=== PATIENT | male | born 1950 | race Hispanic/Latino ===

== ENCOUNTER 2017-02-02 22:59 | Inpatient (IN) | payer MEDICARE, MEDICAID ==
[2017-02-02] MEDS ORDERED: Sodium Chloride 0.9% 1,000 ML IV STA (23:54)
--- NOTE | 2017-02-02 23:54 | ED PDOC ---
Arrival/HPI - General Chief Complaint: Lower Extremity Problem/Injury Time Seen by Provider: 02/02/17 23:51 Historian: Caregiver, EMS - History of Present Illness Narrative History of Present Illness (Text): 02/02/17 23:55 Romulo Delaney is a 66 year old male, with a history of Parkinson's Disease and seizure, presents to the emergency department complaining via ambulance for evaluation following a mechanical fall prior to arrival. According to patient's caregiver, patient experienced a fall after his right knee "gave out." There is swelling and ecchymosis to the nasal bridge and approximately 1 cm wound with surrounding erythema to right knee. Patient is drowsy and is unable to answer questions. ROS limited due to patient's condition. Time/Duration: Prior to Arrival Symptom Onset: Sudden Severity Level: Mild Activities at Onset: Light Past Medical History - Provider Review Nursing Documentation Reviewed: Yes - Neurological Hx Parkinson's Disease: Yes Hx Seizures: Yes - Psychiatric Hx Substance Use: No Family/Social History - Physician Review Nursing Documentation Reviewed: Yes Family/Social History: No Known Family HX Smoking Status: n Hx Alcohol Use: No Hx Substance Use: No Allergies/Home Meds Allergies/Adverse Reactions: Allergies No Known Allergies Allergy (Verified 02/02/17 23:13) Home Medications: Home Meds Medication Instructions Recorded Confirmed Clonazepam [Klonopin] 1 mg PO BID 02/02/17 02/03/17 Mirtazapine [Remeron] 30 mg PO HS 02/02/17 02/02/17 Phenobarbital [PHENobarbital Tab] 32.4 mg PO TID 02/02/17 02/02/17 Thioridazine HCl 100 mg PO BID 02/02/17 02/03/17 amLODIPine [Norvasc] 10 mg PO DAILY 02/02/17 02/02/17 risperiDONE [RisperDAL] 0.25 mg PO BID 02/02/17 02/02/17 risperiDONE [RisperDAL] 0.5 mg PO DAILY 02/02/17 02/02/17 Carbamazepine [Carbamazepine] 100 mg PO BID 02/03/17 02/03/17 clonazePAM [clonAZEPAM] 1 mg PO HS 02/03/17 02/03/17 Review of Systems - Review of Systems Systems not reviewed;Unavailable: Other (incoherent and drowsy) ENT: Other (mild swelling to nasal bridge ) Genitourinary Male: Other (1 cm wound to right knee with surrounding erythema ) Physical Exam Vital Signs Reviewed: Yes Vital Signs Temp Pulse Resp BP Pulse Ox 02/03/17 03:47 98.2 F 86 18 126/74 99 02/03/17 02:12 96 H 18 136/78 100 02/03/17 00:35 101.2 F H 115 H 19 132/76 95 02/02/17 22:59 98.4 F 114 H 18 128/72 98 Temperature: Afebrile Blood Pressure: Normal Pulse: Tachycardic Respiratory Rate: Normal Appearance: Positive for: Well-Appearing, Non-Toxic, Comfortable Pain Distress: None Mental Status: Positive for: other (drowsy) - Systems Exam Head: Present: Normocephalic Pupils: Present: PERRL Conjunctiva: Present: Normal Mouth: Present: Moist Mucous Membranes. No: Dry Nose (External): Present: Other (mild swelling to nasal bridge ) Nose (Internal): No: No Active Bleeding, Septal Deviation, Septal Hematoma, Epistaxis Neck: Present: Normal Range of Motion. No: MIDLINE TENDERNESS, Paraspinal Tenderness Respiratory/Chest: Present: Clear to Auscultation, Good Air Exchange. No: Respiratory Distress, Accessory Muscle Use Cardiovascular: Present: Regular Rate and Rhythm, Normal S1, S2. No: Murmurs Abdomen: Present: Normal Bowel Sounds. No: Tenderness, Distention, Peritoneal Signs Upper Extremity: Present: Normal Inspection, Normal ROM, NORMAL PULSES, Neurovascularly Intact, Capillary Refill < 2s. No: Cyanosis, Edema Lower Extremity: Present: Normal Inspection, NORMAL PULSES, Normal ROM, Erythema , Neurovascularly Intact, Capillary Refill < 2 s, Other (10 cm area of erythema and warmth to Right proximal tibia with 1 cm wound ). No: Edema, CALF TENDERNESS, Swelling, Temperature Abnormalties Neurological: Present: Other (drowsy, will not comply w full neuro exam. no focal deficits) Skin: Present: Warm, Dry, Normal Color. No: Rashes Medical Decision Making ED Course and Treatment: 02/03/17 00:30 EKG interpreted by me: Sinus Tachycardia @ 122 bpm. Short KS. No STEMI. 02/03/17 01:[address] Zaidi who agrees with the plan to admit patient for cellulitis to right leg. Accepts patient under hospitalist service. 02/03/17 03:01 CT Head results reviewed: FINDINGS: Limitations: Motion artifact - mild to moderate. Brain: Mild atrophy. No definite intracranial hemorrhage. No mass. Few scattered foci of decreased attenuation within periventricular/subcortical white matter. No definite edema. Ventricles: No hydrocephalus. Bones/joints: No acute fracture. Soft tissues: Probable sebaceous cyst within LEFT temporal region. Sinuses: Complete opacification of frontal, LEFT maxillary sinus. Extensive mucosal thickening of RIGHT maxillary sinus. Partial opacification of ethmoid sinuses. Mild-to- moderate thickening of sphenoid sinuses. Mastoid air cells: No mastoid effusion. IMPRESSION: 1. Limited examination. Consider repeat when clinically able. 2. No definite intracranial hemorrhage. 3. Nonspecific white matter changes. 4. Sinus disease. 5. Incidental/non-acute findings are described above. CT Cervical Spine results reviewed: FINDINGS: Vertebrae: No acute fracture. Prominent anterior and posterior osteophytes. Mild facet osteoarthrosis within cervical spine. Discs/spinal canal/neural foramina: [id number] degenerative disc disease within mid and lower cervical spine. Disc herniations/posterior osteophytes within mid to lower cervical spine, suboptimally evaluated. Mild indentation thecal sac/cord mid cervical spine. Mild indentation thecal sac lower cervical spine. Neuroforaminal narrowing within mid and lower cervical spine. Soft tissues: Unremarkable. Sinuses: Scattered mucosal thickening of visualized sinuses. Lung apices: Unremarkable as visualized. IMPRESSION: 1. No fracture. 2. Incidental/non-acute findings are described above. - Lab Interpretations Microbiology Results: Microbiology Results 02/03/17 00:31 Blood-Venous Blood Culture - Preliminary NO GROWTH AFTER 3 DAYS 02/03/17 00:48 Blood-Venous Blood Culture - Preliminary NO GROWTH AFTER 3 DAYS Lab Results: 02/03/17 00:33 02/03/17 00:33 Lab Results 02/03/17 00:33: C-React Prot High Sens > 15.00 H 02/03/17 00:33: Procalcitonin 0.22 02/03/17 00:33: ESR 68 H 02/03/17 00:33: Alcohol, Quantitative < 10 02/03/17 00:33: Sodium 139, Chloride 102, Potassium 3.1 L, Carbon Dioxide 25, Anion Gap 15, BUN 22 H, Creatinine 0.8, Est GFR ( Amer) > 60, Est GFR ( Non-Af Amer) > 60, Random Glucose 143 H, Calcium 9.2, Total Bilirubin 0.7, AST 58, ALT 42, Alkaline Phosphatase 102, Troponin I 0.01, Total Protein 7.6, Albumin 3.8, Globulin 3.8, Albumin/Globulin Ratio 1.0 L 02/03/17 00:33: WBC 14.6 H, RBC 3.78, Hgb 11.8 L, Hct 32.9 L, MCV 87.0, MCH 31.2 , MCHC 35.9, RDW 13.1, Plt Count 210, MPV 10.5, Gran % 83.3 H, Lymph % (Auto) 6.1 L, [place] % (Auto) 10.5 H, Eos % (Auto) 0.0 L, Baso % (Auto) 0.1, Gran # 12.18 H, Lymph # 0.9 L, [place] # 1.5 H, Eos # 0.0, Baso # 0.01 02/03/17 00:31: pO2 37, VBG pH 7.43, VBG pCO2 39.0 L, VBG HCO3 25.9, VBG Total CO2 27.1, VBG O2 Sat (Calc) 75.1 H, VBG Base Excess 1.5, VBG Potassium 3.2 L, Sodium 138.0, Chloride 109.0 H, Glucose 145 H, Lactate 1.4, FiO2 21.0, Venous Blood Potassium 3.2 L - RAD Interpretation Radiology Orders: 02/02/17 23:52 CERVICAL SPINE W/O CONTRAST [CT] Stat HEAD W/O CONTRAST [CT] Stat 02/02/17 23:53 CHEST ONE VIEW [RAD] Stat KNEE RIGHT 2 VIEWS (AP & LAT) [RAD] Stat - Medication Orders Current Medication Orders: Amoxicillin/Clavulanate Potassium (Augmentin 875 Mg-125 Mg Tab) 1 tab PO Q12 UMBERTO PRN Reason: Protocol Stop: 02/13/17 22:01 Discontinued Medications Acetaminophen (Tylenol 325mg Tab) 650 mg PO STAT STA Stop: 02/03/17 01:13 Last Admin: 02/03/17 02:07 Dose: 650 mg Re-Assess: SELENA Pain/Vitals Document 02/03/17 03:07 KGD (Rec: 02/03/17 06:49 KGD [id number]) Pain Reassessment Is This A Pain ReAssessment? Yes Presence of Pain Presence of Pain Yes Acetaminophen (Tylenol 325mg Tab) 650 mg PO Q6 PRN PRN Reason: Fever >100.4 F Amlodipine Besylate (Norvasc) 10 mg PO DAILY [facility] Last Admin: 02/05/17 09:19 Dose: 10 mg Carbamazepine (Tegretol) 100 mg PO BID UMBERTO PRN Reason: Protocol Last Admin: 02/05/17 09:18 Dose: 100 mg Re-Assess: Reassess Psych Meds Document 02/05/17 10:18 MJO (Rec: 02/05/17 11:[address]) Reassess Psych Med Effective Clonazepam (Klonopin) 1 mg PO BID UMBERTO PRN Reason: Protocol Last Admin: 02/05/17 11:07 Dose: Clonazepam (Klonopin) 1 mg PO ONCE ONE Stop: 02/05/17 09:31 Last Admin: 02/05/17 09:48 Dose: 1 mg Re-Assess: Reassess Psych Meds Document 02/05/17 10:48 MJO (Rec: 02/05/17 11:[address]) Reassess Psych Med Ineffective-LIP notifed Enoxaparin Sodium (Lovenox) 40 mg SC DAILY UMBERTO PRN Reason: Protocol Last Admin: 02/05/17 13:42 Dose: Not Given Non-Admin Reason: Patient Refused Sodium Chloride (Sodium Chloride 0.9%) 1,000 mls @ 999 mls/hr IV .Q1H1M STA Stop: 02/03/17 00:54 Last Admin: 02/03/17 00:58 Dose: 999 mls/hr Cefazolin Sodium (Ancef 1gm In Ns) 1 gm in 100 mls @ 100 mls/hr IVPB STAT STA Stop: 02/03/17 00:56 Last Admin: 02/03/17 00:59 Dose: 100 mls/hr Vancomycin HCl (Vancomycin 1gm) 1 gm in 250 mls @ 167 mls/hr IVPB STAT STA Stop: 02/03/17 01:27 Last Admin: 02/03/17 00:59 Dose: 167 mls/hr Sodium Chloride (Sodium Chloride 0.9%) 1,000 mls @ 999 mls/hr IV .Q1H1M STA Stop: 02/03/17 02:19 Last Admin: 02/03/17 02:07 Dose: 999 mls/hr Vancomycin HCl (Vancomycin 1gm) 1 gm in 250 mls @ 167 mls/hr IVPB Q12 UMBERTO PRN Reason: Protocol Last Admin: 02/04/17 21:13 Dose: 167 mls/hr Piperacillin Sod/Tazobactam Sod (Zosyn 3.375 In Ns 100ml) 100 mls @ 200 mls/hr IVPB Q6 UMBERTO PRN Reason: Protocol Stop: 02/03/17 12:29 Last Admin: 02/03/17 12:20 Dose: 200 mls/hr Sodium Chloride (Sodium Chloride 0.9%) 1,000 mls @ 125 mls/hr IV .Q8H [facility] Last Admin: 02/03/17 17:32 Dose: 125 mls/hr Ceftriaxone Sodium (Rocephin 1 Gram Ivpb) 1 gm in 100 mls @ 100 mls/hr IVPB DAILY [facility] PRN Reason: Protocol Stop: 02/13/17 10:01 Last Admin: 02/04/17 09:36 Dose: 100 mls/hr Sodium Chloride (Sodium Chloride 0.9%) 1,000 mls @ 75 mls/hr IV .[id number] [facility] Last Admin: 02/05/17 06:16 Dose: 75 mls/hr Potassium Chloride (Potassium Chloride 10 Meq/100 Ml) 10 meq in 100 mls @ 100 mls/hr IVPB Q2H [facility] Stop: 02/04/17 13:29 Last Admin: 02/04/17 17:41 Dose: 100 mls/hr Mirtazapine (Remeron) 30 mg PO HS [facility] Last Admin: 02/04/17 21:16 Dose: 30 mg Non-Formulary Medication (Thioridazine Hcl [Thioridazine Hcl]) 100 mg PO DAILY [facility] Last Admin: 02/04/17 11:42 Dose: Not Given Non-Admin Reason: Patient Lethargic Pantoprazole Sodium (Protonix Ec Tab) 40 mg PO 0630 [facility] Last Admin: 02/05/17 06:01 Dose: 40 mg Phenobarbital (Phenobarbital Tab) 32.4 mg PO TID [facility] Last Admin: 02/05/17 14:39 Dose: 32.4 mg Potassium Chloride (Potassium Chloride Oral Soln) 40 meq PO STAT STA Stop: 02/03/17 02:18 Last Admin: 02/03/17 02:49 Dose: 40 meq Potassium Chloride (Potassium Chloride Oral Soln) 40 meq PO ONCE ONE Stop: 02/03/17 07:55 Last Admin: 02/03/17 08:43 Dose: 40 meq Potassium Chloride (Potassium Chloride Oral Soln) 40 meq PO ONCE ONE Stop: 02/04/17 10:27 Last Admin: 02/04/17 11:41 Dose: Not Given Non-Admin Reason: Patient Lethargic Risperidone (Risperdal Tab) 0.25 mg PO BID UMBERTO PRN Reason: Protocol Last Admin: 02/03/17 10:44 Dose: Comments: Risperidone (Risperdal Tab) 0.5 mg PO DAILY UMBERTO PRN Reason: Protocol Last Admin: 02/05/17 09:19 Dose: 0.5 mg Re-Assess: Reassess Psych Meds Document 02/05/17 10:19 MJO (Rec: 02/05/17 13:[address]) Reassess Psych Med Ineffective-LIP notifed Risperidone (Risperdal Tab) 0.25 mg PO 1200,2200 UMBERTO PRN Reason: Protocol Last Admin: 02/05/17 13:43 Dose: 0.25 mg - Scribe Statement The provider has reviewed the documentation as recorded by the Lamont Negro Provider Attestation: All medical record entries made by the Lamont were at my direction and personally dictated by me. I have reviewed the chart and agree that the record accurately reflects my personal performance of the history, physical exam, medical decision making, and the department course for this patient. I have also personally directed, reviewed, and agree with the discharge instructions and disposition. Disposition/Present on Arrival - Present on Arrival Any Indicators Present on Arrival: No History of DVT/PE: No History of Uncontrolled Diabetes: No Urinary Catheter: No History of Decub. Ulcer: No History Surgical Site Infection Following: None - Disposition Have Diagnosis and Disposition been Completed?: Yes Diagnosis: Cellulitis of lower extremity Disposition: HOSPITALIZED Disposition Time: :17 Condition: STABLE
[2017-02-02] MEDS ORDERED: Vancomycin 500 mg Inj IVPB STA (23:55)
[2017-02-02] MEDS ORDERED: ceFAZolin 1 gm in NS 1 GM/100 ML BAG IVPB STA (23:57)
[2017-02-02] MEDS ORDERED: Vancomycin 1gm in NS 250ml 1 GM/250 ML BAG IVPB STA (23:58)
[2017-02-03 01:04] LABS: ADD MANUAL DIFF? NO
[2017-02-03 01:06] LABS: VENOUS BLOOD GAS BASE EXCESS 1.5 mmol/L (0.0-2.0); VENOUS BLOOD PH 7.43 (7.32-7.43)
[2017-02-03 01:06] LABS: BASO # 0.01 K/mm3 (0.0-2.0); BASO % 0.1 % (0.0-3.0); GRAN # 12.18 (1.4-6.5); GRAN % 83.3 % (50.0-68.0); HEMATOCRIT 32.9 % (42.0-52.0); LYMPH # 0.9 (1.2-3.4); LYMPH % 6.1 % (22.0-35.0); MEAN CORPUSCULAR HEMOGLOBIN 31.2 pg (25.0-35.0); MEAN CORPUSCULAR HGB CONC 35.9 g/dl (31.0-37.0); MEAN PLATELET VOLUME 10.5 fl (7.0-11.0); MONO # 1.5 (0.1-0.6); MONO % 10.5 % (1.0-6.0); PLATELET COUNT 210 10^3/uL (120.0-450.0); RED CELL DISTRIBUTION WIDTH 13.1 % (11.5-14.5); WHITE BLOOD COUNT 14.6 10^3/ul (4.5-11.0)
[2017-02-03 01:12] LABS: ALKALINE PHOSPHATASE 102 U/L (38-133); ALT/SGPT 42 U/L (7-56); AST/SGOT 58 U/L (15-59); BILIRUBIN,TOTAL 0.7 mg/dL (0.2-1.3); BLOOD UREA NITROGEN 22 mg/dL (7-21); CALCIUM 9.2 mg/dL (8.4-10.5); CARBON DIOXIDE 25 mmol/L (21-33); CHLORIDE 102 mmol/L (98-107); GFR AFRICAN-AMERICAN > 60; GLUCOSE,RANDOM 143 mg/dL (70-110); POTASSIUM 3.1 mmol/L (3.6-5.0); SODIUM 139 mmol/L (132-148); TOTAL PROTEIN 7.6 g/dL (5.8-8.3)
[2017-02-03] MEDS ORDERED: Sodium Chloride 0.9% 1,000 ML IV STA (01:19)
--- NOTE | 2017-02-03 02:12 | CP.PCM.HP ---
Addendum entered and electronically signed by Alice Best DO 02/03/17 11: 51: I spoke with patient's pharmacy ([facility]) and confirmed the meds and updated the home medications. The patient's PMD is Dr. Benjamin Mantilla in [place] and Neurologist is Dr. Canales. As per the electrician outside (Benjamin Velasquez [phone]) , the patient has not slept in a few days. He is usually up all night sleeps in the morning. I spoke with Dr. Canales, he suggested checking a phenobarbitol and carbamazipine level for patient's increased sedation upon examination this AM. Original Note: <Iva Bhat - Last Filed: 02/03/17 02:29> History of Present Illness - History of Present Illness History of Present Illness: Internal medicine H & P for Hospitalist service- Iva Bhat, PGY-1 Pt S & E at bedside. History per EMR - pt with developmental delay- only answering simple questions. Per ED attending- electrician outside unavailable - left pt in ED. 66M w/PMH sig for developmental delay admitted for Right knee cellulitis/ abscess of unknown duration. No other history obtainable from patient due to developmental delay. Admits to pain of Right knee cellulitis upon palpation. Denies chest pain, abdominal pain, nausea, vomiting, fevers, chills, SOB. ROS limited due to developmental delay. PMH: Developmental delay, Parkinson's disease, Seizure d/o PSH: Unknown All: NKA SH: Has electrician outside- not currently at bedside. PMD: Unknown Pharmacy: Unknown Present on Admission - Present on Admission Any Indicators Present on Admission: No History of DVT/PE: No History of Uncontrolled Diabetes: No Urinary Catheter: No Decubitus Ulcer Present: No Review of Systems - Review of Systems Systems not reviewed;Unavailable: Other (developmentally delayed, only answering some simple questions- lethargic) All systems: reviewed and no additional remarkable complaints except - Constitutional Constitutional: absent: Chills, Fever - Cardiovascular Cardiovascular: absent: Chest Pain - Gastrointestinal Gastrointestinal: absent: Abdominal Pain Past Patient History - Past Social History Smoking Status: n - NEUROLOGICAL Hx Parkinson's Disease: Yes Hx Seizures: Yes - PSYCHIATRIC Hx Substance Use: No Meds Allergies/Adverse Reactions: Allergies Allergy/AdvReac Type Severity Reaction Status Date / Time No Known Allergies Allergy Verified 02/02/17 23:13 Physical Exam - Constitutional Appears: No Acute Distress - Head Exam Head Exam: NORMAL INSPECTION, NORMOCEPHALIC. absent: ATRAUMATIC (bridge of nose with superficial abrasion-no bleeding) - Eye Exam Eye Exam: EOMI, Normal appearance, PERRL Pupil Exam: NORMAL ACCOMODATION, PERRL - ENT Exam ENT Exam: Mucous Membranes Moist, Normal Exam - Neck Exam Neck exam: Positive for: Full Rom, Normal Inspection - Respiratory Exam Respiratory Exam: Clear to Auscultation Bilateral, NORMAL BREATHING PATTERN - Cardiovascular Exam Cardiovascular Exam: Tachycardia, +S1, +S2 - GI/Abdominal Exam GI & Abdominal Exam: Normal Bowel Sounds, Soft. absent: Distended, Firm, Guarding, Hernia, Tenderness - Extremities Exam Extremities exam: Positive for: tenderness (Right lateral proximal leg with cellulitic area, small scab over lateral aspect of cellulitis, approximately 4 x 3 cm, fluctuant, indurated at margins, tender). Negative for: normal inspection, pedal edema - Neurological Exam Additional comments: lethargic, only answering some simple questions - Skin Skin Exam: Abrasion (over nasal bridge), Erythema (Right proximal lateral leg- see extremity for details), Warm Results - Vital Signs Recent Vital Signs: Last Vital Signs Temp 101.2 F H 02/03/17 00:35 Pulse 115 H 02/03/17 00:35 Resp 19 02/03/17 00:35 BP 132/76 02/03/17 00:35 Pulse Ox 95 02/03/17 00:35 - Labs Result Diagrams: 02/03/17 00:33 02/03/17 00:33 Labs: Laboratory Results - last 24 hr 02/03/17 02/03/17 02/03/17 00:31 00:33 00:33 WBC 14.6 H RBC 3.78 Hgb 11.8 L Hct 32.9 L MCV 87.0 MCH 31.2 MCHC 35.9 RDW 13.1 Plt Count 210 MPV 10.5 Gran % 83.3 H Lymph % (Auto) 6.1 L [place] % (Auto) 10.5 H Eos % (Auto) 0.0 L Baso % (Auto) 0.1 Gran # 12.18 H Lymph # 0.9 L [place] # 1.5 H Eos # 0.0 Baso # 0.01 pO2 37 VBG pH 7.43 VBG pCO2 39.0 L VBG HCO3 25.9 VBG Total CO2 27.1 VBG O2 Sat (Calc) 75.1 H VBG Base Excess 1.5 VBG Potassium 3.2 L Sodium 138.0 139 Chloride 109.0 H 102 Glucose 145 H Lactate 1.4 FiO2 21.0 Potassium 3.1 L Carbon Dioxide 25 Anion Gap 15 BUN 22 H Creatinine 0.8 Est GFR ( Amer) > 60 Est GFR (Non-Af Amer) > 60 Random Glucose 143 H Calcium 9.2 Total Bilirubin 0.7 AST 58 ALT 42 Alkaline Phosphatase 102 Total Protein 7.6 Albumin 3.8 Globulin 3.8 Albumin/Globulin Ratio 1.0 L Venous Blood Potassium 3.2 L Alcohol, Quantitative 02/03/17 00:33 WBC RBC Hgb Hct MCV MCH MCHC RDW Plt Count MPV Gran % Lymph % (Auto) [place] % (Auto) Eos % (Auto) Baso % (Auto) Gran # Lymph # [place] # Eos # Baso # pO2 VBG pH VBG pCO2 VBG HCO3 VBG Total CO2 VBG O2 Sat (Calc) VBG Base Excess VBG Potassium Sodium Chloride Glucose Lactate FiO2 Potassium Carbon Dioxide Anion Gap BUN Creatinine Est GFR ( Amer) Est GFR (Non-Af Amer) Random Glucose Calcium Total Bilirubin AST ALT Alkaline Phosphatase Total Protein Albumin Globulin Albumin/Globulin Ratio Venous Blood Potassium Alcohol, Quantitative < 10 Assessment & Plan - Assessment and Plan (Free Text) Assessment: 66M w/PMH sig for Parkinson's dementia/developmental delay, HTN and possible psych history admitted for sepsis due to Right knee/leg cellulitis/abscess. Plan: Sepsis 2/2 Right knee cellulitis/abscess Febrile 101.2 Tachycardia of 115 Leukocytosis of 14.6 O2 via NC PRN NS@125 Given Cefazolin 1gm in ED Given 1 gm Vancomycin in ED Given 2 bolus's of NS in ED Started Vancomycin 1gm Q12H Started Zosyn 3.375 gm Q6H Tylenol PRN Fever Fu procalcitonin FU ESR FU CRP FU UDS FU blood cx FU urine cx FU U/A FU 2 View knee x-ray Surgery consult- [place] Fall FU CT brain FU Cervical spine CT Neuro checks Q12H Hx Parkinsons Fall precautions Hx Seizure d/o Re-started home meds: Phenobarbital, Risperidone Holding Klonopin due to lethargy and AMS May consider re-starting benzos if pt more awake and alert Hypokalemia K 3.1 Replaced 40 mEq KCl Monitor HTN BP 136/78 Holding Norvasc due to infection at this time Monitor GI/DVT ppx Protonix SCDs contraindicated due to celluitis Lovenox Dispo Admit to Med-surg Fall precautions Regular diet Aspiration precautions VS Q8H Psych consulted for psych drug mgmt- David REYES attending - Date & Time Date: 02/03/17 Time: 02:00 Decision To Admit - Pt Status Changed To: Hospital Disposition Of: Observation - . Bed Request Type: Med/Surg Admitting Physician: Maxi Zaidi <Maxi Zaidi - Last Filed: 02/10/17 19:17> Results - Vital Signs Recent Vital Signs: Last Vital Signs Temp 97.6 F 02/05/17 07:30 Pulse 99 H 02/05/17 07:30 Resp 18 02/05/17 07:30 BP 154/86 H 02/05/17 09:19 Pulse Ox 96 02/05/17 07:30 - Labs Result Diagrams: 02/05/17 07:30 02/05/17 07:30 Attending/Attestation - Attestation I have personally seen and examined this patient.: Yes I have fully participated in the care of the patient.: Yes I have reviewed all pertinent clinical information: Yes
[2017-02-03 02:13] LABS: TROPONIN I 0.01 ng/mL
[2017-02-03] MEDS ORDERED: Potassium Chloride 40 mEq/30 ml LIQ UD PO STA (02:17)
--- NOTE | 2017-02-03 02:44 | CT ---
EXAM: CT Head Without Intravenous Contrast CLINICAL HISTORY: 66 years old, male; Injury or trauma; Fall; Initial encounter; Concussion / head injury TECHNIQUE: Axial computed tomography images of the head/brain without intravenous contrast. This CT exam was performed using one or more of the following dose reduction techniques: automated exposure control, adjustment of the mA and/or kV according to patient size, and/or use of iterative reconstruction technique. COMPARISON: No relevant prior studies available. FINDINGS: Limitations: Motion artifact - mild to moderate. Brain: Mild atrophy. No definite intracranial hemorrhage. No mass. Few scattered foci of decreased attenuation within periventricular/subcortical white matter. No definite edema. Ventricles: No hydrocephalus. Bones/joints: No acute fracture. Soft tissues: Probable sebaceous cyst within LEFT temporal region. Sinuses: Complete opacification of frontal, LEFT maxillary sinus. Extensive mucosal thickening of RIGHT maxillary sinus. Partial opacification of ethmoid sinuses. [id number] thickening of sphenoid sinuses. Mastoid air cells: No mastoid effusion. IMPRESSION: 1. Limited examination. Consider repeat when clinically able. 2. No definite intracranial hemorrhage. 3. Nonspecific white matter changes. 4. Sinus disease. 5. Incidental/non-acute findings are described above.
[2017-02-03] MEDS: Sodium Chloride 0.9% 1,000 ML IV SCH ×3 (02:49→17:32)
--- NOTE | 2017-02-03 03:00 | CT ---
EXAM: CT Cervical Spine Without Intravenous Contrast CLINICAL HISTORY: 66 years old, male; Injury or trauma; Fall; Initial encounter; Concussion /head injury TECHNIQUE: Axial computed tomography images of the cervical spine without intravenous contrast. This CT exam was performed using one or more of the following dose reduction techniques: automated exposure control, adjustment of the mA and/or kV according to patient size, and/or use of iterative reconstruction technique. Coronal and sagittal reformatted images were created and reviewed. COMPARISON: No relevant prior studies available. FINDINGS: Vertebrae: No acute fracture. Prominent anterior and posterior osteophytes. Mild facet osteoarthrosis within cervical spine. Discs/spinal canal/neural foramina: [id number] degenerative disc disease within mid and lower cervical spine. Disc herniations/posterior osteophytes within mid to lower cervical spine, suboptimally evaluated. Mild indentation thecal sac/cord mid cervical spine. Mild indentation thecal sac lower cervical spine. Neuroforaminal narrowing within mid and lower cervical spine. Soft tissues: Unremarkable. Sinuses: Scattered mucosal thickening of visualized sinuses. Lung apices: Unremarkable as visualized. IMPRESSION: 1. No fracture. 2. Incidental/non-acute findings are described above.
--- NOTE | 2017-02-03 05:34 | CP.PCM.CON ---
History of Present Illness - History of Present Illness History of Present Illness: General Surgery Consult Note for Dr. Gorman HPI: This is a developementally disabled 66M with PMH of parkinsons and seizure disorder. Patient was brought into the ED by EMS due to a mechanical fall. She reports that his right knee gave out. Patient is unable to answer questions, per staff it is my understanding that the hiv/aids care nurse left without providing any more information on the patient and without leaving contact information. He presents with a, approximately 5cm erythematous fluctuate area below his right patella. PMH: Developmental delay, Parkinson's disease, Seizure d/o PSH: Unknown All: NKA Review of Systems - Review of Systems Systems not reviewed;Unavailable: Altered Mental Status Past Patient History - Past Social History Smoking Status: n - NEUROLOGICAL Hx Parkinson's Disease: Yes Hx Seizures: Yes - PSYCHIATRIC Hx Substance Use: No Meds Allergies/Adverse Reactions: Allergies Allergy/AdvReac Type Severity Reaction Status Date / Time No Known Allergies Allergy Verified 02/02/17 23:13 - Medications Medications: Current Medications Acetaminophen (Tylenol 325mg Tab) 650 mg PO Q6 PRN PRN Reason: Fever >100.4 F Enoxaparin Sodium (Lovenox) 40 mg SC DAILY [facility] PRN Reason: Protocol Vancomycin HCl (Vancomycin 1gm) 1 gm in 250 mls @ 167 mls/hr IVPB Q12 [facility] PRN Reason: Protocol Piperacillin Sod/Tazobactam Sod (Zosyn 3.375 In Ns 100ml) 100 mls @ 200 mls/hr IVPB Q6 [facility] PRN Reason: Protocol Stop: 02/03/17 12:29 Sodium Chloride (Sodium Chloride 0.9%) 1,000 mls @ 125 mls/hr IV .Q8H [facility] Last Admin: 02/03/17 02:49 Dose: 125 mls/hr Non-Formulary Medication (Thioridazine Hcl [Thioridazine Hcl]) 100 mg PO DAILY [facility]ERTO Pantoprazole Sodium (Protonix Ec Tab) 40 mg PO 0630 [facility] Phenobarbital (Phenobarbital Tab) 32.4 mg PO TID U[facility]ERTO Risperidone (Risperdal Tab) 0.25 mg PO BID [facility]O PRN Reason: Protocol Physical Exam - Constitutional Additional comments: Drowsy, barely arousable - Head Exam Head Exam: ATRAUMATIC, NORMOCEPHALIC - Eye Exam Eye Exam: Normal appearance - ENT Exam ENT Exam: Mucous Membranes Moist - Respiratory Exam Respiratory Exam: NORMAL BREATHING PATTERN - Cardiovascular Exam Cardiovascular Exam: +S1, +S2 - GI/Abdominal Exam GI & Abdominal Exam: Soft. absent: Distended, Firm, Guarding, Hernia - Extremities Exam Additional comments: Non tender 5cm indurated erythemaous fluctant lesion - Neurological Exam Neurological exam: Altered - Skin Skin Exam: Erythema Results - Vital Signs Recent Vital Signs: Last Vital Signs Temp 98.2 F 02/03/17 03:47 Pulse 86 02/03/17 03:47 Resp 18 02/03/17 03:47 BP 126/74 02/03/17 03:47 Pulse Ox 99 02/03/17 03:47 - Labs Result Diagrams: 02/03/17 00:33 02/03/17 00:33 Assessment & Plan - Assessment and Plan (Free Text) Assessment: This is a 66M w/PMH sig for Parkinson's dementia/developmental delay, HTN and possible psych history admitted for sepsis and right knee lesion likely an abscess vs hematoma. VS currently stable however Tmax 101.2 WBC 14.6 Bedside I&D at bedside today Continue abx and medical managmenet per primary team D/W Dr. Sherif Yang PGY-1
[2017-02-03] MEDS: Pantoprazole 40 mg EC Tab PO SCH (06:52)
[2017-02-03] MEDS: Piperacillin/Tazobact 3.375 gm 100 ML IVPB SCH ×2 (06:52→12:20)
[2017-02-03 07:26] LABS: ADD MANUAL DIFF? NO
[2017-02-03 07:37] LABS: BASO # 0.01 K/mm3 (0.0-2.0); BASO % 0.1 % (0.0-3.0); GRAN % 78.8 % (50.0-68.0); HEMATOCRIT 29.6 % (42.0-52.0); LYMPH # 1.3 (1.2-3.4); LYMPH % 9.2 % (22.0-35.0); MEAN CELL VOLUME 87.3 fL (80.0-105.0); MEAN CORPUSCULAR HEMOGLOBIN 29.8 pg (25.0-35.0); MEAN CORPUSCULAR HGB CONC 34.1 g/dl (31.0-37.0); MEAN PLATELET VOLUME 10.2 fl (7.0-11.0); MONO # 1.7 (0.1-0.6); MONO % 11.9 % (1.0-6.0); PLATELET COUNT 186 10^3/uL (120.0-450.0); RED CELL DISTRIBUTION WIDTH 13.2 % (11.5-14.5); WHITE BLOOD COUNT 14.6 10^3/ul (4.5-11.0)
[2017-02-03 07:47] LABS: ALKALINE PHOSPHATASE 83 U/L (38-133); ALT/SGPT 44 U/L (7-56); AST/SGOT 42 U/L (15-59); BILIRUBIN,TOTAL 0.5 mg/dL (0.2-1.3); BLOOD UREA NITROGEN 18 mg/dL (7-21); CALCIUM 8.4 mg/dL (8.4-10.5); CARBON DIOXIDE 23 mmol/L (21-33); CHLORIDE 109 mmol/L (95-110); GFR AFRICAN-AMERICAN > 60; GLUCOSE,RANDOM 125 mg/dL (70-110); POTASSIUM 3.2 mmol/L (3.6-5.0); SODIUM 140 mmol/L (132-148); TOTAL PROTEIN 6.3 g/dL (5.8-8.3)
[2017-02-03] MEDS ORDERED: Potassium Chloride 40 mEq/30 ml LIQ UD PO ONE (07:54)
--- NOTE | 2017-02-03 09:09 | CARD ---
APPROVED REPORT EKG Measurement Heart [id number] <Conclusion> Sinus tachycardia with short OR Possible Left atrial enlargement Borderline ECG
--- NOTE | 2017-02-03 09:11 | RAD ---
PROCEDURE: CHEST RADIOGRAPH, 1 VIEW HISTORY: fall COMPARISON: None available. FINDINGS: LUNGS: Clear. PLEURA: No pneumothorax or pleural fluid seen. CARDIOVASCULAR: Normal. OSSEOUS STRUCTURES: No significant abnormalities. VISUALIZED UPPER ABDOMEN: Normal. OTHER FINDINGS: None. IMPRESSION: No active disease.
--- NOTE | 2017-02-03 10:10 | RAD ---
PROCEDURE: Right Knee Radiographs. HISTORY: fall COMPARISON: None. FINDINGS: BONES: Normal. No fracture. JOINTS: Normal. No osteoarthritis. JOINT EFFUSION: None. OTHER FINDINGS: None. IMPRESSION: Normal radiographs of the right knee.
[2017-02-03] MEDS: Enoxaparin 40 mg Syringe SC SCH (10:42)
[2017-02-03] MEDS: Vancomycin 1gm in NS 250ml 1 GM/250 ML BAG IVPB SCH ×2 (10:43→21:48)
[2017-02-03] MEDS: THIORIDAZINE HCL 100 MG PO SCH (10:47)
--- NOTE | 2017-02-03 11:08 | PCM.PSYCH ---
Initial Psychiatric Evaluation - Initial Psychiatric Evaluation Legal Status: Other Chief Complaint (in patient's own words): Patient is a poor historian and lethargic. I have interviewed him in the presence of Dr. Vela and associated. The patient himself cannot give a history and is lethargic He reportedly was brought into the emergency room by his home A because of what appears to be right leg cellulitis The patient is known to have a developmental delay of the extent of which is unknown he also has a seizure disorder. The patient has been maintained on Mellaril, phenobarbital, respiratory, and mirtazapine. He also apparently had been maintained on Klonopin but that this was stopped because of his lethargy. My assumption, without yet having gone to the facts are that the patient can be agitated because he is on such a multi-complex mixture of tranquilizing medication. Patient's Reaction to Hospitalization: Patient is presently sedate. History of Present Illness and Precipitating Events: The patient was brought to the hospital by his home coordinator. Responsible parties to his welfare are uncertain at this time although there is a relative listed on the face sheet. What is known is that he is on multiple psychotropic medications and an anti- seizure medication and is developmentally delayed. His baseline mental state is unknown at this time. Current Medications: Active Medications Generic Name Dose Route Start Last Admin Trade Name Freq PRN Reason Stop Dose Admin Acetaminophen 650 mg 02/03/17 02:26 Tylenol 325mg Tab PO Q6 PRN Fever >100.4 F Enoxaparin Sodium 40 mg 02/03/17 10:00 02/03/17 10:42 Lovenox SC 40 mg DAILY UMBERTO Administration Protocol Vancomycin HCl 1 gm in 250 mls @ 167 mls/hr 02/03/17 10:00 02/03/17 10:43 Vancomycin 1gm IVPB 167 mls/hr Q12 UMBERTO Administration Protocol Piperacillin Sod/Tazobactam Sod 100 mls @ 200 mls/hr 02/03/17 06:00 02/03/17 06:52 Zosyn 3.375 In Ns 100ml IVPB 02/03/17 12:29 200 mls/hr Q6 [facility]MBERTO Administration Protocol Sodium Chloride 1,000 mls @ 125 mls/hr 02/03/17 02:15 02/03/17 10:45 Sodium Chloride 0.9% IV 125 mls/hr .Q8H [facility]O Administration Non-Formulary Medication 100 mg 02/03/17 10:00 02/03/17 10:47 Thioridazine Hcl [Thioridazine Hcl] PO Not Given DAILY UMBERTO Pantoprazole Sodium 40 mg 02/03/17 06:30 02/03/17 06:52 Protonix Ec Tab PO 40 mg 0630 UMBERTO Administration Phenobarbital 32.4 mg 02/03/17 10:00 02/03/17 10:43 Phenobarbital Tab PO Not Given TID UMBERTO Risperidone 0.25 mg 02/03/17 10:00 02/03/17 10:44 Risperdal Tab PO Not Given BID UMBERTO Protocol Past Psychiatric History - Past Psychiatric History Prior Professional Help: Uncertain Prior Psychiatric Treatment: Uncertain History of Abuse: Uncertain History of ETOH/Drug Use: Uncertain History of Family Illness: Unknown Pertinent Medical Hx (Current Medical&Sleep Prob, Allergies): Allergies Allergy/AdvReac Type Severity Reaction Status Date / Time No Known Allergies Allergy Verified 02/02/17 23:13 Clonazepam [Klonopin] 1 mg PO TID 02/02/17 Mirtazapine [Remeron] 30 mg PO HS 02/02/17 Phenobarbital [PHENobarbital Tab] 32.4 mg PO TID 02/02/17 Thioridazine HCl 100 mg PO DAILY 02/02/17 amLODIPine [Norvasc] 10 mg PO DAILY 02/02/17 risperiDONE [RisperDAL] 0.25 mg PO BID 02/02/17 risperiDONE [RisperDAL] 0.5 mg PO DAILY 02/02/17 Review of Systems - Review of Systems Systems not reviewed;Unavailable: Acuity of Condition (Patient unable to engage in a review of systems at this time) Mental Status Examination - Personal Presentation Personal Presentation: Looks older than stated age ( ) - Affect Affect: Flat ( ) - Motor Activity Motor Activity: Psychomotor Retardation ( ) - Reliability in Providing Information Reliability in Providing Information: Poor, due to cognitve impairment ( ) - Speech Speech: Other ( ) - Cognitive Functions Sensorium: Lethargic ( ) - Risk Risk: Seizure ( ) - Strength & Assets Inventory Strength & Assets Inventory: Other ( ) Additional comments: Has homeaide - Limitations Limitations: Other DSM 5 DX - DSM 5 DSM 5 Diagnosis: Delirium at this time superimposed on an individual with intellectual impairment and possible behavioral disturbance - Recommended/Plan of Treatment Treatment Recommendations and Plan of Treatment: We'll presently hold phenobarbital, thioridazine, respiratory until patient becomes more alert and responsive Prognosis: Good for worship to baseline state - Smoking Cessation Smoking Cessation Initiated: No Reason for not providing: Patient not able to assimilate information at this juncture
--- NOTE | 2017-02-03 13:48 | CON ---
DATE: 02/03/2017 The patient is in room 572, bed 1. CHIEF COMPLAINT: Fever x 1 day duration. HISTORY OF PRESENT ILLNESS: This is a 66-year-old male who was seen earlier in 572, bed 1, who is de velopmentally delayed, Parkinson's disease, bedridden, seizures who is admitted now, found to have a fever. Infectious disease consultation requested. The patient is a poor historian and information i s gathered from the chart that available. Dr. David Quinones had seen the patient in the Emergency Room yesterday and states that the patient has Parkinson's disease and seizures and presented to the Emergency Department after a mechanical fall and had a fever in the Emergency Room. REVIEW OF SYSTEMS: Reveals no abdominal pain, diarrhea or constipation. No bright red blood per rec kp, no melena. Review of systems reveals there have been fevers. No chest pain, shortness of breat h, cough, no hemoptysis, no abdominal pain, diarrhea or constipation. The patient did have a fall an d injury to the right leg. PAST MEDICAL HISTORY: Significant for developmentally delayed, Parkinson's and seizures. PAST SURGICAL HISTORY: Noncontributory. ALLERGIES: The patient has no known allergies. MEDICATIONS: At home include the patient to be on carbamazepine and ____, clonidine and Risperdal. PHYSICAL EXAMINATION: VITAL SIGNS: The patient is in bed with a temperature of 101.2, blood pressure is 130/70, respirator y rate of 19 and patient's heart rate was up to 115. Temperature was 101.2, blood pressure 126/74. HEENT: Unremarkable. NECK: Supple. LUNGS: Have decreased breath sounds. HEART: Normal S1, S2. ABDOMEN: Soft, nontender. No rebound or guarding. EXTREMITIES: Examination of right leg is erythema. There is an open ulcer. It does not involve the knee. It is below the knee and the knee has full range of motion. LABORATORY EXAMINATION: Reveals the white count is 14,600, hemoglobin of 11 and platelets of 210. C hemistries reveal the BUN of 22, creatinine of 0.8. Microbiology is pending. Blood culture, wound c ulture is pending. ASSESSMENT AND PLAN: A 66-year-old male with sepsis secondary to right lower extremity cellulitis, n ot involving the knee joint, with an open ulcer. We will treat the patient with vancomycin as ordere d and ceftriaxone pending pollock culture results. Should consider underlying osteomyelitis imaging and the patient does have an elevated sed rate and C-reactive protein. HV has been tested. We will chec k on all the results and make further recommendations. Roshan Preston MD cc: [phone] TT: 02/03/2017 13:47:14 Confirmation # [id number] Dictation # [id number] tn
--- NOTE | 2017-02-03 15:25 | PCM.PROC ---
- Incision & Drainage Of Abscess Anesthesia: Lidocaine 1%, With Epi Prep Used: Betadine Procedure: Incised W/Scalpel Blade#: (11), Drained Pus (15cc), Irrigated Cavity W/Saline, Probed To Break Up Loculations, Packed W/Gauze (iodoform), Cultures Obtained And Sent To Lab
[2017-02-03] MEDS: carBAMazepine Chew Tab 100 MG Chew Tab PO SCH (17:31)
--- NOTE | 2017-02-04 00:33 | CP.PCM.PN ---
Subjective - Date & Time of Evaluation Date of Evaluation: 02/04/17 Time of Evaluation: 06:30 - Subjective Subjective: General Surgery progress note for Dr. Gorman Pt s/e at bedside this AM. NAEO. Interview is limited by patient's chronic altered mental status, but patient was sleeping comfortably when I entered and denies any pain at this time. Objective - Vital Signs/Intake and Output Vital Signs (last 24 hours): Temp Pulse Resp BP Pulse Ox 98.2 F 110 H 20 129/78 97 02/03/17 15:35 02/03/17 15:35 02/03/17 15:35 02/03/17 15:35 02/03/17 15:35 Intake and Output: 02/03/17 02/04/17 18:59 06:59 Intake Total 1000 710 Balance 1000 710 - Medications Medications: Current Medications Acetaminophen (Tylenol 325mg Tab) 650 mg PO Q6 PRN PRN Reason: Fever >100.4 F Amlodipine Besylate (Norvasc) 10 mg PO DAILY U[facility]ERTO Carbamazepine (Tegretol) 100 mg PO BID [facility]ERTO PRN Reason: Protocol Last Admin: 02/03/17 17:31 Dose: 100 mg Clonazepam (Klonopin) 1 mg PO BID U[facility]ERTO PRN Reason: Protocol Last Admin: 02/03/17 17:31 Dose: 1 mg Enoxaparin Sodium (Lovenox) 40 mg SC DAILY UMBERTO PRN Reason: Protocol Last Admin: 02/03/17 10:42 Dose: 40 mg Vancomycin HCl (Vancomycin 1gm) 1 gm in 250 mls @ 167 mls/hr IVPB Q12 [facility]ERTO PRN Reason: Protocol Last Admin: 02/03/17 21:48 Dose: 167 mls/hr Sodium Chloride (Sodium Chloride 0.9%) 1,000 mls @ 125 mls/hr IV .Q8H [facility] Last Admin: 02/03/17 17:32 Dose: 125 mls/hr Ceftriaxone Sodium (Rocephin 1 Gram Ivpb) 1 gm in 100 mls @ 100 mls/hr IVPB DAILY [facility]ERTO PRN Reason: Protocol Stop: 02/13/17 10:01 Mirtazapine (Remeron) 30 mg PO HS [facility]ERTO Last Admin: 02/03/17 21:48 Dose: 30 mg Non-Formulary Medication (Thioridazine Hcl [Thioridazine Hcl]) 100 mg PO DAILY UMBERTO Last Admin: 02/03/17 10:47 Dose: Not Given Pantoprazole Sodium (Protonix Ec Tab) 40 mg PO 0630 [facility] Last Admin: 02/03/17 06:52 Dose: 40 mg Phenobarbital (Phenobarbital Tab) 32.4 mg PO TID [facility] Last Admin: 02/03/17 17:30 Dose: 32.4 mg Risperidone (Risperdal Tab) 0.5 mg PO DAILY [facility] PRN Reason: Protocol Risperidone (Risperdal Tab) 0.25 mg PO 1200,2200 [facility] PRN Reason: Protocol Last Admin: 02/03/17 21:48 Dose: 0.25 mg - Labs Labs: 02/03/17 07:00 02/03/17 07:00 - Constitutional Appears: Well, Non-toxic, No Acute Distress - Head Exam Head Exam: ATRAUMATIC, NORMOCEPHALIC - Eye Exam Eye Exam: Normal appearance. absent: Conjunctival injection, Scleral icterus - ENT Exam ENT Exam: Mucous Membranes Moist, Normal Oropharynx - Respiratory Exam Respiratory Exam: NORMAL BREATHING PATTERN. absent: Accessory Muscle Use, Respiratory Distress - GI/Abdominal Exam GI & Abdominal Exam: Soft. absent: Distended, Tenderness - Extremities Exam Extremities Exam: Tenderness (tenderness in the area surrounding the surgical incision site). absent: Calf Tenderness, Pedal Edema Additional comments: R Lower leg warm to the touch, mild diffuse erythema of lower extremity. Surgical dressing intact with moderat sero-sanguinous saturation. - Neurological Exam Neurological Exam: Altered, Awake - Psychiatric Exam Psychiatric exam: Flat Affect, Normal Mood - Skin Skin Exam: Dry. absent: Rash Additional comments: see extremity exam Assessment and Plan - Assessment and Plan (Free Text) Assessment: This is a 66M w/PMH sig for Parkinson's dementia/developmental delay admitted for sepsis and right knee abscess POD #1 s/p I&D WBC: 11.4 down from 14.6 yesterday Persistent mild tachycardia Plan: Daily dressing changes IV antibiotics per ID F/u wound cultures Analgesia as needed Medical management per primary team D/W Dr. Sherif Mims, PGY1
[2017-02-04] MEDS: Pantoprazole 40 mg EC Tab PO SCH (06:32)
[2017-02-04 08:02] LABS: ADD MANUAL DIFF? NO
[2017-02-04 08:11] LABS: BASO # 0.02 K/mm3 (0.0-2.0); BASO % 0.2 % (0.0-3.0); GRAN # 8.86 (1.4-6.5); HEMATOCRIT 27.7 % (42.0-52.0); LYMPH # 1.4 (1.2-3.4); LYMPH % 12.5 % (22.0-35.0); MEAN CELL VOLUME 89.1 fL (80.0-105.0); MEAN CORPUSCULAR HEMOGLOBIN 29.9 pg (25.0-35.0); MEAN CORPUSCULAR HGB CONC 33.6 g/dl (31.0-37.0); MEAN PLATELET VOLUME 10.4 fl (7.0-11.0); MONO # 1.1 (0.1-0.6); MONO % 9.3 % (1.0-6.0); PLATELET COUNT 201 10^3/uL (120.0-450.0); RED CELL DISTRIBUTION WIDTH 13.5 % (11.5-14.5); WHITE BLOOD COUNT 11.4 10^3/ul (4.5-11.0)
[2017-02-04 08:23] LABS: ALB/GLOB RATIO 0.8 (1.1-1.8); ALKALINE PHOSPHATASE 86 U/L (38-133); ALT/SGPT 52 U/L (7-56); AST/SGOT 44 U/L (15-59); BILIRUBIN,TOTAL 0.5 mg/dL (0.2-1.3); BLOOD UREA NITROGEN 9 mg/dL (7-21); CALCIUM 7.9 mg/dL (8.4-10.5); CARBON DIOXIDE 24 mmol/L (21-33); CHLORIDE 109 mmol/L (98-107); GFR AFRICAN-AMERICAN > 60; GLUCOSE,RANDOM 101 mg/dL (70-110); POTASSIUM 3.1 mmol/L (3.6-5.0); SODIUM 141 mmol/L (132-148); TOTAL PROTEIN 6.1 g/dL (5.8-8.3)
[2017-02-04] MEDS: Vancomycin 1gm in NS 250ml 1 GM/250 ML BAG IVPB SCH ×2 (09:36→21:13)
[2017-02-04] MEDS: Sodium Chloride 0.9% 1,000 ML IV SCH (09:40)
[2017-02-04] MEDS ORDERED: cefTRIAXone 1 gm 1 GM/100 ML BAG IVPB SCH (10:00)
[2017-02-04] MEDS ORDERED: Potassium Chloride 40 mEq/30 ml LIQ UD PO ONE (10:26)
[2017-02-04 10:59] LABS: IRON 19 ug/dL (45-180)
[2017-02-04] MEDS: Enoxaparin 40 mg Syringe SC SCH (11:39)
[2017-02-04] MEDS: THIORIDAZINE HCL 100 MG PO SCH (11:42)
[2017-02-04] MEDS: carBAMazepine Chew Tab 100 MG Chew Tab PO SCH ×2 (11:42→17:40)
--- NOTE | 2017-02-04 13:19 | CP.PCM.PN ---
<Graham Corbett - Last Filed: 02/04/17 13:16> Subjective - Date & Time of Evaluation Date of Evaluation: 02/04/17 Time of Evaluation: 08:20 - Subjective Subjective: Hospitalist Progress Note: Pt seen and examined at bedside. No acute events over night. Pt is awake but does not respond to questions. Seems comfortable. ROS unobtainable. Objective - Vital Signs/Intake and Output Vital Signs (last 24 hours): Temp Pulse Resp BP Pulse Ox 99.6 F 105 H 20 133/80 98 02/04/17 08:00 02/04/17 08:00 02/04/17 08:00 02/04/17 08:00 02/04/17 08:00 Intake and Output: 02/04/17 02/04/17 06:59 18:59 Intake Total 710 Balance 710 - Medications Medications: Current Medications Acetaminophen (Tylenol 325mg Tab) 650 mg PO Q6 PRN PRN Reason: Fever >100.4 F Amlodipine Besylate (Norvasc) 10 mg PO DAILY COUNTS [facility]CLUDE 234 BEDS AT [facility] Last Admin: 02/04/17 11:39 Dose: Not Given Carbamazepine (Tegretol) 100 mg PO BID [facility] PRN Reason: Protocol Last Admin: 02/04/17 11:42 Dose: Not Given Clonazepam (Klonopin) 1 mg PO BID [facility] PRN Reason: Protocol Last Admin: 02/04/17 11:38 Dose: Not Given Enoxaparin Sodium (Lovenox) 40 mg SC DAILY [facility] PRN Reason: Protocol Last Admin: 02/04/17 11:39 Dose: Not Given Vancomycin HCl (Vancomycin 1gm) 1 gm in 250 mls @ 167 mls/hr IVPB Q12 [facility] PRN Reason: Protocol Last Admin: 02/04/17 09:36 Dose: 167 mls/hr Ceftriaxone Sodium (Rocephin 1 Gram Ivpb) 1 gm in 100 mls @ 100 mls/hr IVPB DAILY [facility] PRN Reason: Protocol Stop: 02/13/17 10:01 Last Admin: 02/04/17 09:36 Dose: 100 mls/hr Sodium Chloride (Sodium Chloride 0.9%) 1,000 mls @ 75 mls/hr IV .[id number] COUNTS INCLUDE 234 BEDS AT [facility] Last Admin: 02/04/17 09:40 Dose: 75 mls/hr Potassium Chloride (Potassium Chloride 10 Meq/100 Ml) 10 meq in 100 mls @ 100 mls/hr IVPB Q2H COUNTS INCLUDE 234 BEDS AT [facility] Stop: 02/04/17 13:29 Mirtazapine (Remeron) 30 mg PO HS COUNTS INCLUDE 234 BEDS AT [facility] Last Admin: 02/03/17 21:48 Dose: 30 mg Non-Formulary Medication (Thioridazine Hcl [Thioridazine Hcl]) 100 mg PO DAILY [facility]S INCLUDE 234 BEDS AT [facility] Last Admin: 02/04/17 11:42 Dose: Not Given Pantoprazole Sodium (Protonix Ec Tab) 40 mg PO 0630 [facility]S [facility]CLUDE 234 BEDS AT [facility] Last Admin: 02/04/17 06:32 Dose: Not Given Phenobarbital (Phenobarbital Tab) 32.4 mg PO TID COUNTS INCLUDE 234 BEDS AT [facility] Last Admin: 02/04/17 11:39 Dose: Not Given Risperidone (Risperdal Tab) 0.5 mg PO DAILY [facility]S [facility]CLUDE 234 BEDS AT [facility] PRN Reason: Protocol Last Admin: 02/04/17 11:41 Dose: Not Given Risperidone (Risperdal Tab) 0.25 mg PO 1200,2200 COUNTS INCLUDE 234 BEDS AT [facility] PRN Reason: Protocol Last Admin: 02/03/17 21:48 Dose: 0.25 mg - Labs Labs: 02/04/17 08:00 02/04/17 08:00 - Constitutional Appears: No Acute Distress - Head Exam Head Exam: ATRAUMATIC, NORMAL INSPECTION, NORMOCEPHALIC - Eye Exam Eye Exam: EOMI, Normal appearance, PERRL Pupil Exam: NORMAL ACCOMODATION, PERRL - ENT Exam ENT Exam: Mucous Membranes Moist, Normal Exam - Neck Exam Neck Exam: Full ROM, Normal Inspection. absent: Lymphadenopathy - Respiratory Exam Respiratory Exam: Clear to Ausculation Bilateral, NORMAL BREATHING PATTERN. absent: Wheezes - Cardiovascular Exam Cardiovascular Exam: REGULAR RHYTHM, RRR, +S1, +S2. absent: Murmur - GI/Abdominal Exam GI & Abdominal Exam: Soft. absent: Distended, Tenderness - Extremities Exam Extremities Exam: Full ROM, Normal Capillary Refill, Normal Inspection. absent : Joint Swelling, Pedal Edema Additional comments: R knee wound bandage in place - Back Exam Back Exam: NORMAL INSPECTION - Neurological Exam Neurological Exam: Alert, Awake - Psychiatric Exam Psychiatric exam: Normal Affect, Normal Mood - Skin Skin Exam: Dry, Intact, Normal Color, Warm Assessment and Plan - Assessment and Plan (Free Text) Assessment: 66M w/PMH sig for Parkinson's dementia/developmental delay, HTN and possible psych history admitted for sepsis due to Right knee/leg cellulitis/abscess. 1. Sepsis 2/2 Right knee cellulitis/abscess CT of R Knee ordered to r/o Osteo Febrile 99.6 Tachycardia of 105 Leukocytosis of 14.6--> 11.4 NS@75 Cont Vanc and Rocephin Tylenol PRN Fever Procalcitonin .22 FU ESR CRP elevated >15 FU septic workup FU 2 View knee x-ray - unremarkable Surgery consult- Sherif 2. Fall CT head - sinus disease Cervical spine CT - no fracture Neuro checks Q12H 3. Hx Parkinsons Fall precautions 4. Hx Seizure d/o Psych consulted for psych drug mgmt- David Home meds: Phenobarbital, Risperidone, klonopin aspiration precautions 5. Hypokalemia K is 3.1 replete as needed 6. HTN BP 133/80 Cont to monitor 7. Anemia Hb decreased 10.1 --> 9.3 f/u Anemia work up 7. GI/DVT ppx Protonix and Lovenox Case and plan was seen, reviewed and discussed in detail with Dr Vela. <Krupa Vela - Last Filed: 02/04/17 15:41> Objective - Vital Signs/Intake and Output Vital Signs (last 24 hours): Temp Pulse Resp BP Pulse Ox 99.6 F 105 H 20 133/80 98 02/04/17 08:00 02/04/17 08:00 02/04/17 08:00 02/04/17 08:00 02/04/17 08:00 Intake and Output: 02/04/17 02/04/17 06:59 18:59 Intake Total 710 Balance 710 - Medications Medications: Current Medications Acetaminophen (Tylenol 325mg Tab) 650 mg PO Q6 PRN PRN Reason: Fever >100.4 F Amlodipine Besylate (Norvasc) 10 mg PO DAILY COUNTS INCLUDE 234 BEDS AT [facility] Last Admin: 02/04/17 11:39 Dose: Not Given Carbamazepine (Tegretol) 100 mg PO BID [facility] PRN Reason: Protocol Last Admin: 02/04/17 11:42 Dose: Not Given Clonazepam (Klonopin) 1 mg PO BID [facility] PRN Reason: Protocol Last Admin: 02/04/17 11:38 Dose: Not Given Enoxaparin Sodium (Lovenox) 40 mg SC DAILY [facility] PRN Reason: Protocol Last Admin: 02/04/17 11:39 Dose: Not Given Vancomycin HCl (Vancomycin 1gm) 1 gm in 250 mls @ 167 mls/hr IVPB Q12 [facility] PRN Reason: Protocol Last Admin: 02/04/17 09:36 Dose: 167 mls/hr Ceftriaxone Sodium (Rocephin 1 Gram Ivpb) 1 gm in 100 mls @ 100 mls/hr IVPB DAILY [facility] PRN Reason: Protocol Stop: 02/13/17 10:01 Last Admin: 02/04/17 09:36 Dose: 100 mls/hr Sodium Chloride (Sodium Chloride 0.9%) 1,000 mls @ 75 mls/hr IV .[id number] COUNTS INCLUDE 234 BEDS AT [facility] Last Admin: 02/04/17 09:40 Dose: 75 mls/hr Mirtazapine (Remeron) 30 mg PO HS COUNTS INCLUDE 234 BEDS AT [facility] Last Admin: 02/03/17 21:48 Dose: 30 mg Non-Formulary Medication (Thioridazine Hcl [Thioridazine Hcl]) 100 mg PO DAILY COUNTS INCLUDE 234 BEDS AT [facility] Last Admin: 02/04/17 11:42 Dose: Not Given Pantoprazole Sodium (Protonix Ec Tab) 40 mg PO 0630 [facility]S INCLUDE 234 BEDS AT [facility] Last Admin: 02/04/17 06:32 Dose: Not Given Phenobarbital (Phenobarbital Tab) 32.4 mg PO TID COUNTS INCLUDE 234 BEDS AT [facility] Last Admin: 02/04/17 13:19 Dose: 32.4 mg Risperidone (Risperdal Tab) 0.5 mg PO DAILY COUNTS INCLUDE 234 BEDS AT [facility] PRN Reason: Protocol Last Admin: 02/04/17 11:41 Dose: Not Given Risperidone (Risperdal Tab) 0.25 mg PO 1200,2200 COUNTS INCLUDE 234 BEDS AT [facility] PRN Reason: Protocol Last Admin: 02/04/17 13:19 Dose: 0.25 mg - Labs Labs: 02/04/17 08:00 02/04/17 08:00 Attending/Attestation - Attestation I have personally seen and examined this patient.: Yes I have fully participated in the care of the patient.: Yes I have reviewed all pertinent clinical information, including history, physical exam and plan: Yes Notes (Text): I have seen and examined the patient at bedside. This is 66 year old male with history of parkinson's dementia, developmental delay, HTN, possible psych history who got admitted for evaluation of right leg abscess s/p I&D. Wound culture pending. CT ordered to r/o osteomyelitis. Elevated esr, crp and procal. ID on board. Continue vanco and rocephin. Patient appears very somnolent and is on restraints. Will discontinue restraints. Discussed in detail with mill control operator Benjamin ([phone]). He informed us that IGLESIA is his brother in law. He informed us that Patient can walk only with the walker and he requires 24 hours care.Patient has sleep disturbance and sometimes for days he cannot sleep. His medications were adjusted recently by Dr Canales. Normally he doesn't sleep at night and then sleeps thru out the day. No recent falls. Wear diapers at home. He can talk normally but sometimes yell. Usually he is not violent. Upon discharge patient will follow up with Dr Canales. Dr Krupa Vela
--- NOTE | 2017-02-04 15:04 | CT ---
CT scan right knee dated 02/04/2017. History: Cellulitis. Rule out osteomyelitis. Contiguous helical/transaxial sections of the right knee performed without contrast. No prior study available for comparison. Radiation dose. Total DLP = 180.44 mGy-cm. The findings: The current study reveals a disruption of the skin surface and subcutaneous tissues along the medial aspect right lower extremity at the level of the tibial metaphysis consistent with ulceration and/or wound. There is significant surrounding diffuse infiltration -edematous changes/thickening of the subcutaneous tissues along anteromedial and anterolateral borders of the adjacent subcutaneous tissues that extend inferiorly to the level of the proximal diaphysis of the taper to some degree severity. There is also proximal extension of these infiltration changes 2 distal thigh of which also taper as they extend proximally. Findings are consistent with cellulitis. The osseous structures appear intact with no definitive destructive changes the however the possibility of a mild early osteomyelitis cannot be excluded and therefore MRI could be performed which is much more sensitive for detecting bone edema/ early osteomyelitis. Note made of vascular calcifications. Minor medial joint space narrowing with minimal subchondral sclerosis along the medial tibial plateau. Localized disruption of small area of the skin surface on which could represent of traumatic wound and or ulceration with on moderate to significant surrounding cellulitis as described. Although bony cortex appears grossly intact on the possibility of very small early acute osteomyelitis cannot be excluded therefore followup MRI could be performed. See above discussion for additional findings and details.
[2017-02-04 17:16] VITALS: RESP 18; O2SAT 96
[2017-02-04 17:18] LABS: FOLATE 11.9 ng/mL
--- NOTE | 2017-02-04 20:53 | PN ---
DATE: 02/04/2017 The patient is in bed in no acute distress, nontoxic. PHYSICAL EXAMINATION: VITAL SIGNS: Temperature is 99, blood pressure is 150/80, respiratory rate 18, heart rate of 115. HEENT: Unremarkable. NECK: Supple. LUNGS: Have decreased breath sounds. HEART: Normal S1, S2. ABDOMEN: Soft, nontender. LABORATORY DATA: Reveals the white count is down to 11,400. SED rate is 68 and a BUN of 9, creatini ne of 0.6. C-reactive protein is greater than 15. The patient's procalcitonin is 0.2. The toxicolo gy is noted and serology is noted. Microbiology reveals the blood cultures are no growth. Wound cul ture is no growth. The patient had a CAT scan of the leg, which showed a small area of skin surface, a traumatic area, and cellulitis. Bony cortex appears normal. This was read by Dr. Jamie To, who states that a very small area of acute cannot be excluded on a CAT scan. ASSESSMENT AND PLAN: This is a 66-year-old male with sepsis secondary to right lower extremity cellu litis with an open ulcer and most likely will switch to p.o. antibiotics in next 24-48 hours, current ly on vancomycin and ceftriaxone. Will follow closely with you. Roshan Preston MD cc: 350 TT: 02/04/2017 20:53:17 Confirmation # [id number] Dictation # [id number] dn
[2017-02-05] MEDS: Pantoprazole 40 mg EC Tab PO SCH (06:01)
[2017-02-05] MEDS: Sodium Chloride 0.9% 1,000 ML IV SCH (06:16)
[2017-02-05 07:59] VITALS: PULSE 99; TEMP 97.6
--- NOTE | 2017-02-05 08:00 | CP.PCM.PN ---
Subjective - Date & Time of Evaluation Date of Evaluation: 02/05/17 Time of Evaluation: 07:56 - Subjective Subjective: Surgery: Dr. Gorman Pt seen and examined. No acute events overnight. Pt is developmentally delayed. Does not answer questions appropriately Objective - Vital Signs/Intake and Output Vital Signs (last 24 hours): Temp Pulse Resp BP Pulse Ox 98.9 F 115 H 18 157/89 H 96 02/04/17 16:00 02/04/17 16:00 02/04/17 16:00 02/04/17 16:00 02/04/17 16:00 Intake and Output: 02/05/17 02/05/17 06:59 18:59 Intake Total 480 Balance 480 - Medications Medications: Current Medications Acetaminophen (Tylenol 325mg Tab) 650 mg PO Q6 PRN PRN Reason: Fever >100.4 F Amlodipine Besylate (Norvasc) 10 mg PO DAILY [facility] Last Admin: 02/04/17 11:39 Dose: Not Given Carbamazepine (Tegretol) 100 mg PO BID [facility] PRN Reason: Protocol Last Admin: 02/04/17 17:40 Dose: 100 mg Clonazepam (Klonopin) 1 mg PO BID [facility] PRN Reason: Protocol Last Admin: 02/04/17 17:39 Dose: 1 mg Enoxaparin Sodium (Lovenox) 40 mg SC DAILY [facility] PRN Reason: Protocol Last Admin: 02/04/17 11:39 Dose: Not Given Vancomycin HCl (Vancomycin 1gm) 1 gm in 250 mls @ 167 mls/hr IVPB Q12 [facility] PRN Reason: Protocol Last Admin: 02/04/17 21:13 Dose: 167 mls/hr Ceftriaxone Sodium (Rocephin 1 Gram Ivpb) 1 gm in 100 mls @ 100 mls/hr IVPB DAILY [facility] PRN Reason: Protocol Stop: 02/13/17 10:01 Last Admin: 02/04/17 09:36 Dose: 100 mls/hr Sodium Chloride (Sodium Chloride 0.9%) 1,000 mls @ 75 mls/hr IV .[id number] [facility] Last Admin: 02/05/17 06:16 Dose: 75 mls/hr Mirtazapine (Remeron) 30 mg PO HS [facility] Last Admin: 02/04/17 21:16 Dose: 30 mg Non-Formulary Medication (Thioridazine Hcl [Thioridazine Hcl]) 100 mg PO DAILY [facility] Last Admin: 02/04/17 11:42 Dose: Not Given Pantoprazole Sodium (Protonix Ec Tab) 40 mg PO 0630 [facility] Last Admin: 02/05/17 06:01 Dose: 40 mg Phenobarbital (Phenobarbital Tab) 32.4 mg PO TID [facility] Last Admin: 02/04/17 17:38 Dose: 32.4 mg Risperidone (Risperdal Tab) 0.5 mg PO DAILY [facility] PRN Reason: Protocol Last Admin: 02/04/17 11:41 Dose: Not Given Risperidone (Risperdal Tab) 0.25 mg PO 1200,2200 [facility] PRN Reason: Protocol Last Admin: 02/04/17 21:14 Dose: 0.25 mg - Labs Labs: 02/04/17 08:00 02/04/17 08:00 - Constitutional Appears: Non-toxic, No Acute Distress - Head Exam Head Exam: ATRAUMATIC, NORMOCEPHALIC - Eye Exam Eye Exam: EOMI - ENT Exam ENT Exam: Mucous Membranes Moist - Neck Exam Neck Exam: Full ROM - Respiratory Exam Respiratory Exam: NORMAL BREATHING PATTERN. absent: Accessory Muscle Use, Respiratory Distress - GI/Abdominal Exam GI & Abdominal Exam: Soft. absent: Tenderness - Extremities Exam Additional comments: R LE s/p ID of abscess just distal to knee, no pus expressed, erythema persists , pt has FROM - Neurological Exam Neurological Exam: Alert, Awake. absent: Oriented x3 Assessment and Plan - Assessment and Plan (Free Text) Assessment: 66M w. RLE abscess s/p I&D, POD#2 -Prelim wound Cx, no growth -c/w abx -daily dressing changes -warm compress 20 min TID -d/w attending Zemaitis PGY2
[2017-02-05 08:27] LABS: ADD MANUAL DIFF? NO
[2017-02-05 08:37] LABS: BASO # 0.01 K/mm3 (0.0-2.0); BASO % 0.1 % (0.0-3.0); GRAN # 7.49 (1.4-6.5); GRAN % 81.4 % (50.0-68.0); HEMATOCRIT 31.5 % (42.0-52.0); LYMPH # 0.9 (1.2-3.4); LYMPH % 10.1 % (22.0-35.0); MEAN CELL VOLUME 87.5 fL (80.0-105.0); MEAN CORPUSCULAR HEMOGLOBIN 29.7 pg (25.0-35.0); MEAN PLATELET VOLUME 10.3 fl (7.0-11.0); MONO # 0.8 (0.1-0.6); MONO % 8.4 % (1.0-6.0); PLATELET COUNT 239 10^3/uL (120.0-450.0); RED CELL DISTRIBUTION WIDTH 13.1 % (11.5-14.5); WHITE BLOOD COUNT 9.2 10^3/ul (4.5-11.0)
[2017-02-05 08:40] LABS: ALB/GLOB RATIO 0.9 (1.1-1.8); ALKALINE PHOSPHATASE 96 U/L (38-133); ALT/SGPT 69 U/L (7-56); AST/SGOT 57 U/L (15-59); BILIRUBIN,TOTAL 0.7 mg/dL (0.2-1.3); BLOOD UREA NITROGEN 6 mg/dL (7-21); CALCIUM 8.5 mg/dL (8.4-10.5); CARBON DIOXIDE 25 mmol/L (21-33); CHLORIDE 107 mmol/L (98-107); GFR AFRICAN-AMERICAN > 60; GLUCOSE,RANDOM 130 mg/dL (70-110); POTASSIUM 3.1 mmol/L (3.6-5.0); SODIUM 141 mmol/L (132-148)
[2017-02-05] MEDS: carBAMazepine Chew Tab 100 MG Chew Tab PO SCH (09:18)
[2017-02-05] MEDS: Enoxaparin 40 mg Syringe SC SCH ×2 (09:19→13:42)
[2017-02-05 09:20] VITALS: BP 154/86
--- NOTE | 2017-02-05 14:06 | CP.PCM.DIS ---
<Graham Corbett - Last Filed: 02/05/17 13:57> Provider - Provider Date of Admission: 02/03/17 02:17 Attending physician: Nayeli Lopez MD Consults: Surgery, ID, Psych Time Spent in preparation of Discharge (in minutes): 45 Hospital Course - Lab Results Lab Results: Micro Results 02/03/17 16:05 Knee - Right Gram Stain - Final 02/03/17 16:05 Knee - Right Wound Culture - Preliminary NO GROWTH AFTER 24 HOURS Most Recent Lab Values WBC 9.2 10^3/ul (4.5-11.0) 02/05/17 07:30 RBC 3.60 10^6/uL (3.5-6.1) 02/05/17 07:30 Hgb 10.7 gm/dL (14.0-18.0) L 02/05/17 07:30 Hct 31.5 % (42.0-52.0) L 02/05/17 07:30 MCV 87.5 fL (80.0-105.0) 02/05/17 07:30 MCH 29.7 pg (25.0-35.0) 02/05/17 07:30 MCHC 34.0 g/dl (31.0-37.0) 02/05/17 07:30 RDW 13.1 % (11.5-14.5) 02/05/17 07:30 Plt Count 239 10^3/uL (120.0-450.0) 02/05/17 07:30 MPV 10.3 fl (7.0-11.0) 02/05/17 07:30 Gran % 81.4 % (50.0-68.0) H 02/05/17 07:30 Lymph % (Auto) 10.1 % (22.0-35.0) L 02/05/17 07:30 [place] % (Auto) 8.4 % (1.0-6.0) H 02/05/17 07:30 Eos % (Auto) 0.0 % (1.5-5.0) L 02/05/17 07:30 Baso % (Auto) 0.1 % (0.0-3.0) 02/05/17 07:30 Gran # 7.49 (1.4-6.5) H 02/05/17 07:30 Lymph # 0.9 (1.2-3.4) L 02/05/17 07:30 [place] # 0.8 (0.1-0.6) H 02/05/17 07:30 Eos # 0.0 (0.0-0.7) 02/05/17 07:30 Baso # 0.01 K/mm3 (0.0-2.0) 02/05/17 07:30 ESR 68 mm/hr (0.00-15.0) H 02/03/17 00:33 pO2 37 mm/Hg (30-55) 02/03/17 00:31 VBG pH 7.43 (7.32-7.43) 02/03/17 00:31 VBG pCO2 39.0 (40-60) L 02/03/17 00:31 VBG HCO3 25.9 mmol/l (21-28) 02/03/17 00:31 VBG Total CO2 27.1 mmol.L (22-28) 02/03/17 00:31 VBG O2 Sat (Calc) 75.1 % (40-65) H 02/03/17 00:31 VBG Base Excess 1.5 mmol/L (0.0-2.0) 02/03/17 00:31 VBG Potassium 3.2 mmol/L (3.6-5.2) L 02/03/17 00:31 Sodium 138.0 mmol/L (132-148) 02/03/17 00:31 Chloride 109.0 mmol/L (98-107) H 02/03/17 00:31 Glucose 145 mg/dl (75-110) H 02/03/17 00:31 Lactate 1.4 mmol/L (0.7-2.1) 02/03/17 00:31 FiO2 21.0 % 02/03/17 00:31 Sodium 141 mmol/L (132-148) 02/05/17 07:30 Potassium 3.1 mmol/L (3.6-5.0) L 02/05/17 07:30 Chloride 107 mmol/L (98-107) 02/05/17 07:30 Carbon Dioxide 25 mmol/L (21-33) 02/05/17 07:30 Anion Gap 12 (10-20) 02/05/17 07:30 BUN 6 mg/dL (7-21) L 02/05/17 07:30 Creatinine 0.5 mg/dL (0.5-1.4) 02/05/17 07:30 Est GFR ( Amer) > 60 02/05/17 07:30 Est GFR (Non-Af Amer) > 60 02/05/17 07:30 Random Glucose 130 mg/dL (70-110) H 02/05/17 07:30 Hemoglobin A1c 5.5 % (4.2-6.5) 02/03/17 07:00 Calcium 8.5 mg/dL (8.4-10.5) 02/05/17 07:30 Iron 19 ug/dL (45-180) L 02/04/17 08:30 TIBC 151 ug/dL (261-462) L 02/04/17 08:30 % Saturation 13 % (20-55) L 02/04/17 08:30 Ferritin 563.0 ng/mL 02/04/17 08:30 Total Bilirubin 0.7 mg/dL (0.2-1.3) 02/05/17 07:30 AST 57 U/L (15-59) 02/05/17 07:30 ALT 69 U/L (7-56) H 02/05/17 07:30 Alkaline Phosphatase 96 U/L (38-133) 02/05/17 07:30 Troponin I 0.01 ng/mL 02/03/17 00:33 C-React Prot High Sens > 15.00 mg/L (1.00-3.00) H 02/03/17 00:33 Total Protein 7.0 g/dL (5.8-8.3) 02/05/17 07:30 Albumin 3.3 g/dL (3.0-4.8) 02/05/17 07:30 Globulin 3.7 gm/dL 02/05/17 07:30 Albumin/Globulin Ratio 0.9 (1.1-1.8) L 02/05/17 07:30 Vitamin B12 696 pg/mL (239-931) 02/04/17 08:30 Folate 11.9 ng/mL 02/04/17 08:30 Procalcitonin 0.22 NG/ML (0.19-0.49) 02/03/17 00:33 Venous Blood Potassium 3.2 mmol/L (3.6-5.2) L 02/03/17 00:31 Carbamazepine < 3 ug/mL (4.0-10.0) L 02/04/17 08:00 Alcohol, Quantitative < 10 mg/dL (0-10) 02/03/17 00:33 HIV 1&2 Ag/Ab, 4th Gen Nonreactive (Nonreactive) 02/03/17 07:00 - Hospital Course Hospital Course: 66M w/PMH sig for developmental delay and seizure dx presents with Right knee pain and cellulitis/abscess and fall. In the ED the basic lab work was done. Patient was septic HR 115 febrile to 101.[address] of the head showed no acute findings with some sinus dx. CT of cervical spine showed no fractures. Knee xray showed normal radiograph. Pat was admitted for cellulites and abscess. Surgery was consulted and drained the knee abscess. ID placed him on Vanco and Rocephin. Psych was consulted for recs. R knee CT was done and was consistent with cellulites and an early edema cannot be excluded. Pt sepsis resolved and wbc trended down. non febrile. ID recommended outpatient ABX with Doxycycline PO. Today patient is doing much better. No complaints. states that his knee is much batter. Full ROS limited due to Developmental delay. Dx: Cellulites and abscess Discharge Exam - Head Exam Head Exam: ATRAUMATIC, NORMOCEPHALIC - Eye Exam Eye Exam: EOMI, Normal appearance, PERRL - ENT Exam ENT Exam: Mucous Membranes Moist - Respiratory Exam Respiratory Exam: Clear to PA & Lateral. absent: Rales, Rhonchi, Wheezes - Cardiovascular Exam Cardiovascular Exam: REGULAR RHYTHM, RRR, +S1, +S2 - GI/Abdominal Exam GI & Abdominal Exam: absent: Soft, Tenderness - Neurological Exam Neurological exam: Alert Additional comments: developmental delay - Psychiatric Exam Psychiatric exam: Agitated, Anxious, Normal Affect, Normal Mood - Skin Skin Exam: Dry, Intact, Normal Color, Warm Additional comments: R Knee: area of cellulites dec, no drainage noted Discharge Plan - Discharge Medications Prescriptions: Doxycycline Hyclate 100 mg PO BID #12 capsule - Follow Up Plan Condition: GOOD Disposition: HOME/ ROUTINE Instructions: Cellulitis (GEN), Abscess (GEN), Fall Prevention (GEN) Additional Instructions: 1. Follow up with DR. Roshan martell in 3 days. 2. Follow up with Dr. Jarrell neurologist to adjust medication. 3. Fall precautions. 4. Hold thioridazine and revaluate with Dr. jarrell. May cause drowsiness. 5. Follow up with DR. Gorman as needed. Referrals: Roshan Preston MD [Staff Provider] - August Hernandez MD [Staff Provider] - Mitchell Gorman MD [Staff Provider] - <Nayeli Lopez - Last Filed: 02/06/17 17:16> Provider - Provider Date of Admission: 02/03/17 02:17 Attending physician: Nayeli Lopez MD Hospital Course - Lab Results Lab Results: Micro Results 02/03/17 16:05 Knee - Right Gram Stain - Final 02/03/17 16:05 Knee - Right Wound Culture - Final Streptococcus Pyogenes Grp A Most Recent Lab Values WBC 9.2 10^3/ul (4.5-11.0) 02/05/17 07:30 RBC 3.60 10^6/uL (3.5-6.1) 02/05/17 07:30 Hgb 10.7 gm/dL (14.0-18.0) L 02/05/17 07:30 Hct 31.5 % (42.0-52.0) L 02/05/17 07:30 MCV 87.5 fL (80.0-105.0) 02/05/17 07:30 MCH 29.7 pg (25.0-35.0) 02/05/17 07:30 MCHC 34.0 g/dl (31.0-37.0) 02/05/17 07:30 RDW 13.1 % (11.5-14.5) 02/05/17 07:30 Plt Count 239 10^3/uL (120.0-450.0) 02/05/17 07:30 MPV 10.3 fl (7.0-11.0) 02/05/17 07:30 Gran % 81.4 % (50.0-68.0) H 02/05/17 07:30 Lymph % (Auto) 10.1 % (22.0-35.0) L 02/05/17 07:30 [place] % (Auto) 8.4 % (1.0-6.0) H 02/05/17 07:30 Eos % (Auto) 0.0 % (1.5-5.0) L 02/05/17 07:30 Baso % (Auto) 0.1 % (0.0-3.0) 02/05/17 07:30 Gran # 7.49 (1.4-6.5) H 02/05/17 07:30 Lymph # 0.9 (1.2-3.4) L 02/05/17 07:30 [place] # 0.8 (0.1-0.6) H 02/05/17 07:30 Eos # 0.0 (0.0-0.7) 02/05/17 07:30 Baso # 0.01 K/mm3 (0.0-2.0) 02/05/17 07:30 ESR 68 mm/hr (0.00-15.0) H 02/03/17 00:33 pO2 37 mm/Hg (30-55) 02/03/17 00:31 VBG pH 7.43 (7.32-7.43) 02/03/17 00:31 VBG pCO2 39.0 (40-60) L 02/03/17 00:31 VBG HCO3 25.9 mmol/l (21-28) 02/03/17 00:31 VBG Total CO2 27.1 mmol.L (22-28) 02/03/17 00:31 VBG O2 Sat (Calc) 75.1 % (40-65) H 02/03/17 00:31 VBG Base Excess 1.5 mmol/L (0.0-2.0) 02/03/17 00:31 VBG Potassium 3.2 mmol/L (3.6-5.2) L 02/03/17 00:31 Sodium 138.0 mmol/L (132-148) 02/03/17 00:31 Chloride 109.0 mmol/L (98-107) H 02/03/17 00:31 Glucose 145 mg/dl (75-110) H 02/03/17 00:31 Lactate 1.4 mmol/L (0.7-2.1) 02/03/17 00:31 FiO2 21.0 % 02/03/17 00:31 Sodium 141 mmol/L (132-148) 02/05/17 07:30 Potassium 3.1 mmol/L (3.6-5.0) L 02/05/17 07:30 Chloride 107 mmol/L (98-107) 02/05/17 07:30 Carbon Dioxide 25 mmol/L (21-33) 02/05/17 07:30 Anion Gap 12 (10-20) 02/05/17 07:30 BUN 6 mg/dL (7-21) L 02/05/17 07:30 Creatinine 0.5 mg/dL (0.5-1.4) 02/05/17 07:30 Est GFR ( Amer) > 60 02/05/17 07:30 Est GFR (Non-Af Amer) > 60 02/05/17 07:30 Random Glucose 130 mg/dL (70-110) H 02/05/17 07:30 Hemoglobin A1c 5.5 % (4.2-6.5) 02/03/17 07:00 Calcium 8.5 mg/dL (8.4-10.5) 02/05/17 07:30 Iron 19 ug/dL (45-180) L 02/04/17 08:30 TIBC 151 ug/dL (261-462) L 02/04/17 08:30 % Saturation 13 % (20-55) L 02/04/17 08:30 Ferritin 563.0 ng/mL 02/04/17 08:30 Total Bilirubin 0.7 mg/dL (0.2-1.3) 02/05/17 07:30 AST 57 U/L (15-59) 02/05/17 07:30 ALT 69 U/L (7-56) H 02/05/17 07:30 Alkaline Phosphatase 96 U/L (38-133) 02/05/17 07:30 Troponin I 0.01 ng/mL 02/03/17 00:33 C-React Prot High Sens > 15.00 mg/L (1.00-3.00) H 02/03/17 00:33 Total Protein 7.0 g/dL (5.8-8.3) 02/05/17 07:30 Albumin 3.3 g/dL (3.0-4.8) 02/05/17 07:30 Globulin 3.7 gm/dL 02/05/17 07:30 Albumin/Globulin Ratio 0.9 (1.1-1.8) L 02/05/17 07:30 Vitamin B12 696 pg/mL (239-931) 02/04/17 08:30 Folate 11.9 ng/mL 02/04/17 08:30 Procalcitonin 0.22 NG/ML (0.19-0.49) 02/03/17 00:33 Venous Blood Potassium 3.2 mmol/L (3.6-5.2) L 02/03/17 00:31 Carbamazepine < 3 ug/mL (4.0-10.0) L 02/04/17 08:00 Alcohol, Quantitative < 10 mg/dL (0-10) 02/03/17 00:33 HIV 1&2 Ag/Ab, 4th Gen Nonreactive (Nonreactive) 02/03/17 07:00 Attending/Attestation - Attestation I have personally seen and examined this patient.: Yes I have fully participated in the care of the patient.: Yes I have reviewed all pertinent clinical information, including history, physical exam and plan: Yes Notes (Text): 02/06/17 17:12 Attending note; I have seen and examined the patient at bedside with resident. Patient is alert and awake. This is a 66 year old male with history of parkinson's dementia, developmental delay, HTN, possible psych history who got admitted for evaluation of right leg abscess s/p I&D. Wound culture grew Streptococcus. CT ordered is negative for significant osteomyelitis. Treated with IV vanco and rocephin. Patient will be discharged home with by mouth doxycycline. Status post I and D. cellulitis is improving. Local wound care. Discussed in detail with forest worker Benjamin ([phone]). Case discussed with POA. His medications were adjusted recently by Dr Jarrell. Patient was evaluated by psychiatrist . Thioridazine on hold .reevaluate medications with Dr. Jarrell within few days . Patient will follow-up with PMD Dr. Roshan Martell. Case discussed with Dr. Howard covering Dr. Roshan Martell in detail. Upon discharge patient will follow up with . Diagnosis; R leg cellulitis Status post incision and drainage Parkinson's dementia Developmental delay Insomnia 02/06/17 17:15
--- NOTE | 2017-02-05 17:53 | PN ---
DATE: 02/05/2017 The patient is in bed, was seen earlier this morning in room 572, bed 1. The patient's general assignment reporter is there, states the patient is back to his baseline. PHYSICAL EXAMINATION: VITAL SIGNS: Temperature is 97, blood pressure is 150/60, respiratory rate of 16. HEENT: Unremarkable. NECK: Supple. LUNGS: Have decreased breath sounds. HEART: Normal S1, S2. ABDOMEN: Soft. LABORATORY EXAMINATION: Reveals a white count is 9.2, hemoglobin of 10, platelets of 239. BUN of 6, creatinine of 0.5. C-reactive protein is greater than 15. The patient had a CAT scan of the leg wi th no evidence of osteomyelitis. HIV is negative. Microbiology reveals group A Strep from the wound culture and the blood cultures are no growth. Review of systems is noted. ASSESSMENT AND PLAN: A 66-year-old male with sepsis, secondary to group A Strep, soft tissue celluli tis, which greatly is improved today, has an open ulcer and patient is much improved, white count is improved. We can switch to p.o. Augmentin. Case discussed with PMD. Case discussed with . Roshan Preston MD cc: 350 TT: 02/05/2017 17:53:02 Confirmation # [id number] Dictation # [id number]
[2017-02-05] MEDS ORDERED: Amoxicillin-Clav 875-125 mg Tab PO SCH (22:00)
== END 2017-02-05 15:29 | disposition home or self-care (01) | DRG 872 ==
LOC: ED 22:59 → ERH 02-03 02:17 → 5RSO 02-03 04:22
PROVIDERS: ADMIT Internal Medicine; ATTEND Internal Medicine
PROC: 0H9KXZX Drainage of Right Lower Leg Skin, External Approach, Diagnostic (ICD-10-PCS; principal; 2017-02-03)
DX: A41.9 Sepsis, unspecified organism (principal); L02.415 Cutaneous abscess of right lower limb; L03.115 Cellulitis of right lower limb; F05 Delirium due to known physiological condition; B95.0 Streptococcus, group A, as the cause of diseases classified elsewhere; G20 Parkinson's disease; F02.80 Dementia in other diseases classified elsewhere, unspecified severity, without behavioral disturbance, psychotic disturbance, mood disturbance, and anxiety; I10 Essential (primary) hypertension; G40.909 Epilepsy, unspecified, not intractable, without status epilepticus; E87.6 Hypokalemia; R00.0 Tachycardia, unspecified; D64.9 Anemia, unspecified; Z78.1 Physical restraint status; Z74.01 Bed confinement status

== ENCOUNTER 2017-05-12 19:10 | Emergency (ER) | payer MEDICARE, MEDICAID ==
[2017-05-12 19:17] VITALS: BP 149/77; PULSE 89; RESP 16; TEMP 99; O2SAT 97
[2017-05-12] MEDS ORDERED: TDAP Vaccine 0.5 mL Syr IM ONE (19:31)
--- NOTE | 2017-05-12 19:31 | ED PDOC ---
Arrival/HPI - General Chief Complaint: Upper Extremity Problem/Injury Time Seen by Provider: 05/12/17 19:21 Historian: Patient - History of Present Illness Narrative History of Present Illness (Text): 05/12/17 19:26 66 y/o male, pmh including htn, nkda, c/o abrasion dressing change x 1 day. Pt. scratched himself yesterday due to the mentally challange, last tetanus doesn't remember, EMT was call and bandage was applied, here with the caregiver stated that they don't know how to change it. Pt. has been eating and drinking well, moving all extremities, no other medical or psychological complaints. Past Medical History - Provider Review Nursing Documentation Reviewed: Yes - Neurological Hx Parkinson's Disease: Yes Hx Seizures: Yes - Musculoskeletal/Rheumatological Hx Falls: Yes - Psychiatric Hx Schizophrenia: Yes Hx Substance Use: No Family/Social History - Physician Review Nursing Documentation Reviewed: Yes Family/Social History: Unknown Family HX Smoking Status: Never Smoked Hx Alcohol Use: No Hx Substance Use: No Allergies/Home Meds Allergies/Adverse Reactions: Allergies No Known Allergies Allergy (Verified 02/02/17 23:13) Home Medications: Home Meds Medication Instructions Recorded Confirmed Clonazepam [Klonopin] 1 mg PO TID 02/02/17 05/12/17 Mirtazapine [Remeron] 30 mg PO HS 02/02/17 05/12/17 Phenobarbital [PHENobarbital Tab] 32.4 mg PO TID 02/02/17 05/12/17 amLODIPine [Norvasc] 10 mg PO DAILY 02/02/17 05/12/17 risperiDONE [RisperDAL] 0.25 mg PO BID 02/02/17 05/12/17 Carbamazepine [Carbamazepine] 100 mg PO BID 02/03/17 05/12/17 Docusate Sodium [Stool Softener] 100 mg PO DAILY 05/12/17 05/12/17 Multivitamin [Multivitamins] 1 each PO DAILY 05/12/17 05/12/17 Review of Systems - Review of Systems Constitutional: absent: Fatigue, Fevers Eyes: absent: Vision Changes ENT: absent: Hearing Changes Respiratory: absent: SOB, Cough Cardiovascular: absent: Chest Pain Gastrointestinal: absent: Abdominal Pain, Nausea, Vomiting Skin: Other (+abrasion). absent: Rash, Pruritis, Skin Lesions, Laceration, Abscess, Ulcer, Cellulitis Neurological: absent: Headache, Dizziness Physical Exam Vital Signs Reviewed: Yes Vital Signs Temp Pulse Resp BP Pulse Ox 05/12/17 19:17 99 F 89 16 149/77 97 Temperature: Afebrile Blood Pressure: Normal Pulse: Regular Respiratory Rate: Normal Appearance: Positive for: Well-Appearing, Non-Toxic, Comfortable Pain Distress: None - Systems Exam Head: Present: Atraumatic, Normocephalic Pupils: Present: PERRL Extroacular Muscles: Present: EOMI Conjunctiva: Present: Normal Mouth: Present: Moist Mucous Membranes Neck: Present: Normal Range of Motion Respiratory/Chest: Present: Clear to Auscultation, Good Air Exchange. No: Respiratory Distress, Accessory Muscle Use Cardiovascular: Present: Regular Rate and Rhythm, Normal S1, S2. No: Murmurs Abdomen: Present: Normal Bowel Sounds. No: Tenderness, Distention, Peritoneal Signs Upper Extremity: Present: Normal Inspection, Other (Rt. upper extremity visible approx. couple scattered 1cm diameter superficial abrasion noted on the proximal forearm and distal humeral region with no laceration or cellulitis, no streaking or ulcers, FROM without limitation, sensation intact, motor 5/5, + Radial pulse, capillary refill< 2 seconds, neurovascular intact. ). No: Cyanosis, Edema Lower Extremity: Present: Normal Inspection. No: Edema Neurological: Present: GCS=15, Motor Func Grossly Intact Skin: Present: Warm, Dry, Normal Color. No: Rashes Psychiatric: Present: Alert, Normal Insight, Normal Concentration Medical Decision Making ED Course and Treatment: 05/12/17 19:33 -wound healing well and dry, irrigated with saline, clean with betadine, bacitracin and gauze dressing. -Last tetanus doesn't remember, will give tetanus in the ER. -Discharge home with bacitracin oinment, clean with soap and water twice daily, follow up with your own pmd within 2 days, return to the ER for any new or worsening signs or symptoms. - PA / HOT ROLL LAMINATOR / Resident Statement / has reviewed & agrees with the documentation as recorded. Disposition/Present on Arrival - Present on Arrival Any Indicators Present on Arrival: No History of DVT/PE: No History of Uncontrolled Diabetes: No Urinary Catheter: No History of Decub. Ulcer: No History Surgical Site Infection Following: None - Disposition Have Diagnosis and Disposition been Completed?: Yes Diagnosis: Arm abrasion, Encounter for wound re-check, Dressing change Disposition: HOME/ ROUTINE Disposition Time: 19:34 Patient Plan: Discharge Condition: GOOD Additional Instructions: -Discharge home with bacitracin oinment, clean with soap and water twice daily, follow up with your own pmd within 2 days, return to the ER for any new or worsening signs or symptoms. Prescriptions: Bacitracin Ointment [Bacitracin] 1 appful TOP BID #15 g Referrals: [facility] [Outside] - Follow up with primary Forms: [employer] ([place]wegian)
== END 2017-05-12 19:49 | disposition home or self-care (01) ==
LOC: ED 19:10
DX: S40.811A Abrasion of right upper arm, initial encounter (principal); W50.4XXA Accidental scratch by another person, initial encounter; Z51.89 Encounter for other specified aftercare; Z48.00 Encounter for change or removal of nonsurgical wound dressing; Z23 Encounter for immunization

== ENCOUNTER 2017-07-24 11:42 | Emergency (ER) | payer MEDICARE, MEDICAID ==
--- NOTE | 2017-07-24 11:45 | ED PDOC ---
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 As per care analyst, pt. accidentally hit the nasal bridge on the corner of the furniture, no oozing or discharge, no fever or chills, no headache or night seat, no dizziness, no head or neck injury , no LOC, no bleeding noted or epitaxis, no other medical or psychological complaints. Past Medical History - Provider Review Nursing Documentation Reviewed: Yes - Neurological Hx Parkinson's Disease: Yes Hx Seizures: Yes - Musculoskeletal/Rheumatological Hx Falls: Yes - Psychiatric Hx Schizophrenia: Yes Hx Substance Use: No Family/Social History - Physician Review Nursing Documentation Reviewed: Yes Family/Social History: Unknown Family HX Smoking Status: Never Smoked Hx Alcohol Use: No Hx Substance Use: No Allergies/Home Meds Allergies/Adverse Reactions: Allergies No Known Allergies Allergy (Verified 02/02/17 23:13) Home Medications: Home Meds Medication Instructions Recorded Confirmed Clonazepam [Klonopin] 1 mg PO TID 02/02/17 07/24/17 Mirtazapine [Remeron] 15 mg PO HS 02/02/17 07/24/17 Phenobarbital [PHENobarbital Tab] 32.4 mg PO TID 02/02/17 07/24/17 amLODIPine [Norvasc] 10 mg PO DAILY 02/02/17 07/24/17 Carbamazepine [Carbamazepine] 100 mg PO BID 02/03/17 07/24/17 Docusate Sodium [Stool Softener] 100 mg PO DAILY 05/12/17 07/24/17 Multivitamin [Multivitamins] 1 each PO DAILY 05/12/17 07/24/17 QUEtiapine [Seroquel] 100 mg PO TID 07/24/17 07/24/17 Review of Systems - Review of Systems Systems not reviewed;Unavailable: Uncooperative Constitutional: absent: Fatigue, Fevers Eyes: absent: Vision Changes ENT: absent: Hearing Changes Respiratory: absent: SOB, Cough Cardiovascular: absent: Chest Pain Gastrointestinal: absent: Abdominal Pain, Nausea, Vomiting Musculoskeletal: absent: Arthralgias, Back Pain Skin: Other (+abrasion. ). absent: Rash, Pruritis, Abscess, Ulcer, Cellulitis Physical Exam - Physical Exam Physical Exam Limitations: Uncooperative Vital Signs Reviewed: Yes Vital Signs Temp Pulse Resp BP Pulse Ox 07/24/17 12:04 98.1 F 77 18 115/74 98 Temperature: Afebrile Blood Pressure: Normal Pulse: Regular Respiratory Rate: Normal Appearance: Positive for: Well-Appearing, Non-Toxic, Comfortable - Systems Exam Head: Present: Atraumatic, Normocephalic, Other (no facial bony tenderness or swelling. ). No: Tenderness, Contusion, Swelling, Ecchymosis, Abrasion, Laceration Pupils: Present: PERRL Extroacular Muscles: Present: EOMI Conjunctiva: Present: Normal Ears: Present: NORMAL TM, Normal Canal. No: Erythema Mouth: Present: Moist Mucous Membranes, Normal Lips, Normal Tounge Pharnyx: No: ERYTHEMA, EXUDATE, TONSILS ENLARGED Nose (External): Present: Abrasion (visible approx. irregular shaped abrasion noted with no visible laceration gaps. ), Other (no tenderness or swelling. ). No: Contusion, Laceration, Lesions Nose (Internal): Present: Normal Inspection, No Active Bleeding. No: Rhinorrhea , Purulent Mucous, Septal Deviation, Septal Hematoma, Epistaxis Neck: Present: Normal Range of Motion, Trachea Midline. No: MIDLINE TENDERNESS , Paraspinal Tenderness, Lymphadenopathy Respiratory/Chest: Present: Clear to Auscultation, Good Air Exchange. No: Respiratory Distress, Accessory Muscle Use, Wheezes, Decreased Breath Sounds, Rales, Retracting, Rhonchi, Tachypneic, Tender to Palpation, Other Cardiovascular: Present: Regular Rate and Rhythm, Normal S1, S2. No: Murmurs Abdomen: Present: Normal Bowel Sounds. No: Tenderness, Distention, Peritoneal Signs Back: Present: Normal Inspection Upper Extremity: Present: Normal Inspection. No: Cyanosis, Edema Lower Extremity: Present: Normal Inspection. No: Edema Neurological: Present: GCS=15, Motor Func Grossly Intact, Memory Normal Skin: Present: Warm, Dry, Normal Color. No: Rashes Psychiatric: Present: Alert, Oriented x 3, Normal Insight Medical Decision Making ED Course and Treatment: 07/24/17 12:13 -xray. -No indication of the laceration repair needed. 07/24/17 13:19 -xray show nasal fracture. -As per the care analyst, pt. has chronic history of the nasal fracture. Based on the physical examination, this nasal fracture can be chronic. -Discharge home with augmentin, bacitracin oinment, take tylenol for pain as needed, ice compression, avoid rubbing or blowing the nose, follow up with your own pmd and ENT within 2 days, return to the Emergency room for any new or worsening signs or symptoms. - RAD Interpretation Radiology Orders: 07/24/17 12:08 NASAL BONES [RAD] Stat PROCEDURE: Radiographs of Nasal Bones HISTORY: nasal injury COMPARISON: None available. TECHNIQUE: Frontal and lateral radiographs of the nasal bones. The study is limited by motion artifact FINDINGS: There is a displaced fracture of the tip of the nasal bones. IMPRESSION: Displaced nasal bone fracture Usability Strategist: Radiologist - PA / GEOLOGICAL SAMPLE TESTER / Resident Statement / has reviewed & agrees with the documentation as recorded. Disposition/Present on Arrival - Present on Arrival Any Indicators Present on Arrival: No History of DVT/PE: No History of Uncontrolled Diabetes: No Urinary Catheter: No History of Decub. Ulcer: No History Surgical Site Infection Following: None - Disposition Have Diagnosis and Disposition been Completed?: Yes Diagnosis: Nasal injury, Nasal abrasion, Nasal fracture Disposition: HOME/ ROUTINE Disposition Time: 13:23 Patient Plan: Discharge Patient Problems: Current Active Problems Problem Status Onset Nasal abrasion Acute Nasal injury Acute Condition: GOOD Additional Instructions: -Discharge home with augmentin, bacitracin oinment, take tylenol for pain as needed, ice compression, avoid rubbing or blowing the nose, follow up with your own pmd and ENT within 2 days, return to the Emergency room for any new or worsening signs or symptoms. Prescriptions: Amoxicillin/Clavulanate [Augmentin 875 MG-125 MG] 1 tab PO BID #20 tab Bacitracin Ointment [Bacitracin] 1 appful TOP BID #15 g Referrals: PCP,NO [Primary Care Provider] - Follow up with primary Solomon Chavez DO [Doctor Osteopathy] - Follow up with primary Forms: WORK NOTE
[2017-07-24 12:08] VITALS: RESP 18; TEMP 98.1; O2SAT 98
--- NOTE | 2017-07-24 13:06 | RAD ---
PROCEDURE: Radiographs of Nasal Bones HISTORY: nasal injury COMPARISON: None available. TECHNIQUE: Frontal and lateral radiographs of the nasal bones. The study is limited by motion artifact FINDINGS: There is a displaced fracture of the tip of the nasal bones. IMPRESSION: Displaced nasal bone fracture
[2017-07-24 14:00] VITALS: BP 117/80; PULSE 78
== END 2017-07-24 13:30 | disposition home or self-care (01) ==
LOC: ED 11:42
DX: S02.2XXA Fracture of nasal bones, initial encounter for closed fracture (principal); W22.03XA Walked into furniture, initial encounter; I10 Essential (primary) hypertension; G20 Parkinson's disease

== ENCOUNTER 2017-08-05 20:51 | Emergency (ER) | payer MEDICARE, MEDICAID ==
[2017-08-05] MEDS ORDERED: Midazolam 5 MG/5 ML VIAL IM STA (21:16)
[2017-08-05] MEDS ORDERED: Midazolam 2 MG/2 ML VIAL ONE (21:25)
[2017-08-05] MEDS ORDERED: Midazolam 2 MG/2 ML VIAL IM STA (21:26)
--- NOTE | 2017-08-05 21:30 | ED PDOC ---
Arrival/HPI - General Chief Complaint: Psychiatric Evaluation Time Seen by Provider: 08/05/17 20:58 Historian: Patient, Caregiver, EMS - History of Present Illness Narrative History of Present Illness (Text): 67 y/o male developmental delay, schizophrenia and seizure dx presents for evaluation of alteration of mental status characterized by increased combativeness, and lack of ability to redirect patient, apparently regular MEDICAL EXAMINER called in sick and a new MEDICAL EXAMINER inexperienced with the patient was unable to calm the patient called ems to bring patient to ED for evaluation , he apparently threw wheelchair at ems. no further hpi on symptoms of recent infective foci is possible as patient is thoroughly uncooperative, threateniing staff, and is violent , unamenable to verbal redirection , necessitating checmical sedation for his own and staff safety . Pt. does however deny any corporeal pain screamig " let me outta here." 08/05/17 21:25 Past Medical History - Provider Review Nursing Documentation Reviewed: Yes - Infectious Disease Hx of Infectious Diseases: None - Cardiac Hx Hypertension: Yes - Neurological Hx Parkinson's Disease: Yes Hx Seizures: Yes - Musculoskeletal/Rheumatological Hx Falls: Yes - Psychiatric Hx Schizophrenia: Yes Hx Substance Use: No - Anesthesia Hx Anesthesia Reactions: No Family/Social History - Physician Review Nursing Documentation Reviewed: Yes Smoking Status: Never Smoked Hx Alcohol Use: No Hx Substance Use: No Allergies/Home Meds Allergies/Adverse Reactions: Allergies No Known Allergies Allergy (Verified 02/02/17 23:13) Home Medications: Home Meds Medication Instructions Recorded Confirmed Clonazepam [Klonopin] 1 mg PO TID 02/02/17 08/05/17 Mirtazapine [Remeron] 15 mg PO HS 02/02/17 08/05/17 Phenobarbital [PHENobarbital Tab] 32.4 mg PO TID 02/02/17 08/05/17 amLODIPine [Norvasc] 10 mg PO DAILY 02/02/17 08/05/17 Carbamazepine [Carbamazepine] 100 mg PO BID 02/03/17 08/05/17 Docusate Sodium [Stool Softener] 100 mg PO DAILY 05/12/17 08/05/17 Multivitamin [Multivitamins] 1 each PO DAILY 05/12/17 08/05/17 QUEtiapine [Seroquel] 100 mg PO TID 07/24/17 08/05/17 Review of Systems - Physician Review All systems were reviewed & negative as marked: Yes - Review of Systems Systems not reviewed;Unavailable: Other (possibly psychotic) Constitutional: Normal Eyes: Normal ENT: Normal Respiratory: Normal Cardiovascular: Normal Gastrointestinal: Normal Genitourinary Male: Normal Musculoskeletal: Normal Skin: Normal Neurological: Normal Endocrine: Normal Hemo/Lymphatic: Normal Psychiatric: Normal Physical Exam - Physical Exam Physical Exam Limitations: Altered Mental Status, Clinical Condition, Intoxication, Psychotic, Uncooperative, Other Vital Signs Reviewed: Yes Vital Signs Temp Pulse Resp BP Pulse Ox 08/05/17 20:58 98.4 F 144 H 18 132/78 97 Temperature: Afebrile Blood Pressure: Normal Pulse: Regular Respiratory Rate: Normal Appearance: Positive for: Well-Appearing, Non-Toxic, Comfortable Pain Distress: None Mental Status: Positive for: Alert and Oriented X 3 - Systems Exam Head: Present: Atraumatic, Normocephalic Pupils: Present: PERRL Extroacular Muscles: Present: EOMI Conjunctiva: Present: Normal Mouth: Present: Moist Mucous Membranes Neck: Present: Normal Range of Motion Respiratory/Chest: Present: Clear to Auscultation, Good Air Exchange. No: Respiratory Distress, Accessory Muscle Use Cardiovascular: Present: Regular Rate and Rhythm, Normal S1, S2. No: Murmurs Abdomen: Present: Normal Bowel Sounds. No: Tenderness, Distention, Peritoneal Signs Back: Present: Normal Inspection Upper Extremity: Present: Normal Inspection. No: Cyanosis, Edema Lower Extremity: Present: Normal Inspection. No: Edema Neurological: Present: GCS=15, CN II-XII Intact, Speech Normal, Motor Func Grossly Intact, Normal Sensory Function, Gait Normal Skin: Present: Warm, Dry, Normal Color. No: Rashes Psychiatric: Present: Alert, Anxious, Agitated Medical Decision Making - RAD Interpretation Radiology Orders: 08/05/17 21:15 CHEST PORTABLE [RAD] Stat - Medication Orders Current Medication Orders: Discontinued Medications Lorazepam (Ativan) 2 mg IM ONCE ONE PRN Reason: Protocol Stop: 08/05/17 21:16 Midazolam HCl (Versed Inj) 1 mg IM STAT STA Stop: 08/05/17 21:17 Disposition/Present on Arrival - Present on Arrival History of DVT/PE: No History of Uncontrolled Diabetes: No Urinary Catheter: No History of Decub. Ulcer: No History Surgical Site Infection Following: None - Disposition
[2017-08-05 22:55] LABS: ALB/GLOB RATIO 1.4 (1.1-1.8); ALKALINE PHOSPHATASE 149 U/L (38-126); ALT/SGPT 33 U/L (7-56); AST/SGOT 30 U/L (17-59); BASO # 0.01 K/mm3 (0.0-2.0); BASO % 0.1 % (0.0-3.0); BILIRUBIN,TOTAL 0.5 mg/dL (0.2-1.3); BLOOD UREA NITROGEN 16 mg/dL (7-21); CALCIUM 9.9 mg/dL (8.4-10.5); CARBON DIOXIDE 24 mmol/L (21-33); CHLORIDE 99 mmol/L (98-107); GFR AFRICAN-AMERICAN > 60; GLUCOSE,RANDOM 109 mg/dL (70-110); GRAN # 10.78 (1.4-6.5); GRAN % 83.3 % (50.0-68.0); HEMATOCRIT 40.2 % (42.0-52.0); LYMPH # 1.4 (1.2-3.4); LYMPH % 10.4 % (22.0-35.0); MEAN CELL VOLUME 89.1 fl (80.0-105.0); MEAN CORPUSCULAR HEMOGLOBIN 31.3 pg (25.0-35.0); MEAN CORPUSCULAR HGB CONC 35.1 g/dl (31.0-37.0); MEAN PLATELET VOLUME 10.7 fl (7.0-11.0); MONO # 0.8 (0.1-0.6); MONO % 6.2 % (1.0-6.0); POTASSIUM 3.9 mmol/L (3.6-5.0); RED CELL DISTRIBUTION WIDTH 12.8 % (11.5-14.5); SODIUM 140 mmol/L (132-148); TOTAL PROTEIN 7.9 g/dL (5.8-8.3); WHITE BLOOD COUNT 12.9 10^3/ul (4.5-11.0)
[2017-08-05 23:04] LABS: INR 1.12 (0.93-1.08); PARTIAL THROMBOPLASTIN TIME 30.8 Seconds (25.1-36.5)
[2017-08-05 23:19] LABS: TROPONIN I < 0.01 ng/mL
--- NOTE | 2017-08-05 23:55 | ED PDOC ---
Physical Exam Vital Signs Reviewed: Yes Vital Signs Temp Pulse Resp BP Pulse Ox 08/05/17 20:58 98.4 F 144 H 18 132/78 97 Temperature: Afebrile Blood Pressure: Normal Pulse: Regular Respiratory Rate: Normal Appearance: Positive for: Well-Appearing, Non-Toxic, Comfortable Pain Distress: None Mental Status: Positive for: Alert and Oriented X 3 Medical Decision Making ED Course and Treatment: 08/05/17 23:54 Case endorsed to me by nakia Gavin PES evaluation, and disposition. - Lab Interpretations Lab Results: 08/05/17 22:10 08/05/17 22:10 Lab Results 08/05/17 22:10: Sodium 140, Potassium 3.9, Chloride 99, Carbon Dioxide 24, Anion Gap 21 H, BUN 16, Creatinine 0.9, Est GFR ( Amer) > 60, Est GFR ( Non-Af Amer) > 60, Random Glucose 109, Calcium 9.9, Total Bilirubin 0.5, AST 30 , ALT 33, Alkaline Phosphatase 149 H, Troponin I < 0.01, Total Protein 7.9, Albumin 4.6, Globulin 3.3, Albumin/Globulin Ratio 1.4 08/05/17 22:10: PT 12.2, INR 1.12 H, APTT 30.8 08/05/17 22:10: WBC 12.9 H D, RBC 4.51, Hgb 14.1, Hct 40.2 L, MCV 89.1, MCH 31.3 , MCHC 35.1, RDW 12.8, Plt Count 291, MPV 10.7, Gran % 83.3 H, Lymph % (Auto) 10.4 L, Pitt % (Auto) 6.2 H, Eos % (Auto) 0.0 L, Baso % (Auto) 0.1, Gran # 10.78 H, Lymph # 1.4, Pitt # 0.8 H, Eos # 0.0, Baso # 0.01 - RAD Interpretation Radiology Orders: 08/05/17 21:15 CHEST PORTABLE [RAD] Stat - Medication Orders Current Medication Orders: Discontinued Medications Haloperidol Lactate (Haldol) 2 mg IM STAT STA PRN Reason: Protocol Stop: 08/05/17 23:46 Lorazepam (Ativan) 2 mg IM ONCE ONE PRN Reason: Protocol Stop: 08/05/17 21:16 Last Admin: 08/05/17 21:28 Dose: 2 mg IM Administration Charges Document 08/05/17 21:28 WILL (Rec: 08/05/17 21:28 WILL [id number]) Injection Site MAR Injection Site Left Vastus Lateralis Charges for Administration # of IM Administrations 1 Midazolam HCl (Versed Inj) 1 mg IM STAT STA Stop: 08/05/17 21:27 Last Admin: 08/05/17 21:28 Dose: 1 mg IM Administration Charges Document 08/05/17 21:28 TA (Rec: 08/05/17 22:06 [email or web address] Injection Site MAR Injection Site Right Deltoid Charges for Administration # of IM Administrations 1 - Transfer of Care Patient signed out to Dr:: guilherme valdez Disposition/Present on Arrival - Present on Arrival Any Indicators Present on Arrival: No History of DVT/PE: No History of Uncontrolled Diabetes: No Urinary Catheter: No History of Decub. Ulcer: No History Surgical Site Infection Following: None - Disposition Have Diagnosis and Disposition been Completed?: Yes Diagnosis: Schizophrenia Disposition: HOME/ ROUTINE Disposition Time: 07:00 Condition: STABLE Discharge Instructions (ExitCare): Schizophrenia (ED), Leukocytosis (ED) Additional Instructions: please return to er with worsening symptoms or concerns. Referrals: [facility] [Outside] - Follow up with primary [facility] at [facility] [Outside] - Follow up with primary Forms: [facility] (Marshallese)
[2017-08-06 01:09] LABS: PH,URINE 6.5 (4.7-8.0); URINE BILIRUBIN NEGATIVE (NEGATIVE); URINE BLOOD TRACE-INTACT (NEGATIVE); URINE GLUCOSE (UA) NEGATIVE (NEGATIVE); URINE KETONE NEGATIVE (NEGATIVE); URINE LEUKOCYTE ESTERASE NEGATIVE Leu/uL (NEGATIVE); URINE PROTEIN NEGATIVE mg/dL (<30 mg/dL); URINE UROBILINOGEN 0.2 E.U./dL (<1 E.U./dL)
[2017-08-06 01:24] LABS: URINE APPEARANCE CLEAR (CLEAR); URINE COLOR YELLOW (YELLOW)
[2017-08-06 01:25] LABS: URINE EPITHELIAL CELLS 0 - 2 /hpf (0-5); URINE RBC 0 - 2 /hpf (0-2); URINE WBC 0 - 2 /hpf (0-6)
--- NOTE | 2017-08-06 07:06 | ED PDOC ---
Physical Exam Vital Signs Temp Pulse Resp BP Pulse Ox 08/06/17 01:00 98.0 F 76 16 138/81 99 08/05/17 20:58 98.4 F 144 H 18 132/78 97 Medical Decision Making ED Course and Treatment: 08/06/17 07:05 The patient is signed over to me by Dr. Ayers. pt has been medically cleared prior to my assessment. pending pes dispo 08/06/17 08:33 The patient has been evaluated by Psych and he states the patient is at his baseline and is able to be cleared and discharged at this time. 08/06/17 08:42 The patient is now with his primary child care worker/ home health aid and she states that his current behavior is the patient's baseline. RN discusses with POA and states they will take the patient home. - Lab Interpretations Lab Results: 08/05/17 22:10 08/05/17 22:10 Lab Results 08/06/17 00:50: Urine Color Yellow, Urine Appearance Clear, Urine pH 6.5, Ur Specific [place] 1.010, Urine Protein Negative, Urine Glucose (UA) Negative, Urine Ketones Negative, Urine Blood Trace-intact H, Urine Nitrate Negative, Urine Bilirubin Negative, Urine Urobilinogen 0.2, Ur Leukocyte Esterase Negative , Urine RBC 0 - 2, Urine WBC 0 - 2, Ur Epithelial Cells 0 - 2 08/06/17 00:40: Urine Opiates Screen Negative, Urine Methadone Screen Negative, Ur Barbiturates Screen Positive H, Ur Phencyclidine Scrn Negative, Ur Amphetamines Screen Negative, U Benzodiazepines Scrn Positive H, U Oth Cocaine Metabols Negative, U Cannabinoids Screen Negative 08/05/17 22:10: Sodium 140, Potassium 3.9, Chloride 99, Carbon Dioxide 24, Anion Gap 21 H, BUN 16, Creatinine 0.9, Est GFR ( Amer) > 60, Est GFR ( Non-Af Amer) > 60, Random Glucose 109, Calcium 9.9, Total Bilirubin 0.5, AST 30 , ALT 33, Alkaline Phosphatase 149 H, Troponin I < 0.01, Total Protein 7.9, Albumin 4.6, Globulin 3.3, Albumin/Globulin Ratio 1.4 08/05/17 22:10: PT 12.2, INR 1.12 H, APTT 30.8 08/05/17 22:10: WBC 12.9 H D, RBC 4.51, Hgb 14.1, Hct 40.2 L, MCV 89.1, MCH 31.3 , MCHC 35.1, RDW 12.8, Plt Count 291, MPV 10.7, Gran % 83.3 H, Lymph % (Auto) 10.4 L, Keith % (Auto) 6.2 H, Eos % (Auto) 0.0 L, Baso % (Auto) 0.1, Gran # 10.78 H, Lymph # 1.4, Keith # 0.8 H, Eos # 0.0, Baso # 0.01 - RAD Interpretation Radiology Orders: 08/05/17 21:15 CHEST PORTABLE [RAD] Stat - Medication Orders Current Medication Orders: Discontinued Medications Haloperidol Lactate (Haldol) 2 mg IM STAT STA PRN Reason: Protocol Stop: 08/05/17 23:46 Last Admin: 08/06/17 00:22 Dose: 2 mg IM Administration Charges Document 08/06/17 00:22 WILL (Rec: 08/06/17 00:23 WILL [id number]) Injection Site MAR Injection Site Left Arm Charges for Administration # of IM Administrations 1 Lorazepam (Ativan) 2 mg IM ONCE ONE PRN Reason: Protocol Stop: 08/05/17 21:16 Last Admin: 08/05/17 21:28 Dose: 2 mg IM Administration Charges Document 08/05/17 21:28 WILL (Rec: 08/05/17 21:28 WILL [id number]) Injection Site MAR Injection Site Left Vastus Lateralis Charges for Administration # of IM Administrations 1 Midazolam HCl (Versed Inj) 1 mg IM STAT STA Stop: 08/05/17 21:27 Last Admin: 08/05/17 21:28 Dose: 1 mg IM Administration Charges Document 08/05/17 21:28 TA (Rec: 08/05/17 22:06 [email or web address]) Injection Site MAR Injection Site Right Deltoid Charges for Administration # of IM Administrations 1 Ziprasidone (Geodon Inj) 10 mg IM STAT STA PRN Reason: Protocol Stop: 08/06/17 00:41 Last Admin: 08/06/17 00:57 Dose: 10 mg IM Administration Charges Document 08/06/17 00:57 SC (Rec: 08/06/17 00:57 SC [id number]) Injection Site MAR Injection Site Right Deltoid Charges for Administration # of IM Administrations 1 - Scribe Statement The provider has reviewed the documentation as recorded by the Marisolibtisha Ling Provider Scribe Attestation: All medical record entries made by the Scribe were at my direction and personally dictated by me. I have reviewed the chart and agree that the record accurately reflects my personal performance of the history, physical exam, medical decision making, and the department course for this patient. I have also personally directed, reviewed, and agree with the discharge instructions and disposition. Disposition/Present on Arrival - Present on Arrival History of DVT/PE: No History of Uncontrolled Diabetes: No Urinary Catheter: No History of Decub. Ulcer: No History Surgical Site Infection Following: None - Disposition Diagnosis: Schizophrenia Disposition: HOME/ ROUTINE Disposition Time: 08:33 Patient Problems: Current Active Problems Problem Status Onset Schizophrenia Acute Condition: STABLE Discharge Instructions (ExitCare): Schizophrenia (ED), Leukocytosis (ED) Additional Instructions: please return to er with worsening symptoms or concerns. Referrals: [facility] [place] [Outside] - Follow up with primary [facility] at [facility] [Outside] - Follow up with primary Forms: [facility] (Nepali)
[2017-08-06 08:53] VITALS: BP 130/79; PULSE 82; RESP 18; TEMP 98.2; O2SAT 98
--- NOTE | 2017-08-06 10:12 | CARD ---
APPROVED REPORT EKG Measurement Heart [id number] <Conclusion> Sinus tachycardia with short NC Improved repolarization.
--- NOTE | 2017-08-06 10:17 | RAD ---
HISTORY: rout med exam COMPARISON: Frontal chest radiograph 02/03/2017. FINDINGS: LUNGS: No acute cardiopulmonary is appreciated trace pulmonary fibrotic changes are again appreciated. PLEURA: No significant pleural effusion identified, no pneumothorax apparent. CARDIOVASCULAR: Normal. OSSEOUS STRUCTURES: No significant abnormalities. VISUALIZED UPPER ABDOMEN: Normal. OTHER FINDINGS: None. IMPRESSION: Tracer changes again seen in the periphery. No acute infiltrate pleural effusion pneumothorax or pulmonary vascular derangement. Cardiac silhouette appears stable.
== END 2017-08-06 08:53 | disposition home or self-care (01) ==
LOC: ED 20:51
DX: F20.9 Schizophrenia, unspecified (principal)
CPT/HCPCS: 71010; 80053; 81001; 84484; 85025; 85610; 85730; 90791; 93005; 96372; 99285; G0480; J1630; J2060; J2250; J3486

== ENCOUNTER 2017-08-23 18:59 | Inpatient (IN) | payer MEDICARE, MEDICAID ==
[2017-08-23 19:06] VITALS: BMI 20.8
[2017-08-23] MEDS ORDERED: Sodium Chloride 0.9% 1,000 ML IV STA (19:12)
[2017-08-23] MEDS ORDERED: DOPamine 400mg/250ml D5W 400 MG/250 ML BAG IV ONE (19:20)
[2017-08-23 19:33] LABS: BASO # 0.01 K/mm3 (0.0-2.0); BASO % 0.1 % (0.0-3.0); EOS % 0.1 % (1.5-5.0); GRAN # 2.5 (1.4-6.5); GRAN % 31.8 % (50.0-68.0); LYMPH # 4.9 (1.2-3.4); LYMPH % 61.5 % (22.0-35.0); MEAN CELL VOLUME 96.2 fl (80.0-105.0); MEAN CORPUSCULAR HEMOGLOBIN 30.1 pg (25.0-35.0); MEAN CORPUSCULAR HGB CONC 31.3 g/dl (31.0-37.0); MONO # 0.5 (0.1-0.6); MONO % 6.5 % (1.0-6.0); RED CELL DISTRIBUTION WIDTH 12.7 % (11.5-14.5); WHITE BLOOD COUNT 7.9 10^3/ul (4.5-11.0)
[2017-08-23 19:40] LABS: ALB/GLOB RATIO 1.4 (1.1-1.8); ALKALINE PHOSPHATASE 138 U/L (38-126); ALT/SGPT 199 U/L (7-56); AST/SGOT 209 U/L (17-59); BILIRUBIN,TOTAL 0.4 mg/dL (0.2-1.3); BLOOD UREA NITROGEN 14 mg/dL (7-21); CALCIUM 8.9 mg/dL (8.4-10.5); CARBON DIOXIDE 20 mmol/L (21-33); CHLORIDE 98 mmol/L (98-107); GFR AFRICAN-AMERICAN > 60; GLUCOSE,RANDOM 265 mg/dL (70-110); POTASSIUM 3.2 mmol/L (3.6-5.0); SODIUM 135 mmol/L (132-148); TOTAL PROTEIN 6.1 g/dL (5.8-8.3)
[2017-08-23 19:51] LABS: TROPONIN I < 0.01 ng/mL
[2017-08-23 19:54] LABS: ARTERIAL BLOOD GAS HCO3 14.6 mmol/L (21-28); ARTERIAL BLOOD GAS O2 CONTENT 13.9 ML/dl (15-23); ARTERIAL BLOOD HGB O2 SAT 97.6 % (95.0-98.0); HHB 0.8 % (0-5); METHEMOGLOBIN 0.6 % (0.0-3.0)
[2017-08-23 19:56] LABS: ARTERIAL BLOOD GAS PH 7.12 (7.35-7.45)
[2017-08-23] MEDS ORDERED: Piperacillin/Tazobact 3.375 gm 100 ML IVPB STA (20:09)
[2017-08-23] MEDS ORDERED: Sodium Chloride 0.9% 2,000 ML IV STA (20:10)
[2017-08-23 20:33] LABS: VENOUS BLOOD GAS BASE EXCESS -13.3 mmol/L (0.0-2.0)
[2017-08-23] MEDS ORDERED: Sodium Bicarbonate (8.4%) 50 Meq Syringe IVP ONE (20:38)
[2017-08-23 20:46] LABS: VENOUS BLOOD PH 7.11 (7.32-7.43)
[2017-08-23 20:53] LABS: URINE BILIRUBIN NEGATIVE (NEGATIVE); URINE BLOOD MODERATE (NEGATIVE); URINE GLUCOSE (UA) NEGATIVE (NEGATIVE); URINE KETONE NEGATIVE (NEGATIVE); URINE LEUKOCYTE ESTERASE NEGATIVE Leu/uL (NEGATIVE); URINE PROTEIN 30 mg/dL (<30 mg/dL); URINE UROBILINOGEN 0.2 E.U./dL (<1 E.U./dL)
[2017-08-23] MEDS ORDERED: NOREPINEPHRINE BIT/0.9 % NACL 4 MG/250 ML BAG IV PRN (20:54)
[2017-08-23] MEDS ORDERED: Vancomycin 1gm in NS 250ml 1 GM/250 ML BAG IVPB STA (21:00)
--- NOTE | 2017-08-23 21:07 | CP.PCM.HP ---
History of Present Illness - History of Present Illness History of Present Illness: 67 year old male with past medical history of Developmental delay, Parkinson's disease, Seizure disorder presents to the ED status post cardiac arrest on the field. PMD: Dr. Benjamin Mantilla Neurologist: Dr. Canales PMH: Developmental delay, Parkinson's disease, Seizure disorder PSH: Unknown Allergies: NKDA Surgical History:unable to obtain Social: unable to obtain Family Hx: unable to obtain Medications: Reviewed Review of Systems - Review of Systems Systems not reviewed;Unavailable: Other Review of Systems: Patient unresponsive- unable to obtain ROS Past Patient History - Infectious Disease Hx of Infectious Diseases: None - Past Social History Smoking Status: Never Smoked - CARDIAC Hx Cardiac Disorders: No Hx Hypertension: Yes - NEUROLOGICAL HX Cerebrovascular Accident: No Hx Seizures: Yes - HEMATOLOGICAL/ONCOLOGICAL Hx Cancer: No Hx Human Immunodeficiency Virus (HIV): No - MUSCULOSKELETAL/RHEUMATOLOGICAL Hx Falls: Yes - GENITOURINARY/GYNECOLOGICAL Hx Sexually Transmitted Disorders: No - PSYCHIATRIC Hx Schizophrenia: Yes Hx Substance Use: No - ANESTHESIA Hx Anesthesia Reactions: No Meds Allergies/Adverse Reactions: Allergies Allergy/AdvReac Type Severity Reaction Status Date / Time No Known Allergies Allergy Verified 02/02/17 23:13 Physical Exam - Constitutional Additional comments: unresponsive - Head Exam Head Exam: ATRAUMATIC, NORMAL INSPECTION, NORMOCEPHALIC - Eye Exam Eye Exam: absent: PERRL - ENT Exam ENT Exam: Mucous Membranes Moist - Neck Exam Neck exam: Positive for: Normal Inspection - Respiratory Exam Respiratory Exam: Clear to Auscultation Bilateral Additional comments: Intubated, on ventilator - GI/Abdominal Exam GI & Abdominal Exam: Distended - Extremities Exam Extremities exam: Positive for: pedal pulses present Additional comments: Femoral line right Right I/O line - Neurological Exam Additional comments: unresponsive - Skin Skin Exam: Pallor Results - Labs Result Diagrams: 08/23/17 19:00 08/23/17 19:00 Labs: Laboratory Results - last 24 hr 08/23/17 08/23/17 08/23/17 19:00 19:00 19:43 WBC 7.9 D RBC 3.95 Hgb 11.9 L D Hct 38.0 L MCV 96.2 D MCH 30.1 MCHC 31.3 RDW 12.7 Plt Count 235 MPV 11.0 Gran % 31.8 L Lymph % (Auto) 61.5 H [place] % (Auto) 6.5 H Eos % (Auto) 0.1 L Baso % (Auto) 0.1 Gran # 2.50 Lymph # 4.9 H [place] # 0.5 Eos # 0.0 Baso # 0.01 pCO2 45 pO2 281.0 H HCO3 14.6 L ABG pH 7.12 L* ABG Total CO2 16.0 L ABG O2 Saturation 99.2 H ABG O2 Content 13.9 L ABG Base Excess -14.0 L ABG Hemoglobin 9.6 L ABG Carboxyhemoglobin 1.0 POC ABG HHb (Measured) 0.8 ABG Methemoglobin 0.6 ABG O2 Capacity 14.0 L VBG pH VBG pCO2 VBG HCO3 VBG Total CO2 VBG O2 Sat (Calc) VBG Base Excess VBG Potassium Hgb O2 Saturation 97.6 Glucose Lactate FiO2 21.0 Sodium 135 Potassium 3.2 L Chloride 98 Carbon Dioxide 20 L Anion Gap 21 H BUN 14 Creatinine 1.0 Est GFR ( Amer) > 60 Est GFR (Non-Af Amer) > 60 Random Glucose 265 H Calcium 8.9 Total Bilirubin 0.4 AST 209 H D ALT 199 H Alkaline Phosphatase 138 H Troponin I < 0.01 Total Protein 6.1 Albumin 3.6 Globulin 2.6 Albumin/Globulin Ratio 1.4 Venous Blood Potassium 08/23/17 20:26 WBC RBC Hgb Hct MCV MCH MCHC RDW Plt Count MPV Gran % Lymph % (Auto) [place] % (Auto) Eos % (Auto) Baso % (Auto) Gran # Lymph # [place] # Eos # Baso # pCO2 pO2 245 H HCO3 ABG pH ABG Total CO2 ABG O2 Saturation ABG O2 Content ABG Base Excess ABG Hemoglobin ABG Carboxyhemoglobin POC ABG HHb (Measured) ABG Methemoglobin ABG O2 Capacity VBG pH 7.11 L* VBG pCO2 51.0 VBG HCO3 16.2 L VBG Total CO2 17.8 L VBG O2 Sat (Calc) 99.3 H VBG Base Excess -13.3 L VBG Potassium 3.7 Hgb O2 Saturation Glucose 181 H Lactate 6.7 H* FiO2 21.0 Sodium 136.0 Potassium Chloride 107.0 Carbon Dioxide Anion Gap BUN Creatinine Est GFR ( Amer) Est GFR (Non-Af Amer) Random Glucose Calcium Total Bilirubin AST ALT Alkaline Phosphatase Troponin I Total Protein Albumin Globulin Albumin/Globulin Ratio Venous Blood Potassium 3.7 Assessment & Plan - Assessment and Plan (Free Text) Assessment: 67 year old male with past medical history of Developmental delay, Parkinson's disease, Seizure disorder presents to the ED status post cardiac arrest on the field. Patient is intubated, on the ventilator and will be monitored in the ICU. Plan: Neurological -patient currently unresponsive, likely secondary to anoxic brain injury due to cardiac arrest -no pupillary response -GCS scale: 3 -Head CT pending -history of Parkinsons, developmental delay, seizure disorders -Neurology Consulted, Jocelyn, will follow recs -UDS pending Cardiovascular -status post cardiac arrest in the field -EKG ordered and obtained, pending official read -Initial troponin negativex1, will follow serially x2 -Will repeat EKG in AM -levophed 4mg/kg -Maintain MAP>65 -Lipid panel pending -Hypothermia/Freeze Protocol -cardiology consulted, [facility] Respiratory -intubated, on ventilator : -Chest xray ordered, official read pending -ABG ordered, pH: 7.12 -repeat ABG -Lactate pending GI -protonix for GI prophylaxis -AST: 209 ALT: 199 -NPO Endocrine -TSH penidng -Free T4 pending -A1C pending -Accuchecks -Maintain euglycemia Nephrology -monitor BUN/Cr -Strict Ins and Outs -Bicarb given -Magnesium and Phosphate pending -UA pending Heme -Hgb: 11.9 Hct: 38 -continue to monitor ID -no leukocytosis -Vancomycin and Meropenem -Follow up blood and urine cultures -procalcitonin stat -ID consulted, Go, follow recs Prophylaxis -Protonix Diet -NPO Palliative Care consult
[2017-08-23 21:08] LABS: URINE APPEARANCE SL CLOUDY (CLEAR); URINE COLOR YELLOW (YELLOW)
[2017-08-23 21:14] LABS: URINE RBC 15 - 20 /hpf (0-2)
[2017-08-23 21:15] LABS: URINE BACTERIA MANY (NEG)
[2017-08-23 21:21] LABS: CHOLESTEROL 127 mg/dL (130-200)
[2017-08-23 21:36] LABS: FREE T4 0.65 ng/dL (0.78-2.19)
--- NOTE | 2017-08-23 21:46 | CT ---
EXAM: CT Head Without Intravenous Contrast CLINICAL HISTORY: 67 years old, male; Signs and symptoms; Other: Pt found unresponsive; Patient HX: HX parkinson's disease, HX seizures. ; Additional info: S/P cardiac arrest TECHNIQUE: Axial computed tomography images of the head/brain without intravenous contrast. All CT scans at this facility use one or more dose reduction techniques, viz.: automated exposure control; ma/kV adjustment per patient size (including targeted exams where dose is matched to indication; i.e. head); or iterative reconstruction technique. COMPARISON: CT - HEAD W/O CONTRAST 2017-02-03 02:08 FINDINGS: Brain: No acute intracranial hemorrhage. Age-appropriate periventricular white matter disease. No edema. Ventricles: Age-appropriate ventriculomegaly. Bones: No acute displaced fracture. Sinuses: Dense opacification of the entirety of the paranasal and frontal sinuses. Mastoid air cells: Unremarkable as visualized. No mastoid effusion. Supportive tubes in place. IMPRESSION: No acute intracranial hemorrhage, or suspicious mass effect. Inflammatory sinus disease.
[2017-08-23 21:50] LABS: THYROID STIMULATING HORMONE 3.25 mIU/mL (0.46-4.68)
--- NOTE | 2017-08-23 22:36 | ED PDOC ---
Arrival/HPI - General Chief Complaint: Cardiac Arrest Time Seen by Provider: 08/23/17 19:04 Historian: EMS - History of Present Illness Narrative History of Present Illness (Text): 08/23/17 19:00 67 year old male, whose past medical history includes developmental delay, schizophrenia, and seizure, who presents to the ED brought in by EMS for cardiac arrest tonight. CPR was started and patient was intubated in the field. Patient received 3 Epis via IO with ROSC in the field. On arrival to ED, patient had a pulse and blood pressure, but not neurological signs or activity. Patient believe to be PEA arrest and no shocks were give. Limited HPI and ROS due to unresponsiveness/post-cardiac arrest. Symptom Onset: Sudden Symptom Course: Unchanged Severity Level: Severe Activities at Onset: Light Context: Home Past Medical History - Provider Review Nursing Documentation Reviewed: Yes - Infectious Disease Hx of Infectious Diseases: None - Cardiac Hx Cardiac Disorders: No Hx Hypertension: Yes - Neurological HX Cerebrovascular Accident: No Hx Seizures: Yes - Hematological/Oncological Hx Cancer: No - Musculoskeletal/Rheumatological Hx Falls: Yes - Genitourinary/Gynecological Hx Sexually Transmitted Diseases: No - Psychiatric Hx Schizophrenia: Yes Hx Substance Use: No - Anesthesia Hx Anesthesia Reactions: No Family/Social History - Physician Review Nursing Documentation Reviewed: Yes Family/Social History: Unknown Family HX Smoking Status: Never Smoked Hx Alcohol Use: No Hx Substance Use: No Allergies/Home Meds Allergies/Adverse Reactions: Allergies No Known Allergies Allergy (Verified 02/02/17 23:13) Home Medications: Home Meds Medication Instructions Recorded Confirmed Unobtainable 08/24/17 08/24/17 Review of Systems - Review of Systems Systems not reviewed;Unavailable: Intubated Physical Exam - Physical Exam Narrative Physical Exam (Text): Good central pulses Vital Signs Reviewed: Yes Vital Signs Temp Pulse Resp BP Pulse Ox 08/23/17 23:49 89.5 F L 08/23/17 23:26 60 16 103/67 98 08/23/17 23:05 63 16 97/60 L 99 08/23/17 22:52 70 16 96/52 L 92 L 08/23/17 22:45 75 96/52 L 08/23/17 22:30 80 16 91/59 L 92 L 08/23/17 22:13 85 16 80/58 L 96 08/23/17 22:03 86 16 88/53 L 89 L 08/23/17 21:58 91 H 16 94/57 L 90 L 08/23/17 21:43 93 H 16 101/58 L 92 L 08/23/17 21:30 16 100 08/23/17 21:22 101 H 16 86/51 L 90 L 08/23/17 21:18 102 H 16 77/50 L 08/23/17 21:00 105 H 84/53 L 100 08/23/17 20:36 105 H 93/58 L 100 08/23/17 20:15 107 H 104/59 L 100 08/23/17 20:01 92 H 82/52 L 08/23/17 19:44 74 75/54 L 08/23/17 19:30 16 08/23/17 19:29 68 74/49 L 08/23/17 19:17 78 69/44 L 08/23/17 19:06 129 H 100 08/23/17 19:05 124 H 100 08/23/17 19:03 133 H 87/48 L 100 Temperature: Afebrile Blood Pressure: Hypotensive Respiratory Rate: Mechanically Ventilated Appearance: Positive for: Ill-Appearing Pain Distress: None Mental Status: Positive for: other (Unresponsive, GCS:3) Finger Stick Blood Glucose: 280 - Systems Exam Head: Present: Atraumatic, Normocephalic Pupils: Present: Other (Pupils 3mm and minimally reactive bilaterally) Conjunctiva: Present: Normal Mouth: Present: Moist Mucous Membranes Neck: Present: Normal Range of Motion Respiratory/Chest: Present: Clear to Auscultation, Other (Clear Breath Sounds bilaterally with ventilation, no signs of trauma) Abdomen: Present: Distention (Protuberant), Normal Bowel Sounds. No: Tenderness , Peritoneal Signs Upper Extremity: No: Edema Lower Extremity: Present: Other (Poor perfusion, cool to touch bilaterally) Neurological: Present: Other (No spontaneous neurological activity). No: GCS= 15 (GCS=3) Skin: Present: Dry. No: Rashes Psychiatric: Present: Other (Unresponsive) Medical Decision Making ED Course and Treatment: 08/23/17 19:00 Impression: 67 year old male brought s/p cardiac arrest, intubated, with no neuro activity. Differential Diagnosis included but are not limited to: ICH vs. HI vs. PE vs. intra-abdominal infection vs. AAA Plan: -- ABG -- EKG -- Labs -- CXR -- Reassess and disposition Progress Notes: Pt brought for cardiac arrest. CPR initiated and pt intubated in field. Received 3 epi via IO placed by EMS with ROSC. Pt seen on arrival to ED, with pulse and blood pressure noted, no signs of neurological signs/activity. Believed to be PEA arrest, no shocks five. ET tube placement verified. Pt however hypotensive, Dopamine was started. Central Line placed in right femoral, may be arterial. Pt started on empiric antibiotics for possible UTI vs. pneumonia. CXR confirms tube placement, pulled ET tube back 2 cm due to righ main stem. Lungs clear, aspiration content present in mouth, empiric antibiotics given for this, no free fluid in abdomen per bedside US. PROCEDURE: CENTRAL LINE PLACEMENT Performed by the emergency provider, Consent: Discussion of the risks, benefits, and alternatives to the procedure, along with informed consent was precluded by the urgency of the procedure and the patient condition Timeout: A timeout to verify the correct patient, procedure, and site was performed.~ Indication: Poor IV access, cardiac arrest Skin Preparation: Hand hygiene performed prior to central venous catheter insertion. Sterile field, sterile drape, sterile technique, and cap and gown were used. The area was cleansed with 2% Chlorhexidine. Patient position: supine Location: Right femoral Ultrasound guidance: YES Technique: The landmarks for the line placement were identified. The vessel was cannulated and a non-tunneled 7.0 Fr triple lumen was placed using the Seldinger technique. Assessment: Bright red blood. Good patency and blood return through all three lumens. The ports were appropriately flushed. See post procedure X-Ray interpretation. ABG verified may be arterial. ICU team notified, pt not placed on pressors. ICU team will insert different line. Oral gastric tube placed. - Critical Care Critical Care Minutes: Other (35 minutes) - Lab Interpretations Microbiology Results: Microbiology Results 08/23/17 19:30 Blood Blood Culture - Preliminary NO GROWTH AFTER 24 HOURS 08/23/17 19:00 Blood Blood Culture - Preliminary NO GROWTH AFTER 24 HOURS Lab Results: 08/23/17 19:00 08/23/17 19:00 Lab Results 08/23/17 21:10: Triglycerides 114, Cholesterol 127 L, LDL Cholesterol Direct 72 , HDL Cholesterol 38 08/23/17 21:10: Hemoglobin A1c 5.5 08/23/17 21:10: Free T4 0.65 L, TSH 3rd Generation 3.25 08/23/17 21:10: Procalcitonin < 0.05 L 08/23/17 20:45: Urine Opiates Screen Negative, Urine Methadone Screen Negative, Ur Barbiturates Screen Positive H, Ur Phencyclidine Scrn Negative, Ur Amphetamines Screen Negative, U Benzodiazepines Scrn Negative, U Oth Cocaine Metabols Negative, U Cannabinoids Screen Negative 08/23/17 20:39: Urine Color Yellow, Urine Appearance Sl cloudy, Urine pH 7.0, Ur Specific [place] 1.015, Urine Protein 30 H, Urine Glucose (UA) Negative, Urine Ketones Negative, Urine Blood Moderate H, Urine Nitrate Negative, Urine Bilirubin Negative, Urine Urobilinogen 0.2, Ur Leukocyte Esterase Negative, Urine RBC 15 - 20, Urine WBC 5 - 10, Ur Epithelial Cells 3 - 4, Urine Bacteria Many 08/23/17 20:26: pO2 245 H, VBG pH 7.11 L*, VBG pCO2 51.0, VBG HCO3 16.2 L, VBG Total CO2 17.8 L, VBG O2 Sat (Calc) 99.3 H, VBG Base Excess -13.3 L, VBG Potassium 3.7, Glucose 181 H, Lactate 6.7 H*, FiO2 21.0, Sodium 136.0, Chloride 107.0, Venous Blood Potassium 3.7 08/23/17 19:43: pCO2 45, pO2 281.0 H, HCO3 14.6 L, ABG pH 7.12 L*, ABG Total CO2 16.0 L, ABG O2 Saturation 99.2 H, ABG O2 Content 13.9 L, ABG Base Excess - 14.0 L, ABG Hemoglobin 9.6 L, ABG Carboxyhemoglobin 1.0, POC ABG HHb (Measured) 0.8, ABG Methemoglobin 0.6, ABG O2 Capacity 14.0 L, Hgb O2 Saturation 97.6, FiO2 21.0 08/23/17 19:00: Sodium 135, Potassium 3.2 L, Chloride 98, Carbon Dioxide 20 L, Anion Gap 21 H, BUN 14, Creatinine 1.0, Est GFR ( Amer) > 60, Est GFR ( Non-Af Amer) > 60, Random Glucose 265 H, Calcium 8.9, Total Bilirubin 0.4, AST 209 H D, ALT 199 H, Alkaline Phosphatase 138 H, Troponin I < 0.01, Total Protein 6.1, Albumin 3.6, Globulin 2.6, Albumin/Globulin Ratio 1.4 08/23/17 19:00: WBC 7.9 D, RBC 3.95, Hgb 11.9 L D, Hct 38.0 L, MCV 96.2 D, MCH 30.1, MCHC 31.3, RDW 12.7, Plt Count 235, MPV 11.0, Gran % 31.8 L, Lymph % ( Auto) 61.5 H, [place] % (Auto) 6.5 H, Eos % (Auto) 0.1 L, Baso % (Auto) 0.1, Gran # 2.50, Lymph # 4.9 H, [place] # 0.5, Eos # 0.0, Baso # 0.01 I have reviewed the lab results: Yes - RAD Interpretation Radiology Orders: 08/23/17 19:11 X-RAY [CHEST PORTABLE] [RAD] Stat 08/23/17 20:43 HEAD W/O CONTRAST [CT] 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 Physician - EKG Interpretation Interpreted by ED Physician: Yes Type: 12 lead EKG - Medication Orders Current Medication Orders: Acetaminophen (Tylenol 650mg/20.3ml Solution Ud) 975 mg NG Q6 PRN PRN Reason: Rigors Aspirin (Aspirin Chewable) 81 mg PO DAILY [facility] Last Admin: 08/24/17 18:04 Dose: 81 mg Atorvastatin Calcium (Lipitor) 10 mg PO DIN [facility] Last Admin: 08/24/17 18:04 Dose: 10 mg Chlorhexidine Gluconate (Peridex) 15 ml PO Q4H PRN PRN Reason: oral care Last Admin: 08/24/17 06:32 Dose: 2 ml Heparin Sodium (Porcine) (Heparin) 5,000 units SC Q12 UMBERTO PRN Reason: Protocol Last Admin: 08/24/17 22:00 Dose: 5,000 units Subcutaneous Administrations Document 08/24/17 22:00 COLIN (Rec: 08/24/17 23:09 COLIN TRAINPC-FIX) Injection Site MAR Injection Site Right Abdomen Charges for Administration # of Subcutaneous Administrations 1 NOREPINEPHRINE BIT/0.9 % NACL (Levophed 4 Mg/ 250 Ml Ns Premixed) 4 mg in 250 mls @ 15 mls/hr IV .[id number] PRN; Protocol; 4 MCG/MIN PRN Reason: TITRATE PER MD ORDER Sodium Chloride (Sodium Chloride 0.9%) 1,000 mls @ 75 mls/hr IV .[id number] UMBERTO Last Admin: 08/24/17 17:33 Dose: 75 mls/hr eMAR Start Stop Document 08/24/17 17:33 PIA (Rec: 08/24/17 17:33 [id number] Intravenous Solution Start Date 08/24/17 Start Time 17:33 End Date 08/24/17 Propofol (Diprivan) 1,000 mg in 100 mls @ 1.755 mls/hr IV .Q24H PRN; Protocol; 5 MCG/KG/MIN PRN Reason: TITRATE PER MD ORDER Last Titration: 08/25/17 00:47 Dose: 25 mcg/kg/min, 8.777 mls/hr Titration Intervention Document 08/25/17 00:47 TELLEZ (Rec: 08/25/17 00:47 TELLEZ TRAINPC-FIX) Titration Intake Titration Intake 0 Cumulative Intake 0 Cumulative Intake (Rx) 0 Waste Amount 0 Container Volume 100 Titration Dosing Titration Dose 25 IV Rate 8.777 Intake/Decrease Increased Cumulative Dose 0 Vancomycin HCl (Vancomycin 1gm) 1 gm in 250 mls @ 167 mls/hr IVPB DAILY UMBERTO PRN Reason: Protocol Last Admin: 08/24/17 11:44 Dose: 167 mls/hr eMAR Start Stop Document 08/24/17 11:44 PIA (Rec: 08/24/17 11:44 [id number] Intravenous Solution Start Date 08/24/17 Start Time 11:44 End Date 08/24/17 End time 13:14 Total Infusion Time 90 Azithromycin (Zithromax 500mg In Ns) 500 mg in 250 mls @ 167 mls/hr IVPB DAILY UMBERTO PRN Reason: Protocol Last Admin: 08/24/17 13:04 Dose: 167 mls/hr eMAR Start Stop Document 08/24/17 13:04 PIA (Rec: 08/24/17 13:05 [id number] Intravenous Solution Start Date 08/24/17 Start Time 13:04 End Date 08/24/17 End time 14:34 Total Infusion Time 90 Midazolam 100 mg/100ml in NS (Midazolam 100 Mg/100ml In Ns) 100 mg in 100 mls @ 2 mls/hr IV .Q24H PRN; Protocol; 2 MG/HR PRN Reason: Agitation Last Admin: 08/24/17 15:42 Dose: 2 mg/hr, 2 mls/hr eMAR Start Stop Document 08/24/17 15:42 PIA (Rec: 08/24/17 15:42 [facility]) Intravenous Solution Start Date 08/24/17 Start Time 15:42 End Date 08/24/17 Titration Intervention Document 08/24/17 15:42 PIA (Rec: 08/24/17 15:42 [facility]) Titration Intake Waste Amount 0 Container Volume 100 Titration Dosing Titration Dose 2 IV Rate 2 Intake/Decrease Started Levetiracetam 750 mg/ Sodium (Chloride) 107.5 mls @ 460 mls/hr IV Q12 UMBERTO Last Admin: 08/24/17 22:00 Dose: 460 mls/hr eMAR Start Stop Document 08/24/17 22:00 COLIN (Rec: 08/24/17 23:08 COLIN [facility]-FIX) Intravenous Solution Start Date 08/24/17 Start Time 22:00 End Date 08/24/17 End time 23:00 Total Infusion Time 60 Pantoprazole Sodium (Protonix Inj) 40 mg IVP 0600 [facility] Last Admin: 08/24/17 06:08 Dose: 40 mg IVP Administration Document 08/24/17 06:08 TELLEZ (Rec: 08/24/17 06:08 TELLEZ [facility] [place]-[id number]) Charges for Administration # of IVP Administrations 1 Discontinued Medications Buspirone HCl (Buspar) 30 mg GT Q8 UMBERTO Stop: 08/24/17 14:01 Last Admin: 08/24/17 06:09 Dose: Sodium Chloride (Sodium Chloride 0.9%) 1,000 mls @ 999 mls/hr IV .Q1H1M STA Stop: 08/23/17 20:12 Last Admin: 08/23/17 19:15 Dose: 999 mls/hr eMAR Start Stop Document 08/23/17 19:15 SS (Rec: 08/23/17 21:27 SS [id number]) Intravenous Solution Start Date 08/23/17 Start Time 19:15 End Date 08/23/17 End time 20:15 Total Infusion Time 60 Piperacillin Sod/Tazobactam Sod (Zosyn 3.375 In Ns 100ml) 100 mls @ 200 mls/hr IVPB STAT STA PRN Reason: Protocol Stop: 08/23/17 20:38 Last Admin: 08/23/17 21:13 Dose: 200 mls/hr eMAR Start Stop Document 08/23/17 21:13 SS (Rec: 08/23/17 21:28 SS [id number]) Intravenous Solution Start Date 08/23/17 Start Time 20:15 End Date 08/23/17 End time 20:45 Total Infusion Time 30 Sodium Chloride (Sodium Chloride 0.9%) 2,000 mls @ 999 mls/hr IV .Q2H1M STA Stop: 08/23/17 22:10 Last Admin: 08/23/17 21:28 Dose: 999 mls/hr eMAR Start Stop Document 08/23/17 21:28 SS (Rec: 08/23/17 21:29 SS [id number]) Intravenous Solution Start Date 08/23/17 Start Time 20:10 End Date 08/23/17 Meropenem 1 gm/ Dextrose 100 mls @ 100 mls/hr IVPB Q8 UMBERTO PRN Reason: Protocol Stop: 08/24/17 06:59 Last Admin: 08/24/17 06:32 Dose: 100 mls/hr eMAR Start Stop Document 08/24/17 06:32 TELLEZ (Rec: 08/24/17 06:32 TELLEZ [facility] [place]-[id number]) Intravenous Solution Start Date 08/24/17 Start Time 06:32 Vancomycin HCl (Vancomycin 1gm) 1 gm in 250 mls @ 167 mls/hr IVPB STAT STA PRN Reason: Protocol Stop: 08/23/17 22:29 Last Admin: 08/23/17 21:30 Dose: 167 mls/hr eMAR Start Stop Document 08/23/17 21:30 SS (Rec: 08/23/17 21:30 SS [id number]) Intravenous Solution Start Date 08/23/17 Start Time 21:30 End Date 08/23/17 Dopamine HCl 800 mg/ Dextrose 270 mls @ 2.36 mls/hr IV .Q24H PRN; Protocol; 2 MCG/KG/MIN PRN Reason: TITRATE PER MD ORDER Last Admin: 08/23/17 22:45 Dose: 2.36 mls/hr eMAR Start Stop Document 08/23/17 22:45 SS (Rec: 08/23/17 22:45 SS [facility] [place]-[id number]) Intravenous Solution Start Date 08/23/17 Start Time 22:45 MAR Pulse and Blood Pressure Document 08/23/17 22:45 SS (Rec: 08/23/17 22:45 SS [facility] [place]-[id number]) Pulse Pulse Rate (60-90) 75 Blood Pressure Blood Pressure (100/60-150/90) 96/52 Sodium Chloride (Sodium Chloride 0.9%) 1,000 mls @ 125 mls/hr IV .Q8H UMBERTO Last Admin: 08/23/17 23:47 Dose: 125 mls/hr eMAR Start Stop Document 08/23/17 23:47 SS (Rec: 08/23/17 23:48 SS [facility] [place]-[id number]) Intravenous Solution Start Date 08/23/17 Start Time 23:48 Potassium Chloride (Potassium Chloride 10 Meq/100 Ml) 10 meq in 100 mls @ 100 mls/hr IVPB Q2H UMBERTO Stop: 08/24/17 01:59 Last Admin: 08/24/17 02:00 Dose: 100 mls/hr eMAR Start Stop Document 08/24/17 02:00 TELLEZ (Rec: 08/24/17 02:08 TELLEZ [facility] [place]-[id number]) Intravenous Solution Start Date 08/24/17 Start Time 02:00 Meropenem 1 gm/ Dextrose 100 mls @ 100 mls/hr IVPB Q12 UMBERTO PRN Reason: Protocol Stop: 08/24/17 10:59 Last Admin: 08/24/17 09:51 Dose: 100 mls/hr eMAR Start Stop Document 08/24/17 09:51 PIA (Rec: 08/24/17 09:51 PIA [id number]) Intravenous Solution Start Date 08/24/17 Start Time 09:51 End Date 08/24/17 End time 10:51 Total Infusion Time 60 Magnesium Sulfate 2 gm/ Sodium (Chloride) 104 mls @ 102 mls/hr IVPB ONCE ONE Stop: 08/24/17 11:19 Last Admin: 08/24/17 10:28 Dose: 102 mls/hr eMAR Start Stop Document 08/24/17 10:28 PIA (Rec: 08/24/17 10:28 PIA [id number]) Intravenous Solution Start Date 08/24/17 Start Time 10:28 End Date 08/24/17 End time 11:28 Total Infusion Time 60 Calcium Gluconate 1,000 mg/ (Sodium Chloride) 110 mls @ 110 mls/hr IVPB ONCE ONE Stop: 08/24/17 12:27 Last Admin: 08/24/17 12:33 Dose: 110 mls/hr eMAR Start Stop Document 08/24/17 12:33 PIA (Rec: 08/24/17 12:38 PIA [id number]) Intravenous Solution Start Date 08/24/17 Start Time 12:33 End Date 08/24/17 End time 13:33 Total Infusion Time 60 Potassium Phosphate 15 mmole/ (Sodium Chloride) 255 mls @ 42.5 mls/hr IVPB ONCE ONE Stop: 08/24/17 17:59 Last Admin: 08/24/17 13:38 Dose: 42.5 mls/hr eMAR Start Stop Document 08/24/17 13:38 PIA (Rec: 08/24/17 13:38 PIA [id number]) Intravenous Solution Start Date 08/24/17 Start Time 13:38 End Date 08/24/17 End time 19:38 Total Infusion Time 360 Levetiracetam 1,000 mg/ Sodium (Chloride) 110 mls @ 440 mls/hr IV ONCE ONE Stop: 08/24/17 13:20 Last Admin: 08/24/17 15:05 Dose: 440 mls/hr eMAR Start Stop Document 08/24/17 15:05 PIA (Rec: 08/24/17 15:05 [id number] Intravenous Solution Start Date 08/24/17 Start Time 15:05 End Date 08/24/17 End time 15:20 Total Infusion Time 15 Potassium Chloride (Potassium Chloride 20 Meq/100 Ml) 20 meq in 100 mls @ 50 mls/hr IVPB Q2H UMBERTO Stop: 08/24/17 23:59 Last Admin: 08/24/17 22:10 Dose: 50 mls/hr eMAR Start Stop Document 08/24/17 22:10 COLIN (Rec: 08/24/17 23:10 COLIN TRAINPC-FIX) Intravenous Solution Start Date 08/24/17 Start Time 22:00 End Date 08/24/17 End time 23:55 Total Infusion Time 115 Potassium Phosphate (Potassium Phosphate) 15 mmole IV ONCE ONE Stop: 08/24/17 11:49 Last Admin: 08/24/17 18:45 Dose: Sodium Bicarbonate (Sodium Bicarbonate 8.4% (50 Meq) Syringe) 50 meq IVP ONCE ONE Stop: 08/23/17 20:39 Last Admin: 08/23/17 22:10 Dose: 50 meq IVP Administration Document 08/23/17 22:10 SS (Rec: 08/23/17 22:10 [id number]) Charges for Administration # of IVP Administrations 1 - Scribe Statement The provider has reviewed the documentation as recorded by the Scribe My Cardenas Provider Scribe Attestation: All medical record entries made by the Scribe were at my direction and personally dictated by me. I have reviewed the chart and agree that the record accurately reflects my personal performance of the history, physical exam, medical decision making, and the department course for this patient. I have also personally directed, reviewed, and agree with the discharge instructions and disposition. Disposition/Present on Arrival - Present on Arrival Any Indicators Present on Arrival: No History of DVT/PE: No History of Uncontrolled Diabetes: No Urinary Catheter: No History of Decub. Ulcer: No History Surgical Site Infection Following: None - Disposition Have Diagnosis and Disposition been Completed?: Yes Diagnosis: Cardiac arrest due to other underlying condition Disposition: HOSPITALIZED Disposition Time: 10:00 Patient Plan: ICU Condition: CRITICAL
[2017-08-23] MEDS ORDERED: Sodium Chloride 0.9% 1,000 ML IV SCH (23:00)
[2017-08-23] MEDS ORDERED: Acetaminophen 650mg/20.3ml solution UD NG PRN (23:42)
[2017-08-23] MEDS: Meropenem 1 GM in Dextrose 5% In Water 100 ML IVPB SCH (23:47)
--- NOTE | 2017-08-24 00:19 | CP.PCM.CON ---
<Howard Coats - Last Filed: 08/24/17 04:12> History of Present Illness - History of Present Illness History of Present Illness: ICU Consult Note 67 year old male with past medical history of Developmental delay, Parkinson's disease, Seizure disorder presents to the ED status post cardiac arrest on the field. Patient was brought into the ED by EMS for cardiac arrest. CPR was started and patient was intubated in the field. Patient received 3 Epis via IO with ROSC in the field. On arrival to ED, patient had a pulse and blood pressure , but no neurological signs or activity. Limited HPI and ROS due to unresponsiveness/post-cardiac arrest. PMD: Dr. Benjamin Mantilla Neurologist: Dr. Canales PMH: Developmental delay, Parkinson's disease, Seizure disorder PSH: Unknown Allergies: NKDA Surgical History:unable to obtain Social: unable to obtain Family Hx: unable to obtain Medications: Reviewed Review of Systems - Review of Systems Systems not reviewed;Unavailable: Intubated, Other Review of Systems: patient unresponsiveness, unable to obtain ROS Past Patient History - Infectious Disease Hx of Infectious Diseases: None - Past Social History Smoking Status: Never Smoked - CARDIAC Hx Cardiac Disorders: No Hx Hypertension: Yes - NEUROLOGICAL HX Cerebrovascular Accident: No Hx Seizures: Yes - HEMATOLOGICAL/ONCOLOGICAL Hx Cancer: No - MUSCULOSKELETAL/RHEUMATOLOGICAL Hx Falls: Yes - GENITOURINARY/GYNECOLOGICAL Hx Sexually Transmitted Disorders: No - PSYCHIATRIC Hx Schizophrenia: Yes Hx Substance Use: No - ANESTHESIA Hx Anesthesia Reactions: No Meds Allergies/Adverse Reactions: Allergies Allergy/AdvReac Type Severity Reaction Status Date / Time No Known Allergies Allergy Verified 02/02/17 23:13 - Medications Medications: Current Medications Acetaminophen (Tylenol 650mg/20.3ml Solution Ud) 975 mg NG Q6 PRN PRN Reason: Rigors Buspirone HCl (Buspar) 30 mg GT Q8 [facility] Stop: 08/24/17 14:01 NOREPINEPHRINE BIT/0.9 % NACL (Levophed 4 Mg/ 250 Ml Ns Premixed) 4 mg in 250 mls @ 15 mls/hr IV .[id number] PRN; Protocol; 4 MCG/MIN PRN Reason: TITRATE PER MD ORDER Meropenem 1 gm/ Dextrose 100 mls @ 100 mls/hr IVPB Q8 [facility] PRN Reason: Protocol Stop: 08/24/17 06:59 Last Admin: 08/23/17 23:47 Dose: 100 mls/hr Dopamine HCl 800 mg/ Dextrose 270 mls @ 2.36 mls/hr IV .Q24H PRN; Protocol; 2 MCG/KG/MIN PRN Reason: TITRATE PER MD ORDER Last Admin: 08/23/17 22:45 Dose: 2.36 mls/hr Sodium Chloride (Sodium Chloride 0.9%) 1,000 mls @ 125 mls/hr IV .Q8H [facility] Last Admin: 08/23/17 23:47 Dose: 125 mls/hr Potassium Chloride (Potassium Chloride 10 Meq/100 Ml) 10 meq in 100 mls @ 100 mls/hr IVPB Q2H [facility] Stop: 08/24/17 01:59 Pantoprazole Sodium (Protonix Inj) 40 mg IVP 0600 [facility] Physical Exam - Constitutional Additional comments: unresponsive, intubated on ventilator - Head Exam Head Exam: ATRAUMATIC, NORMAL INSPECTION, NORMOCEPHALIC - Eye Exam Additional comments: pupils non reactive - ENT Exam ENT Exam: Mucous Membranes Moist - Neck Exam Neck exam: Positive for: Normal Inspection - Respiratory Exam Respiratory Exam: Clear to Auscultation Bilateral Additional comments: intubated, on ventilator - Cardiovascular Exam Cardiovascular Exam: REGULAR RHYTHM - GI/Abdominal Exam GI & Abdominal Exam: Distended - Extremities Exam Extremities exam: Positive for: pedal pulses present. Negative for: pedal edema Additional comments: right I/O line, right arterial line leg - Neurological Exam Additional comments: unresponsive Results - Vital Signs Recent Vital Signs: Last Vital Signs Temp 89.5 F L 08/23/17 23:49 Pulse 60 08/23/17 23:26 Resp 16 08/23/17 23:26 BP 103/67 08/23/17 23:26 Pulse Ox 98 08/23/17 23:26 - Labs Result Diagrams: 08/24/17 00:28 08/23/17 19:00 Assessment & Plan - Assessment and Plan (Free Text) Assessment: 67 year old male with past medical history of Developmental delay, Parkinson's disease, Seizure disorder presents to the ED status post cardiac arrest on the field. Patient is intubated, on the ventilator and will be monitored in the ICU. Plan: Neurological -patient currently unresponsive, likely secondary to anoxic brain injury due to cardiac arrest -no pupillary response -GCS scale: 3 -Head CT pending -history of Parkinsons, developmental delay, seizure disorders -Neurology Consulted, Jocelyn, will follow recs -UDS pending Cardiovascular -status post cardiac arrest in the field -EKG ordered and obtained, pending official read -Initial troponin negativex1, will follow serially x2 -Will repeat EKG in AM -levophed 4mg/kg -Maintain MAP>65 -Lipid panel pending -Hypothermia/Freeze Protocol -cardiology consulted, Mayelin Respiratory -intubated, on ventilator -Chest xray ordered, official read pending -ABG ordered, pH: 7.12 -repeat ABG -Lactate pending GI -protonix for GI prophylaxis -AST: 209 ALT: 199 -NPO Endocrine -TSH pending -Free T4 pending -A1C pending -Accuchecks -Maintain euglycemia Nephrology -monitor BUN/Cr -Strict Ins and Outs -Bicarb given -Magnesium and Phosphate pending -UA pending Heme -Hgb: 11.9 Hct: 38 -continue to monitor ID -no leukocytosis -Vancomycin and Meropenem -Follow up blood and urine cultures -procalcitonin stat -ID consulted, Go, follow recs Prophylaxis -Protonix Diet -NPO Palliative Care consult <Rowena MULLEN,Sandip - Last Filed: 08/24/17 08:15> Meds - Medications Medications: Current Medications Acetaminophen (Tylenol 650mg/20.3ml Solution Ud) 975 mg NG Q6 PRN PRN Reason: Rigors Buspirone HCl (Buspar) 30 mg GT Q8 [facility] Stop: 08/24/17 14:01 Last Admin: 08/24/17 06:09 Dose: Not Given Chlorhexidine Gluconate (Peridex) 15 ml PO Q4H PRN PRN Reason: oral care Last Admin: 08/24/17 06:32 Dose: 2 ml Heparin Sodium (Porcine) (Heparin) 5,000 units SC Q12 [facility] PRN Reason: Protocol NOREPINEPHRINE BIT/0.9 % NACL (Levophed 4 Mg/ 250 Ml Ns Premixed) 4 mg in 250 mls @ 15 mls/hr IV .[id number] PRN; Protocol; 4 MCG/MIN PRN Reason: TITRATE PER MD ORDER Sodium Chloride (Sodium Chloride 0.9%) 1,000 mls @ 75 mls/hr IV .[id number] [facility] Pantoprazole Sodium (Protonix Inj) 40 mg IVP 0600 [facility] Last Admin: 08/24/17 06:08 Dose: 40 mg Results - Vital Signs Recent Vital Signs: Last Vital Signs Temp 31.0 F L 08/24/17 05:14 Pulse 58 L 08/24/17 05:14 Resp 27 H 08/24/17 07:21 BP 95/62 L 08/24/17 05:15 Pulse Ox 100 08/24/17 07:21 - Labs Result Diagrams: 08/24/17 06:46 08/24/17 06:46 Labs: Laboratory Results - last 24 hr 08/24/17 08/24/17 08/24/17 00:28 00:28 00:28 WBC 4.1 L D RBC 4.52 Hgb 13.9 L D Hct 41.8 L MCV 92.5 D MCH 30.8 MCHC 33.3 RDW 12.8 Plt Count 196 MPV 10.4 Gran % 82.6 H Lymph % (Auto) 13.7 L [place] % (Auto) 3.7 Eos % (Auto) 0.0 L Baso % (Auto) 0.0 Gran # 3.39 Lymph # 0.6 L [place] # 0.2 Eos # 0.0 Baso # 0.00 PT 12.0 INR 1.10 H APTT 28.3 pCO2 pO2 46 HCO3 ABG pH ABG Total CO2 ABG O2 Saturation ABG Base Excess ABG Potassium VBG pH 7.15 L* VBG pCO2 55.0 VBG HCO3 19.2 L VBG Total CO2 20.9 L VBG O2 Sat (Calc) 82.9 H VBG Base Excess -10.0 L VBG Potassium 3.8 Sodium 135.0 Chloride 109.0 H Glucose 234 H Lactate 1.4 FiO2 21.0 Potassium Carbon Dioxide Anion Gap BUN Creatinine Est GFR ( Amer) Est GFR (Non-Af Amer) POC Glucose (mg/dL) Random Glucose Calcium Phosphorus Magnesium Total Bilirubin AST ALT Alkaline Phosphatase Troponin I Total Protein Albumin Globulin Albumin/Globulin Ratio Amylase Lipase Arterial Blood Potassium Venous Blood Potassium 3.8 08/24/17 08/24/17 08/24/17 00:29 05:13 05:18 WBC RBC Hgb Hct MCV MCH MCHC RDW Plt Count MPV Gran % Lymph % (Auto) [place] % (Auto) Eos % (Auto) Baso % (Auto) Gran # Lymph # [place] # Eos # Baso # PT INR APTT pCO2 34 L pO2 124.0 H HCO3 15.3 L ABG pH 7.26 L ABG Total CO2 16.3 L ABG O2 Saturation 98.7 H ABG Base Excess -10.8 L ABG Potassium 2.9 L VBG pH VBG pCO2 VBG HCO3 VBG Total CO2 VBG O2 Sat (Calc) VBG Base Excess VBG Potassium Sodium 136.0 Chloride 113.0 H Glucose 231 H Lactate 1.8 FiO2 100.0 Potassium Carbon Dioxide Anion Gap BUN Creatinine Est GFR ( Amer) Est GFR (Non-Af Amer) POC Glucose (mg/dL) 210 H Random Glucose Calcium Phosphorus Magnesium Total Bilirubin AST ALT Alkaline Phosphatase Troponin I 0.14 H* D Total Protein Albumin Globulin Albumin/Globulin Ratio Amylase 421 H Lipase 72 Arterial Blood Potassium 2.9 L Venous Blood Potassium 08/24/17 08/24/17 06:46 06:46 WBC 5.1 D RBC 5.09 Hgb 15.6 Hct 45.7 MCV 89.8 MCH 30.6 MCHC 34.1 RDW 12.8 Plt Count 241 MPV 10.4 Gran % 84.1 H Lymph % (Auto) 10.4 L [place] % (Auto) 5.3 Eos % (Auto) 0.0 L Baso % (Auto) 0.2 Gran # 4.29 Lymph # 0.5 L [place] # 0.3 Eos # 0.0 Baso # 0.01 PT INR APTT pCO2 pO2 HCO3 ABG pH ABG Total CO2 ABG O2 Saturation ABG Base Excess ABG Potassium VBG pH VBG pCO2 VBG HCO3 VBG Total CO2 VBG O2 Sat (Calc) VBG Base Excess VBG Potassium Sodium 137 Chloride 109 H Glucose Lactate FiO2 Potassium 3.9 Carbon Dioxide 20 L Anion Gap 12 BUN 16 Creatinine 0.9 Est GFR ( Amer) > 60 Est GFR (Non-Af Amer) > 60 POC Glucose (mg/dL) Random Glucose 212 H Calcium 7.2 L Phosphorus 1.6 L Magnesium 1.4 L Total Bilirubin 0.4 AST 232 H ALT 269 H Alkaline Phosphatase 159 H Troponin I Total Protein 6.2 Albumin 3.2 Globulin 3.0 Albumin/Globulin Ratio 1.1 Amylase Lipase Arterial Blood Potassium Venous Blood Potassium Attending/Attestation - Attestation I have personally seen and examined this patient.: Yes I have fully participated in the care of the patient.: Yes I have reviewed all pertinent clinical information: Yes Notes (Text): The patient is a 67 year old man with a history of developmental delay, seizure disorder and Parkinson's disease who was found unconscious and in PEA arrest in the field by EMS earlier in the evening. As a result, the an IO line was placed and the patient was quickly intubated in the felid. Also, ACLS protocol was initiated with the patient receiving a total of 3 doses of epinephrine before ROSC. Of note, details of history are unfortunately very limited and based on ED /EMS notes. Since ROSC, the patient has remained unconscious and was initially also hypothermic in the ED (T=89.3). His chest X-ray shows possible RML infiltrate. A CT-head was negative for acute findings. He was started in pressors in the ED due to hyotension (SBP initially in the 80's). Overnight, in the ICU, a formal hypothermia protocol was initiated. Also, the patient was given an AMP of biacarb. He was also started on empiric IV Meropenem and Vanco. Procalcitonin, repeat ABG's, serial trop's and EKG's, urine drug screen and blood and urine cultures were also ordered. In addition, ID, neurology and cardiology consults have been ordered. Of note, a radial arterial line was also unsuccessfully attempted overnight.
[2017-08-24 00:46] LABS: GRAN # 3.39 (1.4-6.5); GRAN % 82.6 % (50.0-68.0); HEMATOCRIT 41.8 % (42.0-52.0); LYMPH # 0.6 (1.2-3.4); LYMPH % 13.7 % (22.0-35.0); MEAN CORPUSCULAR HEMOGLOBIN 30.8 pg (25.0-35.0); MEAN CORPUSCULAR HGB CONC 33.3 g/dl (31.0-37.0); MEAN PLATELET VOLUME 10.4 fl (7.0-11.0); MONO # 0.2 (0.1-0.6); MONO % 3.7 % (1.0-6.0); RED CELL DISTRIBUTION WIDTH 12.8 % (11.5-14.5); VENOUS BLOOD PH 7.15 (7.32-7.43); WHITE BLOOD COUNT 4.1 10^3/ul (4.5-11.0)
[2017-08-24 00:54] LABS: INR 1.1 (0.93-1.08); PARTIAL THROMBOPLASTIN TIME 28.3 Seconds (25.1-36.5)
[2017-08-24 00:57] LABS: MEAN CELL VOLUME 92.5 fl (80.0-105.0)
[2017-08-24 01:09] LABS: TROPONIN I 0.14 ng/mL
[2017-08-24 05:16] LABS: ARTERIAL BLOOD GAS HCO3 15.3 mmol/L (21-28); ARTERIAL BLOOD GAS PH 7.26 (7.35-7.45)
[2017-08-24] MEDS: Chlorhexidine 0.12% Oral Sol 480 ml Bot PO PRN (06:32)
[2017-08-24] MEDS: Meropenem 1 GM in Dextrose 5% In Water 100 ML IVPB SCH (06:32)
[2017-08-24 06:55] LABS: BASO # 0.01 K/mm3 (0.0-2.0); BASO % 0.2 % (0.0-3.0); GRAN # 4.29 (1.4-6.5); GRAN % 84.1 % (50.0-68.0); HEMATOCRIT 45.7 % (42.0-52.0); LYMPH # 0.5 (1.2-3.4); LYMPH % 10.4 % (22.0-35.0); MEAN CELL VOLUME 89.8 fl (80.0-105.0); MEAN CORPUSCULAR HEMOGLOBIN 30.6 pg (25.0-35.0); MEAN CORPUSCULAR HGB CONC 34.1 g/dl (31.0-37.0); MEAN PLATELET VOLUME 10.4 fl (7.0-11.0); MONO # 0.3 (0.1-0.6); MONO % 5.3 % (1.0-6.0); RED CELL DISTRIBUTION WIDTH 12.8 % (11.5-14.5); WHITE BLOOD COUNT 5.1 10^3/ul (4.5-11.0)
[2017-08-24 08:00] LABS: ALB/GLOB RATIO 1.1 (1.1-1.8); ALKALINE PHOSPHATASE 159 U/L (38-126); ALT/SGPT 269 U/L (7-56); AST/SGOT 232 U/L (17-59); BILIRUBIN,TOTAL 0.4 mg/dL (0.2-1.3); BLOOD UREA NITROGEN 16 mg/dL (7-21); CALCIUM 7.2 mg/dL (8.4-10.5); CARBON DIOXIDE 20 mmol/L (21-33); CHLORIDE 109 mmol/L (98-107); GFR AFRICAN-AMERICAN > 60; GLUCOSE,RANDOM 212 mg/dL (70-110); MAGNESIUM 1.4 mg/dL (1.7-2.2); PHOSPHOROUS 1.6 mg/dL (2.5-4.5); POTASSIUM 3.9 mmol/L (3.6-5.0); SODIUM 137 mmol/L (132-148); TOTAL PROTEIN 6.2 g/dL (5.8-8.3)
--- NOTE | 2017-08-24 08:33 | RAD ---
HISTORY: code COMPARISON: 08/06/2017 FINDINGS: LUNGS: The endotracheal tube is in a suboptimal position with the tip in the right mainstem bronchus. The tube should be withdrawn approximately 1.5 cm. PLEURA: No significant pleural effusion identified, no pneumothorax apparent. CARDIOVASCULAR: Normal. OSSEOUS STRUCTURES: No significant abnormalities. VISUALIZED UPPER ABDOMEN: Normal. OTHER FINDINGS: None. IMPRESSION: The endotracheal tube is in a suboptimal position with the tip in the right mainstem bronchus. The tube should be withdrawn approximately 1.5 cm.
[2017-08-24] MEDS: Propofol 10 mg/ml 1,000 MG/100 ML VIAL IV PRN (09:00)
[2017-08-24 09:05] LABS: VENOUS BLOOD GAS BASE EXCESS -14.2 mmol/L (0.0-2.0); VENOUS BLOOD PH 7.17 (7.32-7.43)
[2017-08-24] MEDS ORDERED: Meropenem 1 GM in Dextrose 5% In Water 100 ML IVPB SCH ×2 (10:00)
--- NOTE | 2017-08-24 10:08 | RAD ---
HISTORY: intubated COMPARISON: 08/23/2017. FINDINGS: The endotracheal tube terminates 1.7 cm proximal to the corazon. The nasogastric tube terminates in the stomach. LUNGS: There is persistent airspace disease in the right perihilar region and patchy airspace disease in the left mid lung and lower lobe. PLEURA: No significant pleural effusion identified, no pneumothorax apparent. CARDIOVASCULAR: Normal. OSSEOUS STRUCTURES: No significant abnormalities. VISUALIZED UPPER ABDOMEN: Normal. OTHER FINDINGS: None. IMPRESSION: Suspect multifocal pneumonia, worse in the right perihilar region. Follow-up after medical management is recommended to ensure complete resolution.
[2017-08-24] MEDS ORDERED: Magnesium Sulfate 2 GM in Sodium Chloride 0.9% 100 ML IVPB ONE (10:18)
[2017-08-24] MEDS: Vancomycin 1gm in NS 250ml 1 GM/250 ML BAG IVPB SCH (11:44)
[2017-08-24] MEDS ORDERED: Potassium Phosphate 3 mmol/ml Inj IV ONE (11:48)
[2017-08-24] MEDS ORDERED: Potassium Phosphate 15 MMOLE in Sodium Chloride 0.9% 250 ML IVPB ONE (12:00)
--- NOTE | 2017-08-24 12:28 | CP.PCM.CON ---
History of Present Illness - History of Present Illness History of Present Illness: Infectious Disease Consultation: August 24, 2017 67 yo male with multiple medical issues. Patient was bought in by EMS after suffering cardiac arrest and PEA. Unknown how long the patient was down. The patient required 3 rounds of epinephrine and requiring intubation and ventilation. The patient is poorly responsive and the patient has been placed on hypothermia protocol. EEG being performed. No signs of brainstem reflexes. The patient does breath over the vent. PMHx: Parkinson's disease, seizure disorder, and developmental delay PSHx: Unable to Obtain Allergies: NKDA Social Hx: Unable to Obtain Active Medications Acetaminophen (Tylenol 650mg/20.3ml Solution Ud) 975 mg NG Q6 PRN PRN Reason: Rigors Aspirin (Aspirin Chewable) 81 mg PO DAILY [facility] Atorvastatin Calcium (Lipitor) 10 mg PO DIN [facility] Chlorhexidine Gluconate (Peridex) 15 ml PO Q4H PRN PRN Reason: oral care Last Admin: 08/24/17 06:32 Dose: 2 ml Heparin Sodium (Porcine) (Heparin) 5,000 units SC Q12 [facility] PRN Reason: Protocol Last Admin: 08/24/17 09:12 Dose: 5,000 units NOREPINEPHRINE BIT/0.9 % NACL (Levophed 4 Mg/ 250 Ml Ns Premixed) 4 mg in 250 mls @ 15 mls/hr IV .[id number] PRN; Protocol; 4 MCG/MIN PRN Reason: TITRATE PER MD ORDER Sodium Chloride (Sodium Chloride 0.9%) 1,000 mls @ 75 mls/hr IV .[id number] [facility] Propofol (Diprivan) 1,000 mg in 100 mls @ 1.755 mls/hr IV .Q24H PRN; Protocol; 5 MCG/KG/MIN PRN Reason: TITRATE PER MD ORDER Last Admin: 08/24/17 09:00 Dose: 10 mcg/kg/min, 3.511 mls/hr Vancomycin HCl (Vancomycin 1gm) 1 gm in 250 mls @ 167 mls/hr IVPB DAILY [facility] PRN Reason: Protocol Last Admin: 08/24/17 11:44 Dose: 167 mls/hr Azithromycin (Zithromax 500mg In Ns) 500 mg in 250 mls @ 167 mls/hr IVPB DAILY [facility] PRN Reason: Protocol Last Admin: 08/24/17 13:04 Dose: 167 mls/hr Potassium Phosphate 15 mmole/ (Sodium Chloride) 255 mls @ 42.5 mls/hr IVPB ONCE ONE Stop: 08/24/17 17:59 Last Admin: 08/24/17 13:38 Dose: 42.5 mls/hr Midazolam 100 mg/100ml in NS (Midazolam 100 Mg/100ml In Ns) 100 mg in 100 mls @ 2 mls/hr IV .Q24H PRN; Protocol; 2 MG/HR PRN Reason: Agitation Last Admin: 08/24/17 15:42 Dose: 2 mg/hr, 2 mls/hr Levetiracetam 750 mg/ Sodium (Chloride) 107.5 mls @ 460 mls/hr IV Q12 [facility] Potassium Chloride (Potassium Chloride 20 Meq/100 Ml) 20 meq in 100 mls @ 50 mls/hr IVPB Q1H [facility] Stop: 08/24/17 19:59 Pantoprazole Sodium (Protonix Inj) 40 mg IVP 0600 [facility] Last Admin: 08/24/17 06:08 Dose: 40 mg Family Hx: none given ROS: Unable to Obtain. Past Patient History - Infectious Disease Hx of Infectious Diseases: None - Past Social History Smoking Status: Never Smoked - CARDIAC Hx Cardiac Disorders: No Hx Hypertension: Yes - NEUROLOGICAL HX Cerebrovascular Accident: No Hx Seizures: Yes - HEMATOLOGICAL/ONCOLOGICAL Hx Cancer: No - MUSCULOSKELETAL/RHEUMATOLOGICAL Hx Falls: Yes - GENITOURINARY/GYNECOLOGICAL Hx Sexually Transmitted Disorders: No - PSYCHIATRIC Hx Schizophrenia: Yes Hx Substance Use: No - ANESTHESIA Hx Anesthesia Reactions: No Meds Allergies/Adverse Reactions: Allergies Allergy/AdvReac Type Severity Reaction Status Date / Time No Known Allergies Allergy Verified 02/02/17 23:13 - Medications Medications: Current Medications Acetaminophen (Tylenol 650mg/20.3ml Solution Ud) 975 mg NG Q6 PRN PRN Reason: Rigors Aspirin (Aspirin Chewable) 81 mg PO DAILY [facility] Atorvastatin Calcium (Lipitor) 10 mg PO DIN [facility] Chlorhexidine Gluconate (Peridex) 15 ml PO Q4H PRN PRN Reason: oral care Last Admin: 08/24/17 06:32 Dose: 2 ml Heparin Sodium (Porcine) (Heparin) 5,000 units SC Q12 [facility] PRN Reason: Protocol Last Admin: 08/24/17 09:12 Dose: 5,000 units NOREPINEPHRINE BIT/0.9 % NACL (Levophed 4 Mg/ 250 Ml Ns Premixed) 4 mg in 250 mls @ 15 mls/hr IV .[id number] PRN; Protocol; 4 MCG/MIN PRN Reason: TITRATE PER MD ORDER Sodium Chloride (Sodium Chloride 0.9%) 1,000 mls @ 75 mls/hr IV .[id number] [facility] Propofol (Diprivan) 1,000 mg in 100 mls @ 1.755 mls/hr IV .Q24H PRN; Protocol; 5 MCG/KG/MIN PRN Reason: TITRATE PER MD ORDER Last Admin: 08/24/17 09:00 Dose: 10 mcg/kg/min, 3.511 mls/hr Vancomycin HCl (Vancomycin 1gm) 1 gm in 250 mls @ 167 mls/hr IVPB DAILY [facility] PRN Reason: Protocol Last Admin: 08/24/17 11:44 Dose: 167 mls/hr Azithromycin (Zithromax 500mg In Ns) 500 mg in 250 mls @ 167 mls/hr IVPB DAILY [facility] PRN Reason: Protocol Calcium Gluconate 1,000 mg/ (Sodium Chloride) 110 mls @ 110 mls/hr IVPB ONCE ONE Stop: 08/24/17 12:27 Potassium Phosphate 15 mmole/ (Sodium Chloride) 255 mls @ 42.5 mls/hr IVPB ONCE ONE Stop: 08/24/17 17:59 Pantoprazole Sodium (Protonix Inj) 40 mg IVP 0600 [facility] Last Admin: 08/24/17 06:08 Dose: 40 mg Physical Exam - Constitutional Appears: Chronically Ill Additional comments: Obtunded, Intubated, and Ventilated. - Head Exam Additional comments: Intubated and Ventilated. - Eye Exam Pupil Exam: Fixed Additional comments: pupils dilated. - ENT Exam ENT Exam: Mucous Membranes Moist, Normal External Ear Exam, TM's Normal Bilaterally - Respiratory Exam Respiratory Exam: absent: Rales, Rhonchi, Wheezes Additional comments: Intubated and Ventilated. - Cardiovascular Exam Cardiovascular Exam: REGULAR RHYTHM, RRR, +S1, +S2 - GI/Abdominal Exam GI & Abdominal Exam: Distended, Normal Bowel Sounds, Soft. absent: Tenderness - Extremities Exam Extremities exam: Negative for: joint swelling, pedal edema - Neurological Exam Neurological exam: Alert, CN II-XII Intact, Oriented x3 - Psychiatric Exam Additional comments: Obtunded. Intubated and Ventilated. - Skin Skin Exam: Intact, Normal Color Results - Vital Signs Recent Vital Signs: Last Vital Signs Temp 32.5 F L 08/24/17 09:44 Pulse 74 08/24/17 10:00 Resp 27 H 08/24/17 07:21 BP 107/69 08/24/17 09:45 Pulse Ox 100 08/24/17 09:44 - Labs Result Diagrams: 08/24/17 14:50 08/24/17 14:50 Labs: Laboratory Results - last 24 hr 08/24/17 08/24/17 08/24/17 00:28 00:28 00:28 WBC 4.1 L D RBC 4.52 Hgb 13.9 L D Hct 41.8 L MCV 92.5 D MCH 30.8 MCHC 33.3 RDW 12.8 Plt Count 196 MPV 10.4 Gran % 82.6 H Lymph % (Auto) 13.7 L [place] % (Auto) 3.7 Eos % (Auto) 0.0 L Baso % (Auto) 0.0 Gran # 3.39 Lymph # 0.6 L [place] # 0.2 Eos # 0.0 Baso # 0.00 PT 12.0 INR 1.10 H APTT 28.3 pCO2 pO2 46 HCO3 ABG pH ABG Total CO2 ABG O2 Saturation ABG Base Excess ABG Potassium VBG pH 7.15 L* VBG pCO2 55.0 VBG HCO3 19.2 L VBG Total CO2 20.9 L VBG O2 Sat (Calc) 82.9 H VBG Base Excess -10.0 L VBG Potassium 3.8 Sodium 135.0 Chloride 109.0 H Glucose 234 H Lactate 1.4 FiO2 21.0 Potassium Carbon Dioxide Anion Gap BUN Creatinine Est GFR ( Amer) Est GFR (Non-Af Amer) POC Glucose (mg/dL) Random Glucose Calcium Phosphorus Magnesium Total Bilirubin AST ALT Alkaline Phosphatase Troponin I Total Protein Albumin Globulin Albumin/Globulin Ratio Amylase Lipase Arterial Blood Potassium Venous Blood Potassium 3.8 08/24/17 08/24/17 08/24/17 00:29 05:13 05:18 WBC RBC Hgb Hct MCV MCH MCHC RDW Plt Count MPV Gran % Lymph % (Auto) [place] % (Auto) Eos % (Auto) Baso % (Auto) Gran # Lymph # [place] # Eos # Baso # PT INR APTT pCO2 34 L pO2 124.0 H HCO3 15.3 L ABG pH 7.26 L ABG Total CO2 16.3 L ABG O2 Saturation 98.7 H ABG Base Excess -10.8 L ABG Potassium 2.9 L VBG pH VBG pCO2 VBG HCO3 VBG Total CO2 VBG O2 Sat (Calc) VBG Base Excess VBG Potassium Sodium 136.0 Chloride 113.0 H Glucose 231 H Lactate 1.8 FiO2 100.0 Potassium Carbon Dioxide Anion Gap BUN Creatinine Est GFR ( Amer) Est GFR (Non-Af Amer) POC Glucose (mg/dL) 210 H Random Glucose Calcium Phosphorus Magnesium Total Bilirubin AST ALT Alkaline Phosphatase Troponin I 0.14 H* D Total Protein Albumin Globulin Albumin/Globulin Ratio Amylase 421 H Lipase 72 Arterial Blood Potassium 2.9 L Venous Blood Potassium 08/24/17 08/24/17 08/24/17 06:46 06:46 08:58 WBC 5.1 D RBC 5.09 Hgb 15.6 Hct 45.7 MCV 89.8 MCH 30.6 MCHC 34.1 RDW 12.8 Plt Count 241 MPV 10.4 Gran % 84.1 H Lymph % (Auto) 10.4 L [place] % (Auto) 5.3 Eos % (Auto) 0.0 L Baso % (Auto) 0.2 Gran # 4.29 Lymph # 0.5 L [place] # 0.3 Eos # 0.0 Baso # 0.01 PT INR APTT pCO2 pO2 33 HCO3 ABG pH ABG Total CO2 ABG O2 Saturation ABG Base Excess ABG Potassium VBG pH 7.17 L* VBG pCO2 37.0 L VBG HCO3 13.5 L VBG Total CO2 14.6 L VBG O2 Sat (Calc) 65.3 H VBG Base Excess -14.2 L VBG Potassium 1.5 L* Sodium 137 145.0 Chloride 109 H 120.0 H Glucose 125 H Lactate 2.6 H FiO2 21.0 Potassium 3.9 Carbon Dioxide 20 L Anion Gap 12 BUN 16 Creatinine 0.9 Est GFR ( Amer) > 60 Est GFR (Non-Af Amer) > 60 POC Glucose (mg/dL) Random Glucose 212 H Calcium 7.2 L Phosphorus 1.6 L Magnesium 1.4 L Total Bilirubin 0.4 AST 232 H ALT 269 H Alkaline Phosphatase 159 H Troponin I Total Protein 6.2 Albumin 3.2 Globulin 3.0 Albumin/Globulin Ratio 1.1 Amylase Lipase Arterial Blood Potassium Venous Blood Potassium 1.5 L* Assessment & Plan - Assessment and Plan (Free Text) Assessment: 67 yo male with cardiac arrest and down for unknown period of time requiring 3 epinephrine courses with intubation and ventilation. The patient was NOT awake or alert at this time. No fevers of leukocytosis. ID called to rule out sepsis. Most of the patient's symptoms appear to be secondary to severe anoxia leading to significant anoxic brain injury. The patient has dilated pupils and fixed gaze. He is poorly responsive at this time. Currently, I do not see infection as having a role on this patient. There is no need for antibiotics at this point. Supportive care. The patient has a dismal prognosis at this point. Thank you for allowing me to participate in the care of the patient, we will follow with you if needed.
[2017-08-24] MEDS: Azithromycin 500MG/NS 250ml 500 MG/250 ML BAG IVPB SCH (13:04)
[2017-08-24] MEDS ORDERED: levETIRAcetam 1,000 MG in Sodium Chloride 0.9% 100 ML IV ONE (13:06)
--- NOTE | 2017-08-24 13:44 | PCM.EEG ---
Electroencephalogram Report - Electroencephalogram Report Procedure Date: 08/24/17 Interpretation: Indication: Cardiac arrest and anoxic injury. Medications were reviewed. Technical: This is a digitally recorded electroencephalogram. The international 10-20 electrode placement system is used for scalp electrode placement. Eighteen channels of scalp EEG are recorded One channel was used for EOG. Another channel was used for for ECG. Diffuse Abnormality: No well formed alpha activity was seen. Markedly suppressed EEG activity was observed. MInimal EEG activity was observed throughtout the recording. Focal abnormality: Intermittent focal slowing was seen. Periodic lateralized discharge was seen. This activity is seen over bilateral hemisphere. Impression: This EEG is abnormal. Diffuse slowing is seen, suggestive of a diffuse abnormality of the brain. PLED's is seen, this is suggestive of a subacute structural abnormality of the brain, and patient may be prone to haveing a clinical seizure. Epileptiform discharge was seen. This can represent a potential seizure focus. Clinical correlation is needed.
--- NOTE | 2017-08-24 13:52 | CP.CCUPN ---
<Juan J Mendieta - Last Filed: 08/24/17 13:49> CCU Subjective - Physician Review Subjective (Free Text): 08/24/17 13:49 Juan J Mendieta D.O. PGY-3, Critical Care Progress Note 67 year old male with a PMH of Parkinson's disease, seizure disorder, and developmental delay who was found down for an uncertain amount of time, found to be in cardiopulmonary arrest, CPR initiated by paramedics with ROSC after 3 rounds of epinephrine and intubated on the field, currently undergoing post cardiac arrest cooling protocol in the ICU. Patient was seen and examined at bedside. Patient is intubated at this time undergoing cooling so no information could be obtained. No overnight events except the aforementioned. CCU Objective - Vital Signs / Intake & Output Vital Signs (Last 4 hours): Vital Signs Pulse 08/24/17 10:00 74 Intake and Output (Last 8hrs): Intake & Output 08/23/17 08/24/17 08/24/17 22:59 06:59 14:59 Intake Total 220 Output Total 1450 Balance -1230 Intake: IV 220 Right Femoral 220 Oral 0 Output: Gastric Amount 350 Stomach 350 Urine 1100 Urethral (Renee) 1100 Stool 0 Emesis 0 Other: Voiding Method Indwelling Catheter - Physical Exam Head: Positive for: Atraumatic, Normocephalic Pupils: Positive for: Other (Pupils 3mm and minimally reactive bilaterally) Conjunctiva: Positive for: Normal Ears: Positive for: Normal Mouth: Positive for: Moist Mucous Membranes Nose (External): Positive for: Atraumatic Neck: Positive for: Normal Range of Motion Respiratory/Chest: Positive for: Clear to Auscultation, Other (Clear Breath Sounds bilaterally with ventilation, no signs of trauma) Cardiovascular: Positive for: Regular Rate and Rhythm, Normal S1, S2, Gallop. Negative for: Murmurs, Rub Abdomen: Positive for: Normal Bowel Sounds. Negative for: Tenderness, Peritoneal Signs Upper Extremity: Negative for: Edema Lower Extremity: Positive for: Other (Poor perfusion, cool to touch bilaterally) . Negative for: Edema Neurological: Positive for: Other (no corneal, no cough, slow pupils, does overbreathe ventilator). Negative for: GCS=15 (GCS=3T) Skin: Positive for: Dry. Negative for: Rashes - Medications Active Medications: Active Medications Generic Name Dose Route Start Last Admin Trade Name Freq PRN Reason Stop Dose Admin Acetaminophen 975 mg 08/23/17 23:42 Tylenol 650mg/20.3ml Solution Ud NG Q6 PRN Rigors Aspirin 81 mg 08/24/17 12:15 Aspirin Chewable PO DAILY [facility] Atorvastatin Calcium 10 mg 08/24/17 17:00 Lipitor PO DIN [facility] Chlorhexidine Gluconate 15 ml 08/24/17 02:14 08/24/17 06:32 Peridex PO 2 ml Q4H PRN Administration oral care Heparin Sodium (Porcine) 5,000 units 08/24/17 10:00 08/24/17 09:12 Heparin SC 5,000 units Q12 [facility] Administration Protocol NOREPINEPHRINE BIT/0.9 % NACL 4 mg in 250 mls @ 15 mls/hr 08/23/17 20:54 Levophed 4 Mg/ 250 Ml Ns Premixed IV .[id number] PRN TITRATE PER MD ORDER Protocol 4 MCG/MIN Sodium Chloride 1,000 mls @ 75 mls/hr 08/24/17 07:29 Sodium Chloride 0.9% IV .[id number] [facility] Propofol 1,000 mg in 100 mls @ 1.755 mls/hr 08/24/17 08:32 08/24/17 09:00 Diprivan IV 10 mcg/kg/min .Q24H PRN 3.511 mls/hr TITRATE PER MD ORDER Administration Protocol 5 MCG/KG/MIN Vancomycin HCl 1 gm in 250 mls @ 167 mls/hr 08/24/17 10:00 08/24/17 11:44 Vancomycin 1gm IVPB 167 mls/hr DAILY [facility] Administration Protocol Azithromycin 500 mg in 250 mls @ 167 mls/hr 08/24/17 10:00 08/24/17 13:04 Zithromax 500mg In Ns IVPB 167 mls/hr DAILY [facility] Administration Protocol Potassium Phosphate 15 mmole/ 255 mls @ 42.5 mls/hr 08/24/17 12:00 08/24/17 13:38 Sodium Chloride IVPB 08/24/17 17:59 42.5 mls/hr ONCE ONE Administration Midazolam 100 mg/100ml in NS 100 mg in 100 mls @ 2 mls/hr 08/24/17 13:18 Midazolam 100 Mg/100ml In Ns IV .Q24H PRN Agitation Protocol 2 MG/HR Levetiracetam 750 mg/ Sodium 107.5 mls @ 460 mls/hr 08/24/17 22:00 Chloride IV Q12 [facility] Pantoprazole Sodium 40 mg 08/24/17 06:00 08/24/17 06:08 Protonix Inj IVP 40 mg 0600 [facility] Administration - Patient Studies Lab Studies: Lab Studies 08/24/17 08/24/17 08/24/17 Range/Units 08:58 06:46 06:46 WBC 5.1 D (4.5-11.0) 10^3/ul RBC 5.09 (3.5-6.1) 10^6/uL Hgb 15.6 (14.0-18.0) g/dL Hct 45.7 (42.0-52.0) % MCV 89.8 (80.0-105.0) fl MCH 30.6 (25.0-35.0) pg MCHC 34.1 (31.0-37.0) g/dl RDW 12.8 (11.5-14.5) % Plt Count 241 (120.0-450.0) 10^3/uL MPV 10.4 (7.0-11.0) fl Gran % 84.1 H (50.0-68.0) % Lymph % (Auto) 10.4 L (22.0-35.0) % [place] % (Auto) 5.3 (1.0-6.0) % Eos % (Auto) 0.0 L (1.5-5.0) % Baso % (Auto) 0.2 (0.0-3.0) % Gran # 4.29 (1.4-6.5) Lymph # 0.5 L (1.2-3.4) [place] # 0.3 (0.1-0.6) Eos # 0.0 (0.0-0.7) Baso # 0.01 (0.0-2.0) K/mm3 PT (9.4-12.5) SECONDS INR (0.93-1.08) APTT (25.1-36.5) Seconds pCO2 (35-45) mm/Hg pO2 33 (30-55) mm/Hg HCO3 (21-28) mmol/L ABG pH (7.35-7.45) ABG Total CO2 (22-28) mmol.L ABG O2 Saturation (95-98) % ABG Base Excess (-2.0-3.0) mmol/L ABG Potassium (3.6-5.2) mmol/L VBG pH 7.17 L* (7.32-7.43) VBG pCO2 37.0 L (40-60) VBG HCO3 13.5 L (21-28) mmol/l VBG Total CO2 14.6 L (22-28) mmol.L VBG O2 Sat (Calc) 65.3 H (40-65) % VBG Base Excess -14.2 L (0.0-2.0) mmol/L VBG Potassium 1.5 L* (3.6-5.2) mmol/L Sodium 145.0 137 (132-148) mmol/L Chloride 120.0 H 109 H (98-107) mmol/L Glucose 125 H (75-110) mg/dl Lactate 2.6 H (0.7-2.1) mmol/L FiO2 21.0 % Potassium 3.9 (3.6-5.0) mmol/L Carbon Dioxide 20 L (21-33) mmol/L Anion Gap 12 (10-20) BUN 16 (7-21) mg/dL Creatinine 0.9 (0.8-1.5) mg/dl Est GFR ( Amer) > 60 Est GFR (Non-Af Amer) > 60 POC Glucose (mg/dL) (65-110) mg/dL Random Glucose 212 H (70-110) mg/dL Calcium 7.2 L (8.4-10.5) mg/dL Phosphorus 1.6 L (2.5-4.5) mg/dL Magnesium 1.4 L (1.7-2.2) mg/dL Total Bilirubin 0.4 (0.2-1.3) mg/dL AST 232 H (17-59) U/L ALT 269 H (7-56) U/L Alkaline Phosphatase 159 H (38-126) U/L Troponin I ng/mL Total Protein 6.2 (5.8-8.3) g/dL Albumin 3.2 (3.0-4.8) g/dL Globulin 3.0 gm/dL Albumin/Globulin Ratio 1.1 (1.1-1.8) Amylase (35-125) U/L Lipase (23-300) U/L Arterial Blood Potassium (3.6-5.2) mmol/L Venous Blood Potassium 1.5 L* (3.6-5.2) mmol/L 08/24/17 08/24/17 08/24/17 Range/Units 05:18 05:13 00:29 WBC (4.5-11.0) 10^3/ul RBC (3.5-6.1) 10^6/uL Hgb (14.0-18.0) g/dL Hct (42.0-52.0) % MCV (80.0-105.0) fl MCH (25.0-35.0) pg MCHC (31.0-37.0) g/dl RDW (11.5-14.5) % Plt Count (120.0-450.0) 10^3/uL MPV (7.0-11.0) fl Gran % (50.0-68.0) % Lymph % (Auto) (22.0-35.0) % [place] % (Auto) (1.0-6.0) % Eos % (Auto) (1.5-5.0) % Baso % (Auto) (0.0-3.0) % Gran # (1.4-6.5) Lymph # (1.2-3.4) [place] # (0.1-0.6) Eos # (0.0-0.7) Baso # (0.0-2.0) K/mm3 PT (9.4-12.5) SECONDS INR (0.93-1.08) APTT (25.1-36.5) Seconds pCO2 34 L (35-45) mm/Hg pO2 124.0 H (30-55) mm/Hg HCO3 15.3 L (21-28) mmol/L ABG pH 7.26 L (7.35-7.45) ABG Total CO2 16.3 L (22-28) mmol.L ABG O2 Saturation 98.7 H (95-98) % ABG Base Excess -10.8 L (-2.0-3.0) mmol/L ABG Potassium 2.9 L (3.6-5.2) mmol/L VBG pH (7.32-7.43) VBG pCO2 (40-60) VBG HCO3 (21-28) mmol/l VBG Total CO2 (22-28) mmol.L VBG O2 Sat (Calc) (40-65) % VBG Base Excess (0.0-2.0) mmol/L VBG Potassium (3.6-5.2) mmol/L Sodium 136.0 (132-148) mmol/L Chloride 113.0 H (98-107) mmol/L Glucose 231 H (75-110) mg/dl Lactate 1.8 (0.7-2.1) mmol/L FiO2 100.0 % Potassium (3.6-5.0) mmol/L Carbon Dioxide (21-33) mmol/L Anion Gap (10-20) BUN (7-21) mg/dL Creatinine (0.8-1.5) mg/dl Est GFR ( Amer) Est GFR (Non-Af Amer) POC Glucose (mg/dL) 210 H (65-110) mg/dL Random Glucose (70-110) mg/dL Calcium (8.4-10.5) mg/dL Phosphorus (2.5-4.5) mg/dL Magnesium (1.7-2.2) mg/dL Total Bilirubin (0.2-1.3) mg/dL AST (17-59) U/L ALT (7-56) U/L Alkaline Phosphatase (38-126) U/L Troponin I 0.14 H* D ng/mL Total Protein (5.8-8.3) g/dL Albumin (3.0-4.8) g/dL Globulin gm/dL Albumin/Globulin Ratio (1.1-1.8) Amylase 421 H (35-125) U/L Lipase 72 (23-300) U/L Arterial Blood Potassium 2.9 L (3.6-5.2) mmol/L Venous Blood Potassium (3.6-5.2) mmol/L 08/24/17 08/24/17 08/24/17 Range/Units 00:28 00:28 00:28 WBC 4.1 L D (4.5-11.0) 10^3/ul RBC 4.52 (3.5-6.1) 10^6/uL Hgb 13.9 L D (14.0-18.0) g/dL Hct 41.8 L (42.0-52.0) % MCV 92.5 D (80.0-105.0) fl MCH 30.8 (25.0-35.0) pg MCHC 33.3 (31.0-37.0) g/dl RDW 12.8 (11.5-14.5) % Plt Count 196 (120.0-450.0) 10^3/uL MPV 10.4 (7.0-11.0) fl Gran % 82.6 H (50.0-68.0) % Lymph % (Auto) 13.7 L (22.0-35.0) % [place] % (Auto) 3.7 (1.0-6.0) % Eos % (Auto) 0.0 L (1.5-5.0) % Baso % (Auto) 0.0 (0.0-3.0) % Gran # 3.39 (1.4-6.5) Lymph # 0.6 L (1.2-3.4) [place] # 0.2 (0.1-0.6) Eos # 0.0 (0.0-0.7) Baso # 0.00 (0.0-2.0) K/mm3 PT 12.0 (9.4-12.5) SECONDS INR 1.10 H (0.93-1.08) APTT 28.3 (25.1-36.5) Seconds pCO2 (35-45) mm/Hg pO2 46 (30-55) mm/Hg HCO3 (21-28) mmol/L ABG pH (7.35-7.45) ABG Total CO2 (22-28) mmol.L ABG O2 Saturation (95-98) % ABG Base Excess (-2.0-3.0) mmol/L ABG Potassium (3.6-5.2) mmol/L VBG pH 7.15 L* (7.32-7.43) VBG pCO2 55.0 (40-60) VBG HCO3 19.2 L (21-28) mmol/l VBG Total CO2 20.9 L (22-28) mmol.L VBG O2 Sat (Calc) 82.9 H (40-65) % VBG Base Excess -10.0 L (0.0-2.0) mmol/L VBG Potassium 3.8 (3.6-5.2) mmol/L Sodium 135.0 (132-148) mmol/L Chloride 109.0 H (98-107) mmol/L Glucose 234 H (75-110) mg/dl Lactate 1.4 (0.7-2.1) mmol/L FiO2 21.0 % Potassium (3.6-5.0) mmol/L Carbon Dioxide (21-33) mmol/L Anion Gap (10-20) BUN (7-21) mg/dL Creatinine (0.8-1.5) mg/dl Est GFR ( Amer) Est GFR (Non-Af Amer) POC Glucose (mg/dL) (65-110) mg/dL Random Glucose (70-110) mg/dL Calcium (8.4-10.5) mg/dL Phosphorus (2.5-4.5) mg/dL Magnesium (1.7-2.2) mg/dL Total Bilirubin (0.2-1.3) mg/dL AST (17-59) U/L ALT (7-56) U/L Alkaline Phosphatase (38-126) U/L Troponin I ng/mL Total Protein (5.8-8.3) g/dL Albumin (3.0-4.8) g/dL Globulin gm/dL Albumin/Globulin Ratio (1.1-1.8) Amylase (35-125) U/L Lipase (23-300) U/L Arterial Blood Potassium (3.6-5.2) mmol/L Venous Blood Potassium 3.8 (3.6-5.2) mmol/L Laboratory Results - last 24 hr 08/24/17 08/24/17 08/24/17 00:28 00:28 00:28 WBC 4.1 L D RBC 4.52 Hgb 13.9 L D Hct 41.8 L MCV 92.5 D MCH 30.8 MCHC 33.3 RDW 12.8 Plt Count 196 MPV 10.4 Gran % 82.6 H Lymph % (Auto) 13.7 L [place] % (Auto) 3.7 Eos % (Auto) 0.0 L Baso % (Auto) 0.0 Gran # 3.39 Lymph # 0.6 L [place] # 0.2 Eos # 0.0 Baso # 0.00 PT 12.0 INR 1.10 H APTT 28.3 pCO2 pO2 46 HCO3 ABG pH ABG Total CO2 ABG O2 Saturation ABG Base Excess ABG Potassium VBG pH 7.15 L* VBG pCO2 55.0 VBG HCO3 19.2 L VBG Total CO2 20.9 L VBG O2 Sat (Calc) 82.9 H VBG Base Excess -10.0 L VBG Potassium 3.8 Sodium 135.0 Chloride 109.0 H Glucose 234 H Lactate 1.4 FiO2 21.0 Potassium Carbon Dioxide Anion Gap BUN Creatinine Est GFR ( Amer) Est GFR (Non-Af Amer) POC Glucose (mg/dL) Random Glucose Calcium Phosphorus Magnesium Total Bilirubin AST ALT Alkaline Phosphatase Troponin I Total Protein Albumin Globulin Albumin/Globulin Ratio Amylase Lipase Arterial Blood Potassium Venous Blood Potassium 3.8 08/24/17 08/24/17 08/24/17 00:29 05:13 05:18 WBC RBC Hgb Hct MCV MCH MCHC RDW Plt Count MPV Gran % Lymph % (Auto) [place] % (Auto) Eos % (Auto) Baso % (Auto) Gran # Lymph # [place] # Eos # Baso # PT INR APTT pCO2 34 L pO2 124.0 H HCO3 15.3 L ABG pH 7.26 L ABG Total CO2 16.3 L ABG O2 Saturation 98.7 H ABG Base Excess -10.8 L ABG Potassium 2.9 L VBG pH VBG pCO2 VBG HCO3 VBG Total CO2 VBG O2 Sat (Calc) VBG Base Excess VBG Potassium Sodium 136.0 Chloride 113.0 H Glucose 231 H Lactate 1.8 FiO2 100.0 Potassium Carbon Dioxide Anion Gap BUN Creatinine Est GFR ( Amer) Est GFR (Non-Af Amer) POC Glucose (mg/dL) 210 H Random Glucose Calcium Phosphorus Magnesium Total Bilirubin AST ALT Alkaline Phosphatase Troponin I 0.14 H* D Total Protein Albumin Globulin Albumin/Globulin Ratio Amylase 421 H Lipase 72 Arterial Blood Potassium 2.9 L Venous Blood Potassium 08/24/17 08/24/17 08/24/17 06:46 06:46 08:58 WBC 5.1 D RBC 5.09 Hgb 15.6 Hct 45.7 MCV 89.8 MCH 30.6 MCHC 34.1 RDW 12.8 Plt Count 241 MPV 10.4 Gran % 84.1 H Lymph % (Auto) 10.4 L [place] % (Auto) 5.3 Eos % (Auto) 0.0 L Baso % (Auto) 0.2 Gran # 4.29 Lymph # 0.5 L [place] # 0.3 Eos # 0.0 Baso # 0.01 PT INR APTT pCO2 pO2 33 HCO3 ABG pH ABG Total CO2 ABG O2 Saturation ABG Base Excess ABG Potassium VBG pH 7.17 L* VBG pCO2 37.0 L VBG HCO3 13.5 L VBG Total CO2 14.6 L VBG O2 Sat (Calc) 65.3 H VBG Base Excess -14.2 L VBG Potassium 1.5 L* Sodium 137 145.0 Chloride 109 H 120.0 H Glucose 125 H Lactate 2.6 H FiO2 21.0 Potassium 3.9 Carbon Dioxide 20 L Anion Gap 12 BUN 16 Creatinine 0.9 Est GFR ( Amer) > 60 Est GFR (Non-Af Amer) > 60 POC Glucose (mg/dL) Random Glucose 212 H Calcium 7.2 L Phosphorus 1.6 L Magnesium 1.4 L Total Bilirubin 0.4 AST 232 H ALT 269 H Alkaline Phosphatase 159 H Troponin I Total Protein 6.2 Albumin 3.2 Globulin 3.0 Albumin/Globulin Ratio 1.1 Amylase Lipase Arterial Blood Potassium Venous Blood Potassium 1.5 L* EKG/Cardiology Studies: Cardiology / EKG Studies 08/23/17 19:07 EKG [ELECTROCARDIOGRAM] Stat Comment: Reason For Exam: CARDIAC ARREST Fingerstick Blood Sugar Results: 280 Assessment/Plan - Assessment and Plan (Free Text) Assessment: 67 year old male with a PMH of Parkinson's disease, seizure disorder, and developmental delay who was found down for an uncertain amount of time, found to be in cardiopulmonary arrest, CPR initiated by paramedics with ROSC after 3 rounds of epinephrine and intubated on the field, currently undergoing post cardiac arrest cooling protocol in the ICU. Plan: Neurological GCS 3T, however undergoing post cardiac arrest cooling and so neurological status will have to be evaluated after re-warming Head CT - no acute findings Does have history of Parkinsons, developmental delay, seizure disorders Neurology following, EEG pending, recs appreciated UDS only showed barbituates, likely for part of seizure medications Continue to follow Cardiovascular S/p cardiac arrest in the field, currently under cooling protocol, maintain 32- 34 degrees celcius Cont pressure support with levophed, maintain MAP>65 Lipid panel wnl Cardiology consulted Pulmnologic Intubated on PRVC and on sedation with propofol and versed Repeat CXR reviewed, RML infiltrate appreciated, ET placement good Continue azithromycin/vanco D1 Repeat ABG pending GI Cont protonix for GI prophylaxis Mild transaminitis likely from ischemia during cardiac arrest Endocrine A1c wnl, TSH wnl, slightly low T4 Will continue to target euglycemia Nephrology/Electrolytes Monitor BUN/Cr Strict Ins and Outs Bicarb was given, will f/u ABG Repleting Mg and Phos Heme Hgb stable No signs of active bleeding HD stable with pressor support Continue to monitor ID No leukocytosis and on cooling protocol Blood and urine cultures pending ID consulted, Go, follow recs Procalcitonin low but did show RML infiltrate on CXR this AM Continue azithro/vanco D1 Dispo: Palliative Care consulted, will re-evaluate mental status once off cooling protocol, continue to target euvolemia, euglycemia, maintain O2 Sat>92% Patient was seen and examined at bedside and case was discussed at length with attending physician. - Date & Time Date: 08/24/17 Time: 07:20 <Jose A Andre - Last Filed: 08/24/17 14:47> CCU Objective - Vital Signs / Intake & Output Intake and Output (Last 8hrs): Intake & Output 08/23/17 08/24/17 08/24/17 22:59 06:59 14:59 Intake Total 220 Output Total 1450 Balance -1230 Intake: IV 220 Right Femoral 220 Oral 0 Output: Gastric Amount 350 Stomach 350 Urine 1100 Urethral (Renee) 1100 Stool 0 Emesis 0 Other: Voiding Method Indwelling Catheter - Medications Active Medications: Active Medications Generic Name Dose Route Start Last Admin Trade Name Freq PRN Reason Stop Dose Admin Acetaminophen 975 mg 08/23/17 23:42 Tylenol 650mg/20.3ml Solution Ud NG Q6 PRN Rigors Aspirin 81 mg 08/24/17 12:15 Aspirin Chewable PO DAILY [facility] Atorvastatin Calcium 10 mg 08/24/17 17:00 Lipitor PO DIN [facility] Chlorhexidine Gluconate 15 ml 08/24/17 02:14 08/24/17 06:32 Peridex PO 2 ml Q4H PRN Administration oral care Heparin Sodium (Porcine) 5,000 units 08/24/17 10:00 08/24/17 09:12 Heparin SC 5,000 units Q12 [facility] Administration Protocol NOREPINEPHRINE BIT/0.9 % NACL 4 mg in 250 mls @ 15 mls/hr 08/23/17 20:54 Levophed 4 Mg/ 250 Ml Ns Premixed IV .[id number] PRN TITRATE PER MD ORDER Protocol 4 MCG/MIN Sodium Chloride 1,000 mls @ 75 mls/hr 08/24/17 07:29 Sodium Chloride 0.9% IV .[id number] [facility] Propofol 1,000 mg in 100 mls @ 1.755 mls/hr 08/24/17 08:32 08/24/17 09:00 Diprivan IV 10 mcg/kg/min .Q24H PRN 3.511 mls/hr TITRATE PER MD ORDER Administration Protocol 5 MCG/KG/MIN Vancomycin HCl 1 gm in 250 mls @ 167 mls/hr 08/24/17 10:00 08/24/17 11:44 Vancomycin 1gm IVPB 167 mls/hr DAILY [facility] Administration Protocol Azithromycin 500 mg in 250 mls @ 167 mls/hr 08/24/17 10:00 08/24/17 13:04 Zithromax 500mg In Ns IVPB 167 mls/hr DAILY [facility] Administration Protocol Potassium Phosphate 15 mmole/ 255 mls @ 42.5 mls/hr 08/24/17 12:00 08/24/17 13:38 Sodium Chloride IVPB 08/24/17 17:59 42.5 mls/hr ONCE ONE Administration Midazolam 100 mg/100ml in NS 100 mg in 100 mls @ 2 mls/hr 08/24/17 13:18 Midazolam 100 Mg/100ml In Ns IV .Q24H PRN Agitation Protocol 2 MG/HR Levetiracetam 750 mg/ Sodium 107.5 mls @ 460 mls/hr 08/24/17 22:00 Chloride IV Q12 [facility] Pantoprazole Sodium 40 mg 08/24/17 06:00 08/24/17 06:08 Protonix Inj IVP 40 mg 0600 [facility] Administration - Patient Studies Lab Studies: Lab Studies 08/24/17 08/24/17 08/24/17 Range/Units 08:58 06:46 06:46 WBC 5.1 D (4.5-11.0) 10^3/ul RBC 5.09 (3.5-6.1) 10^6/uL Hgb 15.6 (14.0-18.0) g/dL Hct 45.7 (42.0-52.0) % MCV 89.8 (80.0-105.0) fl MCH 30.6 (25.0-35.0) pg MCHC 34.1 (31.0-37.0) g/dl RDW 12.8 (11.5-14.5) % Plt Count 241 (120.0-450.0) 10^3/uL MPV 10.4 (7.0-11.0) fl Gran % 84.1 H (50.0-68.0) % Lymph % (Auto) 10.4 L (22.0-35.0) % [place] % (Auto) 5.3 (1.0-6.0) % Eos % (Auto) 0.0 L (1.5-5.0) % Baso % (Auto) 0.2 (0.0-3.0) % Gran # 4.29 (1.4-6.5) Lymph # 0.5 L (1.2-3.4) [place] # 0.3 (0.1-0.6) Eos # 0.0 (0.0-0.7) Baso # 0.01 (0.0-2.0) K/mm3 PT (9.4-12.5) SECONDS INR (0.93-1.08) APTT (25.1-36.5) Seconds pCO2 (35-45) mm/Hg pO2 33 (30-55) mm/Hg HCO3 (21-28) mmol/L ABG pH (7.35-7.45) ABG Total CO2 (22-28) mmol.L ABG O2 Saturation (95-98) % ABG Base Excess (-2.0-3.0) mmol/L ABG Potassium (3.6-5.2) mmol/L VBG pH 7.17 L* (7.32-7.43) VBG pCO2 37.0 L (40-60) VBG HCO3 13.5 L (21-28) mmol/l VBG Total CO2 14.6 L (22-28) mmol.L VBG O2 Sat (Calc) 65.3 H (40-65) % VBG Base Excess -14.2 L (0.0-2.0) mmol/L VBG Potassium 1.5 L* (3.6-5.2) mmol/L Sodium 145.0 137 (132-148) mmol/L Chloride 120.0 H 109 H (98-107) mmol/L Glucose 125 H (75-110) mg/dl Lactate 2.6 H (0.7-2.1) mmol/L FiO2 21.0 % Potassium 3.9 (3.6-5.0) mmol/L Carbon Dioxide 20 L (21-33) mmol/L Anion Gap 12 (10-20) BUN 16 (7-21) mg/dL Creatinine 0.9 (0.8-1.5) mg/dl Est GFR ( Amer) > 60 Est GFR (Non-Af Amer) > 60 POC Glucose (mg/dL) (65-110) mg/dL Random Glucose 212 H (70-110) mg/dL Calcium 7.2 L (8.4-10.5) mg/dL Phosphorus 1.6 L (2.5-4.5) mg/dL Magnesium 1.4 L (1.7-2.2) mg/dL Total Bilirubin 0.4 (0.2-1.3) mg/dL AST 232 H (17-59) U/L ALT 269 H (7-56) U/L Alkaline Phosphatase 159 H (38-126) U/L Troponin I ng/mL Total Protein 6.2 (5.8-8.3) g/dL Albumin 3.2 (3.0-4.8) g/dL Globulin 3.0 gm/dL Albumin/Globulin Ratio 1.1 (1.1-1.8) Amylase (35-125) U/L Lipase (23-300) U/L Arterial Blood Potassium (3.6-5.2) mmol/L Venous Blood Potassium 1.5 L* (3.6-5.2) mmol/L 08/24/17 08/24/17 08/24/17 Range/Units 05:18 05:13 00:29 WBC (4.5-11.0) 10^3/ul RBC (3.5-6.1) 10^6/uL Hgb (14.0-18.0) g/dL Hct (42.0-52.0) % MCV (80.0-105.0) fl MCH (25.0-35.0) pg MCHC (31.0-37.0) g/dl RDW (11.5-14.5) % Plt Count (120.0-450.0) 10^3/uL MPV (7.0-11.0) fl Gran % (50.0-68.0) % Lymph % (Auto) (22.0-35.0) % [place] % (Auto) (1.0-6.0) % Eos % (Auto) (1.5-5.0) % Baso % (Auto) (0.0-3.0) % Gran # (1.4-6.5) Lymph # (1.2-3.4) [place] # (0.1-0.6) Eos # (0.0-0.7) Baso # (0.0-2.0) K/mm3 PT (9.4-12.5) SECONDS INR (0.93-1.08) APTT (25.1-36.5) Seconds pCO2 34 L (35-45) mm/Hg pO2 124.0 H (30-55) mm/Hg HCO3 15.3 L (21-28) mmol/L ABG pH 7.26 L (7.35-7.45) ABG Total CO2 16.3 L (22-28) mmol.L ABG O2 Saturation 98.7 H (95-98) % ABG Base Excess -10.8 L (-2.0-3.0) mmol/L ABG Potassium 2.9 L (3.6-5.2) mmol/L VBG pH (7.32-7.43) VBG pCO2 (40-60) VBG HCO3 (21-28) mmol/l VBG Total CO2 (22-28) mmol.L VBG O2 Sat (Calc) (40-65) % VBG Base Excess (0.0-2.0) mmol/L VBG Potassium (3.6-5.2) mmol/L Sodium 136.0 (132-148) mmol/L Chloride 113.0 H (98-107) mmol/L Glucose 231 H (75-110) mg/dl Lactate 1.8 (0.7-2.1) mmol/L FiO2 100.0 % Potassium (3.6-5.0) mmol/L Carbon Dioxide (21-33) mmol/L Anion Gap (10-20) BUN (7-21) mg/dL Creatinine (0.8-1.5) mg/dl Est GFR ( Amer) Est GFR (Non-Af Amer) POC Glucose (mg/dL) 210 H (65-110) mg/dL Random Glucose (70-110) mg/dL Calcium (8.4-10.5) mg/dL Phosphorus (2.5-4.5) mg/dL Magnesium (1.7-2.2) mg/dL Total Bilirubin (0.2-1.3) mg/dL AST (17-59) U/L ALT (7-56) U/L Alkaline Phosphatase (38-126) U/L Troponin I 0.14 H* D ng/mL Total Protein (5.8-8.3) g/dL Albumin (3.0-4.8) g/dL Globulin gm/dL Albumin/Globulin Ratio (1.1-1.8) Amylase 421 H (35-125) U/L Lipase 72 (23-300) U/L Arterial Blood Potassium 2.9 L (3.6-5.2) mmol/L Venous Blood Potassium (3.6-5.2) mmol/L 08/24/17 08/24/17 08/24/17 Range/Units 00:28 00:28 00:28 WBC 4.1 L D (4.5-11.0) 10^3/ul RBC 4.52 (3.5-6.1) 10^6/uL Hgb 13.9 L D (14.0-18.0) g/dL Hct 41.8 L (42.0-52.0) % MCV 92.5 D (80.0-105.0) fl MCH 30.8 (25.0-35.0) pg MCHC 33.3 (31.0-37.0) g/dl RDW 12.8 (11.5-14.5) % Plt Count 196 (120.0-450.0) 10^3/uL MPV 10.4 (7.0-11.0) fl Gran % 82.6 H (50.0-68.0) % Lymph % (Auto) 13.7 L (22.0-35.0) % [place] % (Auto) 3.7 (1.0-6.0) % Eos % (Auto) 0.0 L (1.5-5.0) % Baso % (Auto) 0.0 (0.0-3.0) % Gran # 3.39 (1.4-6.5) Lymph # 0.6 L (1.2-3.4) [place] # 0.2 (0.1-0.6) Eos # 0.0 (0.0-0.7) Baso # 0.00 (0.0-2.0) K/mm3 PT 12.0 (9.4-12.5) SECONDS INR 1.10 H (0.93-1.08) APTT 28.3 (25.1-36.5) Seconds pCO2 (35-45) mm/Hg pO2 46 (30-55) mm/Hg HCO3 (21-28) mmol/L ABG pH (7.35-7.45) ABG Total CO2 (22-28) mmol.L ABG O2 Saturation (95-98) % ABG Base Excess (-2.0-3.0) mmol/L ABG Potassium (3.6-5.2) mmol/L VBG pH 7.15 L* (7.32-7.43) VBG pCO2 55.0 (40-60) VBG HCO3 19.2 L (21-28) mmol/l VBG Total CO2 20.9 L (22-28) mmol.L VBG O2 Sat (Calc) 82.9 H (40-65) % VBG Base Excess -10.0 L (0.0-2.0) mmol/L VBG Potassium 3.8 (3.6-5.2) mmol/L Sodium 135.0 (132-148) mmol/L Chloride 109.0 H (98-107) mmol/L Glucose 234 H (75-110) mg/dl Lactate 1.4 (0.7-2.1) mmol/L FiO2 21.0 % Potassium (3.6-5.0) mmol/L Carbon Dioxide (21-33) mmol/L Anion Gap (10-20) BUN (7-21) mg/dL Creatinine (0.8-1.5) mg/dl Est GFR ( Amer) Est GFR (Non-Af Amer) POC Glucose (mg/dL) (65-110) mg/dL Random Glucose (70-110) mg/dL Calcium (8.4-10.5) mg/dL Phosphorus (2.5-4.5) mg/dL Magnesium (1.7-2.2) mg/dL Total Bilirubin (0.2-1.3) mg/dL AST (17-59) U/L ALT (7-56) U/L Alkaline Phosphatase (38-126) U/L Troponin I ng/mL Total Protein (5.8-8.3) g/dL Albumin (3.0-4.8) g/dL Globulin gm/dL Albumin/Globulin Ratio (1.1-1.8) Amylase (35-125) U/L Lipase (23-300) U/L Arterial Blood Potassium (3.6-5.2) mmol/L Venous Blood Potassium 3.8 (3.6-5.2) mmol/L Laboratory Results - last 24 hr 08/24/17 08/24/17 08/24/17 00:28 00:28 00:28 WBC 4.1 L D RBC 4.52 Hgb 13.9 L D Hct 41.8 L MCV 92.5 D MCH 30.8 MCHC 33.3 RDW 12.8 Plt Count 196 MPV 10.4 Gran % 82.6 H Lymph % (Auto) 13.7 L [place] % (Auto) 3.7 Eos % (Auto) 0.0 L Baso % (Auto) 0.0 Gran # 3.39 Lymph # 0.6 L [place] # 0.2 Eos # 0.0 Baso # 0.00 PT 12.0 INR 1.10 H APTT 28.3 pCO2 pO2 46 HCO3 ABG pH ABG Total CO2 ABG O2 Saturation ABG Base Excess ABG Potassium VBG pH 7.15 L* VBG pCO2 55.0 VBG HCO3 19.2 L VBG Total CO2 20.9 L VBG O2 Sat (Calc) 82.9 H VBG Base Excess -10.0 L VBG Potassium 3.8 Sodium 135.0 Chloride 109.0 H Glucose 234 H Lactate 1.4 FiO2 21.0 Potassium Carbon Dioxide Anion Gap BUN Creatinine Est GFR ( Amer) Est GFR (Non-Af Amer) POC Glucose (mg/dL) Random Glucose Calcium Phosphorus Magnesium Total Bilirubin AST ALT Alkaline Phosphatase Troponin I Total Protein Albumin Globulin Albumin/Globulin Ratio Amylase Lipase Arterial Blood Potassium Venous Blood Potassium 3.8 08/24/17 08/24/17 08/24/17 00:29 05:13 05:18 WBC RBC Hgb Hct MCV MCH MCHC RDW Plt Count MPV Gran % Lymph % (Auto) [place] % (Auto) Eos % (Auto) Baso % (Auto) Gran # Lymph # [place] # Eos # Baso # PT INR APTT pCO2 34 L pO2 124.0 H HCO3 15.3 L ABG pH 7.26 L ABG Total CO2 16.3 L ABG O2 Saturation 98.7 H ABG Base Excess -10.8 L ABG Potassium 2.9 L VBG pH VBG pCO2 VBG HCO3 VBG Total CO2 VBG O2 Sat (Calc) VBG Base Excess VBG Potassium Sodium 136.0 Chloride 113.0 H Glucose 231 H Lactate 1.8 FiO2 100.0 Potassium Carbon Dioxide Anion Gap BUN Creatinine Est GFR ( Amer) Est GFR (Non-Af Amer) POC Glucose (mg/dL) 210 H Random Glucose Calcium Phosphorus Magnesium Total Bilirubin AST ALT Alkaline Phosphatase Troponin I 0.14 H* D Total Protein Albumin Globulin Albumin/Globulin Ratio Amylase 421 H Lipase 72 Arterial Blood Potassium 2.9 L Venous Blood Potassium 08/24/17 08/24/17 08/24/17 06:46 06:46 08:58 WBC 5.1 D RBC 5.09 Hgb 15.6 Hct 45.7 MCV 89.8 MCH 30.6 MCHC 34.1 RDW 12.8 Plt Count 241 MPV 10.4 Gran % 84.1 H Lymph % (Auto) 10.4 L [place] % (Auto) 5.3 Eos % (Auto) 0.0 L Baso % (Auto) 0.2 Gran # 4.29 Lymph # 0.5 L [place] # 0.3 Eos # 0.0 Baso # 0.01 PT INR APTT pCO2 pO2 33 HCO3 ABG pH ABG Total CO2 ABG O2 Saturation ABG Base Excess ABG Potassium VBG pH 7.17 L* VBG pCO2 37.0 L VBG HCO3 13.5 L VBG Total CO2 14.6 L VBG O2 Sat (Calc) 65.3 H VBG Base Excess -14.2 L VBG Potassium 1.5 L* Sodium 137 145.0 Chloride 109 H 120.0 H Glucose 125 H Lactate 2.6 H FiO2 21.0 Potassium 3.9 Carbon Dioxide 20 L Anion Gap 12 BUN 16 Creatinine 0.9 Est GFR ( Amer) > 60 Est GFR (Non-Af Amer) > 60 POC Glucose (mg/dL) Random Glucose 212 H Calcium 7.2 L Phosphorus 1.6 L Magnesium 1.4 L Total Bilirubin 0.4 AST 232 H ALT 269 H Alkaline Phosphatase 159 H Troponin I Total Protein 6.2 Albumin 3.2 Globulin 3.0 Albumin/Globulin Ratio 1.1 Amylase Lipase Arterial Blood Potassium Venous Blood Potassium 1.5 L* EKG/Cardiology Studies: Cardiology / EKG Studies 08/23/17 19:07 EKG [ELECTROCARDIOGRAM] Stat Comment: Reason For Exam: CARDIAC ARREST Assessment/Plan - Assessment and Plan (Free Text) Plan: Patient seen and examined, on rounds with resident, agree with note, with following additions/exceptions: Pt is 67 year old male with a PMH of Parkinson's disease, seizure disorder, a/w PEA cardiac arrest. Unknown down time in the field, ROSC achieved after 3 epinephrine. Pt currently intubated sedated. Patient examined off sedation, no pupils, no gag reflex, no corneal reflex, does over breath the ventilator. Seen by neurology, noted to have burst suppression. Will bolus with Keppra, and start versed drip. Intrinsic core temp 32C, will discontinue hypothermic protocol, goal core temp for 24 hours 34-36C. Attempting to locate family/NOK, palliative care involved. Cont with ventilatory support, low tidal vol ventilation, Abx for PNA, check procalcitonin, follow up ID. Full code. Prognosis remains poor. s/p Cardiac Arrest Seizure Disorder PNA
[2017-08-24 15:00] LABS: VENOUS BLOOD GAS BASE EXCESS -9.5 mmol/L (0.0-2.0); VENOUS BLOOD PH 7.22 (7.32-7.43)
--- NOTE | 2017-08-24 15:00 | CP.PCM.CON ---
History of Present Illness - History of Present Illness History of Present Illness: Palliative consult requested by Keon Rubin Reason: Goals of care 67 year old male with history of development delay, Alzheimer's disease who printed to ED s/p cardiac arrest.He was intubated in the field.Upon arrival to ED he had pusle/BP but no evidence of neurological activity.EEG showed abnormal rhythmic bursts interspersed with a flat suppression bilaterally. He PMHX: Alzheimer's dementia with behavioral disturbance, seizure disorder, developmental delay. Family History: Sister - breast cancer, Mother- coronary artery disease. Social History:Non smoker, no alcohol or drug use.Lives with caregivers Advance Care Plan: There is no Advance Directive on record> Gerard PAREKH , Review of Systems: Unable to obtain, intubated, altered Past Patient History - Infectious Disease Hx of Infectious Diseases: None - Past Social History Smoking Status: Never Smoked - CARDIAC Hx Cardiac Disorders: No Hx Hypertension: Yes - NEUROLOGICAL HX Cerebrovascular Accident: No Hx Seizures: Yes - HEMATOLOGICAL/ONCOLOGICAL Hx Cancer: No - MUSCULOSKELETAL/RHEUMATOLOGICAL Hx Falls: Yes - GENITOURINARY/GYNECOLOGICAL Hx Sexually Transmitted Disorders: No - PSYCHIATRIC Hx Schizophrenia: Yes Hx Substance Use: No - ANESTHESIA Hx Anesthesia Reactions: No Meds Allergies/Adverse Reactions: Allergies Allergy/AdvReac Type Severity Reaction Status Date / Time No Known Allergies Allergy Verified 02/02/17 23:13 - Medications Medications: Current Medications Acetaminophen (Tylenol 650mg/20.3ml Solution Ud) 975 mg NG Q6 PRN PRN Reason: Rigors Aspirin (Aspirin Chewable) 81 mg PO DAILY [facility] Atorvastatin Calcium (Lipitor) 10 mg PO DIN [facility] Chlorhexidine Gluconate (Peridex) 15 ml PO Q4H PRN PRN Reason: oral care Last Admin: 08/24/17 06:32 Dose: 2 ml Heparin Sodium (Porcine) (Heparin) 5,000 units SC Q12 UMBERTO PRN Reason: Protocol Last Admin: 08/24/17 09:12 Dose: 5,000 units NOREPINEPHRINE BIT/0.9 % NACL (Levophed 4 Mg/ 250 Ml Ns Premixed) 4 mg in 250 mls @ 15 mls/hr IV .[id number] PRN; Protocol; 4 MCG/MIN PRN Reason: TITRATE PER MD ORDER Sodium Chloride (Sodium Chloride 0.9%) 1,000 mls @ 75 mls/hr IV .[id number] UMBERTO Propofol (Diprivan) 1,000 mg in 100 mls @ 1.755 mls/hr IV .Q24H PRN; Protocol; 5 MCG/KG/MIN PRN Reason: TITRATE PER MD ORDER Last Admin: 08/24/17 09:00 Dose: 10 mcg/kg/min, 3.511 mls/hr Vancomycin HCl (Vancomycin 1gm) 1 gm in 250 mls @ 167 mls/hr IVPB DAILY UMBERTO PRN Reason: Protocol Last Admin: 08/24/17 11:44 Dose: 167 mls/hr Azithromycin (Zithromax 500mg In Ns) 500 mg in 250 mls @ 167 mls/hr IVPB DAILY UMBERTO PRN Reason: Protocol Last Admin: 08/24/17 13:04 Dose: 167 mls/hr Potassium Phosphate 15 mmole/ (Sodium Chloride) 255 mls @ 42.5 mls/hr IVPB ONCE ONE Stop: 08/24/17 17:59 Last Admin: 08/24/17 13:38 Dose: 42.5 mls/hr Midazolam 100 mg/100ml in NS (Midazolam 100 Mg/100ml In Ns) 100 mg in 100 mls @ 2 mls/hr IV .Q24H PRN; Protocol; 2 MG/HR PRN Reason: Agitation Levetiracetam 750 mg/ Sodium (Chloride) 107.5 mls @ 460 mls/hr IV Q12 UMBERTO Pantoprazole Sodium (Protonix Inj) 40 mg IVP 0600 [facility] Last Admin: 08/24/17 06:08 Dose: 40 mg Physical Exam - Constitutional Appears: No Acute Distress - Head Exam Head Exam: NORMAL INSPECTION - Eye Exam Pupil Exam: Fixed - ENT Exam ENT Exam: Mucous Membranes Moist - Respiratory Exam Respiratory Exam: Clear to Auscultation Bilateral - Cardiovascular Exam Cardiovascular Exam: REGULAR RHYTHM, +S1, +S2 - GI/Abdominal Exam GI & Abdominal Exam: Diminished Bowel Sounds, Soft - Extremities Exam Extremities exam: Positive for: normal inspection - Back Exam Back exam: NORMAL INSPECTION - Skin Skin Exam: Dry, Pallor - Additional Findings Additional findings: Palliative performance scale rating 10% Results - Vital Signs Recent Vital Signs: Last Vital Signs Temp 32.5 F L 08/24/17 09:44 Pulse 74 08/24/17 10:00 Resp 27 H 08/24/17 07:21 BP 107/69 08/24/17 09:45 Pulse Ox 100 08/24/17 09:44 - Labs Result Diagrams: 08/24/17 14:50 08/24/17 14:50 Labs: Laboratory Results - last 24 hr 08/24/17 08/24/17 08/24/17 00:28 00:28 00:28 WBC 4.1 L D RBC 4.52 Hgb 13.9 L D Hct 41.8 L MCV 92.5 D MCH 30.8 MCHC 33.3 RDW 12.8 Plt Count 196 MPV 10.4 Gran % 82.6 H Lymph % (Auto) 13.7 L [place] % (Auto) 3.7 Eos % (Auto) 0.0 L Baso % (Auto) 0.0 Gran # 3.39 Lymph # 0.6 L [place] # 0.2 Eos # 0.0 Baso # 0.00 PT 12.0 INR 1.10 H APTT 28.3 pCO2 pO2 46 HCO3 ABG pH ABG Total CO2 ABG O2 Saturation ABG Base Excess ABG Potassium VBG pH 7.15 L* VBG pCO2 55.0 VBG HCO3 19.2 L VBG Total CO2 20.9 L VBG O2 Sat (Calc) 82.9 H VBG Base Excess -10.0 L VBG Potassium 3.8 Sodium 135.0 Chloride 109.0 H Glucose 234 H Lactate 1.4 FiO2 21.0 Potassium Carbon Dioxide Anion Gap BUN Creatinine Est GFR ( Amer) Est GFR (Non-Af Amer) POC Glucose (mg/dL) Random Glucose Calcium Phosphorus Magnesium Total Bilirubin AST ALT Alkaline Phosphatase Troponin I Total Protein Albumin Globulin Albumin/Globulin Ratio Amylase Lipase Arterial Blood Potassium Venous Blood Potassium 3.8 08/24/17 08/24/17 08/24/17 00:29 05:13 05:18 WBC RBC Hgb Hct MCV MCH MCHC RDW Plt Count MPV Gran % Lymph % (Auto) [place] % (Auto) Eos % (Auto) Baso % (Auto) Gran # Lymph # [place] # Eos # Baso # PT INR APTT pCO2 34 L pO2 124.0 H HCO3 15.3 L ABG pH 7.26 L ABG Total CO2 16.3 L ABG O2 Saturation 98.7 H ABG Base Excess -10.8 L ABG Potassium 2.9 L VBG pH VBG pCO2 VBG HCO3 VBG Total CO2 VBG O2 Sat (Calc) VBG Base Excess VBG Potassium Sodium 136.0 Chloride 113.0 H Glucose 231 H Lactate 1.8 FiO2 100.0 Potassium Carbon Dioxide Anion Gap BUN Creatinine Est GFR ( Amer) Est GFR (Non-Af Amer) POC Glucose (mg/dL) 210 H Random Glucose Calcium Phosphorus Magnesium Total Bilirubin AST ALT Alkaline Phosphatase Troponin I 0.14 H* D Total Protein Albumin Globulin Albumin/Globulin Ratio Amylase 421 H Lipase 72 Arterial Blood Potassium 2.9 L Venous Blood Potassium 08/24/17 08/24/17 08/24/17 06:46 06:46 08:58 WBC 5.1 D RBC 5.09 Hgb 15.6 Hct 45.7 MCV 89.8 MCH 30.6 MCHC 34.1 RDW 12.8 Plt Count 241 MPV 10.4 Gran % 84.1 H Lymph % (Auto) 10.4 L [place] % (Auto) 5.3 Eos % (Auto) 0.0 L Baso % (Auto) 0.2 Gran # 4.29 Lymph # 0.5 L [place] # 0.3 Eos # 0.0 Baso # 0.01 PT INR APTT pCO2 pO2 33 HCO3 ABG pH ABG Total CO2 ABG O2 Saturation ABG Base Excess ABG Potassium VBG pH 7.17 L* VBG pCO2 37.0 L VBG HCO3 13.5 L VBG Total CO2 14.6 L VBG O2 Sat (Calc) 65.3 H VBG Base Excess -14.2 L VBG Potassium 1.5 L* Sodium 137 145.0 Chloride 109 H 120.0 H Glucose 125 H Lactate 2.6 H FiO2 21.0 Potassium 3.9 Carbon Dioxide 20 L Anion Gap 12 BUN 16 Creatinine 0.9 Est GFR ( Amer) > 60 Est GFR (Non-Af Amer) > 60 POC Glucose (mg/dL) Random Glucose 212 H Calcium 7.2 L Phosphorus 1.6 L Magnesium 1.4 L Total Bilirubin 0.4 AST 232 H ALT 269 H Alkaline Phosphatase 159 H Troponin I Total Protein 6.2 Albumin 3.2 Globulin 3.0 Albumin/Globulin Ratio 1.1 Amylase Lipase Arterial Blood Potassium Venous Blood Potassium 1.5 L* Assessment & Plan - Assessment and Plan (Free Text) Assessment: 67 year old male with history of seizure disorder, Alzheimer's disease and developmental delay who is s/p cardiac arrest with severe anoxic brain injury. Intubated, pressor support,hypothermia/freeze protocol. No gag, corneal or pupillary response, GCS 3. POA,Gerard Niurka and care givers at bedside. brought copies of POA directive. Medical team, and Dr. Rascon gave POA an update of patients medical situation and prognosis. Goals of care discussed. POA agreed to make patient DNR status in order to allow for natural . Mr. Bah intends to wait for additional testing to be completed before making any other decisions regarding patients care. He did express that he will make decisions based on patients future quality of life. Psychosocial support given. Spiritual support offered.The patient is [employer], family does not want a Rabbi at this time. Time spent in goals of care discussion, 30 minutes. Plan: DNR Palliative support in establishing goals of care
[2017-08-24 15:09] LABS: BASO # 0.01 K/mm3 (0.0-2.0); BASO % 0.3 % (0.0-3.0); GRAN # 3.17 (1.4-6.5); GRAN % 81.3 % (50.0-68.0); LYMPH # 0.5 (1.2-3.4); LYMPH % 11.5 % (22.0-35.0); MEAN CELL VOLUME 87.8 fl (80.0-105.0); MEAN CORPUSCULAR HEMOGLOBIN 30.4 pg (25.0-35.0); MEAN CORPUSCULAR HGB CONC 34.6 g/dl (31.0-37.0); MEAN PLATELET VOLUME 10.8 fl (7.0-11.0); MONO # 0.3 (0.1-0.6); MONO % 6.9 % (1.0-6.0); RED CELL DISTRIBUTION WIDTH 12.6 % (11.5-14.5); WHITE BLOOD COUNT 3.9 10^3/ul (4.5-11.0)
[2017-08-24 15:12] LABS: CHLORIDE 109 mmol/L (98-107)
--- NOTE | 2017-08-24 15:28 | CP.PCM.CON ---
History of Present Illness - History of Present Illness History of Present Illness: Mr. Delaney is a 67-year-old man who was brought in by EMS after cardiac arrest, PEA, requiring 3 rounds of epi, currently on hypothermia protocol. It was not fully clear when the episode took place. The patient has a history of mental delay, seizures, dementia and lives in a residential according to records. Family was not available for more information. The patient is on propofol, versed and fentalyl, but not requiring any sedation. He breaths over the vent, but does not have any other brainstem reflexes at this time. No cough /gag, corneals or pupillary response. He has abnormal gasping movements that are sporadic and seem rhythmic. EEG showed abnormal rhythmic bursts interspersed with a flat suppression bilaterally. Review of Systems - Review of Systems All systems: reviewed and no additional remarkable complaints except Past Patient History - Infectious Disease Hx of Infectious Diseases: None - Past Social History Smoking Status: Never Smoked - CARDIAC Hx Cardiac Disorders: No Hx Hypertension: Yes - NEUROLOGICAL HX Cerebrovascular Accident: No Hx Seizures: Yes - HEMATOLOGICAL/ONCOLOGICAL Hx Cancer: No - MUSCULOSKELETAL/RHEUMATOLOGICAL Hx Falls: Yes - GENITOURINARY/GYNECOLOGICAL Hx Sexually Transmitted Disorders: No - PSYCHIATRIC Hx Schizophrenia: Yes Hx Substance Use: No - ANESTHESIA Hx Anesthesia Reactions: No Meds Allergies/Adverse Reactions: Allergies Allergy/AdvReac Type Severity Reaction Status Date / Time No Known Allergies Allergy Verified 02/02/17 23:13 - Medications Medications: Current Medications Acetaminophen (Tylenol 650mg/20.3ml Solution Ud) 975 mg NG Q6 PRN PRN Reason: Rigors Aspirin (Aspirin Chewable) 81 mg PO DAILY [facility] Atorvastatin Calcium (Lipitor) 10 mg PO DIN [facility] Chlorhexidine Gluconate (Peridex) 15 ml PO Q4H PRN PRN Reason: oral care Last Admin: 08/24/17 06:32 Dose: 2 ml Heparin Sodium (Porcine) (Heparin) 5,000 units SC Q12 UMBERTO PRN Reason: Protocol Last Admin: 08/24/17 09:12 Dose: 5,000 units NOREPINEPHRINE BIT/0.9 % NACL (Levophed 4 Mg/ 250 Ml Ns Premixed) 4 mg in 250 mls @ 15 mls/hr IV .[id number] PRN; Protocol; 4 MCG/MIN PRN Reason: TITRATE PER MD ORDER Sodium Chloride (Sodium Chloride 0.9%) 1,000 mls @ 75 mls/hr IV .[id number] UMBERTO Propofol (Diprivan) 1,000 mg in 100 mls @ 1.755 mls/hr IV .Q24H PRN; Protocol; 5 MCG/KG/MIN PRN Reason: TITRATE PER MD ORDER Last Admin: 08/24/17 09:00 Dose: 10 mcg/kg/min, 3.511 mls/hr Vancomycin HCl (Vancomycin 1gm) 1 gm in 250 mls @ 167 mls/hr IVPB DAILY UMBERTO PRN Reason: Protocol Last Admin: 08/24/17 11:44 Dose: 167 mls/hr Azithromycin (Zithromax 500mg In Ns) 500 mg in 250 mls @ 167 mls/hr IVPB DAILY UMBERTO PRN Reason: Protocol Last Admin: 08/24/17 13:04 Dose: 167 mls/hr Potassium Phosphate 15 mmole/ (Sodium Chloride) 255 mls @ 42.5 mls/hr IVPB ONCE ONE Stop: 08/24/17 17:59 Last Admin: 08/24/17 13:38 Dose: 42.5 mls/hr Midazolam 100 mg/100ml in NS (Midazolam 100 Mg/100ml In Ns) 100 mg in 100 mls @ 2 mls/hr IV .Q24H PRN; Protocol; 2 MG/HR PRN Reason: Agitation Levetiracetam 750 mg/ Sodium (Chloride) 107.5 mls @ 460 mls/hr IV Q12 UMBERTO Pantoprazole Sodium (Protonix Inj) 40 mg IVP 0600 [facility] Last Admin: 08/24/17 06:08 Dose: 40 mg Physical Exam - Neurological Exam Additional comments: Intubated with light sedation. GCS=3T, No movement to pain, no eye opening. No pupillary response, no corneal response, no cough, seems to have a gag at times , breaths over the ventilator. Results - Vital Signs Recent Vital Signs: Last Vital Signs Temp 30.3 F L 08/24/17 14:50 Pulse 62 08/24/17 14:50 Resp 33 H 08/24/17 13:45 BP 123/74 08/24/17 14:45 Pulse Ox 100 08/24/17 14:50 - Labs Result Diagrams: 08/24/17 14:50 08/24/17 14:50 Labs: Laboratory Results - last 24 hr 08/24/17 08/24/17 08/24/17 00:28 00:28 00:28 WBC 4.1 L D RBC 4.52 Hgb 13.9 L D Hct 41.8 L MCV 92.5 D MCH 30.8 MCHC 33.3 RDW 12.8 Plt Count 196 MPV 10.4 Gran % 82.6 H Lymph % (Auto) 13.7 L [place] % (Auto) 3.7 Eos % (Auto) 0.0 L Baso % (Auto) 0.0 Gran # 3.39 Lymph # 0.6 L [place] # 0.2 Eos # 0.0 Baso # 0.00 PT 12.0 INR 1.10 H APTT 28.3 pCO2 pO2 46 HCO3 ABG pH ABG Total CO2 ABG O2 Saturation ABG Base Excess ABG Potassium VBG pH 7.15 L* VBG pCO2 55.0 VBG HCO3 19.2 L VBG Total CO2 20.9 L VBG O2 Sat (Calc) 82.9 H VBG Base Excess -10.0 L VBG Potassium 3.8 Sodium 135.0 Chloride 109.0 H Glucose 234 H Lactate 1.4 FiO2 21.0 Potassium Carbon Dioxide Anion Gap BUN Creatinine Est GFR ( Amer) Est GFR (Non-Af Amer) POC Glucose (mg/dL) Random Glucose Calcium Phosphorus Magnesium Total Bilirubin AST ALT Alkaline Phosphatase Troponin I Total Protein Albumin Globulin Albumin/Globulin Ratio Amylase Lipase Arterial Blood Potassium Venous Blood Potassium 3.8 08/24/17 08/24/17 08/24/17 00:29 05:13 05:18 WBC RBC Hgb Hct MCV MCH MCHC RDW Plt Count MPV Gran % Lymph % (Auto) [place] % (Auto) Eos % (Auto) Baso % (Auto) Gran # Lymph # [place] # Eos # Baso # PT INR APTT pCO2 34 L pO2 124.0 H HCO3 15.3 L ABG pH 7.26 L ABG Total CO2 16.3 L ABG O2 Saturation 98.7 H ABG Base Excess -10.8 L ABG Potassium 2.9 L VBG pH VBG pCO2 VBG HCO3 VBG Total CO2 VBG O2 Sat (Calc) VBG Base Excess VBG Potassium Sodium 136.0 Chloride 113.0 H Glucose 231 H Lactate 1.8 FiO2 100.0 Potassium Carbon Dioxide Anion Gap BUN Creatinine Est GFR ( Amer) Est GFR (Non-Af Amer) POC Glucose (mg/dL) 210 H Random Glucose Calcium Phosphorus Magnesium Total Bilirubin AST ALT Alkaline Phosphatase Troponin I 0.14 H* D Total Protein Albumin Globulin Albumin/Globulin Ratio Amylase 421 H Lipase 72 Arterial Blood Potassium 2.9 L Venous Blood Potassium 08/24/17 08/24/17 08/24/17 06:46 06:46 08:58 WBC 5.1 D RBC 5.09 Hgb 15.6 Hct 45.7 MCV 89.8 MCH 30.6 MCHC 34.1 RDW 12.8 Plt Count 241 MPV 10.4 Gran % 84.1 H Lymph % (Auto) 10.4 L [place] % (Auto) 5.3 Eos % (Auto) 0.0 L Baso % (Auto) 0.2 Gran # 4.29 Lymph # 0.5 L [place] # 0.3 Eos # 0.0 Baso # 0.01 PT INR APTT pCO2 pO2 33 HCO3 ABG pH ABG Total CO2 ABG O2 Saturation ABG Base Excess ABG Potassium VBG pH 7.17 L* VBG pCO2 37.0 L VBG HCO3 13.5 L VBG Total CO2 14.6 L VBG O2 Sat (Calc) 65.3 H VBG Base Excess -14.2 L VBG Potassium 1.5 L* Sodium 137 145.0 Chloride 109 H 120.0 H Glucose 125 H Lactate 2.6 H FiO2 21.0 Potassium 3.9 Carbon Dioxide 20 L Anion Gap 12 BUN 16 Creatinine 0.9 Est GFR ( Amer) > 60 Est GFR (Non-Af Amer) > 60 POC Glucose (mg/dL) Random Glucose 212 H Calcium 7.2 L Phosphorus 1.6 L Magnesium 1.4 L Total Bilirubin 0.4 AST 232 H ALT 269 H Alkaline Phosphatase 159 H Troponin I Total Protein 6.2 Albumin 3.2 Globulin 3.0 Albumin/Globulin Ratio 1.1 Amylase Lipase Arterial Blood Potassium Venous Blood Potassium 1.5 L* 08/24/17 08/24/17 08/24/17 14:50 14:50 14:50 WBC 3.9 L D RBC 4.67 Hgb 14.2 Hct 41.0 L MCV 87.8 MCH 30.4 MCHC 34.6 RDW 12.6 Plt Count 180 MPV 10.8 Gran % 81.3 H Lymph % (Auto) 11.5 L [place] % (Auto) 6.9 H Eos % (Auto) 0.0 L Baso % (Auto) 0.3 Gran # 3.17 Lymph # 0.5 L [place] # 0.3 Eos # 0.0 Baso # 0.01 PT INR APTT pCO2 pO2 41 HCO3 ABG pH ABG Total CO2 ABG O2 Saturation ABG Base Excess ABG Potassium VBG pH 7.22 L VBG pCO2 44.0 VBG HCO3 18.0 L VBG Total CO2 19.4 L VBG O2 Sat (Calc) 77.9 H VBG Base Excess -9.5 L VBG Potassium 2.3 L* Sodium 136.0 Chloride 109 H 106.0 Glucose 151 H Lactate 2.9 H FiO2 21.0 Potassium Carbon Dioxide Anion Gap BUN Creatinine Est GFR ( Amer) Est GFR (Non-Af Amer) POC Glucose (mg/dL) Random Glucose Calcium Phosphorus Magnesium Total Bilirubin AST ALT Alkaline Phosphatase Troponin I Total Protein Albumin Globulin Albumin/Globulin Ratio Amylase Lipase Arterial Blood Potassium Venous Blood Potassium 2.3 L* - Imaging and Cardiology CT scan - head Status: Image reviewed by me, Report reviewed by me (No acute findings on CT head.) Assessment & Plan - Assessment and Plan (Free Text) Assessment: Anoxic brain injury, with intermittent seizure activity. I recommend the following: Plan: 1. Load with Keppra 1000 mg IV once, and continue 500 mg Q12. 2. Use midazolam instead of propofol or fentanyl if needed 3. Repeat CT head in 24 hours 4. Repeat EEG after Keppra is loaded 5. Continue conservative management 6. MRI brain when clinically stable. Thank you.
[2017-08-24] MEDS: Midazolam 100 mg/100ml in NS 100 MG/100 ML SOL IV PRN (15:42)
[2017-08-24 15:49] LABS: ALB/GLOB RATIO 1.1 (1.1-1.8); ALKALINE PHOSPHATASE 115 U/L (38-126); ALT/SGPT 209 U/L (7-56); AST/SGOT 145 U/L (17-59); BILIRUBIN,TOTAL 0.4 mg/dL (0.2-1.3); BLOOD UREA NITROGEN 15 mg/dL (7-21); CALCIUM 7.3 mg/dL (8.4-10.5); CARBON DIOXIDE 18 mmol/L (21-33); GFR AFRICAN-AMERICAN > 60; GLUCOSE,RANDOM 144 mg/dL (70-110); PHOSPHOROUS 1.5 mg/dL (2.5-4.5); SODIUM 137 mmol/L (132-148); TOTAL PROTEIN 5.5 g/dL (5.8-8.3)
[2017-08-24 16:04] LABS: POTASSIUM 2.6 mmol/L (3.6-5.0)
[2017-08-24] MEDS: Sodium Chloride 0.9% 1,000 ML IV SCH (17:33)
--- NOTE | 2017-08-24 18:25 | CARD ---
APPROVED REPORT EXAM: Two-dimensional and M-mode echocardiogram with Doppler and color Doppler. INDICATION S/P CARDIAC ARREST 2D DIMENSIONS IVSd1.0 (0.7-1.1cm)LVDd4.0 (3.9-5.9cm) PWd1.1 (0.7-1.1cm)LVDs3.4 (2.5-4.0cm) FS (%) 14.0 %LVEF (%)30.3 (>50%) M-Mode DIMENSIONS Aortic Root3.00 (2.2-3.7cm)Aortic Cusp Exc.1.50 (1.5-2.0cm) Aortic Valve AoV Peak Kfsiljne05.1cm/Rosario Peak GR.4mmHg Mitral Valve MV E Dmksaxcc92.3cm/sMV A Nrvpehhz32.6cm/sE/A ratio0.8 TDI E/Lateral E'0.0E/Medial E'0.0 Pulmonary Valve PV Peak Chimpbgh36.9cm/sPV Peak Grad.1mmHg Tricuspid Valve TR Peak Okrdcmlp211mt/sRAP [id number] Peak Gr.24mmHg [id number] LEFT VENTRICLE The left ventricle is normal size. There is normal left ventricular wall thickness. The systolic function is severely impaired. There is global hypokinesis of the left ventricle. Transmitral Doppler flow pattern is Grade I-abnormal relaxation pattern. RIGHT VENTRICLE The right ventricle is mildly dilated. There is normal right ventricular wall thickness. RV Systolic function is mildly reduced. ATRIA The left atrium size is normal. The right atrium size is normal. AORTIC VALVE The aortic valve is not well visualized. No aortic regurgitation is present. There is no aortic valvular stenosis. MITRAL VALVE The mitral valve is normal in structure. There is no mitral valve regurgitation noted. TRICUSPID VALVE There is mild pulmonary hypertension. PULMONIC VALVE There is trace pulmonic valvular regurgitation. GREAT VESSELS The aortic root is normal in size. PERICARDIAL EFFUSION There is a trace loculated anterior pericardial effusion. <Conclusion> The left ventricle is normal size. There is normal left ventricular wall thickness. The systolic function is severely impaired. There is global hypokinesis of the left ventricle. Transmitral Doppler flow pattern is Grade I-abnormal relaxation pattern. There is mild pulmonary hypertension.
--- NOTE | 2017-08-24 21:45 | CT ---
EXAM: CT Head Without Intravenous Contrast EXAM DATE/TIME: 08/24/2017 1:25 PM CLINICAL HISTORY: 67 years old, male; Condition or disease; Parkinson's disease, seizures Other: Cardiac arrest; Additional info: Interval changes, intubated patient TECHNIQUE: Axial computed tomography images of the head/brain without intravenous contrast. All CT scans at this facility use one or more dose reduction techniques, viz.: automated exposure control; ma/kV adjustment per patient size (including targeted exams where dose is matched to indication; i.e. head); or iterative reconstruction technique. COMPARISON: CT - HEAD W/O CONTRAST 2017-08-23 21:08 FINDINGS: Brain: There is prominence of sulci gyri and ventricles. There is no midline shift. There is patchy decreased attenuation in periventricular white matter. There is now decreased attenuation in both thalami.. There is now focal decreased attenuation in both basal ganglia. There are no focal masses. There are no focal hemorrhages. Wood-white differentiation is visualized. Ventricles: See above. Bones: Cranial vault is intact. Soft tissues: unremarkable Sinuses: There is pansinusitis Ears and mastoids: Middle ears and mastoids are unremarkable. Orbits: Orbital contents are unremarkable. Nasopharynx: There is an air-fluid level in the nasopharynx. Other findings: There is a sebaceous cyst in the left temporal region, unchanged IMPRESSION: Interval development of ischemic changes in both thalami and both basal ganglia consistent with hypoxic ischemic injury. Additional findings as described above.
--- NOTE | 2017-08-24 22:04 | CARD ---
APPROVED REPORT EKG Measurement Heart [id number] <Conclusion> Unusual P axis, possible ectopic atrial rhythm Nonspecific T wave abnormality Abnormal ECG
--- NOTE | 2017-08-24 22:07 | CARD ---
APPROVED REPORT EKG Measurement Heart [id number] <Conclusion> Junctional rhythm with APCs Otherwise normal ECG
--- NOTE | 2017-08-24 22:13 | CARD ---
APPROVED REPORT EKG Measurement Heart [id number] <Conclusion> Sinus tachycardia Nonspecific ST and T wave abnormality Abnormal ECG
--- NOTE | 2017-08-24 22:15 | CARD ---
APPROVED REPORT EKG Measurement Heart [id number] <Conclusion> Unusual P axis, possible ectopic atrial tachycardia ST & T wave abnormality, consider anterolateral ischemia Abnormal ECG
--- NOTE | 2017-08-24 22:39 | CON ---
DATE: CARDIOLOGY CONSULT REASON FOR CONSULTATION: Cardiac arrest. HISTORY OF PRESENT ILLNESS: The details of the history are not available. I depended on the Emergency Room notes as well as resident information and the shipping support information about the case. The patient is 67-year-old, who has history of seizure disorder and has history of developmental delay, history of schizophrenia, was brought into Emergency Room because of witnessed cardiac arrest. Apparently, the patient was in the facility that I am not sure if it is a detention facility when he was witnessed to collapse and the patient was reported to be in pulseless electrical activity and circulation was recovered after IV epinephrine. There was no reported cardioversion or defibrillation in the field. The patient is currently in ICU, unresponsive on the ventilator with occasional trying to bite on the endotracheal tube. No reported ventricular arrhythmia. No reported seizure activity. PAST MEDICAL HISTORY, SOCIAL HISTORY, REVIEW OF SYSTEMS: Not known in detail; however, the patient did have previous admissions in 2010, 2012, 2013 and this year to [facility]. The most recent presentation to the Emergency Room was in 08/05/2017 where he was evaluated for altered mental status and combativeness. MEDICATIONS: Currently, the patient is on Diprivan infusion, Precedex infusion, Protonix 40 mg intravenously daily, vancomycin 1 g intravenously daily and Zithromax at 500 mg intravenously daily. PHYSICAL EXAMINATION: GENERAL: The patient is an elderly male, who is sedated on the vent. VITAL SIGNS: Blood pressure 107/69, heart rate 67, temperature 32.5 degrees Fahrenheit. He is now in hypothermia protocol, respirations 27. HEENT: No pallor or icterus. NECK: No JVD. CHEST: Bilateral rhonchi. HEART: S1 and S2 regular. EXTREMITIES: No edema. DATA: Hemoglobin and hematocrit 15.6 and 45.7, white count and platelet count are within normal limit. Today's SMA-7, sodium 137, potassium 3.9, chloride 109, CO2 of 20, glucose 112. BUN 12 and creatinine 0.9. Troponin 0.14, which is slightly elevated. Urine drug screen was positive for barbiturates and the recent one from 2 weeks ago was positive for both barbiturates and benzodiazepines. Chest x-ray revealed vertical heart, bilateral alveolar infiltrate more prominent in the hilar regions and the right upper lobe region. CT scan without contrast; no acute intracranial hemorrhage, mass or mass affect. EKG revealed *------* nonspecific T-wave abnormality. Initial EKG revealed what appears to be most likely junctional rhythm with atrial premature beat. ASSESSMENT: 1. Status post cardiac arrest, pulseless electrical activity was reported. 2. Borderline troponin elevation. 3. History of seizure disorder. 4. History of schizophrenia and developmental delay. 5. Uncontrolled diabetes mellitus. 6. Elevated liver enzymes. RECOMMENDATIONS: 1. Continue current IV Zithromax and IV vancomycin. 2. Continue Levophed infusion. 3. Obtain a bedside echocardiogram. 4. Lopressor would not be a good option in view of hypertension. 5. Continue subcutaneous heparin 5000 units twice a day. 6. Start aspirin 81 mg once a day and Lipitor 10 mg once a day via nasogastric tube. The case was discussed with the shipping support and the RN in the process of trying to contact the power of valve inspector person. Linwood Dick MD
[2017-08-25] MEDS: Propofol 10 mg/ml 1,000 MG/100 ML VIAL IV PRN ×2 (04:00→15:10)
[2017-08-25 05:51] LABS: ARTERIAL BLOOD GAS HCO3 15.6 mmol/L (21-28); ARTERIAL BLOOD GAS PH 7.46 (7.35-7.45)
--- NOTE | 2017-08-25 06:38 | HP ---
CHIEF COMPLAINT AND HISTORY OF PRESENT ILLNESS: This is a 67-year-old male who is coming into the hospital with a past medical history of developmental delay. The patient was found to be in cardiac arrest. He was brought in by EMS. He had CPR that was started in the field. He was intubated. He had received epinephrine. On arrival, the patient did have a pulse and the blood pressure. He did not have any significant neurological activity. The patient was believed to be in PEA. He was brought into the ICU for further management. The patient is not able to give any history because he is intubated on a ventilator. ALLERGIES: NO KNOWN DRUG ALLERGIES. HOME MEDICATIONS: They were reviewed on the [facility], unsure how accurate the medication list is. SOCIAL HISTORY: Unknown. PAST MEDICAL HISTORY: Parkinson's and seizure disorder. FAMILY HISTORY: Unknown. PHYSICAL EXAMINATION: VITAL SIGNS: Temperature is 32 degrees Celsius, pulse of 75, blood pressure 136/85, and respirations 16. GENERAL: The patient is intubated. HEENT: EOMI and PERRLA. There is no pupillary response. There is no corneal response. NECK: No JVD, anterior and posterior adenopathy, thyromegaly, or bruits. CARDIOVASCULAR: S1 and S2 regular. No murmur, rubs, or gallop. LUNGS: Clear to auscultation bilaterally. No wheezes, rales, or rhonchi. ABDOMEN: Bowel sounds are positive. Soft, nontender and nondistended. No hepatosplenomegaly. No rebound and no guarding. EXTREMITIES: No cyanosis, clubbing, or edema. NEUROLOGIC: Unable to do full assessment as the patient has no gag. He is breathing over the ventilator. PSYCHIATRIC: She is awake, alert and oriented x3. No anxiety or depression. She has normal affect. GENITOURINARY: No CVA tenderness. VASCULAR: 2+ pulses in the carotid pulses and pedal pulses. SKIN: No erythema or nodules. SPINE: Shows normal curvature. EXTREMITIES: No Cyanosis and clubbing, no edema. LABORATORY DATA: White count is 7.9, hemoglobin 11.9, and platelet count is 235. All the other labs have been reviewed. Initial Ph was 7.12. His initial potassium is 3.9, repeat was 2.6. Troponin is 0.38. AST 232 and ALT is 259. Magnesium was 1.4 and phosphorous is 1.6. CT of the head done shows no acute intracranial hemorrhage or mass effect. Chest x-ray done shows endotracheal tube is suboptimal position with checkout to right main stem bronchus. There is no pneumothorax. Echocardiogram done which shows EF is normal size. Systolic function is severely impaired. There is another chest x-ray done shows multifocal pneumonia, worsening right perihilar region. EEG done shows EEG is abnormal with diffuse slowing seen, suggestive of diffuse abnormality of the brain. There is epileptiform discharge that was seen. ASSESSMENT: 1. Cardiac arrest. 2. Respiratory failure, on ventilator. 3. Seizure disorder. 4. Community-acquired pneumonia. 5. Hypokalemia. 6. Hypophosphatemia. 7. Hypomagnesemia. 8. Shock liver. 9. DO NOT RESUSCITATE/ALLOW NATURAL . PLAN: The patient is currently admitted to the ICU. He is critically ill. The patient is on hypothermia protocol. I did reached out to the family, but was not able to get in touch with them and message was left that I called. The patient is being followed by Neurology and Cardiology, appreciate their input. The patient is on Lipitor for dyslipidemia. He is on heparin for deep venous thrombosis prophylaxis. The patient is getting potassium. The patient's phosphorous is critically low, will need phosphorous replacement. The patient did receive phosphorous, although I had not written for this, 15 mmol given according to their orders. I will repeat the patient's phosphorous and magnesium. I appreciate the input from Liane Wolf from [facility] . In further review of the records, it was found out that the patient has a family history of breast cancer in the sister and coronary artery disease in the mother. The patient lives with a caregiver. There is no advanced planning on record. The power of assistant county attorney is Julio César [phone]. Devante Rubin MD
[2017-08-25] MEDS: Sodium Chloride 0.9% 1,000 ML IV SCH ×2 (06:40→08:48)
[2017-08-25 07:06] LABS: GRAN # 6.77 (1.4-6.5); GRAN % 87.5 % (50.0-68.0); HEMATOCRIT 39.2 % (42.0-52.0); LYMPH # 0.5 (1.2-3.4); LYMPH % 6.5 % (22.0-35.0); MEAN CELL VOLUME 85.6 fl (80.0-105.0); MEAN CORPUSCULAR HEMOGLOBIN 30.1 pg (25.0-35.0); MEAN CORPUSCULAR HGB CONC 35.2 g/dl (31.0-37.0); MEAN PLATELET VOLUME 11.1 fl (7.0-11.0); MONO # 0.5 (0.1-0.6); RED CELL DISTRIBUTION WIDTH 12.8 % (11.5-14.5); WHITE BLOOD COUNT 7.7 10^3/ul (4.5-11.0)
[2017-08-25 07:54] LABS: ALB/GLOB RATIO 1.1 (1.1-1.8); ALKALINE PHOSPHATASE 113 U/L (38-126); ALT/SGPT 170 U/L (7-56); AST/SGOT 101 U/L (17-59); BILIRUBIN,TOTAL 0.5 mg/dL (0.2-1.3); BLOOD UREA NITROGEN 13 mg/dL (7-21); CARBON DIOXIDE 18 mmol/L (21-33); CHLORIDE 107 mmol/L (98-107); GFR AFRICAN-AMERICAN > 60; GLUCOSE,RANDOM 123 mg/dL (70-110); MAGNESIUM 1.4 mg/dL (1.7-2.2); PHOSPHOROUS 3.9 mg/dL (2.5-4.5); POTASSIUM 4.4 mmol/L (3.6-5.0); SODIUM 133 mmol/L (132-148); TOTAL PROTEIN 5.6 g/dL (5.8-8.3)
--- NOTE | 2017-08-25 08:05 | CP.CCUPN ---
CCU Subjective - Physician Review Subjective (Free Text): Patient seen and examined at bedside. Resting comfortably in bed. No acute overnight events. Patient states admitting symptoms have improved relative to baseline. Offers no new complaints at this time. Denies fever, chills, chest pain, shortness of breath, abdominal pain, nausea, vomiting, diarrhea, constipation, and urinary symptoms. 08/25/17 07:45 CCU Objective - Vital Signs / Intake & Output Vital Signs (Last 4 hours): Vital Signs Temp Pulse BP Pulse Ox 08/25/17 07:35 102 H 08/25/17 07:30 97.5 F L 102 H 100 08/25/17 07:20 97.3 F L 102 H 100 08/25/17 07:10 97.3 F L 102 H 100 08/25/17 07:00 97.3 F L 102 H 133/67 100 08/25/17 06:50 97.3 F L 102 H 100 08/25/17 06:40 97.2 F L 101 H 100 08/25/17 06:30 97.2 F L 101 H 100 08/25/17 06:20 97.2 F L 101 H 100 08/25/17 06:10 97.0 F L 101 H 100 08/25/17 06:00 97.0 F L 103 H 156/85 H 100 08/25/17 05:50 97.0 F L 102 H 100 08/25/17 05:40 97.0 F L 102 H 100 08/25/17 05:30 96.8 F L 103 H 100 08/25/17 05:20 96.6 F L 102 H 100 08/25/17 05:10 96.6 F L 101 H 100 08/25/17 05:00 96.6 F L 101 H 159/84 H 100 08/25/17 04:50 96.4 F L 101 H 100 08/25/17 04:40 96.4 F L 101 H 100 08/25/17 04:30 96.4 F L 99 H 100 08/25/17 04:20 96.3 F L 100 H 100 08/25/17 04:10 96.3 F L 100 H 100 08/25/17 04:00 96.3 F L 99 H 158/82 H 100 08/25/17 03:50 96.3 F L 101 H 100 Intake and Output (Last 8hrs): Intake & Output 08/24/17 08/25/17 08/25/17 22:59 06:59 14:59 Intake Total 1240 Output Total 2049 Balance -810 Intake: IV 1240 Right Femoral 1140 Oral 0 Output: Gastric Amount 50 Stomach 50 Urine 2000 Urethral (Renee) 2000 Stool 0 - Physical Exam Head: Positive for: Atraumatic, Normocephalic Pupils: Positive for: Other (Pupils 3mm and minimally reactive bilaterally) Conjunctiva: Positive for: Normal Ears: Positive for: Normal Mouth: Positive for: Moist Mucous Membranes Nose (External): Positive for: Atraumatic Neck: Positive for: Normal Range of Motion Respiratory/Chest: Positive for: Clear to Auscultation, Other (Clear Breath Sounds bilaterally with ventilation, no signs of trauma) Cardiovascular: Positive for: Regular Rate and Rhythm, Normal S1, S2, Gallop. Negative for: Murmurs, Rub Abdomen: Positive for: Distention (Protuberant), Normal Bowel Sounds. Negative for: Tenderness, Peritoneal Signs Upper Extremity: Negative for: Edema Lower Extremity: Positive for: Other (Poor perfusion, cool to touch bilaterally) Neurological: Positive for: Other (No spontaneous neurological activity). Negative for: GCS=15 (GCS=3) Skin: Positive for: Dry. Negative for: Rashes Psychiatric: Positive for: Other (Unresponsive) - Medications Active Medications: Active Medications Generic Name Dose Route Start Last Admin Trade Name Freq PRN Reason Stop Dose Admin Acetaminophen 975 mg 08/23/17 23:42 Tylenol 650mg/20.3ml Solution Ud NG Q6 PRN Rigors Aspirin 81 mg 08/24/17 12:15 08/24/17 18:04 Aspirin Chewable PO 81 mg DAILY UMBERTO Administration Atorvastatin Calcium 10 mg 08/24/17 17:00 08/24/17 18:04 Lipitor PO 10 mg DIN UMBERTO Administration Chlorhexidine Gluconate 15 ml 08/24/17 02:14 08/24/17 06:32 Peridex PO 2 ml Q4H PRN Administration oral care Heparin Sodium (Porcine) 5,000 units 08/24/17 10:00 08/24/17 22:00 Heparin SC 5,000 units Q12 UMBERTO Administration Protocol NOREPINEPHRINE BIT/0.9 % NACL 4 mg in 250 mls @ 15 mls/hr 08/23/17 20:54 Levophed 4 Mg/ 250 Ml Ns Premixed IV .[id number] PRN TITRATE PER MD ORDER Protocol 4 MCG/MIN Sodium Chloride 1,000 mls @ 75 mls/hr 08/24/17 07:29 08/25/17 06:40 Sodium Chloride 0.9% IV 75 mls/hr .[id number] UMBERTO Administration Propofol 1,000 mg in 100 mls @ 1.755 mls/hr 08/24/17 08:32 08/25/17 04:00 Diprivan IV 25 mcg/kg/min .Q24H PRN 8.777 mls/hr TITRATE PER MD ORDER Administration Protocol 5 MCG/KG/MIN Vancomycin HCl 1 gm in 250 mls @ 167 mls/hr 08/24/17 10:00 08/24/17 11:44 Vancomycin 1gm IVPB 167 mls/hr DAILY UMBERTO Administration Protocol Azithromycin 500 mg in 250 mls @ 167 mls/hr 08/24/17 10:00 08/24/17 13:04 Zithromax 500mg In Ns IVPB 167 mls/hr DAILY UMBERTO Administration Protocol Midazolam 100 mg/100ml in NS 100 mg in 100 mls @ 2 mls/hr 08/24/17 13:18 15:42 Midazolam 100 Mg/100ml In Ns IV 2 mg/hr .Q24H PRN 2 mls/hr Agitation Administration Protocol 2 MG/HR Levetiracetam 750 mg/ Sodium 107.5 mls @ 460 mls/hr 08/24/17 22:00 08/24/17 22:00 Chloride IV 460 mls/hr Q12 UMBERTO Administration Pantoprazole Sodium 40 mg 08/24/17 06:00 08/25/17 06:09 Protonix Inj IVP 40 mg 0600 UMBERTO Administration - Patient Studies Lab Studies: Lab Studies 08/25/17 08/25/17 08/25/17 Range/Units 06:30 05:10 04:52 WBC 7.7 D (4.5-11.0) 10^3/ul RBC 4.58 (3.5-6.1) 10^6/uL Hgb 13.8 L (14.0-18.0) g/dL Hct 39.2 L (42.0-52.0) % MCV 85.6 (80.0-105.0) fl MCH 30.1 (25.0-35.0) pg MCHC 35.2 (31.0-37.0) g/dl RDW 12.8 (11.5-14.5) % Plt Count 189 (120.0-450.0) 10^3/uL MPV 11.1 H (7.0-11.0) fl Gran % 87.5 H (50.0-68.0) % Lymph % (Auto) 6.5 L (22.0-35.0) % [place] % (Auto) 6.0 (1.0-6.0) % Eos % (Auto) 0.0 L (1.5-5.0) % Baso % (Auto) 0.0 (0.0-3.0) % Gran # 6.77 H (1.4-6.5) Lymph # 0.5 L (1.2-3.4) [place] # 0.5 (0.1-0.6) Eos # 0.0 (0.0-0.7) Baso # 0.00 (0.0-2.0) K/mm3 pCO2 22 L (35-45) mm/Hg pO2 224.0 H (30-55) mm/Hg HCO3 15.6 L (21-28) mmol/L ABG pH 7.46 H (7.35-7.45) ABG Total CO2 16.3 L (22-28) mmol.L ABG O2 Saturation 98.7 H (95-98) % ABG Base Excess -6.1 L (-2.0-3.0) mmol/L ABG Potassium 3.9 (3.6-5.2) mmol/L VBG pH (7.32-7.43) VBG pCO2 (40-60) VBG HCO3 (21-28) mmol/l VBG Total CO2 (22-28) mmol.L VBG O2 Sat (Calc) (40-65) % VBG Base Excess (0.0-2.0) mmol/L VBG Potassium (3.6-5.2) mmol/L Glucose 112 H (75-110) mg/dl Lactate 1.4 (0.7-2.1) mmol/L FiO2 60.0 % Sodium 134.0 (132-148) mmol/L Potassium (3.6-5.0) mmol/L Chloride 108.0 H (98-107) mmol/L Carbon Dioxide (21-33) mmol/L Anion Gap (10-20) BUN (7-21) mg/dL Creatinine (0.8-1.5) mg/dl Est GFR ( Amer) Est GFR (Non-Af Amer) POC Glucose (mg/dL) 100 (65-110) mg/dL Random Glucose (70-110) mg/dL Calcium (8.4-10.5) mg/dL Phosphorus (2.5-4.5) mg/dL Magnesium (1.7-2.2) mg/dL Total Bilirubin (0.2-1.3) mg/dL AST (17-59) U/L ALT (7-56) U/L Alkaline Phosphatase (38-126) U/L Troponin I ng/mL Total Protein (5.8-8.3) g/dL Albumin (3.0-4.8) g/dL Globulin gm/dL Albumin/Globulin Ratio (1.1-1.8) TSH 3rd Generation (0.46-4.68) mIU/mL Arterial Blood Potassium 3.9 (3.6-5.2) mmol/L Venous Blood Potassium (3.6-5.2) mmol/L Ur L.pneumophila Ag (NEGATIVE) 08/25/17 08/24/17 08/24/17 Range/Units 00:11 22:08 16:29 WBC (4.5-11.0) 10^3/ul RBC (3.5-6.1) 10^6/uL Hgb (14.0-18.0) g/dL Hct (42.0-52.0) % MCV (80.0-105.0) fl MCH (25.0-35.0) pg MCHC (31.0-37.0) g/dl RDW (11.5-14.5) % Plt Count (120.0-450.0) 10^3/uL MPV (7.0-11.0) fl Gran % (50.0-68.0) % Lymph % (Auto) (22.0-35.0) % [place] % (Auto) (1.0-6.0) % Eos % (Auto) (1.5-5.0) % Baso % (Auto) (0.0-3.0) % Gran # (1.4-6.5) Lymph # (1.2-3.4) [place] # (0.1-0.6) Eos # (0.0-0.7) Baso # (0.0-2.0) K/mm3 pCO2 (35-45) mm/Hg pO2 (30-55) mm/Hg HCO3 (21-28) mmol/L ABG pH (7.35-7.45) ABG Total CO2 (22-28) mmol.L ABG O2 Saturation (95-98) % ABG Base Excess (-2.0-3.0) mmol/L ABG Potassium (3.6-5.2) mmol/L VBG pH (7.32-7.43) VBG pCO2 (40-60) VBG HCO3 (21-28) mmol/l VBG Total CO2 (22-28) mmol.L VBG O2 Sat (Calc) (40-65) % VBG Base Excess (0.0-2.0) mmol/L VBG Potassium (3.6-5.2) mmol/L Glucose (75-110) mg/dl Lactate (0.7-2.1) mmol/L FiO2 % Sodium (132-148) mmol/L Potassium (3.6-5.0) mmol/L Chloride (98-107) mmol/L Carbon Dioxide (21-33) mmol/L Anion Gap (10-20) BUN (7-21) mg/dL Creatinine (0.8-1.5) mg/dl Est GFR ( Amer) Est GFR (Non-Af Amer) POC Glucose (mg/dL) 101 138 H 135 H (65-110) mg/dL Random Glucose (70-110) mg/dL Calcium (8.4-10.5) mg/dL Phosphorus (2.5-4.5) mg/dL Magnesium (1.7-2.2) mg/dL Total Bilirubin (0.2-1.3) mg/dL AST (17-59) U/L ALT (7-56) U/L Alkaline Phosphatase (38-126) U/L Troponin I ng/mL Total Protein (5.8-8.3) g/dL Albumin (3.0-4.8) g/dL Globulin gm/dL Albumin/Globulin Ratio (1.1-1.8) TSH 3rd Generation (0.46-4.68) mIU/mL Arterial Blood Potassium (3.6-5.2) mmol/L Venous Blood Potassium (3.6-5.2) mmol/L Ur L.pneumophila Ag (NEGATIVE) 08/24/17 08/24/17 08/24/17 Range/Units 14:50 14:50 14:50 WBC 3.9 L D (4.5-11.0) 10^3/ul RBC 4.67 (3.5-6.1) 10^6/uL Hgb 14.2 (14.0-18.0) g/dL Hct 41.0 L (42.0-52.0) % MCV 87.8 (80.0-105.0) fl MCH 30.4 (25.0-35.0) pg MCHC 34.6 (31.0-37.0) g/dl RDW 12.6 (11.5-14.5) % Plt Count 180 (120.0-450.0) 10^3/uL MPV 10.8 (7.0-11.0) fl Gran % 81.3 H (50.0-68.0) % Lymph % (Auto) 11.5 L (22.0-35.0) % [place] % (Auto) 6.9 H (1.0-6.0) % Eos % (Auto) 0.0 L (1.5-5.0) % Baso % (Auto) 0.3 (0.0-3.0) % Gran # 3.17 (1.4-6.5) Lymph # 0.5 L (1.2-3.4) [place] # 0.3 (0.1-0.6) Eos # 0.0 (0.0-0.7) Baso # 0.01 (0.0-2.0) K/mm3 pCO2 (35-45) mm/Hg pO2 41 (30-55) mm/Hg HCO3 (21-28) mmol/L ABG pH (7.35-7.45) ABG Total CO2 (22-28) mmol.L ABG O2 Saturation (95-98) % ABG Base Excess (-2.0-3.0) mmol/L ABG Potassium (3.6-5.2) mmol/L VBG pH 7.22 L (7.32-7.43) VBG pCO2 44.0 (40-60) VBG HCO3 18.0 L (21-28) mmol/l VBG Total CO2 19.4 L (22-28) mmol.L VBG O2 Sat (Calc) 77.9 H (40-65) % VBG Base Excess -9.5 L (0.0-2.0) mmol/L VBG Potassium 2.3 L* (3.6-5.2) mmol/L Glucose 151 H (75-110) mg/dl Lactate 2.9 H (0.7-2.1) mmol/L FiO2 21.0 % Sodium 136.0 137 (132-148) mmol/L Potassium 2.6 L* D (3.6-5.0) mmol/L Chloride 106.0 109 H (98-107) mmol/L Carbon Dioxide 18 L (21-33) mmol/L Anion Gap 12 (10-20) BUN 15 (7-21) mg/dL Creatinine 0.7 L (0.8-1.5) mg/dl Est GFR ( Amer) > 60 Est GFR (Non-Af Amer) > 60 POC Glucose (mg/dL) (65-110) mg/dL Random Glucose 144 H (70-110) mg/dL Calcium 7.3 L (8.4-10.5) mg/dL Phosphorus 1.5 L (2.5-4.5) mg/dL Magnesium 2.0 (1.7-2.2) mg/dL Total Bilirubin 0.4 (0.2-1.3) mg/dL AST 145 H D (17-59) U/L ALT 209 H (7-56) U/L Alkaline Phosphatase 115 (38-126) U/L Troponin I ng/mL Total Protein 5.5 L (5.8-8.3) g/dL Albumin 2.8 L (3.0-4.8) g/dL Globulin 2.7 gm/dL Albumin/Globulin Ratio 1.1 (1.1-1.8) TSH 3rd Generation (0.46-4.68) mIU/mL Arterial Blood Potassium (3.6-5.2) mmol/L Venous Blood Potassium 2.3 L* (3.6-5.2) mmol/L Ur L.pneumophila Ag (NEGATIVE) 08/24/17 08/24/17 08/24/17 Range/Units 14:50 14:50 12:19 WBC (4.5-11.0) 10^3/ul RBC (3.5-6.1) 10^6/uL Hgb (14.0-18.0) g/dL Hct (42.0-52.0) % MCV (80.0-105.0) fl MCH (25.0-35.0) pg MCHC (31.0-37.0) g/dl RDW (11.5-14.5) % Plt Count (120.0-450.0) 10^3/uL MPV (7.0-11.0) fl Gran % (50.0-68.0) % Lymph % (Auto) (22.0-35.0) % [place] % (Auto) (1.0-6.0) % Eos % (Auto) (1.5-5.0) % Baso % (Auto) (0.0-3.0) % Gran # (1.4-6.5) Lymph # (1.2-3.4) [place] # (0.1-0.6) Eos # (0.0-0.7) Baso # (0.0-2.0) K/mm3 pCO2 (35-45) mm/Hg pO2 (30-55) mm/Hg HCO3 (21-28) mmol/L ABG pH (7.35-7.45) ABG Total CO2 (22-28) mmol.L ABG O2 Saturation (95-98) % ABG Base Excess (-2.0-3.0) mmol/L ABG Potassium (3.6-5.2) mmol/L VBG pH (7.32-7.43) VBG pCO2 (40-60) VBG HCO3 (21-28) mmol/l VBG Total CO2 (22-28) mmol.L VBG O2 Sat (Calc) (40-65) % VBG Base Excess (0.0-2.0) mmol/L VBG Potassium (3.6-5.2) mmol/L Glucose (75-110) mg/dl Lactate (0.7-2.1) mmol/L FiO2 % Sodium (132-148) mmol/L Potassium (3.6-5.0) mmol/L Chloride (98-107) mmol/L Carbon Dioxide (21-33) mmol/L Anion Gap (10-20) BUN (7-21) mg/dL Creatinine (0.8-1.5) mg/dl Est GFR ( Amer) Est GFR (Non-Af Amer) POC Glucose (mg/dL) (65-110) mg/dL Random Glucose (70-110) mg/dL Calcium (8.4-10.5) mg/dL Phosphorus (2.5-4.5) mg/dL Magnesium (1.7-2.2) mg/dL Total Bilirubin (0.2-1.3) mg/dL AST (17-59) U/L ALT (7-56) U/L Alkaline Phosphatase (38-126) U/L Troponin I 0.38 H* D ng/mL Total Protein (5.8-8.3) g/dL Albumin (3.0-4.8) g/dL Globulin gm/dL Albumin/Globulin Ratio (1.1-1.8) TSH 3rd Generation 0.22 L (0.46-4.68) mIU/mL Arterial Blood Potassium (3.6-5.2) mmol/L Venous Blood Potassium (3.6-5.2) mmol/L Ur L.pneumophila Ag Negative (NEGATIVE) 08/24/17 08/24/17 08/24/17 Range/Units 11:21 08:58 07:48 WBC (4.5-11.0) 10^3/ul RBC (3.5-6.1) 10^6/uL Hgb (14.0-18.0) g/dL Hct (42.0-52.0) % MCV (80.0-105.0) fl MCH (25.0-35.0) pg MCHC (31.0-37.0) g/dl RDW (11.5-14.5) % Plt Count (120.0-450.0) 10^3/uL MPV (7.0-11.0) fl Gran % (50.0-68.0) % Lymph % (Auto) (22.0-35.0) % [place] % (Auto) (1.0-6.0) % Eos % (Auto) (1.5-5.0) % Baso % (Auto) (0.0-3.0) % Gran # (1.4-6.5) Lymph # (1.2-3.4) [place] # (0.1-0.6) Eos # (0.0-0.7) Baso # (0.0-2.0) K/mm3 pCO2 (35-45) mm/Hg pO2 33 (30-55) mm/Hg HCO3 (21-28) mmol/L ABG pH (7.35-7.45) ABG Total CO2 (22-28) mmol.L ABG O2 Saturation (95-98) % ABG Base Excess (-2.0-3.0) mmol/L ABG Potassium (3.6-5.2) mmol/L VBG pH 7.17 L* (7.32-7.43) VBG pCO2 37.0 L (40-60) VBG HCO3 13.5 L (21-28) mmol/l VBG Total CO2 14.6 L (22-28) mmol.L VBG O2 Sat (Calc) 65.3 H (40-65) % VBG Base Excess -14.2 L (0.0-2.0) mmol/L VBG Potassium 1.5 L* (3.6-5.2) mmol/L Glucose 125 H (75-110) mg/dl Lactate 2.6 H (0.7-2.1) mmol/L FiO2 21.0 % Sodium 145.0 (132-148) mmol/L Potassium (3.6-5.0) mmol/L Chloride 120.0 H (98-107) mmol/L Carbon Dioxide (21-33) mmol/L Anion Gap (10-20) BUN (7-21) mg/dL Creatinine (0.8-1.5) mg/dl Est GFR ( Amer) Est GFR (Non-Af Amer) POC Glucose (mg/dL) 162 H 190 H (65-110) mg/dL Random Glucose (70-110) mg/dL Calcium (8.4-10.5) mg/dL Phosphorus (2.5-4.5) mg/dL Magnesium (1.7-2.2) mg/dL Total Bilirubin (0.2-1.3) mg/dL AST (17-59) U/L ALT (7-56) U/L Alkaline Phosphatase (38-126) U/L Troponin I ng/mL Total Protein (5.8-8.3) g/dL Albumin (3.0-4.8) g/dL Globulin gm/dL Albumin/Globulin Ratio (1.1-1.8) TSH 3rd Generation (0.46-4.68) mIU/mL Arterial Blood Potassium (3.6-5.2) mmol/L Venous Blood Potassium 1.5 L* (3.6-5.2) mmol/L Ur L.pneumophila Ag (NEGATIVE) 08/24/17 Range/Units 06:46 WBC (4.5-11.0) 10^3/ul RBC (3.5-6.1) 10^6/uL Hgb (14.0-18.0) g/dL Hct (42.0-52.0) % MCV (80.0-105.0) fl MCH (25.0-35.0) pg MCHC (31.0-37.0) g/dl RDW (11.5-14.5) % Plt Count (120.0-450.0) 10^3/uL MPV (7.0-11.0) fl Gran % (50.0-68.0) % Lymph % (Auto) (22.0-35.0) % [place] % (Auto) (1.0-6.0) % Eos % (Auto) (1.5-5.0) % Baso % (Auto) (0.0-3.0) % Gran # (1.4-6.5) Lymph # (1.2-3.4) [place] # (0.1-0.6) Eos # (0.0-0.7) Baso # (0.0-2.0) K/mm3 pCO2 (35-45) mm/Hg pO2 (30-55) mm/Hg HCO3 (21-28) mmol/L ABG pH (7.35-7.45) ABG Total CO2 (22-28) mmol.L ABG O2 Saturation (95-98) % ABG Base Excess (-2.0-3.0) mmol/L ABG Potassium (3.6-5.2) mmol/L VBG pH (7.32-7.43) VBG pCO2 (40-60) VBG HCO3 (21-28) mmol/l VBG Total CO2 (22-28) mmol.L VBG O2 Sat (Calc) (40-65) % VBG Base Excess (0.0-2.0) mmol/L VBG Potassium (3.6-5.2) mmol/L Glucose (75-110) mg/dl Lactate (0.7-2.1) mmol/L FiO2 % Sodium 137 (132-148) mmol/L Potassium 3.9 (3.6-5.0) mmol/L Chloride 109 H (98-107) mmol/L Carbon Dioxide 20 L (21-33) mmol/L Anion Gap 12 (10-20) BUN 16 (7-21) mg/dL Creatinine 0.9 (0.8-1.5) mg/dl Est GFR ( Amer) > 60 Est GFR (Non-Af Amer) > 60 POC Glucose (mg/dL) (65-110) mg/dL Random Glucose 212 H (70-110) mg/dL Calcium 7.2 L (8.4-10.5) mg/dL Phosphorus 1.6 L (2.5-4.5) mg/dL Magnesium 1.4 L (1.7-2.2) mg/dL Total Bilirubin 0.4 (0.2-1.3) mg/dL AST 232 H (17-59) U/L ALT 269 H (7-56) U/L Alkaline Phosphatase 159 H (38-126) U/L Troponin I ng/mL Total Protein 6.2 (5.8-8.3) g/dL Albumin 3.2 (3.0-4.8) g/dL Globulin 3.0 gm/dL Albumin/Globulin Ratio 1.1 (1.1-1.8) TSH 3rd Generation (0.46-4.68) mIU/mL Arterial Blood Potassium (3.6-5.2) mmol/L Venous Blood Potassium (3.6-5.2) mmol/L Ur L.pneumophila Ag (NEGATIVE) Laboratory Results - last 24 hr 08/24/17 08/24/17 08/24/17 06:46 07:48 08:58 WBC RBC Hgb Hct MCV MCH MCHC RDW Plt Count MPV Gran % Lymph % (Auto) [place] % (Auto) Eos % (Auto) Baso % (Auto) Gran # Lymph # [place] # Eos # Baso # pCO2 pO2 33 HCO3 ABG pH ABG Total CO2 ABG O2 Saturation ABG Base Excess ABG Potassium VBG pH 7.17 L* VBG pCO2 37.0 L VBG HCO3 13.5 L VBG Total CO2 14.6 L VBG O2 Sat (Calc) 65.3 H VBG Base Excess -14.2 L VBG Potassium 1.5 L* Glucose 125 H Lactate 2.6 H FiO2 21.0 Sodium 137 145.0 Potassium 3.9 Chloride 109 H 120.0 H Carbon Dioxide 20 L Anion Gap 12 BUN 16 Creatinine 0.9 Est GFR ( Amer) > 60 Est GFR (Non-Af Amer) > 60 POC Glucose (mg/dL) 190 H Random Glucose 212 H Calcium 7.2 L Phosphorus 1.6 L Magnesium 1.4 L Total Bilirubin 0.4 AST 232 H ALT 269 H Alkaline Phosphatase 159 H Troponin I Total Protein 6.2 Albumin 3.2 Globulin 3.0 Albumin/Globulin Ratio 1.1 TSH 3rd Generation Arterial Blood Potassium Venous Blood Potassium 1.5 L* Ur L.pneumophila Ag 08/24/17 08/24/17 08/24/17 11:21 12:19 14:50 WBC RBC Hgb Hct MCV MCH MCHC RDW Plt Count MPV Gran % Lymph % (Auto) [place] % (Auto) Eos % (Auto) Baso % (Auto) Gran # Lymph # [place] # Eos # Baso # pCO2 pO2 HCO3 ABG pH ABG Total CO2 ABG O2 Saturation ABG Base Excess ABG Potassium VBG pH VBG pCO2 VBG HCO3 VBG Total CO2 VBG O2 Sat (Calc) VBG Base Excess VBG Potassium Glucose Lactate FiO2 Sodium Potassium Chloride Carbon Dioxide Anion Gap BUN Creatinine Est GFR ( Amer) Est GFR (Non-Af Amer) POC Glucose (mg/dL) 162 H Random Glucose Calcium Phosphorus Magnesium Total Bilirubin AST ALT Alkaline Phosphatase Troponin I 0.38 H* D Total Protein Albumin Globulin Albumin/Globulin Ratio TSH 3rd Generation Arterial Blood Potassium Venous Blood Potassium Ur L.pneumophila Ag Negative 08/24/17 08/24/17 08/24/17 14:50 14:50 14:50 WBC 3.9 L D RBC 4.67 Hgb 14.2 Hct 41.0 L MCV 87.8 MCH 30.4 MCHC 34.6 RDW 12.6 Plt Count 180 MPV 10.8 Gran % 81.3 H Lymph % (Auto) 11.5 L [place] % (Auto) 6.9 H Eos % (Auto) 0.0 L Baso % (Auto) 0.3 Gran # 3.17 Lymph # 0.5 L [place] # 0.3 Eos # 0.0 Baso # 0.01 pCO2 pO2 HCO3 ABG pH ABG Total CO2 ABG O2 Saturation ABG Base Excess ABG Potassium VBG pH VBG pCO2 VBG HCO3 VBG Total CO2 VBG O2 Sat (Calc) VBG Base Excess VBG Potassium Glucose Lactate FiO2 Sodium 137 Potassium 2.6 L* D Chloride 109 H Carbon Dioxide 18 L Anion Gap 12 BUN 15 Creatinine 0.7 L Est GFR ( Amer) > 60 Est GFR (Non-Af Amer) > 60 POC Glucose (mg/dL) Random Glucose 144 H Calcium 7.3 L Phosphorus 1.5 L Magnesium 2.0 Total Bilirubin 0.4 AST 145 H D ALT 209 H Alkaline Phosphatase 115 Troponin I Total Protein 5.5 L Albumin 2.8 L Globulin 2.7 Albumin/Globulin Ratio 1.1 TSH 3rd Generation 0.22 L Arterial Blood Potassium Venous Blood Potassium Ur L.pneumophila Ag 08/24/17 08/24/17 08/24/17 14:50 16:29 22:08 WBC RBC Hgb Hct MCV MCH MCHC RDW Plt Count MPV Gran % Lymph % (Auto) [place] % (Auto) Eos % (Auto) Baso % (Auto) Gran # Lymph # [place] # Eos # Baso # pCO2 pO2 41 HCO3 ABG pH ABG Total CO2 ABG O2 Saturation ABG Base Excess ABG Potassium VBG pH 7.22 L VBG pCO2 44.0 VBG HCO3 18.0 L VBG Total CO2 19.4 L VBG O2 Sat (Calc) 77.9 H VBG Base Excess -9.5 L VBG Potassium 2.3 L* Glucose 151 H Lactate 2.9 H FiO2 21.0 Sodium 136.0 Potassium Chloride 106.0 Carbon Dioxide Anion Gap BUN Creatinine Est GFR ( Amer) Est GFR (Non-Af Amer) POC Glucose (mg/dL) 135 H 138 H Random Glucose Calcium Phosphorus Magnesium Total Bilirubin AST ALT Alkaline Phosphatase Troponin I Total Protein Albumin Globulin Albumin/Globulin Ratio TSH 3rd Generation Arterial Blood Potassium Venous Blood Potassium 2.3 L* Ur L.pneumophila Ag 08/25/17 08/25/17 08/25/17 00:11 04:52 05:10 WBC RBC Hgb Hct MCV MCH MCHC RDW Plt Count MPV Gran % Lymph % (Auto) [place] % (Auto) Eos % (Auto) Baso % (Auto) Gran # Lymph # [place] # Eos # Baso # pCO2 22 L pO2 224.0 H HCO3 15.6 L ABG pH 7.46 H ABG Total CO2 16.3 L ABG O2 Saturation 98.7 H ABG Base Excess -6.1 L ABG Potassium 3.9 VBG pH VBG pCO2 VBG HCO3 VBG Total CO2 VBG O2 Sat (Calc) VBG Base Excess VBG Potassium Glucose 112 H Lactate 1.4 FiO2 60.0 Sodium 134.0 Potassium Chloride 108.0 H Carbon Dioxide Anion Gap BUN Creatinine Est GFR ( Amer) Est GFR (Non-Af Amer) POC Glucose (mg/dL) 101 100 Random Glucose Calcium Phosphorus Magnesium Total Bilirubin AST ALT Alkaline Phosphatase Troponin I Total Protein Albumin Globulin Albumin/Globulin Ratio TSH 3rd Generation Arterial Blood Potassium 3.9 Venous Blood Potassium Ur L.pneumophila Ag 08/25/17 06:30 WBC 7.7 D RBC 4.58 Hgb 13.8 L Hct 39.2 L MCV 85.6 MCH 30.1 MCHC 35.2 RDW 12.8 Plt Count 189 MPV 11.1 H Gran % 87.5 H Lymph % (Auto) 6.5 L [place] % (Auto) 6.0 Eos % (Auto) 0.0 L Baso % (Auto) 0.0 Gran # 6.77 H Lymph # 0.5 L [place] # 0.5 Eos # 0.0 Baso # 0.00 pCO2 pO2 HCO3 ABG pH ABG Total CO2 ABG O2 Saturation ABG Base Excess ABG Potassium VBG pH VBG pCO2 VBG HCO3 VBG Total CO2 VBG O2 Sat (Calc) VBG Base Excess VBG Potassium Glucose Lactate FiO2 Sodium Potassium Chloride Carbon Dioxide Anion Gap BUN Creatinine Est GFR ( Amer) Est GFR (Non-Af Amer) POC Glucose (mg/dL) Random Glucose Calcium Phosphorus Magnesium Total Bilirubin AST ALT Alkaline Phosphatase Troponin I Total Protein Albumin Globulin Albumin/Globulin Ratio TSH 3rd Generation Arterial Blood Potassium Venous Blood Potassium Ur L.pneumophila Ag Fingerstick Blood Sugar Results: 280
[2017-08-25] MEDS ORDERED: Magnesium Sulfate 2 GM in Sodium Chloride 0.9% 100 ML IV ONE (08:25)
[2017-08-25] MEDS: Chlorhexidine 0.12% Oral Sol 480 ml Bot PO PRN (08:49)
[2017-08-25] MEDS: Vancomycin 1gm in NS 250ml 1 GM/250 ML BAG IVPB SCH (09:01)
[2017-08-25] MEDS: Azithromycin 500MG/NS 250ml 500 MG/250 ML BAG IVPB SCH (09:53)
--- NOTE | 2017-08-25 10:11 | CP.PCM.PN ---
Subjective - Date & Time of Evaluation Date of Evaluation: 08/25/17 Time of Evaluation: 10:10 - Subjective Subjective: Mr. Delaney was seen and examined at the bedside. He is on mechanical ventilation with GCS- 3T. He is on Diprivan drip at 25 mcg/hr.At present, his temp 97.7. There was no untoward events overnight. Objective - Vital Signs/Intake and Output Vital Signs (last 24 hours): Temp Pulse Resp BP Pulse Ox 97.5 F L 95 H 19 133/67 100 08/25/17 07:30 08/25/17 10:00 08/25/17 02:40 08/25/17 07:00 08/25/17 07:30 Intake and Output: 08/25/17 08/25/17 06:59 18:59 Intake Total 1240 Output Total 2050 Balance -810 - Medications Medications: Current Medications Acetaminophen (Tylenol 650mg/20.3ml Solution Ud) 975 mg NG Q6 PRN PRN Reason: Rigors Aspirin (Aspirin Chewable) 81 mg PO DAILY [facility] Last Admin: 08/25/17 09:01 Dose: 81 mg Atorvastatin Calcium (Lipitor) 10 mg PO DIN [facility] Last Admin: 08/24/17 18:04 Dose: 10 mg Chlorhexidine Gluconate (Peridex) 15 ml PO Q4H PRN PRN Reason: oral care Last Admin: 08/25/17 08:49 Dose: 15 ml Heparin Sodium (Porcine) (Heparin) 5,000 units SC Q12 [facility]O PRN Reason: Protocol Last Admin: 08/25/17 09:01 Dose: 5,000 units NOREPINEPHRINE BIT/0.9 % NACL (Levophed 4 Mg/ 250 Ml Ns Premixed) 4 mg in 250 mls @ 15 mls/hr IV .[id number] PRN; Protocol; 4 MCG/MIN PRN Reason: TITRATE PER MD ORDER Propofol (Diprivan) 1,000 mg in 100 mls @ 1.755 mls/hr IV .Q24H PRN; Protocol; 5 MCG/KG/MIN PRN Reason: TITRATE PER MD ORDER Last Admin: 08/25/17 04:00 Dose: 25 mcg/kg/min, 8.777 mls/hr Vancomycin HCl (Vancomycin 1gm) 1 gm in 250 mls @ 167 mls/hr IVPB DAILY [facility] PRN Reason: Protocol Last Admin: 08/25/17 09:01 Dose: 167 mls/hr Azithromycin (Zithromax 500mg In Ns) 500 mg in 250 mls @ 167 mls/hr IVPB DAILY [facility] PRN Reason: Protocol Last Admin: 08/25/17 09:53 Dose: 167 mls/hr Midazolam 100 mg/100ml in NS (Midazolam 100 Mg/100ml In Ns) 100 mg in 100 mls @ 2 mls/hr IV .Q24H PRN; Protocol; 2 MG/HR PRN Reason: Agitation Last Admin: 08/24/17 15:42 Dose: 2 mg/hr, 2 mls/hr Sodium Chloride (Sodium Chloride 0.9%) 1,000 mls @ 50 mls/hr IV .Q20H [facility] Last Admin: 08/25/17 08:48 Dose: 50 mls/hr Levetiracetam (Keppra 500mg Ivpb) 500 mg in 100 mls @ 400 mls/hr IV Q12 [facility] Pantoprazole Sodium (Protonix Inj) 40 mg IVP 0600 [facility] Last Admin: 08/25/17 06:09 Dose: 40 mg - Labs Labs: 08/25/17 06:30 08/25/17 06:30 PT 12.0 SECONDS (9.4-12.5) 08/24/17 00:28 INR 1.10 (0.93-1.08) H 08/24/17 00:28 APTT 28.3 Seconds (25.1-36.5) 08/24/17 00:28 - Constitutional Appears: No Acute Distress - Head Exam Head Exam: ATRAUMATIC - Eye Exam Additional comments: non- reactive with size 3 bilateral equal. - Neurological Exam Additional comments: He is on mechanical ventilation and with GCS of 3T. Assessment and Plan (1) Cardiac arrest due to other underlying condition Assessment & Plan: Case discussed with Dr. Banks, recommends the use of midazolam instead of propofol or fentanyl if needed. Follow up repeat EEG post Keppra infusion and repeat CT of the head. Status: Acute
--- NOTE | 2017-08-25 10:31 | PN ---
DATE: 08/25/2017 SUBJECTIVE: The patient is intubated. PHYSICAL EXAMINATION: VITAL SIGNS: Temperature is 97.5, pulse of 102, blood pressure of 133/67, and respirations of 19. GENERAL: The patient is lying in bed, flat, comfortable. HEENT: No oral lesion. Anicteric sclerae. Moist mucosa. NECK: No JVD, adenopathy, or thyromegaly. CARDIOVASCULAR: S1 and S2, regular. No murmurs, rubs, or gallops. LUNGS: Clear to auscultation bilaterally. No wheeze, rales, or rhonchi. ABDOMEN: Bowel sounds are positive, soft, nontender and nondistended. EXTREMITIES: No cyanosis, clubbing or edema. LABORATORY DATA: White count is 7.7, hemoglobin is 13.8, and creatinine is 0.7. Magnesium remains low at 1.4, we will need to replace. The patient's phosphorous has improved to 3.9. ASSESSMENT: 1. Cardiac arrest. 2. Respiratory failure, on ventilator. 3. Seizure disorder. 4. Community-acquired pneumonia. 5. Hypokalemia. 6. Hypophosphatemia. 7. Hypomagnesemia. 8. Shock liver. 9. Do not resuscitate/ . PLAN: The patient is in the ICU and remains critically ill. Blood cultures have been negative. The patient is moderately hyponatremic. The patient has 3300 of urine output. and total intake is 3740. We will decrease the patient's IV fluids to 50 mL an hour. The patient is on aspirin. He is going to continue his Lipitor. He is on chlorhexidine. He is on antibiotics with Zithromax. He is being followed by ID, Cardiology and Neurology. Overall prognosis is guarded. I did call the patient's power-of managing attorney yesterday, we were not able to get in touch with him, I will speak to them again this morning. I will call him. Overall prognosis is poor. Devante Rubin MD
--- NOTE | 2017-08-25 10:42 | RAD ---
HISTORY: intubated COMPARISON: 08/24/2017 FINDINGS: LUNGS: There is a patchy infiltrate in the right upper lobe unchanged. There is vascular congestion. Central tubes unchanged PLEURA: No significant pleural effusion identified, no pneumothorax apparent. CARDIOVASCULAR: Normal. OSSEOUS STRUCTURES: No significant abnormalities. VISUALIZED UPPER ABDOMEN: Normal. OTHER FINDINGS: None. IMPRESSION: No change in right upper lobe infiltrate and vascular congestion
--- NOTE | 2017-08-25 10:57 | CP.CCUPN ---
<Johnny Rascon - Last Filed: 08/25/17 10:52> CCU Subjective - Physician Review Subjective (Free Text): Patient seen and examined at bedside. Resting comfortably in bed. No acute overnight events. 12-point review of systems cannot be ascertained at this time due to altered mental status. 08/25/17 07:45 CCU Objective - Vital Signs / Intake & Output Vital Signs (Last 4 hours): Vital Signs Temp Pulse BP Pulse Ox 08/25/17 10:00 97.7 F 94 H 103/57 L 99 08/25/17 09:50 97.7 F 96 H 99 08/25/17 09:40 97.7 F 96 H 99 08/25/17 09:30 97.5 F L 96 H 99 08/25/17 09:20 97.5 F L 95 H 99 08/25/17 09:10 97.5 F L 97 H 100 08/25/17 09:00 97.5 F L 97 H 140/79 100 08/25/17 08:50 97.5 F L 99 H 100 08/25/17 08:40 97.5 F L 99 H 100 08/25/17 08:30 97.5 F L 99 H 100 08/25/17 08:20 97.5 F L 100 H 100 08/25/17 08:10 97.5 F L 99 H 100 08/25/17 08:00 97.5 F L 103 H 126/70 100 08/25/17 07:50 97.5 F L 101 H 100 08/25/17 07:40 97.5 F L 101 H 100 08/25/17 07:35 102 H 08/25/17 07:30 97.5 F L 102 H 100 08/25/17 07:20 97.3 F L 102 H 100 08/25/17 07:10 97.3 F L 102 H 100 08/25/17 07:00 97.3 F L 102 H 133/67 100 Intake and Output (Last 8hrs): Intake & Output 08/24/17 08/25/17 08/25/17 22:59 06:59 14:59 Intake Total 1240 Output Total 2050 Balance -810 Intake: IV 1240 Right Femoral 1140 Oral 0 Output: Gastric Amount 50 Stomach 50 Urine 2000 Urethral (Renee) 2000 Stool 0 - Physical Exam Head: Positive for: Atraumatic, Normocephalic Pupils: Positive for: Other (Pupils 3mm and minimally reactive bilaterally) Ears: Positive for: Normal Mouth: Positive for: Dry Nose (External): Positive for: Atraumatic Neck: Positive for: Normal Range of Motion Respiratory/Chest: Positive for: Clear to Auscultation, Other (Clear Breath Sounds bilaterally with ventilation, no signs of trauma) Cardiovascular: Positive for: Normal S1, S2. Negative for: Murmurs, Rub Abdomen: Positive for: Normal Bowel Sounds. Negative for: Tenderness, Peritoneal Signs Upper Extremity: Negative for: Edema Lower Extremity: Positive for: Other (Poor perfusion, cool to touch bilaterally) Neurological: Positive for: Other (intubated and sedated). Negative for: GCS= 15 (GCS=3) Skin: Positive for: Dry. Negative for: Rashes Psychiatric: Positive for: Other (Unresponsive) - Medications Active Medications: Active Medications Generic Name Dose Route Start Last Admin Trade Name Freq PRN Reason Stop Dose Admin Acetaminophen 975 mg 08/23/17 23:42 Tylenol 650mg/20.3ml Solution Ud NG Q6 PRN Rigors Aspirin 81 mg 08/24/17 12:15 08/25/17 09:01 Aspirin Chewable PO 81 mg DAILY UMBERTO Administration Atorvastatin Calcium 10 mg 08/24/17 17:00 08/24/17 18:04 Lipitor PO 10 mg DIN UMBERTO Administration Chlorhexidine Gluconate 15 ml 08/24/17 02:14 08/25/17 08:49 Peridex PO 15 ml Q4H PRN Administration oral care Heparin Sodium (Porcine) 5,000 units 08/24/17 10:00 08/25/17 09:01 Heparin SC 5,000 units Q12 UMBERTO Administration Protocol NOREPINEPHRINE BIT/0.9 % NACL 4 mg in 250 mls @ 15 mls/hr 08/23/17 20:54 Levophed 4 Mg/ 250 Ml Ns Premixed IV .[id number] PRN TITRATE PER MD ORDER Protocol 4 MCG/MIN Propofol 1,000 mg in 100 mls @ 1.755 mls/hr 08/24/17 08:32 08/25/17 04:00 Diprivan IV 25 mcg/kg/min .Q24H PRN 8.777 mls/hr TITRATE PER MD ORDER Administration Protocol 5 MCG/KG/MIN Vancomycin HCl 1 gm in 250 mls @ 167 mls/hr 08/24/17 10:00 08/25/17 09:01 Vancomycin 1gm IVPB 167 mls/hr DAILY UMBERTO Administration Protocol Azithromycin 500 mg in 250 mls @ 167 mls/hr 08/24/17 10:00 08/25/17 09:53 Zithromax 500mg In Ns IVPB 167 mls/hr DAILY UMBERTO Administration Protocol Midazolam 100 mg/100ml in NS 100 mg in 100 mls @ 2 mls/hr 08/24/17 13:18 15:42 Midazolam 100 Mg/100ml In Ns IV 2 mg/hr .Q24H PRN 2 mls/hr Agitation Administration Protocol 2 MG/HR Sodium Chloride 1,000 mls @ 50 mls/hr 08/25/17 08:17 08/25/17 08:48 Sodium Chloride 0.9% IV 50 mls/hr .Q20H UMBERTO Administration Levetiracetam 500 mg in 100 mls @ 400 mls/hr 08/25/17 22:00 Keppra 500mg Ivpb IV Q12 UMBERTO Pantoprazole Sodium 40 mg 08/24/17 06:00 08/25/17 06:09 Protonix Inj IVP 40 mg 0600 UMBERTO Administration - Patient Studies Lab Studies: Lab Studies 08/25/17 08/25/17 08/25/17 Range/Units 08:07 06:30 06:30 WBC 7.7 D (4.5-11.0) 10^3/ul RBC 4.58 (3.5-6.1) 10^6/uL Hgb 13.8 L (14.0-18.0) g/dL Hct 39.2 L (42.0-52.0) % MCV 85.6 (80.0-105.0) fl MCH 30.1 (25.0-35.0) pg MCHC 35.2 (31.0-37.0) g/dl RDW 12.8 (11.5-14.5) % Plt Count 189 (120.0-450.0) 10^3/uL MPV 11.1 H (7.0-11.0) fl Gran % 87.5 H (50.0-68.0) % Lymph % (Auto) 6.5 L (22.0-35.0) % [place] % (Auto) 6.0 (1.0-6.0) % Eos % (Auto) 0.0 L (1.5-5.0) % Baso % (Auto) 0.0 (0.0-3.0) % Gran # 6.77 H (1.4-6.5) Lymph # 0.5 L (1.2-3.4) [place] # 0.5 (0.1-0.6) Eos # 0.0 (0.0-0.7) Baso # 0.00 (0.0-2.0) K/mm3 pCO2 (35-45) mm/Hg pO2 (30-55) mm/Hg HCO3 (21-28) mmol/L ABG pH (7.35-7.45) ABG Total CO2 (22-28) mmol.L ABG O2 Saturation (95-98) % ABG Base Excess (-2.0-3.0) mmol/L ABG Potassium (3.6-5.2) mmol/L VBG pH (7.32-7.43) VBG pCO2 (40-60) VBG HCO3 (21-28) mmol/l VBG Total CO2 (22-28) mmol.L VBG O2 Sat (Calc) (40-65) % VBG Base Excess (0.0-2.0) mmol/L VBG Potassium (3.6-5.2) mmol/L Sodium 133 (132-148) mmol/L Chloride 107 (98-107) mmol/L Glucose (75-110) mg/dl Lactate (0.7-2.1) mmol/L FiO2 % Potassium 4.4 (3.6-5.0) mmol/L Carbon Dioxide 18 L (21-33) mmol/L Anion Gap 12 (10-20) BUN 13 (7-21) mg/dL Creatinine 0.7 L (0.8-1.5) mg/dl Est GFR ( Amer) > 60 Est GFR (Non-Af Amer) > 60 POC Glucose (mg/dL) 129 H (65-110) mg/dL Random Glucose 123 H (70-110) mg/dL Calcium 7.0 L (8.4-10.5) mg/dL Phosphorus 3.9 (2.5-4.5) mg/dL Magnesium 1.4 L (1.7-2.2) mg/dL Total Bilirubin 0.5 (0.2-1.3) mg/dL AST 101 H D (17-59) U/L ALT 170 H (7-56) U/L Alkaline Phosphatase 113 (38-126) U/L Troponin I ng/mL Total Protein 5.6 L (5.8-8.3) g/dL Albumin 2.9 L (3.0-4.8) g/dL Globulin 2.7 gm/dL Albumin/Globulin Ratio 1.1 (1.1-1.8) TSH 3rd Generation (0.46-4.68) mIU/mL Arterial Blood Potassium (3.6-5.2) mmol/L Venous Blood Potassium (3.6-5.2) mmol/L Ur L.pneumophila Ag (NEGATIVE) 08/25/17 08/25/17 08/25/17 Range/Units 05:10 04:52 00:11 WBC (4.5-11.0) 10^3/ul RBC (3.5-6.1) 10^6/uL Hgb (14.0-18.0) g/dL Hct (42.0-52.0) % MCV (80.0-105.0) fl MCH (25.0-35.0) pg MCHC (31.0-37.0) g/dl RDW (11.5-14.5) % Plt Count (120.0-450.0) 10^3/uL MPV (7.0-11.0) fl Gran % (50.0-68.0) % Lymph % (Auto) (22.0-35.0) % [place] % (Auto) (1.0-6.0) % Eos % (Auto) (1.5-5.0) % Baso % (Auto) (0.0-3.0) % Gran # (1.4-6.5) Lymph # (1.2-3.4) [place] # (0.1-0.6) Eos # (0.0-0.7) Baso # (0.0-2.0) K/mm3 pCO2 22 L (35-45) mm/Hg pO2 224.0 H (30-55) mm/Hg HCO3 15.6 L (21-28) mmol/L ABG pH 7.46 H (7.35-7.45) ABG Total CO2 16.3 L (22-28) mmol.L ABG O2 Saturation 98.7 H (95-98) % ABG Base Excess -6.1 L (-2.0-3.0) mmol/L ABG Potassium 3.9 (3.6-5.2) mmol/L VBG pH (7.32-7.43) VBG pCO2 (40-60) VBG HCO3 (21-28) mmol/l VBG Total CO2 (22-28) mmol.L VBG O2 Sat (Calc) (40-65) % VBG Base Excess (0.0-2.0) mmol/L VBG Potassium (3.6-5.2) mmol/L Sodium 134.0 (132-148) mmol/L Chloride 108.0 H (98-107) mmol/L Glucose 112 H (75-110) mg/dl Lactate 1.4 (0.7-2.1) mmol/L FiO2 60.0 % Potassium (3.6-5.0) mmol/L Carbon Dioxide (21-33) mmol/L Anion Gap (10-20) BUN (7-21) mg/dL Creatinine (0.8-1.5) mg/dl Est GFR ( Amer) Est GFR (Non-Af Amer) POC Glucose (mg/dL) 100 101 (65-110) mg/dL Random Glucose (70-110) mg/dL Calcium (8.4-10.5) mg/dL Phosphorus (2.5-4.5) mg/dL Magnesium (1.7-2.2) mg/dL Total Bilirubin (0.2-1.3) mg/dL AST (17-59) U/L ALT (7-56) U/L Alkaline Phosphatase (38-126) U/L Troponin I ng/mL Total Protein (5.8-8.3) g/dL Albumin (3.0-4.8) g/dL Globulin gm/dL Albumin/Globulin Ratio (1.1-1.8) TSH 3rd Generation (0.46-4.68) mIU/mL Arterial Blood Potassium 3.9 (3.6-5.2) mmol/L Venous Blood Potassium (3.6-5.2) mmol/L Ur L.pneumophila Ag (NEGATIVE) 08/24/17 08/24/17 08/24/17 Range/Units 22:08 16:29 14:50 WBC (4.5-11.0) 10^3/ul RBC (3.5-6.1) 10^6/uL Hgb (14.0-18.0) g/dL Hct (42.0-52.0) % MCV (80.0-105.0) fl MCH (25.0-35.0) pg MCHC (31.0-37.0) g/dl RDW (11.5-14.5) % Plt Count (120.0-450.0) 10^3/uL MPV (7.0-11.0) fl Gran % (50.0-68.0) % Lymph % (Auto) (22.0-35.0) % [place] % (Auto) (1.0-6.0) % Eos % (Auto) (1.5-5.0) % Baso % (Auto) (0.0-3.0) % Gran # (1.4-6.5) Lymph # (1.2-3.4) [place] # (0.1-0.6) Eos # (0.0-0.7) Baso # (0.0-2.0) K/mm3 pCO2 (35-45) mm/Hg pO2 41 (30-55) mm/Hg HCO3 (21-28) mmol/L ABG pH (7.35-7.45) ABG Total CO2 (22-28) mmol.L ABG O2 Saturation (95-98) % ABG Base Excess (-2.0-3.0) mmol/L ABG Potassium (3.6-5.2) mmol/L VBG pH 7.22 L (7.32-7.43) VBG pCO2 44.0 (40-60) VBG HCO3 18.0 L (21-28) mmol/l VBG Total CO2 19.4 L (22-28) mmol.L VBG O2 Sat (Calc) 77.9 H (40-65) % VBG Base Excess -9.5 L (0.0-2.0) mmol/L VBG Potassium 2.3 L* (3.6-5.2) mmol/L Sodium 136.0 (132-148) mmol/L Chloride 106.0 (98-107) mmol/L Glucose 151 H (75-110) mg/dl Lactate 2.9 H (0.7-2.1) mmol/L FiO2 21.0 % Potassium (3.6-5.0) mmol/L Carbon Dioxide (21-33) mmol/L Anion Gap (10-20) BUN (7-21) mg/dL Creatinine (0.8-1.5) mg/dl Est GFR ( Amer) Est GFR (Non-Af Amer) POC Glucose (mg/dL) 138 H 135 H (65-110) mg/dL Random Glucose (70-110) mg/dL Calcium (8.4-10.5) mg/dL Phosphorus (2.5-4.5) mg/dL Magnesium (1.7-2.2) mg/dL Total Bilirubin (0.2-1.3) mg/dL AST (17-59) U/L ALT (7-56) U/L Alkaline Phosphatase (38-126) U/L Troponin I ng/mL Total Protein (5.8-8.3) g/dL Albumin (3.0-4.8) g/dL Globulin gm/dL Albumin/Globulin Ratio (1.1-1.8) TSH 3rd Generation (0.46-4.68) mIU/mL Arterial Blood Potassium (3.6-5.2) mmol/L Venous Blood Potassium 2.3 L* (3.6-5.2) mmol/L Ur L.pneumophila Ag (NEGATIVE) 08/24/17 08/24/17 08/24/17 Range/Units 14:50 14:50 14:50 WBC 3.9 L D (4.5-11.0) 10^3/ul RBC 4.67 (3.5-6.1) 10^6/uL Hgb 14.2 (14.0-18.0) g/dL Hct 41.0 L (42.0-52.0) % MCV 87.8 (80.0-105.0) fl MCH 30.4 (25.0-35.0) pg MCHC 34.6 (31.0-37.0) g/dl RDW 12.6 (11.5-14.5) % Plt Count 180 (120.0-450.0) 10^3/uL MPV 10.8 (7.0-11.0) fl Gran % 81.3 H (50.0-68.0) % Lymph % (Auto) 11.5 L (22.0-35.0) % [place] % (Auto) 6.9 H (1.0-6.0) % Eos % (Auto) 0.0 L (1.5-5.0) % Baso % (Auto) 0.3 (0.0-3.0) % Gran # 3.17 (1.4-6.5) Lymph # 0.5 L (1.2-3.4) [place] # 0.3 (0.1-0.6) Eos # 0.0 (0.0-0.7) Baso # 0.01 (0.0-2.0) K/mm3 pCO2 (35-45) mm/Hg pO2 (30-55) mm/Hg HCO3 (21-28) mmol/L ABG pH (7.35-7.45) ABG Total CO2 (22-28) mmol.L ABG O2 Saturation (95-98) % ABG Base Excess (-2.0-3.0) mmol/L ABG Potassium (3.6-5.2) mmol/L VBG pH (7.32-7.43) VBG pCO2 (40-60) VBG HCO3 (21-28) mmol/l VBG Total CO2 (22-28) mmol.L VBG O2 Sat (Calc) (40-65) % VBG Base Excess (0.0-2.0) mmol/L VBG Potassium (3.6-5.2) mmol/L Sodium 137 (132-148) mmol/L Chloride 109 H (98-107) mmol/L Glucose (75-110) mg/dl Lactate (0.7-2.1) mmol/L FiO2 % Potassium 2.6 L* D (3.6-5.0) mmol/L Carbon Dioxide 18 L (21-33) mmol/L Anion Gap 12 (10-20) BUN 15 (7-21) mg/dL Creatinine 0.7 L (0.8-1.5) mg/dl Est GFR ( Amer) > 60 Est GFR (Non-Af Amer) > 60 POC Glucose (mg/dL) (65-110) mg/dL Random Glucose 144 H (70-110) mg/dL Calcium 7.3 L (8.4-10.5) mg/dL Phosphorus 1.5 L (2.5-4.5) mg/dL Magnesium 2.0 (1.7-2.2) mg/dL Total Bilirubin 0.4 (0.2-1.3) mg/dL AST 145 H D (17-59) U/L ALT 209 H (7-56) U/L Alkaline Phosphatase 115 (38-126) U/L Troponin I ng/mL Total Protein 5.5 L (5.8-8.3) g/dL Albumin 2.8 L (3.0-4.8) g/dL Globulin 2.7 gm/dL Albumin/Globulin Ratio 1.1 (1.1-1.8) TSH 3rd Generation 0.22 L (0.46-4.68) mIU/mL Arterial Blood Potassium (3.6-5.2) mmol/L Venous Blood Potassium (3.6-5.2) mmol/L Ur L.pneumophila Ag (NEGATIVE) 08/24/17 08/24/17 08/24/17 Range/Units 14:50 12:19 11:21 WBC (4.5-11.0) 10^3/ul RBC (3.5-6.1) 10^6/uL Hgb (14.0-18.0) g/dL Hct (42.0-52.0) % MCV (80.0-105.0) fl MCH (25.0-35.0) pg MCHC (31.0-37.0) g/dl RDW (11.5-14.5) % Plt Count (120.0-450.0) 10^3/uL MPV (7.0-11.0) fl Gran % (50.0-68.0) % Lymph % (Auto) (22.0-35.0) % [place] % (Auto) (1.0-6.0) % Eos % (Auto) (1.5-5.0) % Baso % (Auto) (0.0-3.0) % Gran # (1.4-6.5) Lymph # (1.2-3.4) [place] # (0.1-0.6) Eos # (0.0-0.7) Baso # (0.0-2.0) K/mm3 pCO2 (35-45) mm/Hg pO2 (30-55) mm/Hg HCO3 (21-28) mmol/L ABG pH (7.35-7.45) ABG Total CO2 (22-28) mmol.L ABG O2 Saturation (95-98) % ABG Base Excess (-2.0-3.0) mmol/L ABG Potassium (3.6-5.2) mmol/L VBG pH (7.32-7.43) VBG pCO2 (40-60) VBG HCO3 (21-28) mmol/l VBG Total CO2 (22-28) mmol.L VBG O2 Sat (Calc) (40-65) % VBG Base Excess (0.0-2.0) mmol/L VBG Potassium (3.6-5.2) mmol/L Sodium (132-148) mmol/L Chloride (98-107) mmol/L Glucose (75-110) mg/dl Lactate (0.7-2.1) mmol/L FiO2 % Potassium (3.6-5.0) mmol/L Carbon Dioxide (21-33) mmol/L Anion Gap (10-20) BUN (7-21) mg/dL Creatinine (0.8-1.5) mg/dl Est GFR ( Amer) Est GFR (Non-Af Amer) POC Glucose (mg/dL) 162 H (65-110) mg/dL Random Glucose (70-110) mg/dL Calcium (8.4-10.5) mg/dL Phosphorus (2.5-4.5) mg/dL Magnesium (1.7-2.2) mg/dL Total Bilirubin (0.2-1.3) mg/dL AST (17-59) U/L ALT (7-56) U/L Alkaline Phosphatase (38-126) U/L Troponin I 0.38 H* D ng/mL Total Protein (5.8-8.3) g/dL Albumin (3.0-4.8) g/dL Globulin gm/dL Albumin/Globulin Ratio (1.1-1.8) TSH 3rd Generation (0.46-4.68) mIU/mL Arterial Blood Potassium (3.6-5.2) mmol/L Venous Blood Potassium (3.6-5.2) mmol/L Ur L.pneumophila Ag Negative (NEGATIVE) 08/24/17 Range/Units 07:48 WBC (4.5-11.0) 10^3/ul RBC (3.5-6.1) 10^6/uL Hgb (14.0-18.0) g/dL Hct (42.0-52.0) % MCV (80.0-105.0) fl MCH (25.0-35.0) pg MCHC (31.0-37.0) g/dl RDW (11.5-14.5) % Plt Count (120.0-450.0) 10^3/uL MPV (7.0-11.0) fl Gran % (50.0-68.0) % Lymph % (Auto) (22.0-35.0) % [place] % (Auto) (1.0-6.0) % Eos % (Auto) (1.5-5.0) % Baso % (Auto) (0.0-3.0) % Gran # (1.4-6.5) Lymph # (1.2-3.4) [place] # (0.1-0.6) Eos # (0.0-0.7) Baso # (0.0-2.0) K/mm3 pCO2 (35-45) mm/Hg pO2 (30-55) mm/Hg HCO3 (21-28) mmol/L ABG pH (7.35-7.45) ABG Total CO2 (22-28) mmol.L ABG O2 Saturation (95-98) % ABG Base Excess (-2.0-3.0) mmol/L ABG Potassium (3.6-5.2) mmol/L VBG pH (7.32-7.43) VBG pCO2 (40-60) VBG HCO3 (21-28) mmol/l VBG Total CO2 (22-28) mmol.L VBG O2 Sat (Calc) (40-65) % VBG Base Excess (0.0-2.0) mmol/L VBG Potassium (3.6-5.2) mmol/L Sodium (132-148) mmol/L Chloride (98-107) mmol/L Glucose (75-110) mg/dl Lactate (0.7-2.1) mmol/L FiO2 % Potassium (3.6-5.0) mmol/L Carbon Dioxide (21-33) mmol/L Anion Gap (10-20) BUN (7-21) mg/dL Creatinine (0.8-1.5) mg/dl Est GFR ( Amer) Est GFR (Non-Af Amer) POC Glucose (mg/dL) 190 H (65-110) mg/dL Random Glucose (70-110) mg/dL Calcium (8.4-10.5) mg/dL Phosphorus (2.5-4.5) mg/dL Magnesium (1.7-2.2) mg/dL Total Bilirubin (0.2-1.3) mg/dL AST (17-59) U/L ALT (7-56) U/L Alkaline Phosphatase (38-126) U/L Troponin I ng/mL Total Protein (5.8-8.3) g/dL Albumin (3.0-4.8) g/dL Globulin gm/dL Albumin/Globulin Ratio (1.1-1.8) TSH 3rd Generation (0.46-4.68) mIU/mL Arterial Blood Potassium (3.6-5.2) mmol/L Venous Blood Potassium (3.6-5.2) mmol/L Ur L.pneumophila Ag (NEGATIVE) Laboratory Results - last 24 hr 08/24/17 08/24/17 08/24/17 07:48 11:21 12:19 WBC RBC Hgb Hct MCV MCH MCHC RDW Plt Count MPV Gran % Lymph % (Auto) [place] % (Auto) Eos % (Auto) Baso % (Auto) Gran # Lymph # [place] # Eos # Baso # pCO2 pO2 HCO3 ABG pH ABG Total CO2 ABG O2 Saturation ABG Base Excess ABG Potassium VBG pH VBG pCO2 VBG HCO3 VBG Total CO2 VBG O2 Sat (Calc) VBG Base Excess VBG Potassium Sodium Chloride Glucose Lactate FiO2 Potassium Carbon Dioxide Anion Gap BUN Creatinine Est GFR ( Amer) Est GFR (Non-Af Amer) POC Glucose (mg/dL) 190 H 162 H Random Glucose Calcium Phosphorus Magnesium Total Bilirubin AST ALT Alkaline Phosphatase Troponin I Total Protein Albumin Globulin Albumin/Globulin Ratio TSH 3rd Generation Arterial Blood Potassium Venous Blood Potassium Ur L.pneumophila Ag Negative 08/24/17 08/24/17 08/24/17 14:50 14:50 14:50 WBC 3.9 L D RBC 4.67 Hgb 14.2 Hct 41.0 L MCV 87.8 MCH 30.4 MCHC 34.6 RDW 12.6 Plt Count 180 MPV 10.8 Gran % 81.3 H Lymph % (Auto) 11.5 L [place] % (Auto) 6.9 H Eos % (Auto) 0.0 L Baso % (Auto) 0.3 Gran # 3.17 Lymph # 0.5 L [place] # 0.3 Eos # 0.0 Baso # 0.01 pCO2 pO2 HCO3 ABG pH ABG Total CO2 ABG O2 Saturation ABG Base Excess ABG Potassium VBG pH VBG pCO2 VBG HCO3 VBG Total CO2 VBG O2 Sat (Calc) VBG Base Excess VBG Potassium Sodium Chloride Glucose Lactate FiO2 Potassium Carbon Dioxide Anion Gap BUN Creatinine Est GFR ( Amer) Est GFR (Non-Af Amer) POC Glucose (mg/dL) Random Glucose Calcium Phosphorus Magnesium Total Bilirubin AST ALT Alkaline Phosphatase Troponin I 0.38 H* D Total Protein Albumin Globulin Albumin/Globulin Ratio TSH 3rd Generation 0.22 L Arterial Blood Potassium Venous Blood Potassium Ur L.pneumophila Ag 08/24/17 08/24/17 08/24/17 14:50 14:50 16:29 WBC RBC Hgb Hct MCV MCH MCHC RDW Plt Count MPV Gran % Lymph % (Auto) [place] % (Auto) Eos % (Auto) Baso % (Auto) Gran # Lymph # [place] # Eos # Baso # pCO2 pO2 41 HCO3 ABG pH ABG Total CO2 ABG O2 Saturation ABG Base Excess ABG Potassium VBG pH 7.22 L VBG pCO2 44.0 VBG HCO3 18.0 L VBG Total CO2 19.4 L VBG O2 Sat (Calc) 77.9 H VBG Base Excess -9.5 L VBG Potassium 2.3 L* Sodium 137 136.0 Chloride 109 H 106.0 Glucose 151 H Lactate 2.9 H FiO2 21.0 Potassium 2.6 L* D Carbon Dioxide 18 L Anion Gap 12 BUN 15 Creatinine 0.7 L Est GFR ( Amer) > 60 Est GFR (Non-Af Amer) > 60 POC Glucose (mg/dL) 135 H Random Glucose 144 H Calcium 7.3 L Phosphorus 1.5 L Magnesium 2.0 Total Bilirubin 0.4 AST 145 H D ALT 209 H Alkaline Phosphatase 115 Troponin I Total Protein 5.5 L Albumin 2.8 L Globulin 2.7 Albumin/Globulin Ratio 1.1 TSH 3rd Generation Arterial Blood Potassium Venous Blood Potassium 2.3 L* Ur L.pneumophila Ag 08/24/17 08/25/17 08/25/17 22:08 00:11 04:52 WBC RBC Hgb Hct MCV MCH MCHC RDW Plt Count MPV Gran % Lymph % (Auto) [place] % (Auto) Eos % (Auto) Baso % (Auto) Gran # Lymph # [place] # Eos # Baso # pCO2 pO2 HCO3 ABG pH ABG Total CO2 ABG O2 Saturation ABG Base Excess ABG Potassium VBG pH VBG pCO2 VBG HCO3 VBG Total CO2 VBG O2 Sat (Calc) VBG Base Excess VBG Potassium Sodium Chloride Glucose Lactate FiO2 Potassium Carbon Dioxide Anion Gap BUN Creatinine Est GFR ( Amer) Est GFR (Non-Af Amer) POC Glucose (mg/dL) 138 H 101 100 Random Glucose Calcium Phosphorus Magnesium Total Bilirubin AST ALT Alkaline Phosphatase Troponin I Total Protein Albumin Globulin Albumin/Globulin Ratio TSH 3rd Generation Arterial Blood Potassium Venous Blood Potassium Ur L.pneumophila Ag 08/25/17 08/25/17 08/25/17 05:10 06:30 06:30 WBC 7.7 D RBC 4.58 Hgb 13.8 L Hct 39.2 L MCV 85.6 MCH 30.1 MCHC 35.2 RDW 12.8 Plt Count 189 MPV 11.1 H Gran % 87.5 H Lymph % (Auto) 6.5 L [place] % (Auto) 6.0 Eos % (Auto) 0.0 L Baso % (Auto) 0.0 Gran # 6.77 H Lymph # 0.5 L [place] # 0.5 Eos # 0.0 Baso # 0.00 pCO2 22 L pO2 224.0 H HCO3 15.6 L ABG pH 7.46 H ABG Total CO2 16.3 L ABG O2 Saturation 98.7 H ABG Base Excess -6.1 L ABG Potassium 3.9 VBG pH VBG pCO2 VBG HCO3 VBG Total CO2 VBG O2 Sat (Calc) VBG Base Excess VBG Potassium Sodium 134.0 133 Chloride 108.0 H 107 Glucose 112 H Lactate 1.4 FiO2 60.0 Potassium 4.4 Carbon Dioxide 18 L Anion Gap 12 BUN 13 Creatinine 0.7 L Est GFR ( Amer) > 60 Est GFR (Non-Af Amer) > 60 POC Glucose (mg/dL) Random Glucose 123 H Calcium 7.0 L Phosphorus 3.9 Magnesium 1.4 L Total Bilirubin 0.5 AST 101 H D ALT 170 H Alkaline Phosphatase 113 Troponin I Total Protein 5.6 L Albumin 2.9 L Globulin 2.7 Albumin/Globulin Ratio 1.1 TSH 3rd Generation Arterial Blood Potassium 3.9 Venous Blood Potassium Ur L.pneumophila Ag 08/25/17 08:07 WBC RBC Hgb Hct MCV MCH MCHC RDW Plt Count MPV Gran % Lymph % (Auto) [place] % (Auto) Eos % (Auto) Baso % (Auto) Gran # Lymph # [place] # Eos # Baso # pCO2 pO2 HCO3 ABG pH ABG Total CO2 ABG O2 Saturation ABG Base Excess ABG Potassium VBG pH VBG pCO2 VBG HCO3 VBG Total CO2 VBG O2 Sat (Calc) VBG Base Excess VBG Potassium Sodium Chloride Glucose Lactate FiO2 Potassium Carbon Dioxide Anion Gap BUN Creatinine Est GFR ( Amer) Est GFR (Non-Af Amer) POC Glucose (mg/dL) 129 H Random Glucose Calcium Phosphorus Magnesium Total Bilirubin AST ALT Alkaline Phosphatase Troponin I Total Protein Albumin Globulin Albumin/Globulin Ratio TSH 3rd Generation Arterial Blood Potassium Venous Blood Potassium Ur L.pneumophila Ag Fingerstick Blood Sugar Results: 280 Review of Systems - Review of Systems Review of Systems: 12-point review of systems cannot be ascertained at this time due to altered mental status Assessment/Plan - Assessment and Plan (Free Text) Assessment: Patient is a 67 year old male with a PMH of Parkinson's disease, seizure disorder, and developmental delay who was admitted for evaluation and treatment of AMS. Patient was found down for an uncertain amount of time, found to be in cardiopulmonary arrest, CPR initiated by paramedics with ROSC after 3 rounds of epinephrine and intubated on the field. Patient is currently intubated and sedated under ICU supervision. Plan: Neurological History of Parkinsons, developmental delay, seizure disorders - GCS 3T - Repeat Head CT pending as per neuro - EEG routine sleep/awake ordered as per neuro - continue george - neurology consulted- appreciate recommendation Cardiovascular - S/p cardiac arrest in the field,, has been hypothermic for 24 hours, has been rewarmed to normothermia - Cont pressure support with levophed, maintain MAP>65 - Cardiology consulted- appreciate recommendations Pulmnologic - Intubated on PRVC and on sedation with propofol and versed - CXR reviewed, RML infiltrate noted, ET placement good Continue azithromycin/vanco D2 ABG reviewed and appreciated GI - Cont protonix for GI prophylaxis Endocrine - A1c wnl, TSH wnl, slightly low T4 - Will continue to target euglycemia Nephrology/Electrolytes - creatinine and BUN trended, reviewed, and appreciated, will continue to monitor closely - Strict Ins and Outs Heme - Hgbs trended, reviewed, and appreciated, will continue to monitor closely - HD stable with pressor support - Continue to monitor ID - No leukocytosis and on cooling protocol - Blood and urine cultures pending - ID consulted, Go, appreciate recommendations - Continue azithro/vanco D2 Dispo: - Palliative Care consulted- patient made DNR, will await further recommendations Patient seen, case discussed with, and plan approved by attending physician, Dr. Andre. <Jose A Andre - Last Filed: 08/25/17 11:33> CCU Objective - Vital Signs / Intake & Output Vital Signs (Last 4 hours): Vital Signs Temp Pulse BP Pulse Ox 08/25/17 10:00 97.7 F 94 H 103/57 L 99 08/25/17 09:50 97.7 F 96 H 99 08/25/17 09:40 97.7 F 96 H 99 08/25/17 09:30 97.5 F L 96 H 99 08/25/17 09:20 97.5 F L 95 H 99 08/25/17 09:10 97.5 F L 97 H 100 08/25/17 09:00 97.5 F L 97 H 140/79 100 08/25/17 08:50 97.5 F L 99 H 100 08/25/17 08:40 97.5 F L 99 H 100 08/25/17 08:30 97.5 F L 99 H 100 08/25/17 08:20 97.5 F L 100 H 100 08/25/17 08:10 97.5 F L 99 H 100 08/25/17 08:00 97.5 F L 103 H 126/70 100 08/25/17 07:50 97.5 F L 101 H 100 08/25/17 07:40 97.5 F L 101 H 100 08/25/17 07:35 102 H 08/25/17 07:30 97.5 F L 102 H 100 Intake and Output (Last 8hrs): Intake & Output 08/24/17 08/25/17 08/25/17 22:59 06:59 14:59 Intake Total 1240 Output Total 2049 Balance -810 Intake: IV 1240 Right Femoral 1140 Oral 0 Output: Gastric Amount 50 Stomach 50 Urine 2000 Urethral (Renee) 2000 Stool 0 - Medications Active Medications: Active Medications Generic Name Dose Route Start Last Admin Trade Name Freq PRN Reason Stop Dose Admin Acetaminophen 975 mg 08/23/17 23:42 Tylenol 650mg/20.3ml Solution Ud NG Q6 PRN Rigors Aspirin 81 mg 08/24/17 12:15 08/25/17 09:01 Aspirin Chewable PO 81 mg DAILY UMBERTO Administration Atorvastatin Calcium 10 mg 08/24/17 17:00 08/24/17 18:04 Lipitor PO 10 mg DIN UMBERTO Administration Chlorhexidine Gluconate 15 ml 08/24/17 02:14 08/25/17 08:49 Peridex PO 15 ml Q4H PRN Administration oral care Heparin Sodium (Porcine) 5,000 units 08/24/17 10:00 08/25/17 09:01 Heparin SC 5,000 units Q12 UMBERTO Administration Protocol NOREPINEPHRINE BIT/0.9 % NACL 4 mg in 250 mls @ 15 mls/hr 08/23/17 20:54 Levophed 4 Mg/ 250 Ml Ns Premixed IV .[id number] PRN TITRATE PER MD ORDER Protocol 4 MCG/MIN Propofol 1,000 mg in 100 mls @ 1.755 mls/hr 08/24/17 08:32 08/25/17 04:00 Diprivan IV 25 mcg/kg/min .Q24H PRN 8.777 mls/hr TITRATE PER MD ORDER Administration Protocol 5 MCG/KG/MIN Vancomycin HCl 1 gm in 250 mls @ 167 mls/hr 08/24/17 10:00 08/25/17 09:01 Vancomycin 1gm IVPB 167 mls/hr DAILY UMBERTO Administration Protocol Azithromycin 500 mg in 250 mls @ 167 mls/hr 08/24/17 10:00 08/25/17 09:53 Zithromax 500mg In Ns IVPB 167 mls/hr DAILY UMBERTO Administration Protocol Midazolam 100 mg/100ml in NS 100 mg in 100 mls @ 2 mls/hr 08/24/17 13:18 15:42 Midazolam 100 Mg/100ml In Ns IV 2 mg/hr .Q24H PRN 2 mls/hr Agitation Administration Protocol 2 MG/HR Sodium Chloride 1,000 mls @ 50 mls/hr 08/25/17 08:17 08/25/17 08:48 Sodium Chloride 0.9% IV 50 mls/hr .Q20H UMBERTO Administration Levetiracetam 750 mg/ Sodium 107.5 mls @ 460 mls/hr 08/25/17 22:00 Chloride IV Q12 UMBERTO Pantoprazole Sodium 40 mg 08/24/17 06:00 08/25/17 06:09 Protonix Inj IVP 40 mg 0600 UMBERTO Administration - Patient Studies Lab Studies: Lab Studies 08/25/17 08/25/17 08/25/17 Range/Units 08:07 06:30 06:30 WBC 7.7 D (4.5-11.0) 10^3/ul RBC 4.58 (3.5-6.1) 10^6/uL Hgb 13.8 L (14.0-18.0) g/dL Hct 39.2 L (42.0-52.0) % MCV 85.6 (80.0-105.0) fl MCH 30.1 (25.0-35.0) pg MCHC 35.2 (31.0-37.0) g/dl RDW 12.8 (11.5-14.5) % Plt Count 189 (120.0-450.0) 10^3/uL MPV 11.1 H (7.0-11.0) fl Gran % 87.5 H (50.0-68.0) % Lymph % (Auto) 6.5 L (22.0-35.0) % [place] % (Auto) 6.0 (1.0-6.0) % Eos % (Auto) 0.0 L (1.5-5.0) % Baso % (Auto) 0.0 (0.0-3.0) % Gran # 6.77 H (1.4-6.5) Lymph # 0.5 L (1.2-3.4) [place] # 0.5 (0.1-0.6) Eos # 0.0 (0.0-0.7) Baso # 0.00 (0.0-2.0) K/mm3 pCO2 (35-45) mm/Hg pO2 (30-55) mm/Hg HCO3 (21-28) mmol/L ABG pH (7.35-7.45) ABG Total CO2 (22-28) mmol.L ABG O2 Saturation (95-98) % ABG Base Excess (-2.0-3.0) mmol/L ABG Potassium (3.6-5.2) mmol/L VBG pH (7.32-7.43) VBG pCO2 (40-60) VBG HCO3 (21-28) mmol/l VBG Total CO2 (22-28) mmol.L VBG O2 Sat (Calc) (40-65) % VBG Base Excess (0.0-2.0) mmol/L VBG Potassium (3.6-5.2) mmol/L Sodium 133 (132-148) mmol/L Chloride 107 (98-107) mmol/L Glucose (75-110) mg/dl Lactate (0.7-2.1) mmol/L FiO2 % Potassium 4.4 (3.6-5.0) mmol/L Carbon Dioxide 18 L (21-33) mmol/L Anion Gap 12 (10-20) BUN 13 (7-21) mg/dL Creatinine 0.7 L (0.8-1.5) mg/dl Est GFR ( Amer) > 60 Est GFR (Non-Af Amer) > 60 POC Glucose (mg/dL) 129 H (65-110) mg/dL Random Glucose 123 H (70-110) mg/dL Calcium 7.0 L (8.4-10.5) mg/dL Phosphorus 3.9 (2.5-4.5) mg/dL Magnesium 1.4 L (1.7-2.2) mg/dL Total Bilirubin 0.5 (0.2-1.3) mg/dL AST 101 H D (17-59) U/L ALT 170 H (7-56) U/L Alkaline Phosphatase 113 (38-126) U/L Troponin I ng/mL Total Protein 5.6 L (5.8-8.3) g/dL Albumin 2.9 L (3.0-4.8) g/dL Globulin 2.7 gm/dL Albumin/Globulin Ratio 1.1 (1.1-1.8) TSH 3rd Generation (0.46-4.68) mIU/mL Arterial Blood Potassium (3.6-5.2) mmol/L Venous Blood Potassium (3.6-5.2) mmol/L Ur L.pneumophila Ag (NEGATIVE) 08/25/17 08/25/17 08/25/17 Range/Units 05:10 04:52 00:11 WBC (4.5-11.0) 10^3/ul RBC (3.5-6.1) 10^6/uL Hgb (14.0-18.0) g/dL Hct (42.0-52.0) % MCV (80.0-105.0) fl MCH (25.0-35.0) pg MCHC (31.0-37.0) g/dl RDW (11.5-14.5) % Plt Count (120.0-450.0) 10^3/uL MPV (7.0-11.0) fl Gran % (50.0-68.0) % Lymph % (Auto) (22.0-35.0) % [place] % (Auto) (1.0-6.0) % Eos % (Auto) (1.5-5.0) % Baso % (Auto) (0.0-3.0) % Gran # (1.4-6.5) Lymph # (1.2-3.4) [place] # (0.1-0.6) Eos # (0.0-0.7) Baso # (0.0-2.0) K/mm3 pCO2 22 L (35-45) mm/Hg pO2 224.0 H (30-55) mm/Hg HCO3 15.6 L (21-28) mmol/L ABG pH 7.46 H (7.35-7.45) ABG Total CO2 16.3 L (22-28) mmol.L ABG O2 Saturation 98.7 H (95-98) % ABG Base Excess -6.1 L (-2.0-3.0) mmol/L ABG Potassium 3.9 (3.6-5.2) mmol/L VBG pH (7.32-7.43) VBG pCO2 (40-60) VBG HCO3 (21-28) mmol/l VBG Total CO2 (22-28) mmol.L VBG O2 Sat (Calc) (40-65) % VBG Base Excess (0.0-2.0) mmol/L VBG Potassium (3.6-5.2) mmol/L Sodium 134.0 (132-148) mmol/L Chloride 108.0 H (98-107) mmol/L Glucose 112 H (75-110) mg/dl Lactate 1.4 (0.7-2.1) mmol/L FiO2 60.0 % Potassium (3.6-5.0) mmol/L Carbon Dioxide (21-33) mmol/L Anion Gap (10-20) BUN (7-21) mg/dL Creatinine (0.8-1.5) mg/dl Est GFR ( Amer) Est GFR (Non-Af Amer) POC Glucose (mg/dL) 100 101 (65-110) mg/dL Random Glucose (70-110) mg/dL Calcium (8.4-10.5) mg/dL Phosphorus (2.5-4.5) mg/dL Magnesium (1.7-2.2) mg/dL Total Bilirubin (0.2-1.3) mg/dL AST (17-59) U/L ALT (7-56) U/L Alkaline Phosphatase (38-126) U/L Troponin I ng/mL Total Protein (5.8-8.3) g/dL Albumin (3.0-4.8) g/dL Globulin gm/dL Albumin/Globulin Ratio (1.1-1.8) TSH 3rd Generation (0.46-4.68) mIU/mL Arterial Blood Potassium 3.9 (3.6-5.2) mmol/L Venous Blood Potassium (3.6-5.2) mmol/L Ur L.pneumophila Ag (NEGATIVE) 08/24/17 08/24/17 08/24/17 Range/Units 22:08 16:29 14:50 WBC (4.5-11.0) 10^3/ul RBC (3.5-6.1) 10^6/uL Hgb (14.0-18.0) g/dL Hct (42.0-52.0) % MCV (80.0-105.0) fl MCH (25.0-35.0) pg MCHC (31.0-37.0) g/dl RDW (11.5-14.5) % Plt Count (120.0-450.0) 10^3/uL MPV (7.0-11.0) fl Gran % (50.0-68.0) % Lymph % (Auto) (22.0-35.0) % [place] % (Auto) (1.0-6.0) % Eos % (Auto) (1.5-5.0) % Baso % (Auto) (0.0-3.0) % Gran # (1.4-6.5) Lymph # (1.2-3.4) [place] # (0.1-0.6) Eos # (0.0-0.7) Baso # (0.0-2.0) K/mm3 pCO2 (35-45) mm/Hg pO2 41 (30-55) mm/Hg HCO3 (21-28) mmol/L ABG pH (7.35-7.45) ABG Total CO2 (22-28) mmol.L ABG O2 Saturation (95-98) % ABG Base Excess (-2.0-3.0) mmol/L ABG Potassium (3.6-5.2) mmol/L VBG pH 7.22 L (7.32-7.43) VBG pCO2 44.0 (40-60) VBG HCO3 18.0 L (21-28) mmol/l VBG Total CO2 19.4 L (22-28) mmol.L VBG O2 Sat (Calc) 77.9 H (40-65) % VBG Base Excess -9.5 L (0.0-2.0) mmol/L VBG Potassium 2.3 L* (3.6-5.2) mmol/L Sodium 136.0 (132-148) mmol/L Chloride 106.0 (98-107) mmol/L Glucose 151 H (75-110) mg/dl Lactate 2.9 H (0.7-2.1) mmol/L FiO2 21.0 % Potassium (3.6-5.0) mmol/L Carbon Dioxide (21-33) mmol/L Anion Gap (10-20) BUN (7-21) mg/dL Creatinine (0.8-1.5) mg/dl Est GFR ( Amer) Est GFR (Non-Af Amer) POC Glucose (mg/dL) 138 H 135 H (65-110) mg/dL Random Glucose (70-110) mg/dL Calcium (8.4-10.5) mg/dL Phosphorus (2.5-4.5) mg/dL Magnesium (1.7-2.2) mg/dL Total Bilirubin (0.2-1.3) mg/dL AST (17-59) U/L ALT (7-56) U/L Alkaline Phosphatase (38-126) U/L Troponin I ng/mL Total Protein (5.8-8.3) g/dL Albumin (3.0-4.8) g/dL Globulin gm/dL Albumin/Globulin Ratio (1.1-1.8) TSH 3rd Generation (0.46-4.68) mIU/mL Arterial Blood Potassium (3.6-5.2) mmol/L Venous Blood Potassium 2.3 L* (3.6-5.2) mmol/L Ur L.pneumophila Ag (NEGATIVE) 08/24/17 08/24/17 08/24/17 Range/Units 14:50 14:50 14:50 WBC 3.9 L D (4.5-11.0) 10^3/ul RBC 4.67 (3.5-6.1) 10^6/uL Hgb 14.2 (14.0-18.0) g/dL Hct 41.0 L (42.0-52.0) % MCV 87.8 (80.0-105.0) fl MCH 30.4 (25.0-35.0) pg MCHC 34.6 (31.0-37.0) g/dl RDW 12.6 (11.5-14.5) % Plt Count 180 (120.0-450.0) 10^3/uL MPV 10.8 (7.0-11.0) fl Gran % 81.3 H (50.0-68.0) % Lymph % (Auto) 11.5 L (22.0-35.0) % [place] % (Auto) 6.9 H (1.0-6.0) % Eos % (Auto) 0.0 L (1.5-5.0) % Baso % (Auto) 0.3 (0.0-3.0) % Gran # 3.17 (1.4-6.5) Lymph # 0.5 L (1.2-3.4) [place] # 0.3 (0.1-0.6) Eos # 0.0 (0.0-0.7) Baso # 0.01 (0.0-2.0) K/mm3 pCO2 (35-45) mm/Hg pO2 (30-55) mm/Hg HCO3 (21-28) mmol/L ABG pH (7.35-7.45) ABG Total CO2 (22-28) mmol.L ABG O2 Saturation (95-98) % ABG Base Excess (-2.0-3.0) mmol/L ABG Potassium (3.6-5.2) mmol/L VBG pH (7.32-7.43) VBG pCO2 (40-60) VBG HCO3 (21-28) mmol/l VBG Total CO2 (22-28) mmol.L VBG O2 Sat (Calc) (40-65) % VBG Base Excess (0.0-2.0) mmol/L VBG Potassium (3.6-5.2) mmol/L Sodium 137 (132-148) mmol/L Chloride 109 H (98-107) mmol/L Glucose (75-110) mg/dl Lactate (0.7-2.1) mmol/L FiO2 % Potassium 2.6 L* D (3.6-5.0) mmol/L Carbon Dioxide 18 L (21-33) mmol/L Anion Gap 12 (10-20) BUN 15 (7-21) mg/dL Creatinine 0.7 L (0.8-1.5) mg/dl Est GFR ( Amer) > 60 Est GFR (Non-Af Amer) > 60 POC Glucose (mg/dL) (65-110) mg/dL Random Glucose 144 H (70-110) mg/dL Calcium 7.3 L (8.4-10.5) mg/dL Phosphorus 1.5 L (2.5-4.5) mg/dL Magnesium 2.0 (1.7-2.2) mg/dL Total Bilirubin 0.4 (0.2-1.3) mg/dL AST 145 H D (17-59) U/L ALT 209 H (7-56) U/L Alkaline Phosphatase 115 (38-126) U/L Troponin I ng/mL Total Protein 5.5 L (5.8-8.3) g/dL Albumin 2.8 L (3.0-4.8) g/dL Globulin 2.7 gm/dL Albumin/Globulin Ratio 1.1 (1.1-1.8) TSH 3rd Generation 0.22 L (0.46-4.68) mIU/mL Arterial Blood Potassium (3.6-5.2) mmol/L Venous Blood Potassium (3.6-5.2) mmol/L Ur L.pneumophila Ag (NEGATIVE) 08/24/17 08/24/17 08/24/17 Range/Units 14:50 12:19 11:21 WBC (4.5-11.0) 10^3/ul RBC (3.5-6.1) 10^6/uL Hgb (14.0-18.0) g/dL Hct (42.0-52.0) % MCV (80.0-105.0) fl MCH (25.0-35.0) pg MCHC (31.0-37.0) g/dl RDW (11.5-14.5) % Plt Count (120.0-450.0) 10^3/uL MPV (7.0-11.0) fl Gran % (50.0-68.0) % Lymph % (Auto) (22.0-35.0) % [place] % (Auto) (1.0-6.0) % Eos % (Auto) (1.5-5.0) % Baso % (Auto) (0.0-3.0) % Gran # (1.4-6.5) Lymph # (1.2-3.4) [place] # (0.1-0.6) Eos # (0.0-0.7) Baso # (0.0-2.0) K/mm3 pCO2 (35-45) mm/Hg pO2 (30-55) mm/Hg HCO3 (21-28) mmol/L ABG pH (7.35-7.45) ABG Total CO2 (22-28) mmol.L ABG O2 Saturation (95-98) % ABG Base Excess (-2.0-3.0) mmol/L ABG Potassium (3.6-5.2) mmol/L VBG pH (7.32-7.43) VBG pCO2 (40-60) VBG HCO3 (21-28) mmol/l VBG Total CO2 (22-28) mmol.L VBG O2 Sat (Calc) (40-65) % VBG Base Excess (0.0-2.0) mmol/L VBG Potassium (3.6-5.2) mmol/L Sodium (132-148) mmol/L Chloride (98-107) mmol/L Glucose (75-110) mg/dl Lactate (0.7-2.1) mmol/L FiO2 % Potassium (3.6-5.0) mmol/L Carbon Dioxide (21-33) mmol/L Anion Gap (10-20) BUN (7-21) mg/dL Creatinine (0.8-1.5) mg/dl Est GFR ( Amer) Est GFR (Non-Af Amer) POC Glucose (mg/dL) 162 H (65-110) mg/dL Random Glucose (70-110) mg/dL Calcium (8.4-10.5) mg/dL Phosphorus (2.5-4.5) mg/dL Magnesium (1.7-2.2) mg/dL Total Bilirubin (0.2-1.3) mg/dL AST (17-59) U/L ALT (7-56) U/L Alkaline Phosphatase (38-126) U/L Troponin I 0.38 H* D ng/mL Total Protein (5.8-8.3) g/dL Albumin (3.0-4.8) g/dL Globulin gm/dL Albumin/Globulin Ratio (1.1-1.8) TSH 3rd Generation (0.46-4.68) mIU/mL Arterial Blood Potassium (3.6-5.2) mmol/L Venous Blood Potassium (3.6-5.2) mmol/L Ur L.pneumophila Ag Negative (NEGATIVE) 08/24/17 Range/Units 07:48 WBC (4.5-11.0) 10^3/ul RBC (3.5-6.1) 10^6/uL Hgb (14.0-18.0) g/dL Hct (42.0-52.0) % MCV (80.0-105.0) fl MCH (25.0-35.0) pg MCHC (31.0-37.0) g/dl RDW (11.5-14.5) % Plt Count (120.0-450.0) 10^3/uL MPV (7.0-11.0) fl Gran % (50.0-68.0) % Lymph % (Auto) (22.0-35.0) % [place] % (Auto) (1.0-6.0) % Eos % (Auto) (1.5-5.0) % Baso % (Auto) (0.0-3.0) % Gran # (1.4-6.5) Lymph # (1.2-3.4) [place] # (0.1-0.6) Eos # (0.0-0.7) Baso # (0.0-2.0) K/mm3 pCO2 (35-45) mm/Hg pO2 (30-55) mm/Hg HCO3 (21-28) mmol/L ABG pH (7.35-7.45) ABG Total CO2 (22-28) mmol.L ABG O2 Saturation (95-98) % ABG Base Excess (-2.0-3.0) mmol/L ABG Potassium (3.6-5.2) mmol/L VBG pH (7.32-7.43) VBG pCO2 (40-60) VBG HCO3 (21-28) mmol/l VBG Total CO2 (22-28) mmol.L VBG O2 Sat (Calc) (40-65) % VBG Base Excess (0.0-2.0) mmol/L VBG Potassium (3.6-5.2) mmol/L Sodium (132-148) mmol/L Chloride (98-107) mmol/L Glucose (75-110) mg/dl Lactate (0.7-2.1) mmol/L FiO2 % Potassium (3.6-5.0) mmol/L Carbon Dioxide (21-33) mmol/L Anion Gap (10-20) BUN (7-21) mg/dL Creatinine (0.8-1.5) mg/dl Est GFR ( Amer) Est GFR (Non-Af Amer) POC Glucose (mg/dL) 190 H (65-110) mg/dL Random Glucose (70-110) mg/dL Calcium (8.4-10.5) mg/dL Phosphorus (2.5-4.5) mg/dL Magnesium (1.7-2.2) mg/dL Total Bilirubin (0.2-1.3) mg/dL AST (17-59) U/L ALT (7-56) U/L Alkaline Phosphatase (38-126) U/L Troponin I ng/mL Total Protein (5.8-8.3) g/dL Albumin (3.0-4.8) g/dL Globulin gm/dL Albumin/Globulin Ratio (1.1-1.8) TSH 3rd Generation (0.46-4.68) mIU/mL Arterial Blood Potassium (3.6-5.2) mmol/L Venous Blood Potassium (3.6-5.2) mmol/L Ur L.pneumophila Ag (NEGATIVE) Laboratory Results - last 24 hr 08/24/17 08/24/17 08/24/17 07:48 11:21 12:19 WBC RBC Hgb Hct MCV MCH MCHC RDW Plt Count MPV Gran % Lymph % (Auto) [place] % (Auto) Eos % (Auto) Baso % (Auto) Gran # Lymph # [place] # Eos # Baso # pCO2 pO2 HCO3 ABG pH ABG Total CO2 ABG O2 Saturation ABG Base Excess ABG Potassium VBG pH VBG pCO2 VBG HCO3 VBG Total CO2 VBG O2 Sat (Calc) VBG Base Excess VBG Potassium Sodium Chloride Glucose Lactate FiO2 Potassium Carbon Dioxide Anion Gap BUN Creatinine Est GFR ( Amer) Est GFR (Non-Af Amer) POC Glucose (mg/dL) 190 H 162 H Random Glucose Calcium Phosphorus Magnesium Total Bilirubin AST ALT Alkaline Phosphatase Troponin I Total Protein Albumin Globulin Albumin/Globulin Ratio TSH 3rd Generation Arterial Blood Potassium Venous Blood Potassium Ur L.pneumophila Ag Negative 08/24/17 08/24/17 08/24/17 14:50 14:50 14:50 WBC 3.9 L D RBC 4.67 Hgb 14.2 Hct 41.0 L MCV 87.8 MCH 30.4 MCHC 34.6 RDW 12.6 Plt Count 180 MPV 10.8 Gran % 81.3 H Lymph % (Auto) 11.5 L [place] % (Auto) 6.9 H Eos % (Auto) 0.0 L Baso % (Auto) 0.3 Gran # 3.17 Lymph # 0.5 L [place] # 0.3 Eos # 0.0 Baso # 0.01 pCO2 pO2 HCO3 ABG pH ABG Total CO2 ABG O2 Saturation ABG Base Excess ABG Potassium VBG pH VBG pCO2 VBG HCO3 VBG Total CO2 VBG O2 Sat (Calc) VBG Base Excess VBG Potassium Sodium Chloride Glucose Lactate FiO2 Potassium Carbon Dioxide Anion Gap BUN Creatinine Est GFR ( Amer) Est GFR (Non-Af Amer) POC Glucose (mg/dL) Random Glucose Calcium Phosphorus Magnesium Total Bilirubin AST ALT Alkaline Phosphatase Troponin I 0.38 H* D Total Protein Albumin Globulin Albumin/Globulin Ratio TSH 3rd Generation 0.22 L Arterial Blood Potassium Venous Blood Potassium Ur L.pneumophila Ag 08/24/17 08/24/17 08/24/17 14:50 14:50 16:29 WBC RBC Hgb Hct MCV MCH MCHC RDW Plt Count MPV Gran % Lymph % (Auto) [place] % (Auto) Eos % (Auto) Baso % (Auto) Gran # Lymph # [place] # Eos # Baso # pCO2 pO2 41 HCO3 ABG pH ABG Total CO2 ABG O2 Saturation ABG Base Excess ABG Potassium VBG pH 7.22 L VBG pCO2 44.0 VBG HCO3 18.0 L VBG Total CO2 19.4 L VBG O2 Sat (Calc) 77.9 H VBG Base Excess -9.5 L VBG Potassium 2.3 L* Sodium 137 136.0 Chloride 109 H 106.0 Glucose 151 H Lactate 2.9 H FiO2 21.0 Potassium 2.6 L* D Carbon Dioxide 18 L Anion Gap 12 BUN 15 Creatinine 0.7 L Est GFR ( Amer) > 60 Est GFR (Non-Af Amer) > 60 POC Glucose (mg/dL) 135 H Random Glucose 144 H Calcium 7.3 L Phosphorus 1.5 L Magnesium 2.0 Total Bilirubin 0.4 AST 145 H D ALT 209 H Alkaline Phosphatase 115 Troponin I Total Protein 5.5 L Albumin 2.8 L Globulin 2.7 Albumin/Globulin Ratio 1.1 TSH 3rd Generation Arterial Blood Potassium Venous Blood Potassium 2.3 L* Ur L.pneumophila Ag 08/24/17 08/25/17 08/25/17 22:08 00:11 04:52 WBC RBC Hgb Hct MCV MCH MCHC RDW Plt Count MPV Gran % Lymph % (Auto) [place] % (Auto) Eos % (Auto) Baso % (Auto) Gran # Lymph # [place] # Eos # Baso # pCO2 pO2 HCO3 ABG pH ABG Total CO2 ABG O2 Saturation ABG Base Excess ABG Potassium VBG pH VBG pCO2 VBG HCO3 VBG Total CO2 VBG O2 Sat (Calc) VBG Base Excess VBG Potassium Sodium Chloride Glucose Lactate FiO2 Potassium Carbon Dioxide Anion Gap BUN Creatinine Est GFR ( Amer) Est GFR (Non-Af Amer) POC Glucose (mg/dL) 138 H 101 100 Random Glucose Calcium Phosphorus Magnesium Total Bilirubin AST ALT Alkaline Phosphatase Troponin I Total Protein Albumin Globulin Albumin/Globulin Ratio TSH 3rd Generation Arterial Blood Potassium Venous Blood Potassium Ur L.pneumophila Ag 08/25/17 08/25/17 08/25/17 05:10 06:30 06:30 WBC 7.7 D RBC 4.58 Hgb 13.8 L Hct 39.2 L MCV 85.6 MCH 30.1 MCHC 35.2 RDW 12.8 Plt Count 189 MPV 11.1 H Gran % 87.5 H Lymph % (Auto) 6.5 L [place] % (Auto) 6.0 Eos % (Auto) 0.0 L Baso % (Auto) 0.0 Gran # 6.77 H Lymph # 0.5 L [place] # 0.5 Eos # 0.0 Baso # 0.00 pCO2 22 L pO2 224.0 H HCO3 15.6 L ABG pH 7.46 H ABG Total CO2 16.3 L ABG O2 Saturation 98.7 H ABG Base Excess -6.1 L ABG Potassium 3.9 VBG pH VBG pCO2 VBG HCO3 VBG Total CO2 VBG O2 Sat (Calc) VBG Base Excess VBG Potassium Sodium 134.0 133 Chloride 108.0 H 107 Glucose 112 H Lactate 1.4 FiO2 60.0 Potassium 4.4 Carbon Dioxide 18 L Anion Gap 12 BUN 13 Creatinine 0.7 L Est GFR ( Amer) > 60 Est GFR (Non-Af Amer) > 60 POC Glucose (mg/dL) Random Glucose 123 H Calcium 7.0 L Phosphorus 3.9 Magnesium 1.4 L Total Bilirubin 0.5 AST 101 H D ALT 170 H Alkaline Phosphatase 113 Troponin I Total Protein 5.6 L Albumin 2.9 L Globulin 2.7 Albumin/Globulin Ratio 1.1 TSH 3rd Generation Arterial Blood Potassium 3.9 Venous Blood Potassium Ur L.pneumophila Ag 08/25/17 08:07 WBC RBC Hgb Hct MCV MCH MCHC RDW Plt Count MPV Gran % Lymph % (Auto) [place] % (Auto) Eos % (Auto) Baso % (Auto) Gran # Lymph # [place] # Eos # Baso # pCO2 pO2 HCO3 ABG pH ABG Total CO2 ABG O2 Saturation ABG Base Excess ABG Potassium VBG pH VBG pCO2 VBG HCO3 VBG Total CO2 VBG O2 Sat (Calc) VBG Base Excess VBG Potassium Sodium Chloride Glucose Lactate FiO2 Potassium Carbon Dioxide Anion Gap BUN Creatinine Est GFR ( Amer) Est GFR (Non-Af Amer) POC Glucose (mg/dL) 129 H Random Glucose Calcium Phosphorus Magnesium Total Bilirubin AST ALT Alkaline Phosphatase Troponin I Total Protein Albumin Globulin Albumin/Globulin Ratio TSH 3rd Generation Arterial Blood Potassium Venous Blood Potassium Ur L.pneumophila Ag Assessment/Plan - Assessment and Plan (Free Text) Plan: Patient seen and examined, on rounds with resident, agree with note, with following additions/exceptions: Pt is 67 year old male with a PMH of Parkinson's disease, seizure disorder, a/w PEA cardiac arrest. Unknown down time in the field, ROSC achieved after 3 epinephrine. Pt currently intubated sedated. Patient rewarmed today to core body temp 37C, currently intubated sedated, does over breath the ventilator. Prognosis remains poor. Leonela Paramonte and palliative care team had discussion with the HCP yesterday, patient made DNR. Goals of care further to be discussed. Patient with worsening CT head, suggestive of anoxic brain injury. ID following. Would continue with abx for now. Neurologically patient over breathes the ventilator, has no gag, corneal reflex off sedation. Follow up palliative care. Prognosis extremely poor. Critical care time 45 minutes
--- NOTE | 2017-08-25 14:23 | CT ---
PROCEDURE: CT HEAD WITHOUT CONTRAST. HISTORY: anoxic brain injury COMPARISON: 08/24/2017 TECHNIQUE: Axial computed tomography images were obtained through the head/brain without intravenous contrast. Radiation dose: Total exam DLP = 726 mGy-cm. This CT exam was performed using one or more of the following dose reduction techniques: Automated exposure control, adjustment of the mA and/or kV according to patient size, and/or use of iterative reconstruction technique. FINDINGS: HEMORRHAGE: No intracranial hemorrhage. BRAIN: No mass effect or edema. 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 Severe chronic microvascular changes are seen in the periventricular white matter. There are no acute findings VENTRICLES: Unremarkable. No hydrocephalus. CALVARIUM: Unremarkable. PARANASAL SINUSES: Unremarkable as visualized. No significant inflammatory changes. MASTOID AIR CELLS: Unremarkable as visualized. No inflammatory changes. OTHER FINDINGS: None. 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 Severe chronic microvascular changes in the periventricular white matter. No acute findings
--- NOTE | 2017-08-25 16:40 | CP.PCM.PN ---
Subjective - Date & Time of Evaluation Date of Evaluation: 08/25/17 Time of Evaluation: 15:30 - Subjective Subjective: Infectious Disease Follow Up: August 25, 2017 67 yo male with multiple medical issues. Patient was bought in by EMS after suffering cardiac arrest and PEA. Unknown how long the patient was down. The patient required 3 rounds of epinephrine and requiring intubation and ventilation. The patient is poorly responsive and the patient has been placed on hypothermia protocol. EEG being performed. No signs of brainstem reflexes. The patient does breath over the vent. No new changes. Antibiotics of Vancomycin and Azithromycin on board empirically. Objective - Vital Signs/Intake and Output Vital Signs (last 24 hours): Temp Pulse Resp BP Pulse Ox 97.7 F 88 16 94/51 L 99 08/25/17 16:20 08/25/17 16:20 08/25/17 12:00 08/25/17 16:15 08/25/17 16:20 Intake and Output: 08/25/17 08/25/17 06:59 18:59 Intake Total 1240 1038 Output Total 2050 370 Balance -810 668 - Medications Medications: Current Medications Acetaminophen (Tylenol 650mg/20.3ml Solution Ud) 975 mg NG Q6 PRN PRN Reason: Rigors Aspirin (Aspirin Chewable) 81 mg PO DAILY [facility] Last Admin: 08/25/17 09:01 Dose: 81 mg Atorvastatin Calcium (Lipitor) 10 mg PO DIN [facility] Last Admin: 08/24/17 18:04 Dose: 10 mg Chlorhexidine Gluconate (Peridex) 15 ml PO Q4H PRN PRN Reason: oral care Last Admin: 08/25/17 08:49 Dose: 15 ml Heparin Sodium (Porcine) (Heparin) 5,000 units SC Q12 [facility] PRN Reason: Protocol Last Admin: 08/25/17 09:01 Dose: 5,000 units NOREPINEPHRINE BIT/0.9 % NACL (Levophed 4 Mg/ 250 Ml Ns Premixed) 4 mg in 250 mls @ 15 mls/hr IV .[id number] PRN; Protocol; 4 MCG/MIN PRN Reason: TITRATE PER MD ORDER Propofol (Diprivan) 1,000 mg in 100 mls @ 1.755 mls/hr IV .Q24H PRN; Protocol; 5 MCG/KG/MIN PRN Reason: TITRATE PER MD ORDER Last Admin: 08/25/17 15:10 Dose: 25 mcg/kg/min, 8.777 mls/hr Vancomycin HCl (Vancomycin 1gm) 1 gm in 250 mls @ 167 mls/hr IVPB DAILY [facility] PRN Reason: Protocol Last Admin: 08/25/17 09:01 Dose: 167 mls/hr Azithromycin (Zithromax 500mg In Ns) 500 mg in 250 mls @ 167 mls/hr IVPB DAILY [facility] PRN Reason: Protocol Last Admin: 08/25/17 09:53 Dose: 167 mls/hr Midazolam 100 mg/100ml in NS (Midazolam 100 Mg/100ml In Ns) 100 mg in 100 mls @ 2 mls/hr IV .Q24H PRN; Protocol; 2 MG/HR PRN Reason: Agitation Last Admin: 08/24/17 15:42 Dose: 2 mg/hr, 2 mls/hr Sodium Chloride (Sodium Chloride 0.9%) 1,000 mls @ 50 mls/hr IV .Q20H [facility] Last Admin: 08/25/17 08:48 Dose: 50 mls/hr Levetiracetam 750 mg/ Sodium (Chloride) 107.5 mls @ 460 mls/hr IV Q12 [facility] Pantoprazole Sodium (Protonix Inj) 40 mg IVP 0600 [facility] Last Admin: 08/25/17 06:09 Dose: 40 mg - Labs Labs: 08/25/17 06:30 08/25/17 06:30 PT 12.0 SECONDS (9.4-12.5) 08/24/17 00:28 INR 1.10 (0.93-1.08) H 08/24/17 00:28 APTT 28.3 Seconds (25.1-36.5) 08/24/17 00:28 - Constitutional Appears: Chronically Ill - Head Exam Additional comments: Obtunded, Intubated, and Ventilated - Eye Exam Pupil Exam: Fixed Additional comments: dilated pupils. - ENT Exam ENT Exam: Mucous Membranes Moist, TM's Normal Bilaterally Additional comments: intubated and ventilated. - Respiratory Exam Respiratory Exam: absent: Rales, Rhonchi, Wheezes Additional comments: Intubated and ventilated. - Cardiovascular Exam Cardiovascular Exam: REGULAR RHYTHM, RRR, +S1, +S2 - GI/Abdominal Exam GI & Abdominal Exam: Distended, Soft, Normal Bowel Sounds. absent: Tenderness - Extremities Exam Extremities Exam: absent: Joint Swelling, Pedal Edema - Neurological Exam Neurological Exam: absent: Alert, Awake, Oriented x3 Additional comments: obtunded intubated and ventilated. poorly responsive. - Psychiatric Exam Additional comments: Intubated, obtunded, sedated. - Skin Skin Exam: Intact, Normal Color Assessment and Plan - Assessment and Plan (Free Text) Assessment: 67 yo male with cardiac arrest and down for unknown period of time requiring 3 epinephrine courses with intubation and ventilation. The patient was NOT awake or alert at this time. No fevers of leukocytosis. ID called to rule out sepsis. Most of the patient's symptoms appear to be secondary to severe anoxia leading to significant anoxic brain injury. The patient has dilated pupils and fixed gaze. He is poorly responsive at this time. Currently, I do not see infection as having a role on this patient. Antibiotics of Vancomycin and Azithromycin are for empiric purposes at this time. Supportive care. The patient has a dismal prognosis at this point. Thank you for allowing me to participate in the care of the patient, we will follow with you if needed.
[2017-08-25] MEDS: Midazolam 100 mg/100ml in NS 100 MG/100 ML SOL IV PRN (20:25)
[2017-08-25] MEDS ORDERED: levETIRAcetam 500mg IVPB 500 MG/100 ML BAG IV SCH (22:00)
--- NOTE | 2017-08-25 22:46 | PN ---
DATE: SUBJECTIVE: The patient still on the ventilator, unresponsive. No reported hypertension and no reported ventricular arrhythmia. Apparently, the patient has power of manager library, was able to be contacted. He signed do not resuscitate order. PHYSICAL EXAMINATION VITAL SIGNS: Blood pressure 92/54, heart rate 87, temperature 98.2, respiration 16. HEENT: Normocephalic. LUNGS: Diminished breath sounds over the bases. HEART: S1 and S2 regular. EXTREMITIES: No edema. LABORATORY DATA: Hemoglobin and hematocrit of 13.8 and 39.2, white count and platelet count are within normal limits. SMA-7 is within normal limits except for glucose 123. CO2 of 18 and creatinine 0.7. Echocardiogram study performed yesterday revealed normal ventricular size, wall thickness with severely impaired systolic function. Ejection fraction estimated as 30%. Mild pulmonary hypertension. ASSESSMENT: 1. Status post cardiac arrest. 2. Cardiomyopathy. 3. Seizure disorder. 4. Rule out anoxic encephalopathy. 5. 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 CONDITIONS: Continue aspirin 81 mg once a day, Lipitor 10 mg once a day, IV vancomycin, IV Zithromax. May consider afterload reducing agents and beta-eladio once the blood pressure allows; however, the overall prognosis is grave. Linwood Dick MD
[2017-08-26] MEDS: Propofol 10 mg/ml 1,000 MG/100 ML VIAL IV PRN (03:14)
[2017-08-26] MEDS: Sodium Chloride 0.9% 1,000 ML IV SCH (07:01)
[2017-08-26 07:02] LABS: GRAN # 7.5 (1.4-6.5); GRAN % 81.9 % (50.0-68.0); HEMATOCRIT 32.3 % (42.0-52.0); LYMPH # 1.2 (1.2-3.4); LYMPH % 13.5 % (22.0-35.0); MEAN CELL VOLUME 87.8 fl (80.0-105.0); MEAN CORPUSCULAR HEMOGLOBIN 30.2 pg (25.0-35.0); MEAN CORPUSCULAR HGB CONC 34.4 g/dl (31.0-37.0); MEAN PLATELET VOLUME 10.8 fl (7.0-11.0); MONO # 0.4 (0.1-0.6); MONO % 4.6 % (1.0-6.0); RED CELL DISTRIBUTION WIDTH 13.2 % (11.5-14.5); WHITE BLOOD COUNT 9.2 10^3/ul (4.5-11.0)
[2017-08-26 07:37] LABS: BILIRUBIN,TOTAL 0.3 mg/dL (0.2-1.3); BLOOD UREA NITROGEN 22 mg/dL (7-21); CARBON DIOXIDE 24 mmol/L (21-33); GLUCOSE,RANDOM 111 mg/dL (70-110); MAGNESIUM 2.2 mg/dL (1.7-2.2); PHOSPHOROUS 2.6 mg/dL (2.5-4.5); POTASSIUM 3.7 mmol/L (3.6-5.0); SODIUM 135 mmol/L (132-148); TOTAL PROTEIN 5.1 g/dL (5.8-8.3)
[2017-08-26 08:22] LABS: ALKALINE PHOSPHATASE 98 U/L (38-126); ALT/SGPT 124 U/L (7-56); AST/SGOT 76 U/L (17-59); CALCIUM 7.6 mg/dL (8.4-10.5); CHLORIDE 107 mmol/L (98-107); GFR AFRICAN-AMERICAN > 60
--- NOTE | 2017-08-26 08:59 | RAD ---
HISTORY: intubated COMPARISON: 08/25/2027 FINDINGS: LUNGS: Right upper lobe opacity, unchanged. Examination limited by oblique positioning. There is no consolidation elsewhere. PLEURA: No significant pleural effusion identified, no pneumothorax apparent. CARDIOVASCULAR: Normal heart size. Endotracheal tube tip obscured by overlying monitoring leads. Nasogastric tube extends to left upper quadrant of abdomen. OSSEOUS STRUCTURES: No significant abnormalities. VISUALIZED UPPER ABDOMEN: Normal. OTHER FINDINGS: None. IMPRESSION: Persistent right upper lobe infiltrate. Limited examination. ET tube and NG tube unchanged.
[2017-08-26] MEDS: Chlorhexidine 0.12% Oral Sol 480 ml Bot PO PRN ×2 (09:51→17:35)
[2017-08-26] MEDS: Azithromycin 500MG/NS 250ml 500 MG/250 ML BAG IVPB SCH (09:51)
[2017-08-26] MEDS: Vancomycin 1gm in NS 250ml 1 GM/250 ML BAG IVPB SCH (09:52)
--- NOTE | 2017-08-26 15:07 | CP.CCUPN ---
<Phil Rasconil - Last Filed: 08/26/17 15:03> CCU Subjective - Physician Review Subjective (Free Text): Patient seen and examined at bedside. Resting comfortably in bed. No acute overnight events. Updated patient diagrammer on clinical course. 12-point review of systems cannot be ascertained at this time due to altered mental status. 08/26/17 15:03 CCU Objective - Vital Signs / Intake & Output Intake and Output (Last 8hrs): Intake & Output 08/26/17 08/26/17 08/26/17 06:59 14:59 22:59 Intake Total 772 Output Total 985 Balance -213 Intake: IV 772 IVF 600 Propofol 42 Versed 30 Oral 0 Output: Gastric Amount 250 Stomach 250 Urine 735 Urethral (Renee) 735 Other: # Bowel Movements 0 - Physical Exam Head: Positive for: Atraumatic, Normocephalic Pupils: Positive for: Other (Pupils 3mm and minimally reactive bilaterally) Conjunctiva: Positive for: Normal Mouth: Positive for: Dry Nose (External): Positive for: Atraumatic Neck: Positive for: Trachea Midline Respiratory/Chest: Positive for: Clear to Auscultation, Other (Clear Breath Sounds bilaterally with ventilation, no signs of trauma) Cardiovascular: Positive for: Normal S1, S2. Negative for: Murmurs, Rub Abdomen: Positive for: Normal Bowel Sounds. Negative for: Tenderness, Peritoneal Signs Upper Extremity: Negative for: Edema Lower Extremity: Positive for: Other (Poor perfusion, cool to touch bilaterally) Neurological: Positive for: Other (intubated and sedated). Negative for: GCS= 15 (GCS=3) Skin: Positive for: Dry. Negative for: Rashes Psychiatric: Positive for: Other (Unresponsive) - Medications Active Medications: Active Medications Generic Name Dose Route Start Last Admin Trade Name Freq PRN Reason Stop Dose Admin Acetaminophen 975 mg 08/23/17 23:42 Tylenol 650mg/20.3ml Solution Ud NG Q6 PRN Rigors Aspirin 81 mg 08/24/17 12:15 08/26/17 09:50 Aspirin Chewable PO 81 mg DAILY UMBERTO Administration Atorvastatin Calcium 10 mg 08/24/17 17:00 08/25/17 17:12 Lipitor PO 10 mg DIN UMBERTO Administration Chlorhexidine Gluconate 15 ml 08/24/17 02:14 08/26/17 09:51 Peridex PO 15 ml Q4H PRN Administration oral care Heparin Sodium (Porcine) 5,000 units 08/24/17 10:00 08/26/17 09:50 Heparin SC 5,000 units Q12 UMBERTO Administration Protocol NOREPINEPHRINE BIT/0.9 % NACL 4 mg in 250 mls @ 15 mls/hr 08/23/17 20:54 22:22 Levophed 4 Mg/ 250 Ml Ns Premixed IV 0 mcg/min .[id number] PRN 0 mls/hr TITRATE PER MD ORDER Titration Protocol 4 MCG/MIN Propofol 1,000 mg in 100 mls @ 1.755 mls/hr 08/24/17 08:32 08/26/17 03:14 Diprivan IV 10 mcg/kg/min .Q24H PRN 3.511 mls/hr TITRATE PER MD ORDER Administration Protocol 5 MCG/KG/MIN Vancomycin HCl 1 gm in 250 mls @ 167 mls/hr 08/24/17 10:00 08/26/17 09:52 Vancomycin 1gm IVPB 167 mls/hr DAILY UMBERTO Administration Protocol Azithromycin 500 mg in 250 mls @ 167 mls/hr 08/24/17 10:00 08/26/17 09:51 Zithromax 500mg In Ns IVPB 167 mls/hr DAILY UMBERTO Administration Protocol Midazolam 100 mg/100ml in NS 100 mg in 100 mls @ 2 mls/hr 08/24/17 13:18 20:25 Midazolam 100 Mg/100ml In Ns IV 2 mg/hr .Q24H PRN 2 mls/hr Agitation Administration Protocol 2 MG/HR Sodium Chloride 1,000 mls @ 50 mls/hr 08/25/17 08:17 08/26/17 07:01 Sodium Chloride 0.9% IV 50 mls/hr .Q20H UMBERTO Administration Levetiracetam 750 mg/ Sodium 107.5 mls @ 460 mls/hr 08/25/17 22:00 08/26/17 09:50 Chloride IV 460 mls/hr Q12 UMBERTO Administration Pantoprazole Sodium 40 mg 08/24/17 06:00 08/26/17 05:25 Protonix Inj IVP 40 mg 0600 UMBERTO Administration - Patient Studies Lab Studies: Microbiology Studies 08/24/17 02:57 MRSA Culture (Admit) - Final Naris MRSA NOT DETECTED Lab Studies 08/26/17 08/26/17 08/25/17 Range/Units 06:50 06:50 22:21 WBC 9.2 (4.5-11.0) 10^3/ul RBC 3.68 (3.5-6.1) 10^6/uL Hgb 11.1 L D (14.0-18.0) g/dL Hct 32.3 L (42.0-52.0) % MCV 87.8 (80.0-105.0) fl MCH 30.2 (25.0-35.0) pg MCHC 34.4 (31.0-37.0) g/dl RDW 13.2 (11.5-14.5) % Plt Count 175 (120.0-450.0) 10^3/uL MPV 10.8 (7.0-11.0) fl Gran % 81.9 H (50.0-68.0) % Lymph % (Auto) 13.5 L (22.0-35.0) % [place] % (Auto) 4.6 (1.0-6.0) % Eos % (Auto) 0.0 L (1.5-5.0) % Baso % (Auto) 0.0 (0.0-3.0) % Gran # 7.50 H (1.4-6.5) Lymph # 1.2 (1.2-3.4) [place] # 0.4 (0.1-0.6) Eos # 0.0 (0.0-0.7) Baso # 0.00 (0.0-2.0) K/mm3 Sodium 135 (132-148) mmol/L Potassium 3.7 (3.6-5.0) mmol/L Chloride 107 (98-107) mmol/L Carbon Dioxide 24 (21-33) mmol/L Anion Gap 8 L (10-20) BUN 22 H (7-21) mg/dL Creatinine 0.9 (0.8-1.5) mg/dl Est GFR ( Amer) > 60 Est GFR (Non-Af Amer) > 60 POC Glucose (mg/dL) 128 H (65-110) mg/dL Random Glucose 111 H (70-110) mg/dL Calcium 7.6 L (8.4-10.5) mg/dL Phosphorus 2.6 (2.5-4.5) mg/dL Magnesium 2.2 (1.7-2.2) mg/dL Total Bilirubin 0.3 (0.2-1.3) mg/dL AST 76 H D (17-59) U/L ALT 124 H (7-56) U/L Alkaline Phosphatase 98 (38-126) U/L Total Protein 5.1 L (5.8-8.3) g/dL Albumin 2.5 L (3.0-4.8) g/dL Globulin 2.6 gm/dL Albumin/Globulin Ratio 1.0 L (1.1-1.8) 08/25/17 Range/Units 15:43 WBC (4.5-11.0) 10^3/ul RBC (3.5-6.1) 10^6/uL Hgb (14.0-18.0) g/dL Hct (42.0-52.0) % MCV (80.0-105.0) fl MCH (25.0-35.0) pg MCHC (31.0-37.0) g/dl RDW (11.5-14.5) % Plt Count (120.0-450.0) 10^3/uL MPV (7.0-11.0) fl Gran % (50.0-68.0) % Lymph % (Auto) (22.0-35.0) % [place] % (Auto) (1.0-6.0) % Eos % (Auto) (1.5-5.0) % Baso % (Auto) (0.0-3.0) % Gran # (1.4-6.5) Lymph # (1.2-3.4) [place] # (0.1-0.6) Eos # (0.0-0.7) Baso # (0.0-2.0) K/mm3 Sodium (132-148) mmol/L Potassium (3.6-5.0) mmol/L Chloride (98-107) mmol/L Carbon Dioxide (21-33) mmol/L Anion Gap (10-20) BUN (7-21) mg/dL Creatinine (0.8-1.5) mg/dl Est GFR ( Amer) Est GFR (Non-Af Amer) POC Glucose (mg/dL) 121 H (65-110) mg/dL Random Glucose (70-110) mg/dL Calcium (8.4-10.5) mg/dL Phosphorus (2.5-4.5) mg/dL Magnesium (1.7-2.2) mg/dL Total Bilirubin (0.2-1.3) mg/dL AST (17-59) U/L ALT (7-56) U/L Alkaline Phosphatase (38-126) U/L Total Protein (5.8-8.3) g/dL Albumin (3.0-4.8) g/dL Globulin gm/dL Albumin/Globulin Ratio (1.1-1.8) Laboratory Results - last 24 hr 08/25/17 08/25/17 08/26/17 15:43 22:21 06:50 WBC 9.2 RBC 3.68 Hgb 11.1 L D Hct 32.3 L MCV 87.8 MCH 30.2 MCHC 34.4 RDW 13.2 Plt Count 175 MPV 10.8 Gran % 81.9 H Lymph % (Auto) 13.5 L [place] % (Auto) 4.6 Eos % (Auto) 0.0 L Baso % (Auto) 0.0 Gran # 7.50 H Lymph # 1.2 [place] # 0.4 Eos # 0.0 Baso # 0.00 Sodium Potassium Chloride Carbon Dioxide Anion Gap BUN Creatinine Est GFR ( Amer) Est GFR (Non-Af Amer) POC Glucose (mg/dL) 121 H 128 H Random Glucose Calcium Phosphorus Magnesium Total Bilirubin AST ALT Alkaline Phosphatase Total Protein Albumin Globulin Albumin/Globulin Ratio 08/26/17 06:50 WBC RBC Hgb Hct MCV MCH MCHC RDW Plt Count MPV Gran % Lymph % (Auto) [place] % (Auto) Eos % (Auto) Baso % (Auto) Gran # Lymph # [place] # Eos # Baso # Sodium 135 Potassium 3.7 Chloride 107 Carbon Dioxide 24 Anion Gap 8 L BUN 22 H Creatinine 0.9 Est GFR ( Amer) > 60 Est GFR (Non-Af Amer) > 60 POC Glucose (mg/dL) Random Glucose 111 H Calcium 7.6 L Phosphorus 2.6 Magnesium 2.2 Total Bilirubin 0.3 AST 76 H D ALT 124 H Alkaline Phosphatase 98 Total Protein 5.1 L Albumin 2.5 L Globulin 2.6 Albumin/Globulin Ratio 1.0 L Fingerstick Blood Sugar Results: 128 Review of Systems - Review of Systems Review of Systems: 12-point review of systems cannot be ascertained at this time due to altered mental status Assessment/Plan - Assessment and Plan (Free Text) Assessment: Patient is a 67 year old male with a PMH of Parkinson's disease, seizure disorder, and developmental delay who was admitted for evaluation and treatment of AMS. Patient was found down for an uncertain amount of time, found to be in cardiopulmonary arrest, CPR initiated by paramedics with ROSC after 3 rounds of epinephrine and intubated on the field. Patient is currently intubated and sedated under ICU supervision. Plan: Neurological History of Parkinsons, developmental delay, seizure disorders - GCS 3T - Repeat Head CT- Chronic infarcts in the thalami and basal ganglia bilaterally. Severe chronic microvascular changes in the periventricular white matter. No acute findings - EEG routine sleep/awake ordered as per neuro - continue dheeraj - neurology consulted- appreciate recommendation Cardiovascular - S/p cardiac arrest in the field,, has been hypothermic for 24 hours, has been rewarmed to normothermia - Cont pressure support with levophed, maintain MAP>65 - Cardiology consulted- appreciate recommendations Pulmnologic - Intubated on PRVC and on sedation with propofol and versed - CXR reviewed, RML infiltrate noted, ET placement good Continue azithromycin/vanco D3 ABG reviewed and appreciated GI - Cont protonix for GI prophylaxis - elevated LFTs noted- downtrending Endocrine - A1c wnl, TSH wnl, slightly low T4 - Will continue to target euglycemia Nephrology/Electrolytes - creatinine and BUN trended, reviewed, and appreciated, will continue to monitor closely - Strict Ins and Outs Heme - Hgbs trended, reviewed, and appreciated, will continue to monitor closely - HD stable with pressor support - Continue to monitor ID - No leukocytosis and on cooling protocol - Blood and urine cultures pending - ID consulted, Go, appreciate recommendations - Continue azithro/vanco D3 Dispo: - Palliative Care consulted- patient made DNR, will await further recommendations Patient seen, case discussed with, and plan approved by attending physician, Dr. Coon. <Jose Coon - Last Filed: 08/26/17 18:56> CCU Objective - Vital Signs / Intake & Output Vital Signs (Last 4 hours): Vital Signs Temp Pulse BP Pulse Ox 08/26/17 18:40 100.2 F H 114 H 99 08/26/17 18:30 100.2 F H 113 H 99 08/26/17 18:20 100.0 F H 113 H 99 08/26/17 18:10 99.9 F H 116 H 100 08/26/17 18:03 99.9 F H 118 H 207/112 H 100 08/26/17 18:00 99.7 F H 117 H 192/120 H 99 08/26/17 17:50 99.7 F H 113 H 100 08/26/17 17:40 99.5 F 111 H 99 08/26/17 17:30 99.1 F 111 H 99 08/26/17 17:20 99.1 F 106 H 99 08/26/17 17:10 98.8 F 104 H 99 08/26/17 17:00 98.8 F 103 H 152/98 H 99 08/26/17 16:50 98.6 F 99 H 98 08/26/17 16:40 98.6 F 99 H 98 08/26/17 16:30 98.4 F 103 H 99 08/26/17 16:20 98.4 F 99 H 98 08/26/17 16:10 98.4 F 95 H 98 08/26/17 16:00 98.4 F 92 H 160/91 H 99 08/26/17 15:50 98.4 F 92 H 100 08/26/17 15:40 98.4 F 95 H 100 08/26/17 15:30 98.2 F 96 H 100 08/26/17 15:20 98.2 F 93 H 100 08/26/17 15:10 98.1 F 92 H 100 08/26/17 15:00 98.1 F 94 H 165/84 H 100 Intake and Output (Last 8hrs): Intake & Output 08/26/17 08/26/17 08/26/17 06:59 14:59 22:59 Intake Total 719 13 4743 Output Total 985 950 Balance -213 48 373 Weight 129 lb Intake: IV 527 19 7153 IVF 600 600 Propofol 42 32 Right Antecubital 600 Versed 30 23 Oral 0 Output: Gastric Amount 250 0 Stomach 250 0 Urine 735 950 Urethral (Renee) 735 950 Other: # Bowel Movements 0 0 - Medications Active Medications: Active Medications Generic Name Dose Route Start Last Admin Trade Name Freq PRN Reason Stop Dose Admin Acetaminophen 975 mg 08/23/17 23:42 Tylenol 650mg/20.3ml Solution Ud NG Q6 PRN Rigors Aspirin 81 mg 08/24/17 12:15 08/26/17 09:50 Aspirin Chewable PO 81 mg DAILY UMBERTO Administration Atorvastatin Calcium 10 mg 08/24/17 17:00 08/26/17 17:35 Lipitor PO 10 mg DIN UMBERTO Administration Chlorhexidine Gluconate 15 ml 08/24/17 02:14 08/26/17 17:35 Peridex PO 15 ml Q4H PRN Administration oral care Heparin Sodium (Porcine) 5,000 units 08/24/17 10:00 08/26/17 09:50 Heparin SC 5,000 units Q12 UMBERTO Administration Protocol NOREPINEPHRINE BIT/0.9 % NACL 4 mg in 250 mls @ 15 mls/hr 08/23/17 20:54 22:22 Levophed 4 Mg/ 250 Ml Ns Premixed IV 0 mcg/min .[id number] PRN 0 mls/hr TITRATE PER MD ORDER Titration Protocol 4 MCG/MIN Propofol 1,000 mg in 100 mls @ 1.755 mls/hr 08/24/17 08:32 08/26/17 16:00 Diprivan IV 0 mcg/kg/min .Q24H PRN 0 mls/hr TITRATE PER MD ORDER Titration Protocol 5 MCG/KG/MIN Vancomycin HCl 1 gm in 250 mls @ 167 mls/hr 08/24/17 10:00 08/26/17 09:52 Vancomycin 1gm IVPB 167 mls/hr DAILY UMBERTO Administration Protocol Azithromycin 500 mg in 250 mls @ 167 mls/hr 08/24/17 10:00 08/26/17 09:51 Zithromax 500mg In Ns IVPB 167 mls/hr DAILY UMBERTO Administration Protocol Midazolam 100 mg/100ml in NS 100 mg in 100 mls @ 2 mls/hr 08/24/17 13:18 16:26 Midazolam 100 Mg/100ml In Ns IV 0 mg/hr .Q24H PRN 0 mls/hr Agitation Titration Protocol 2 MG/HR Sodium Chloride 1,000 mls @ 50 mls/hr 08/25/17 08:17 08/26/17 07:01 Sodium Chloride 0.9% IV 50 mls/hr .Q20H UMBERTO Administration Levetiracetam 1,000 mg/ Sodium 110 mls @ 460 mls/hr 08/26/17 22:00 Chloride IV Q12 UMBERTO Pantoprazole Sodium 40 mg 08/24/17 06:00 08/26/17 05:25 Protonix Inj IVP 40 mg 0600 UMBERTO Administration - Patient Studies Lab Studies: Lab Studies 08/26/17 08/26/17 08/25/17 Range/Units 06:50 06:50 22:21 WBC 9.2 (4.5-11.0) 10^3/ul RBC 3.68 (3.5-6.1) 10^6/uL Hgb 11.1 L D (14.0-18.0) g/dL Hct 32.3 L (42.0-52.0) % MCV 87.8 (80.0-105.0) fl MCH 30.2 (25.0-35.0) pg MCHC 34.4 (31.0-37.0) g/dl RDW 13.2 (11.5-14.5) % Plt Count 175 (120.0-450.0) 10^3/uL MPV 10.8 (7.0-11.0) fl Gran % 81.9 H (50.0-68.0) % Lymph % (Auto) 13.5 L (22.0-35.0) % [place] % (Auto) 4.6 (1.0-6.0) % Eos % (Auto) 0.0 L (1.5-5.0) % Baso % (Auto) 0.0 (0.0-3.0) % Gran # 7.50 H (1.4-6.5) Lymph # 1.2 (1.2-3.4) [place] # 0.4 (0.1-0.6) Eos # 0.0 (0.0-0.7) Baso # 0.00 (0.0-2.0) K/mm3 Sodium 135 (132-148) mmol/L Potassium 3.7 (3.6-5.0) mmol/L Chloride 107 (98-107) mmol/L Carbon Dioxide 24 (21-33) mmol/L Anion Gap 8 L (10-20) BUN 22 H (7-21) mg/dL Creatinine 0.9 (0.8-1.5) mg/dl Est GFR ( Amer) > 60 Est GFR (Non-Af Amer) > 60 POC Glucose (mg/dL) 128 H (65-110) mg/dL Random Glucose 111 H (70-110) mg/dL Calcium 7.6 L (8.4-10.5) mg/dL Phosphorus 2.6 (2.5-4.5) mg/dL Magnesium 2.2 (1.7-2.2) mg/dL Total Bilirubin 0.3 (0.2-1.3) mg/dL AST 76 H D (17-59) U/L ALT 124 H (7-56) U/L Alkaline Phosphatase 98 (38-126) U/L Total Protein 5.1 L (5.8-8.3) g/dL Albumin 2.5 L (3.0-4.8) g/dL Globulin 2.6 gm/dL Albumin/Globulin Ratio 1.0 L (1.1-1.8) Laboratory Results - last 24 hr 08/25/17 08/26/17 08/26/17 22:21 06:50 06:50 WBC 9.2 RBC 3.68 Hgb 11.1 L D Hct 32.3 L MCV 87.8 MCH 30.2 MCHC 34.4 RDW 13.2 Plt Count 175 MPV 10.8 Gran % 81.9 H Lymph % (Auto) 13.5 L [place] % (Auto) 4.6 Eos % (Auto) 0.0 L Baso % (Auto) 0.0 Gran # 7.50 H Lymph # 1.2 [place] # 0.4 Eos # 0.0 Baso # 0.00 Sodium 135 Potassium 3.7 Chloride 107 Carbon Dioxide 24 Anion Gap 8 L BUN 22 H Creatinine 0.9 Est GFR ( Amer) > 60 Est GFR (Non-Af Amer) > 60 POC Glucose (mg/dL) 128 H Random Glucose 111 H Calcium 7.6 L Phosphorus 2.6 Magnesium 2.2 Total Bilirubin 0.3 AST 76 H D ALT 124 H Alkaline Phosphatase 98 Total Protein 5.1 L Albumin 2.5 L Globulin 2.6 Albumin/Globulin Ratio 1.0 L Attending/Attestation - Attestation I have personally seen and examined this patient.: Yes I have fully participated in the care of the patient.: Yes I have reviewed all pertinent clinical information: Yes Notes (Text): 08/26/17 18:50 67 yo with Parkinson disease, seziures disorder, presented to ICU after PEA arrest, intubated. After lighting sedation, had some jerking movements, and BP increased-->anoxia related seizures-->Keppra increased, neuro service notified. . ccm time 40 min
--- NOTE | 2017-08-26 16:39 | CP.PCM.PN ---
Subjective - Date & Time of Evaluation Date of Evaluation: 08/26/17 Time of Evaluation: 16:36 - Subjective Subjective: Mr. Delaney was seen and examined today at bedside in the ICU. There were no acute events overnight. The patient was examined off of propofol and versed was held. There was no clinical change and no seizure activity noted after 20 minutes of the medication being held. Therefor, we decided to continue holding the sedatives. Objective - Vital Signs/Intake and Output Vital Signs (last 24 hours): Temp Pulse Resp BP Pulse Ox 97.0 F L 87 16 129/70 100 08/26/17 05:10 08/26/17 14:00 08/26/17 10:00 08/26/17 05:00 08/26/17 07:46 Intake and Output: 08/26/17 08/26/17 06:59 18:59 Intake Total 887 116 Output Total 985 Balance -98 116 - Medications Medications: Current Medications Acetaminophen (Tylenol 650mg/20.3ml Solution Ud) 975 mg NG Q6 PRN PRN Reason: Rigors Aspirin (Aspirin Chewable) 81 mg PO DAILY [facility] Last Admin: 08/26/17 09:50 Dose: 81 mg Atorvastatin Calcium (Lipitor) 10 mg PO DIN [facility] Last Admin: 08/25/17 17:12 Dose: 10 mg Chlorhexidine Gluconate (Peridex) 15 ml PO Q4H PRN PRN Reason: oral care Last Admin: 08/26/17 09:51 Dose: 15 ml Heparin Sodium (Porcine) (Heparin) 5,000 units SC Q12 UMBERTO PRN Reason: Protocol Last Admin: 08/26/17 09:50 Dose: 5,000 units NOREPINEPHRINE BIT/0.9 % NACL (Levophed 4 Mg/ 250 Ml Ns Premixed) 4 mg in 250 mls @ 15 mls/hr IV .[id number] PRN; Protocol; 4 MCG/MIN PRN Reason: TITRATE PER MD ORDER Last Titration: 08/25/17 22:22 Dose: 0 mcg/min, 0 mls/hr Propofol (Diprivan) 1,000 mg in 100 mls @ 1.755 mls/hr IV .Q24H PRN; Protocol; 5 MCG/KG/MIN PRN Reason: TITRATE PER MD ORDER Last Titration: 08/26/17 16:00 Dose: 0 mcg/kg/min, 0 mls/hr Vancomycin HCl (Vancomycin 1gm) 1 gm in 250 mls @ 167 mls/hr IVPB DAILY UMBERTO PRN Reason: Protocol Last Admin: 08/26/17 09:52 Dose: 167 mls/hr Azithromycin (Zithromax 500mg In Ns) 500 mg in 250 mls @ 167 mls/hr IVPB DAILY UMBERTO PRN Reason: Protocol Last Admin: 08/26/17 09:51 Dose: 167 mls/hr Midazolam 100 mg/100ml in NS (Midazolam 100 Mg/100ml In Ns) 100 mg in 100 mls @ 2 mls/hr IV .Q24H PRN; Protocol; 2 MG/HR PRN Reason: Agitation Last Titration: 08/26/17 16:26 Dose: 0 mg/hr, 0 mls/hr Sodium Chloride (Sodium Chloride 0.9%) 1,000 mls @ 50 mls/hr IV .Q20H UMBERTO Last Admin: 08/26/17 07:01 Dose: 50 mls/hr Levetiracetam 750 mg/ Sodium (Chloride) 107.5 mls @ 460 mls/hr IV Q12 UMBERTO Last Admin: 08/26/17 09:50 Dose: 460 mls/hr Pantoprazole Sodium (Protonix Inj) 40 mg IVP 0600 [facility] Last Admin: 08/26/17 05:25 Dose: 40 mg - Labs Labs: 08/26/17 06:50 08/26/17 06:50 PT 12.0 SECONDS (9.4-12.5) 08/24/17 00:28 INR 1.10 (0.93-1.08) H 08/24/17 00:28 APTT 28.3 Seconds (25.1-36.5) 08/24/17 00:28 - Neurological Exam Additional comments: Neurologically unchanged compared with previous examination. Assessment and Plan (1) Anoxic brain injury Assessment & Plan: The patient was having clinical and electrographic seizures at some point, and Keppra was started. He is currently not having seizures and the most recent EEG was markedly suppressed. I recommend continuing the current dose of Keppra. If he does have clinical seizures, we may increase the dose to 1000 mg BID. The EEG pattern and the history of cardiac arrest along with PEA are all very poor prognostic indicators. The lack of response to pain and abnormal brainstem reflexes at 72 hours also indicated a poor outcome. Status: Acute
[2017-08-26] MEDS ORDERED: Midazolam 100 mg/100ml in NS 100 MG/100 ML SOL IV PRN (19:18)
[2017-08-26] MEDS: Midazolam 100 mg/100ml in NS 100 MG/100 ML SOL IV PRN (19:30)
--- NOTE | 2017-08-26 19:30 | PN ---
DATE: 08/26/2017 SUBJECTIVE: The patient has no complaints of any chest pain, no shortness of breath, no headache. The patient is intubated. PHYSICAL EXAMINATION: VITAL SIGNS: Temperature is 97, pulse of 87, blood pressure of 129/70, and respirations of 16. GENERAL: The patient is lying in bed, flat, comfortable. HEENT: No oral lesion. Anicteric sclerae. Moist mucosa. NECK: No JVD, adenopathy, or thyromegaly. CARDIOVASCULAR: S1 and S2, regular. No murmurs, rubs, or gallops. LUNGS: Clear to auscultation bilaterally. No wheeze, rales, or rhonchi. ABDOMEN: Bowel sounds are positive, soft, nontender and nondistended. EXTREMITIES: No cyanosis, clubbing or edema. LABORATORY DATA: White count is 9.2, hemoglobin is 11.1, and creatinine is 0.9. Chest x-ray done shows persistent right upper lobe infiltrate. CT of the head shows chronic infracts in the thalamus and basal ganglia bilaterally, severe chronic microvascular changes. Blood cultures and urine cultures are negative. ASSESSMENT: 1. Cardiac arrest. 2. Respiratory failure, on ventilator. 3. Community-acquired pneumonia. 4. Seizure disorder. 5. Hypokalemia, improved. 6. Hypophosphatemia, improved. 7. Hypomagnesemia, improved. 8. Shock liver, improved. 9. Do not resuscitate/allow natural . PLAN: The patient is currently comfortable. He is on heparin for DVT prophylaxis. The patient is on Keppra for his seizures. The patient is on IV fluid with normal saline. He is receiving vancomycin for antibiotics. He is on Zithromax as well. I did speak with the patient's POA yesterday to give an update on the patient's diagnosis and plan of care. The patient remains critically ill, I did speak to Julio César PAREKH, about end-of-life care and about withdrawal of treatment. Devante Rubin MD
[2017-08-26] MEDS: levETIRAcetam 1,000 MG in Sodium Chloride 0.9% 100 ML IV SCH (21:34)
--- NOTE | 2017-08-26 23:36 | CP.PCM.PN ---
Subjective - Date & Time of Evaluation Date of Evaluation: 08/26/17 Time of Evaluation: 16:00 - Subjective Subjective: Infectious Disease Follow Up: August 26, 2017 67 yo male with multiple medical issues. Patient was bought in by EMS after suffering cardiac arrest and PEA. Unknown how long the patient was down. The patient required 3 rounds of epinephrine and requiring intubation and ventilation. The patient is poorly responsive and the patient has been placed on hypothermia protocol. EEG being performed. No signs of brainstem reflexes. The patient does breath over the vent. No new changes. Antibiotics of Vancomycin and Azithromycin on board empirically. Low grade fevers but more likely central secondary to severe anoxic event. Objective - Vital Signs/Intake and Output Vital Signs (last 24 hours): Temp Pulse Resp BP Pulse Ox 100.2 F H 116 H 16 184/122 H 99 08/26/17 18:40 08/26/17 20:00 08/26/17 10:00 08/26/17 20:00 08/26/17 18:40 Intake and Output: 08/26/17 08/27/17 18:59 06:59 Intake Total 1371 Output Total 950 Balance 421 - Medications Medications: Current Medications Acetaminophen (Tylenol 650mg/20.3ml Solution Ud) 975 mg NG Q6 PRN PRN Reason: Rigors Aspirin (Aspirin Chewable) 81 mg PO DAILY [facility] Last Admin: 08/26/17 09:50 Dose: 81 mg Atorvastatin Calcium (Lipitor) 10 mg PO DIN [facility] Last Admin: 08/26/17 17:35 Dose: 10 mg Chlorhexidine Gluconate (Peridex) 15 ml PO Q4H PRN PRN Reason: oral care Last Admin: 08/26/17 17:35 Dose: 15 ml Heparin Sodium (Porcine) (Heparin) 5,000 units SC Q12 [facility] PRN Reason: Protocol Last Admin: 08/26/17 21:33 Dose: 5,000 units NOREPINEPHRINE BIT/0.9 % NACL (Levophed 4 Mg/ 250 Ml Ns Premixed) 4 mg in 250 mls @ 15 mls/hr IV .[id number] PRN; Protocol; 4 MCG/MIN PRN Reason: TITRATE PER MD ORDER Last Titration: 08/25/17 22:22 Dose: 0 mcg/min, 0 mls/hr Propofol (Diprivan) 1,000 mg in 100 mls @ 1.755 mls/hr IV .Q24H PRN; Protocol; 5 MCG/KG/MIN PRN Reason: TITRATE PER MD ORDER Last Titration: 08/26/17 16:00 Dose: 0 mcg/kg/min, 0 mls/hr Vancomycin HCl (Vancomycin 1gm) 1 gm in 250 mls @ 167 mls/hr IVPB DAILY [facility] PRN Reason: Protocol Last Admin: 08/26/17 09:52 Dose: 167 mls/hr Azithromycin (Zithromax 500mg In Ns) 500 mg in 250 mls @ 167 mls/hr IVPB DAILY [facility] PRN Reason: Protocol Last Admin: 08/26/17 09:51 Dose: 167 mls/hr Sodium Chloride (Sodium Chloride 0.9%) 1,000 mls @ 50 mls/hr IV .Q20H [facility] Last Admin: 08/26/17 07:01 Dose: 50 mls/hr Levetiracetam 1,000 mg/ Sodium (Chloride) 110 mls @ 460 mls/hr IV Q12 [facility] Last Admin: 08/26/17 21:34 Dose: 460 mls/hr Midazolam 100 mg/100ml in NS (Midazolam 100 Mg/100ml In Ns) 100 mg in 100 mls @ 5 mls/hr IV .Q20H PRN; Protocol; 5 MG/HR PRN Reason: Agitation Last Admin: 08/26/17 19:30 Dose: 5 mg/hr, 5 mls/hr Pantoprazole Sodium (Protonix Inj) 40 mg IVP 0600 [facility] Last Admin: 08/26/17 05:25 Dose: 40 mg - Labs Labs: 08/26/17 06:50 08/26/17 06:50 PT 12.0 SECONDS (9.4-12.5) 08/24/17 00:28 INR 1.10 (0.93-1.08) H 08/24/17 00:28 APTT 28.3 Seconds (25.1-36.5) 08/24/17 00:28 - Constitutional Appears: Chronically Ill - Head Exam Additional comments: obtunded, intubated, and ventilated. - Eye Exam Pupil Exam: Fixed Additional comments: dilated pupils. - ENT Exam ENT Exam: Mucous Membranes Moist, TM's Normal Bilaterally Additional comments: intubated and ventilated - Respiratory Exam Respiratory Exam: absent: Rales, Rhonchi, Wheezes Additional comments: intubated and ventilated. - Cardiovascular Exam Cardiovascular Exam: REGULAR RHYTHM, RRR, +S1, +S2 - GI/Abdominal Exam GI & Abdominal Exam: Distended, Soft, Normal Bowel Sounds. absent: Tenderness - Extremities Exam Extremities Exam: absent: Joint Swelling, Pedal Edema - Neurological Exam Neurological Exam: absent: Alert, Awake, Oriented x3 Additional comments: obtunded, intubated, ventilated, and poorly responsive even to noxious stimuli. - Psychiatric Exam Additional comments: Intubated, obtunded, sedated. - Skin Skin Exam: Intact, Normal Color Assessment and Plan - Assessment and Plan (Free Text) Assessment: 67 yo male with cardiac arrest and down for unknown period of time requiring 3 epinephrine courses with intubation and ventilation. The patient was NOT awake or alert at this time. No fevers of leukocytosis. ID called to rule out sepsis. Most of the patient's symptoms appear to be secondary to severe anoxia leading to significant anoxic brain injury. The patient has dilated pupils and fixed gaze. He is poorly responsive at this time. Currently, I do not see infection as having a role on this patient. Antibiotics of Vancomycin and Azithromycin are for empiric purposes at this time. Any fevers present are most likely secondary to central process which is secondary to the severe anoxic event. Supportive care. The patient has a dismal prognosis at this point. Thank you for allowing me to participate in the care of the patient, we will follow with you if needed.
[2017-08-27] MEDS: Sodium Chloride 0.9% 1,000 ML IV SCH (04:20)
[2017-08-27 05:46] LABS: ARTERIAL BLOOD GAS HCO3 20.6 mmol/L (21-28); ARTERIAL BLOOD GAS PH 7.46 (7.35-7.45)
[2017-08-27 06:43] LABS: BASO # 0.01 K/mm3 (0.0-2.0); BASO % 0.1 % (0.0-3.0); GRAN # 6.99 (1.4-6.5); GRAN % 78.7 % (50.0-68.0); LYMPH # 1.4 (1.2-3.4); LYMPH % 16.1 % (22.0-35.0); MEAN CELL VOLUME 87.8 fl (80.0-105.0); MEAN CORPUSCULAR HEMOGLOBIN 30.1 pg (25.0-35.0); MEAN CORPUSCULAR HGB CONC 34.2 g/dl (31.0-37.0); MEAN PLATELET VOLUME 11.2 fl (7.0-11.0); MONO # 0.5 (0.1-0.6); MONO % 5.1 % (1.0-6.0); RED CELL DISTRIBUTION WIDTH 13.1 % (11.5-14.5); WHITE BLOOD COUNT 8.9 10^3/ul (4.5-11.0)
[2017-08-27] MEDS: Midazolam 100 mg/100ml in NS 100 MG/100 ML SOL IV PRN (06:52)
[2017-08-27 06:55] LABS: ALKALINE PHOSPHATASE 120 U/L (38-126); ALT/SGPT 97 U/L (7-56); AST/SGOT 89 U/L (17-59); BILIRUBIN,TOTAL 0.6 mg/dL (0.2-1.3); BLOOD UREA NITROGEN 18 mg/dL (7-21); CARBON DIOXIDE 22 mmol/L (21-33); CHLORIDE 106 mmol/L (98-107); GFR AFRICAN-AMERICAN > 60; GLUCOSE,RANDOM 85 mg/dL (70-110); MAGNESIUM 1.7 mg/dL (1.7-2.2); PHOSPHOROUS 2.5 mg/dL (2.5-4.5); POTASSIUM 3.5 mmol/L (3.6-5.0); SODIUM 133 mmol/L (132-148); TOTAL PROTEIN 5.6 g/dL (5.8-8.3)
[2017-08-27] MEDS ORDERED: Magnesium Sulfate 1 gm in D5W 1 GM/100 ML BAG IVPB ONE (08:37)
[2017-08-27] MEDS: Vancomycin 1gm in NS 250ml 1 GM/250 ML BAG IVPB SCH (09:25)
[2017-08-27] MEDS: levETIRAcetam 1,000 MG in Sodium Chloride 0.9% 100 ML IV SCH ×2 (09:26→21:13)
[2017-08-27] MEDS: Azithromycin 500MG/NS 250ml 500 MG/250 ML BAG IVPB SCH (09:26)
--- NOTE | 2017-08-27 09:28 | RAD ---
HISTORY: intubated COMPARISON: 08/26/2017 FINDINGS: LUNGS: Subsegmental atelectasis at left base. No infiltrate. PLEURA: No significant pleural effusion identified, no pneumothorax apparent. CARDIOVASCULAR: Normal heart size. ET tube and NG tube unchanged position. OSSEOUS STRUCTURES: No significant abnormalities. VISUALIZED UPPER ABDOMEN: Normal. OTHER FINDINGS: None. IMPRESSION: Left basilar subsegmental atelectasis. No acute infiltrate.
[2017-08-27] MEDS: Potassium Chloride 20 MEQ in Dextrose 5%/0.9% NS 1,000 ML IV SCH (10:33)
--- NOTE | 2017-08-27 10:53 | PN ---
DATE: 08/27/2017 SUBJECTIVE: The patient is now complaining of chest pain. No shortness of breath and no headaches or dizziness. PHYSICAL EXAMINATION: VITAL SIGNS: Temperature is 97.3, pulse is 95, blood pressure is 169/97, and respirations are 19. GENERAL: The patient is lying in bed, flat, comfortable. HEENT: No oral lesion. Anicteric sclerae. Moist mucosa. NECK: No JVD, adenopathy, or thyromegaly. CARDIOVASCULAR: S1 and S2, regular. No murmurs, rubs, or gallops. LUNGS: Clear to auscultation bilaterally. No wheeze, rales, or rhonchi. ABDOMEN: Bowel sounds are positive, soft, nontender and nondistended. EXTREMITIES: No cyanosis, clubbing or edema. LABORATORY DATA: White count of 8.9 and hemoglobin of 11.3. Creatinine is 0.7 and potassium is 3.5. ASSESSMENT: 1. Cardiac arrest. 2. Status epilepticus. 3. Respiratory failure, on ventilator. 4. Community-acquired pneumonia. 5. Seizure disorder. 6. Hypokalemia improved. 7. Hypophosphatemia improved. 8. Hypomagnesemia improved. 9. Shock liver improving. 10. Do not resuscitate/allow natural . PLAN: The patient is currently comfortable. He is receiving IV fluids with D5 normal saline. The patient is on heparin for deep venous thrombosis prophylaxis, he is on Keppra. The patient is on Lipitor for dyslipidemia. The patient remains on midazolam because he has seizures when his sedation is decreased. This was witnessed by the nurse and the resident of the hospital. He is not having any breakthrough seizures. The patient's overall prognosis is poor. He has abnormal brainstem reflexes in 72 hours according to Neurology. I will speak to the patient's POA regarding end of life care and withdrawal of care as well. The patient's cultures have been negative. Devante Rubin MD
--- NOTE | 2017-08-27 12:22 | CP.CCUPN ---
<Juan J Mendieta - Last Filed: 08/27/17 12:19> CCU Subjective - Physician Review Subjective (Free Text): 08/27/17 12:19 Juan J Mendieta D.O. PGY-2, Critical Care Progress Note 67 year old male with a PMH of Parkinson's disease, seizure disorder, and developmental delay who was found down for an uncertain amount of time, found to be in cardiopulmonary arrest, CPR initiated by paramedics with ROSC after 3 rounds of epinephrine and intubated on the field, s/p cooling protocol without improvement in mental status. Patient was seen and examined at bedside. Patient continues to be intubated at this time. Court appointed guardian/[id number] is present at bedside with patient's two caretakers. Guardian would like to withdraw care at this time given patient's prognosis. CCU Objective - Vital Signs / Intake & Output Vital Signs (Last 4 hours): Vital Signs Temp Pulse Resp BP Pulse Ox 08/27/17 11:00 97.0 F L 84 147/84 99 08/27/17 10:50 97.0 F L 84 98 08/27/17 10:40 97.2 F L 84 99 08/27/17 10:30 97.2 F L 84 99 08/27/17 10:20 97.2 F L 84 99 08/27/17 10:10 97.2 F L 85 99 08/27/17 10:00 97.2 F L 86 20 157/91 H 99 08/27/17 09:50 97.2 F L 86 99 08/27/17 09:40 97.2 F L 87 98 08/27/17 09:30 97.2 F L 88 99 08/27/17 09:20 97.2 F L 88 99 08/27/17 09:10 97.2 F L 89 99 08/27/17 09:00 97.2 F L 88 146/96 H 99 08/27/17 08:50 97.2 F L 88 99 08/27/17 08:40 97.2 F L 90 98 08/27/17 08:30 97.0 F L 95 H 98 08/27/17 08:20 97.0 F L 96 H 98 Intake and Output (Last 8hrs): Intake & Output 08/26/17 08/27/17 08/27/17 22:59 06:59 14:59 Intake Total 1323 800 Output Total 950 1300 Balance 373 -500 Weight 60.328 kg 60.328 kg Intake: IV 1323 800 IVF 600 700 Propofol 32 Right Antecubital 600 Versed 23 Oral 0 Output: Gastric Amount 0 Stomach 0 Urine 950 1300 Urethral (Renee) 950 1300 Other: # Bowel Movements 0 0 - Physical Exam Head: Positive for: Atraumatic, Normocephalic Pupils: Positive for: Other (Pupils 3mm and minimally reactive bilaterally) Conjunctiva: Positive for: Normal Ears: Positive for: Normal Mouth: Positive for: Moist Mucous Membranes, Other (intubated) Pharnyx: Positive for: Normal Nose (External): Positive for: Atraumatic Neck: Positive for: Trachea Midline Respiratory/Chest: Positive for: Clear to Auscultation, Other (Clear Breath Sounds bilaterally with ventilation, no signs of trauma) Cardiovascular: Positive for: Normal S1, S2. Negative for: Murmurs, Rub Abdomen: Positive for: Normal Bowel Sounds. Negative for: Tenderness, Peritoneal Signs Upper Extremity: Negative for: Edema Lower Extremity: Positive for: Other (Poor perfusion, cool to touch bilaterally) Neurological: Positive for: Other (comatose, off sedation no cough, no corneal reflex, pupils nonreactive, GCS 3). Negative for: GCS=15 (GCS=3 while off versed) Skin: Positive for: Dry. Negative for: Rashes - Medications Active Medications: Active Medications Generic Name Dose Route Start Last Admin Trade Name Freq PRN Reason Stop Dose Admin Acetaminophen 975 mg 08/23/17 23:42 Tylenol 650mg/20.3ml Solution Ud NG Q6 PRN Rigors Aspirin 81 mg 08/24/17 12:15 08/27/17 09:27 Aspirin Chewable PO 81 mg DAILY UMBERTO Administration Atorvastatin Calcium 10 mg 08/24/17 17:00 08/26/17 17:35 Lipitor PO 10 mg DIN UMBERTO Administration Chlorhexidine Gluconate 15 ml 08/24/17 02:14 08/26/17 17:35 Peridex PO 15 ml Q4H PRN Administration oral care Heparin Sodium (Porcine) 5,000 units 08/24/17 10:00 08/27/17 09:27 Heparin SC 5,000 units Q12 UMBERTO Administration Protocol NOREPINEPHRINE BIT/0.9 % NACL 4 mg in 250 mls @ 15 mls/hr 08/23/17 20:54 22:22 Levophed 4 Mg/ 250 Ml Ns Premixed IV 0 mcg/min .[id number] PRN 0 mls/hr TITRATE PER MD ORDER Titration Protocol 4 MCG/MIN Propofol 1,000 mg in 100 mls @ 1.755 mls/hr 08/24/17 08:32 08/26/17 16:00 Diprivan IV 0 mcg/kg/min .Q24H PRN 0 mls/hr TITRATE PER MD ORDER Titration Protocol 5 MCG/KG/MIN Vancomycin HCl 1 gm in 250 mls @ 167 mls/hr 08/24/17 10:00 08/27/17 09:25 Vancomycin 1gm IVPB 167 mls/hr DAILY UMBERTO Administration Protocol Azithromycin 500 mg in 250 mls @ 167 mls/hr 08/24/17 10:00 08/27/17 09:26 Zithromax 500mg In Ns IVPB 167 mls/hr DAILY UMBERTO Administration Protocol Levetiracetam 1,000 mg/ Sodium 110 mls @ 460 mls/hr 08/26/17 22:00 08/27/17 09:26 Chloride IV 460 mls/hr Q12 UMBERTO Administration Midazolam 100 mg/100ml in NS 100 mg in 100 mls @ 5 mls/hr 08/26/17 19:18 06:52 Midazolam 100 Mg/100ml In Ns IV 5 mg/hr .Q20H PRN 5 mls/hr Agitation Administration Protocol 5 MG/HR Potassium Chloride 20 meq/ 1,010 mls @ 50 mls/hr 08/27/17 08:45 08/27/17 10: 33 Dextrose/Sodium Chloride IV 50 mls/hr .[id number] UMBERTO Administration Pantoprazole Sodium 40 mg 08/24/17 06:00 08/26/17 05:25 Protonix Inj IVP 40 mg 0600 UMBERTO Administration - Patient Studies Lab Studies: Lab Studies 08/27/17 08/27/17 08/27/17 Range/Units 06:15 06:15 05:30 WBC 8.9 (4.5-11.0) 10^3/ul RBC 3.76 (3.5-6.1) 10^6/uL Hgb 11.3 L (14.0-18.0) g/dL Hct 33.0 L (42.0-52.0) % MCV 87.8 (80.0-105.0) fl MCH 30.1 (25.0-35.0) pg MCHC 34.2 (31.0-37.0) g/dl RDW 13.1 (11.5-14.5) % Plt Count 158 (120.0-450.0) 10^3/uL MPV 11.2 H (7.0-11.0) fl Gran % 78.7 H (50.0-68.0) % Lymph % (Auto) 16.1 L (22.0-35.0) % Cowley % (Auto) 5.1 (1.0-6.0) % Eos % (Auto) 0.0 L (1.5-5.0) % Baso % (Auto) 0.1 (0.0-3.0) % Gran # 6.99 H (1.4-6.5) Lymph # 1.4 (1.2-3.4) Cowley # 0.5 (0.1-0.6) Eos # 0.0 (0.0-0.7) Baso # 0.01 (0.0-2.0) K/mm3 pCO2 29 L (35-45) mm/Hg pO2 118.0 H (80-100) mm/Hg HCO3 20.6 L (21-28) mmol/L ABG pH 7.46 H (7.35-7.45) ABG Total CO2 21.5 L (22-28) mmol.L ABG O2 Saturation 97.9 (95-98) % ABG Base Excess -2.1 L (-2.0-3.0) mmol/L ABG Potassium 3.4 L (3.6-5.2) mmol/L Sodium 133 135.0 (132-148) mmol/L Chloride 106 TEST NOT PERFORMED Glucose 79 (75-110) mg/dl Lactate 0.7 (0.7-2.1) mmol/L FiO2 40.0 % Potassium 3.5 L (3.6-5.0) mmol/L Carbon Dioxide 22 (21-33) mmol/L Anion Gap 8 L (10-20) BUN 18 (7-21) mg/dL Creatinine 0.7 L (0.8-1.5) mg/dl Est GFR ( Amer) > 60 Est GFR (Non-Af Amer) > 60 POC Glucose (mg/dL) (65-110) mg/dL Random Glucose 85 (70-110) mg/dL Calcium 8.0 L (8.4-10.5) mg/dL Phosphorus 2.5 (2.5-4.5) mg/dL Magnesium 1.7 (1.7-2.2) mg/dL Total Bilirubin 0.6 (0.2-1.3) mg/dL AST 89 H (17-59) U/L ALT 97 H (7-56) U/L Alkaline Phosphatase 120 (38-126) U/L Total Protein 5.6 L (5.8-8.3) g/dL Albumin 2.8 L (3.0-4.8) g/dL Globulin 2.8 gm/dL Albumin/Globulin Ratio 1.0 L (1.1-1.8) Arterial Blood Potassium 3.4 L (3.6-5.2) mmol/L Ur Strep pneumoniae Ag 08/26/17 08/26/17 08/26/17 Range/Units 21:48 16:18 11:02 WBC (4.5-11.0) 10^3/ul RBC (3.5-6.1) 10^6/uL Hgb (14.0-18.0) g/dL Hct (42.0-52.0) % MCV (80.0-105.0) fl MCH (25.0-35.0) pg MCHC (31.0-37.0) g/dl RDW (11.5-14.5) % Plt Count (120.0-450.0) 10^3/uL MPV (7.0-11.0) fl Gran % (50.0-68.0) % Lymph % (Auto) (22.0-35.0) % Cowley % (Auto) (1.0-6.0) % Eos % (Auto) (1.5-5.0) % Baso % (Auto) (0.0-3.0) % Gran # (1.4-6.5) Lymph # (1.2-3.4) Cowley # (0.1-0.6) Eos # (0.0-0.7) Baso # (0.0-2.0) K/mm3 pCO2 (35-45) mm/Hg pO2 (80-100) mm/Hg HCO3 (21-28) mmol/L ABG pH (7.35-7.45) ABG Total CO2 (22-28) mmol.L ABG O2 Saturation (95-98) % ABG Base Excess (-2.0-3.0) mmol/L ABG Potassium (3.6-5.2) mmol/L Sodium (132-148) mmol/L Chloride Glucose (75-110) mg/dl Lactate (0.7-2.1) mmol/L FiO2 % Potassium (3.6-5.0) mmol/L Carbon Dioxide (21-33) mmol/L Anion Gap (10-20) BUN (7-21) mg/dL Creatinine (0.8-1.5) mg/dl Est GFR ( Amer) Est GFR (Non-Af Amer) POC Glucose (mg/dL) 92 145 H 94 (65-110) mg/dL Random Glucose (70-110) mg/dL Calcium (8.4-10.5) mg/dL Phosphorus (2.5-4.5) mg/dL Magnesium (1.7-2.2) mg/dL Total Bilirubin (0.2-1.3) mg/dL AST (17-59) U/L ALT (7-56) U/L Alkaline Phosphatase (38-126) U/L Total Protein (5.8-8.3) g/dL Albumin (3.0-4.8) g/dL Globulin gm/dL Albumin/Globulin Ratio (1.1-1.8) Arterial Blood Potassium (3.6-5.2) mmol/L Ur Strep pneumoniae Ag 08/26/17 08/24/17 Range/Units 07:29 12:19 WBC (4.5-11.0) 10^3/ul RBC (3.5-6.1) 10^6/uL Hgb (14.0-18.0) g/dL Hct (42.0-52.0) % MCV (80.0-105.0) fl MCH (25.0-35.0) pg MCHC (31.0-37.0) g/dl RDW (11.5-14.5) % Plt Count (120.0-450.0) 10^3/uL MPV (7.0-11.0) fl Gran % (50.0-68.0) % Lymph % (Auto) (22.0-35.0) % Cowley % (Auto) (1.0-6.0) % Eos % (Auto) (1.5-5.0) % Baso % (Auto) (0.0-3.0) % Gran # (1.4-6.5) Lymph # (1.2-3.4) Cowley # (0.1-0.6) Eos # (0.0-0.7) Baso # (0.0-2.0) K/mm3 pCO2 (35-45) mm/Hg pO2 (80-100) mm/Hg HCO3 (21-28) mmol/L ABG pH (7.35-7.45) ABG Total CO2 (22-28) mmol.L ABG O2 Saturation (95-98) % ABG Base Excess (-2.0-3.0) mmol/L ABG Potassium (3.6-5.2) mmol/L Sodium (132-148) mmol/L Chloride Glucose (75-110) mg/dl Lactate (0.7-2.1) mmol/L FiO2 % Potassium (3.6-5.0) mmol/L Carbon Dioxide (21-33) mmol/L Anion Gap (10-20) BUN (7-21) mg/dL Creatinine (0.8-1.5) mg/dl Est GFR ( Amer) Est GFR (Non-Af Amer) POC Glucose (mg/dL) 114 H (65-110) mg/dL Random Glucose (70-110) mg/dL Calcium (8.4-10.5) mg/dL Phosphorus (2.5-4.5) mg/dL Magnesium (1.7-2.2) mg/dL Total Bilirubin (0.2-1.3) mg/dL AST (17-59) U/L ALT (7-56) U/L Alkaline Phosphatase (38-126) U/L Total Protein (5.8-8.3) g/dL Albumin (3.0-4.8) g/dL Globulin gm/dL Albumin/Globulin Ratio (1.1-1.8) Arterial Blood Potassium (3.6-5.2) mmol/L Ur Strep pneumoniae Ag Not detected Laboratory Results - last 24 hr 08/24/17 08/26/17 08/26/17 12:19 07:29 11:02 WBC RBC Hgb Hct MCV MCH MCHC RDW Plt Count MPV Gran % Lymph % (Auto) Cowley % (Auto) Eos % (Auto) Baso % (Auto) Gran # Lymph # Cowley # Eos # Baso # pCO2 pO2 HCO3 ABG pH ABG Total CO2 ABG O2 Saturation ABG Base Excess ABG Potassium Sodium Chloride Glucose Lactate FiO2 Potassium Carbon Dioxide Anion Gap BUN Creatinine Est GFR ( Amer) Est GFR (Non-Af Amer) POC Glucose (mg/dL) 114 H 94 Random Glucose Calcium Phosphorus Magnesium Total Bilirubin AST ALT Alkaline Phosphatase Total Protein Albumin Globulin Albumin/Globulin Ratio Arterial Blood Potassium Ur Strep pneumoniae Ag Not detected 08/26/17 08/26/17 08/27/17 16:18 21:48 05:30 WBC RBC Hgb Hct MCV MCH MCHC RDW Plt Count MPV Gran % Lymph % (Auto) Cowley % (Auto) Eos % (Auto) Baso % (Auto) Gran # Lymph # Cowley # Eos # Baso # pCO2 29 L pO2 118.0 H HCO3 20.6 L ABG pH 7.46 H ABG Total CO2 21.5 L ABG O2 Saturation 97.9 ABG Base Excess -2.1 L ABG Potassium 3.4 L Sodium 135.0 Chloride TEST NOT PERFORMED Glucose 79 Lactate 0.7 FiO2 40.0 Potassium Carbon Dioxide Anion Gap BUN Creatinine Est GFR ( Amer) Est GFR (Non-Af Amer) POC Glucose (mg/dL) 145 H 92 Random Glucose Calcium Phosphorus Magnesium Total Bilirubin AST ALT Alkaline Phosphatase Total Protein Albumin Globulin Albumin/Globulin Ratio Arterial Blood Potassium 3.4 L Ur Strep pneumoniae Ag 08/27/17 08/27/17 06:15 06:15 WBC 8.9 RBC 3.76 Hgb 11.3 L Hct 33.0 L MCV 87.8 MCH 30.1 MCHC 34.2 RDW 13.1 Plt Count 158 MPV 11.2 H Gran % 78.7 H Lymph % (Auto) 16.1 L Cowley % (Auto) 5.1 Eos % (Auto) 0.0 L Baso % (Auto) 0.1 Gran # 6.99 H Lymph # 1.4 Cowley # 0.5 Eos # 0.0 Baso # 0.01 pCO2 pO2 HCO3 ABG pH ABG Total CO2 ABG O2 Saturation ABG Base Excess ABG Potassium Sodium 133 Chloride 106 Glucose Lactate FiO2 Potassium 3.5 L Carbon Dioxide 22 Anion Gap 8 L BUN 18 Creatinine 0.7 L Est GFR ( Amer) > 60 Est GFR (Non-Af Amer) > 60 POC Glucose (mg/dL) Random Glucose 85 Calcium 8.0 L Phosphorus 2.5 Magnesium 1.7 Total Bilirubin 0.6 AST 89 H ALT 97 H Alkaline Phosphatase 120 Total Protein 5.6 L Albumin 2.8 L Globulin 2.8 Albumin/Globulin Ratio 1.0 L Arterial Blood Potassium Ur Strep pneumoniae Ag Fingerstick Blood Sugar Results: 92 Assessment/Plan - Assessment and Plan (Free Text) Assessment: 67 year old male with a PMH of Parkinson's disease, seizure disorder, and developmental delay who was found down for an uncertain amount of time, found to be in cardiopulmonary arrest, CPR initiated by paramedics with ROSC after 3 rounds of epinephrine and intubated on the field, s/p cooling protocol without improvement in mental status, with plan now for withdrawal of care and comfort only per guardian Plan: Extensive discussion with guardian present at bedside, discussed prognosis at length, decision was made to officially withdraw care from the patient and provide only comfort. Guardian inquired about [employer] and whether organ donation was allowable under the [employer] arsh. Discussed with [employer] who confirmed that under [employer] ar[employer] organ donation is not allowable. [employer] notified. Guardian states that in order to get affairs in order and after discussing with rest of consultants he would like to wait for the exact time of extubation and will specify with us when this would be. We will continue antiepileptics at this time. We will prioritize comfort. No more lab draws. Patient was seen and examined and case was discussed at length with attending physician. - Date & Time Date: 08/27/17 Time: 08:00 <Jose Coon - Last Filed: 08/27/17 15:11> CCU Objective - Vital Signs / Intake & Output Intake and Output (Last 8hrs): Intake & Output 11/19/17 11/19/17 11/19/17 06:59 14:59 22:59 Intake Total 800 Output Total 1300 Balance -500 Weight 133 lb 133 lb Intake: IV 800 IVF 700 Oral 0 Output: Urine 1300 Urethral (Renee) 1300 Other: # Bowel Movements 0 - Medications Active Medications: Active Medications Generic Name Dose Route Start Last Admin Trade Name Freq PRN Reason Stop Dose Admin Acetaminophen 975 mg 08/23/17 23:42 Tylenol 650mg/20.3ml Solution Ud NG Q6 PRN Rigors Aspirin 81 mg 08/24/17 12:15 08/27/17 09:27 Aspirin Chewable PO 81 mg DAILY UMBERTO Administration Atorvastatin Calcium 10 mg 08/24/17 17:00 08/26/17 17:35 Lipitor PO 10 mg DIN UMBERTO Administration Chlorhexidine Gluconate 15 ml 08/24/17 02:14 08/26/17 17:35 Peridex PO 15 ml Q4H PRN Administration oral care Heparin Sodium (Porcine) 5,000 units 08/24/17 10:00 08/27/17 09:27 Heparin SC 5,000 units Q12 UMBERTO Administration Protocol NOREPINEPHRINE BIT/0.9 % NACL 4 mg in 250 mls @ 15 mls/hr 08/23/17 20:54 22:22 Levophed 4 Mg/ 250 Ml Ns Premixed IV 0 mcg/min .[id number] PRN 0 mls/hr TITRATE PER MD ORDER Titration Protocol 4 MCG/MIN Propofol 1,000 mg in 100 mls @ 1.755 mls/hr 08/24/17 08:32 08/26/17 16:00 Diprivan IV 0 mcg/kg/min .Q24H PRN 0 mls/hr TITRATE PER MD ORDER Titration Protocol 5 MCG/KG/MIN Vancomycin HCl 1 gm in 250 mls @ 167 mls/hr 08/24/17 10:00 08/27/17 09:25 Vancomycin 1gm IVPB 167 mls/hr DAILY UMBERTO Administration Protocol Azithromycin 500 mg in 250 mls @ 167 mls/hr 08/24/17 10:00 08/27/17 09:26 Zithromax 500mg In Ns IVPB 167 mls/hr DAILY UMBERTO Administration Protocol Levetiracetam 1,000 mg/ Sodium 110 mls @ 460 mls/hr 08/26/17 22:00 08/27/17 09:26 Chloride IV 460 mls/hr Q12 UMBERTO Administration Midazolam 100 mg/100ml in NS 100 mg in 100 mls @ 5 mls/hr 08/26/17 19:18 06:52 Midazolam 100 Mg/100ml In Ns IV 5 mg/hr .Q20H PRN 5 mls/hr Agitation Administration Protocol 5 MG/HR Potassium Chloride 20 meq/ 1,010 mls @ 50 mls/hr 08/27/17 08:45 08/27/17 10: 33 Dextrose/Sodium Chloride IV 50 mls/hr .[id number] UMBERTO Administration Morphine Sulfate 25 mls @ 1 mls/hr 08/27/17 15:00 Morphine Design/Animation Instructor 1 Mg/Ml IV PRN PRN CREDIT REVIEW MANAGER PER MD ORDER Protocol 1 MG/HR Morphine Sulfate 1 mg 08/27/17 14:59 Morphine IVP Q1H PRN SOB Pantoprazole Sodium 40 mg 08/24/17 06:00 08/26/17 05:25 Protonix Inj IVP 40 mg 0600 UMBERTO Administration - Patient Studies Lab Studies: Lab Studies 08/27/17 08/27/17 08/27/17 Range/Units 06:15 06:15 05:30 WBC 8.9 (4.5-11.0) 10^3/ul RBC 3.76 (3.5-6.1) 10^6/uL Hgb 11.3 L (14.0-18.0) g/dL Hct 33.0 L (42.0-52.0) % MCV 87.8 (80.0-105.0) fl MCH 30.1 (25.0-35.0) pg MCHC 34.2 (31.0-37.0) g/dl RDW 13.1 (11.5-14.5) % Plt Count 158 (120.0-450.0) 10^3/uL MPV 11.2 H (7.0-11.0) fl Gran % 78.7 H (50.0-68.0) % Lymph % (Auto) 16.1 L (22.0-35.0) % Cowley % (Auto) 5.1 (1.0-6.0) % Eos % (Auto) 0.0 L (1.5-5.0) % Baso % (Auto) 0.1 (0.0-3.0) % Gran # 6.99 H (1.4-6.5) Lymph # 1.4 (1.2-3.4) Cowley # 0.5 (0.1-0.6) Eos # 0.0 (0.0-0.7) Baso # 0.01 (0.0-2.0) K/mm3 pCO2 29 L (35-45) mm/Hg pO2 118.0 H (80-100) mm/Hg HCO3 20.6 L (21-28) mmol/L ABG pH 7.46 H (7.35-7.45) ABG Total CO2 21.5 L (22-28) mmol.L ABG O2 Saturation 97.9 (95-98) % ABG Base Excess -2.1 L (-2.0-3.0) mmol/L ABG Potassium 3.4 L (3.6-5.2) mmol/L Sodium 133 135.0 (132-148) mmol/L Chloride 106 TEST NOT PERFORMED Glucose 79 (75-110) mg/dl Lactate 0.7 (0.7-2.1) mmol/L FiO2 40.0 % Potassium 3.5 L (3.6-5.0) mmol/L Carbon Dioxide 22 (21-33) mmol/L Anion Gap 8 L (10-20) BUN 18 (7-21) mg/dL Creatinine 0.7 L (0.8-1.5) mg/dl Est GFR ( Amer) > 60 Est GFR (Non-Af Amer) > 60 POC Glucose (mg/dL) (65-110) mg/dL Random Glucose 85 (70-110) mg/dL Calcium 8.0 L (8.4-10.5) mg/dL Phosphorus 2.5 (2.5-4.5) mg/dL Magnesium 1.7 (1.7-2.2) mg/dL Total Bilirubin 0.6 (0.2-1.3) mg/dL AST 89 H (17-59) U/L ALT 97 H (7-56) U/L Alkaline Phosphatase 120 (38-126) U/L Total Protein 5.6 L (5.8-8.3) g/dL Albumin 2.8 L (3.0-4.8) g/dL Globulin 2.8 gm/dL Albumin/Globulin Ratio 1.0 L (1.1-1.8) Arterial Blood Potassium 3.4 L (3.6-5.2) mmol/L Ur Strep pneumoniae Ag 08/26/17 08/26/17 08/26/17 Range/Units 21:48 16:18 11:02 WBC (4.5-11.0) 10^3/ul RBC (3.5-6.1) 10^6/uL Hgb (14.0-18.0) g/dL Hct (42.0-52.0) % MCV (80.0-105.0) fl MCH (25.0-35.0) pg MCHC (31.0-37.0) g/dl RDW (11.5-14.5) % Plt Count (120.0-450.0) 10^3/uL MPV (7.0-11.0) fl Gran % (50.0-68.0) % Lymph % (Auto) (22.0-35.0) % Cowley % (Auto) (1.0-6.0) % Eos % (Auto) (1.5-5.0) % Baso % (Auto) (0.0-3.0) % Gran # (1.4-6.5) Lymph # (1.2-3.4) Cowley # (0.1-0.6) Eos # (0.0-0.7) Baso # (0.0-2.0) K/mm3 pCO2 (35-45) mm/Hg pO2 (80-100) mm/Hg HCO3 (21-28) mmol/L ABG pH (7.35-7.45) ABG Total CO2 (22-28) mmol.L ABG O2 Saturation (95-98) % ABG Base Excess (-2.0-3.0) mmol/L ABG Potassium (3.6-5.2) mmol/L Sodium (132-148) mmol/L Chloride Glucose (75-110) mg/dl Lactate (0.7-2.1) mmol/L FiO2 % Potassium (3.6-5.0) mmol/L Carbon Dioxide (21-33) mmol/L Anion Gap (10-20) BUN (7-21) mg/dL Creatinine (0.8-1.5) mg/dl Est GFR ( Amer) Est GFR (Non-Af Amer) POC Glucose (mg/dL) 92 145 H 94 (65-110) mg/dL Random Glucose (70-110) mg/dL Calcium (8.4-10.5) mg/dL Phosphorus (2.5-4.5) mg/dL Magnesium (1.7-2.2) mg/dL Total Bilirubin (0.2-1.3) mg/dL AST (17-59) U/L ALT (7-56) U/L Alkaline Phosphatase (38-126) U/L Total Protein (5.8-8.3) g/dL Albumin (3.0-4.8) g/dL Globulin gm/dL Albumin/Globulin Ratio (1.1-1.8) Arterial Blood Potassium (3.6-5.2) mmol/L Ur Strep pneumoniae Ag 08/26/17 08/24/17 Range/Units 07:29 12:19 WBC (4.5-11.0) 10^3/ul RBC (3.5-6.1) 10^6/uL Hgb (14.0-18.0) g/dL Hct (42.0-52.0) % MCV (80.0-105.0) fl MCH (25.0-35.0) pg MCHC (31.0-37.0) g/dl RDW (11.5-14.5) % Plt Count (120.0-450.0) 10^3/uL MPV (7.0-11.0) fl Gran % (50.0-68.0) % Lymph % (Auto) (22.0-35.0) % Cowley % (Auto) (1.0-6.0) % Eos % (Auto) (1.5-5.0) % Baso % (Auto) (0.0-3.0) % Gran # (1.4-6.5) Lymph # (1.2-3.4) Cowley # (0.1-0.6) Eos # (0.0-0.7) Baso # (0.0-2.0) K/mm3 pCO2 (35-45) mm/Hg pO2 (80-100) mm/Hg HCO3 (21-28) mmol/L ABG pH (7.35-7.45) ABG Total CO2 (22-28) mmol.L ABG O2 Saturation (95-98) % ABG Base Excess (-2.0-3.0) mmol/L ABG Potassium (3.6-5.2) mmol/L Sodium (132-148) mmol/L Chloride Glucose (75-110) mg/dl Lactate (0.7-2.1) mmol/L FiO2 % Potassium (3.6-5.0) mmol/L Carbon Dioxide (21-33) mmol/L Anion Gap (10-20) BUN (7-21) mg/dL Creatinine (0.8-1.5) mg/dl Est GFR ( Amer) Est GFR (Non-Af Amer) POC Glucose (mg/dL) 114 H (65-110) mg/dL Random Glucose (70-110) mg/dL Calcium (8.4-10.5) mg/dL Phosphorus (2.5-4.5) mg/dL Magnesium (1.7-2.2) mg/dL Total Bilirubin (0.2-1.3) mg/dL AST (17-59) U/L ALT (7-56) U/L Alkaline Phosphatase (38-126) U/L Total Protein (5.8-8.3) g/dL Albumin (3.0-4.8) g/dL Globulin gm/dL Albumin/Globulin Ratio (1.1-1.8) Arterial Blood Potassium (3.6-5.2) mmol/L Ur Strep pneumoniae Ag Not detected Laboratory Results - last 24 hr 08/24/17 08/26/17 08/26/17 12:19 07:29 11:02 WBC RBC Hgb Hct MCV MCH MCHC RDW Plt Count MPV Gran % Lymph % (Auto) [place] % (Auto) Eos % (Auto) Baso % (Auto) Gran # Lymph # [place] # Eos # Baso # pCO2 pO2 HCO3 ABG pH ABG Total CO2 ABG O2 Saturation ABG Base Excess ABG Potassium Sodium Chloride Glucose Lactate FiO2 Potassium Carbon Dioxide Anion Gap BUN Creatinine Est GFR ( Amer) Est GFR (Non-Af Amer) POC Glucose (mg/dL) 114 H 94 Random Glucose Calcium Phosphorus Magnesium Total Bilirubin AST ALT Alkaline Phosphatase Total Protein Albumin Globulin Albumin/Globulin Ratio Arterial Blood Potassium Ur Strep pneumoniae Ag Not detected 08/26/17 08/26/17 08/27/17 16:18 21:48 05:30 WBC RBC Hgb Hct MCV MCH MCHC RDW Plt Count MPV Gran % Lymph % (Auto) [place] % (Auto) Eos % (Auto) Baso % (Auto) Gran # Lymph # [place] # Eos # Baso # pCO2 29 L pO2 118.0 H HCO3 20.6 L ABG pH 7.46 H ABG Total CO2 21.5 L ABG O2 Saturation 97.9 ABG Base Excess -2.1 L ABG Potassium 3.4 L Sodium 135.0 Chloride TEST NOT PERFORMED Glucose 79 Lactate 0.7 FiO2 40.0 Potassium Carbon Dioxide Anion Gap BUN Creatinine Est GFR ( Amer) Est GFR (Non-Af Amer) POC Glucose (mg/dL) 145 H 92 Random Glucose Calcium Phosphorus Magnesium Total Bilirubin AST ALT Alkaline Phosphatase Total Protein Albumin Globulin Albumin/Globulin Ratio Arterial Blood Potassium 3.4 L Ur Strep pneumoniae Ag 08/27/17 08/27/17 06:15 06:15 WBC 8.9 RBC 3.76 Hgb 11.3 L Hct 33.0 L MCV 87.8 MCH 30.1 MCHC 34.2 RDW 13.1 Plt Count 158 MPV 11.2 H Gran % 78.7 H Lymph % (Auto) 16.1 L [place] % (Auto) 5.1 Eos % (Auto) 0.0 L Baso % (Auto) 0.1 Gran # 6.99 H Lymph # 1.4 [place] # 0.5 Eos # 0.0 Baso # 0.01 pCO2 pO2 HCO3 ABG pH ABG Total CO2 ABG O2 Saturation ABG Base Excess ABG Potassium Sodium 133 Chloride 106 Glucose Lactate FiO2 Potassium 3.5 L Carbon Dioxide 22 Anion Gap 8 L BUN 18 Creatinine 0.7 L Est GFR ( Amer) > 60 Est GFR (Non-Af Amer) > 60 POC Glucose (mg/dL) Random Glucose 85 Calcium 8.0 L Phosphorus 2.5 Magnesium 1.7 Total Bilirubin 0.6 AST 89 H ALT 97 H Alkaline Phosphatase 120 Total Protein 5.6 L Albumin 2.8 L Globulin 2.8 Albumin/Globulin Ratio 1.0 L Arterial Blood Potassium Ur Strep pneumoniae Ag Attending/Attestation - Attestation I have personally seen and examined this patient.: Yes I have fully participated in the care of the patient.: Yes I have reviewed all pertinent clinical information: Yes Notes (Text): 08/27/17 15:08 67 yo male with Parkinson and seziure disorder s/p PEA arrest, anoxic brain injury, vent dependent. Had lenghty discussion with family today, they requested terminal extubation/comfort care only. ccm time 40 min
[2017-08-27] MEDS ORDERED: Morphine 2 mg/ml ISec IVP PRN (14:56)
[2017-08-27] MEDS ORDERED: Morphine 5 MG/ML SYRINGE IVP PRN (14:59)
[2017-08-27] MEDS ORDERED: Morphine PCA 1 mg/ml (25ml) 25 ML IV PRN ×3 (15:00→19:36)
[2017-08-27] MEDS ORDERED: Morphine 5 MG/ML SYRINGE IVP STA (15:00)
[2017-08-27] MEDS: Chlorhexidine 0.12% Oral Sol 480 ml Bot PO PRN (16:52)
[2017-08-27] MEDS: Morphine PCA 1 mg/ml (25ml) 25 ML IV PRN (20:00)
--- NOTE | 2017-08-27 20:11 | CP.PCM.PN ---
Subjective - Date & Time of Evaluation Date of Evaluation: 08/27/17 Time of Evaluation: 18:00 - Subjective Subjective: Infectious Disease Follow Up: August 27, 2017 67 yo male with multiple medical issues. Patient was bought in by EMS after suffering cardiac arrest and PEA. Unknown how long the patient was down. The patient required 3 rounds of epinephrine and requiring intubation and ventilation. The patient is poorly responsive and the patient has been placed on hypothermia protocol. EEG being performed. No signs of brainstem reflexes. The patient does breath over the vent. No new changes. Antibiotics of Vancomycin and Azithromycin on board empirically. Low grade fevers but more likely central secondary to severe anoxic event. Court Appointed Guardian has decided on terminal extubation and comfort care at this time. Objective - Vital Signs/Intake and Output Vital Signs (last 24 hours): Temp Pulse Resp BP Pulse Ox 97.5 F L 102 H 22 166/84 H 99 08/27/17 16:00 08/27/17 16:00 08/27/17 15:50 08/27/17 16:00 08/27/17 16:00 - Medications Medications: Current Medications Acetaminophen (Tylenol 650mg/20.3ml Solution Ud) 975 mg NG Q6 PRN PRN Reason: Rigors Aspirin (Aspirin Chewable) 81 mg PO DAILY [facility] Last Admin: 08/27/17 09:27 Dose: 81 mg Atorvastatin Calcium (Lipitor) 10 mg PO DIN [facility] Last Admin: 08/27/17 16:52 Dose: Not Given Chlorhexidine Gluconate (Peridex) 15 ml PO Q4H PRN PRN Reason: oral care Last Admin: 08/27/17 16:52 Dose: 15 ml Heparin Sodium (Porcine) (Heparin) 5,000 units SC Q12 [facility] PRN Reason: Protocol Last Admin: 08/27/17 09:27 Dose: 5,000 units NOREPINEPHRINE BIT/0.9 % NACL (Levophed 4 Mg/ 250 Ml Ns Premixed) 4 mg in 250 mls @ 15 mls/hr IV .[id number] PRN; Protocol; 4 MCG/MIN PRN Reason: TITRATE PER MD ORDER Last Titration: 08/25/17 22:22 Dose: 0 mcg/min, 0 mls/hr Propofol (Diprivan) 1,000 mg in 100 mls @ 1.755 mls/hr IV .Q24H PRN; Protocol; 5 MCG/KG/MIN PRN Reason: TITRATE PER MD ORDER Last Titration: 08/26/17 16:00 Dose: 0 mcg/kg/min, 0 mls/hr Vancomycin HCl (Vancomycin 1gm) 1 gm in 250 mls @ 167 mls/hr IVPB DAILY [facility] PRN Reason: Protocol Last Admin: 08/27/17 09:25 Dose: 167 mls/hr Azithromycin (Zithromax 500mg In Ns) 500 mg in 250 mls @ 167 mls/hr IVPB DAILY [facility] PRN Reason: Protocol Last Admin: 08/27/17 09:26 Dose: 167 mls/hr Levetiracetam 1,000 mg/ Sodium (Chloride) 110 mls @ 460 mls/hr IV Q12 [facility] Last Admin: 08/27/17 09:26 Dose: 460 mls/hr Potassium Chloride 20 meq/ (Dextrose/Sodium Chloride) 1,010 mls @ 50 mls/hr IV .[id number] [facility] Last Admin: 08/27/17 10:33 Dose: 50 mls/hr Morphine Sulfate (Morphine Tax Clerk 1 Mg/Ml) 25 mls @ 2 mls/hr IV PRN PRN; Protocol ; 2 MG/HR PRN Reason: GIS PHYSICAL SCIENTIST PER MD ORDER Morphine Sulfate (Morphine) 1 mg IVP Q1H PRN PRN Reason: SOB Pantoprazole Sodium (Protonix Inj) 40 mg IVP 0600 [facility] Last Admin: 08/26/17 05:25 Dose: 40 mg - Labs Labs: 08/27/17 06:15 08/27/17 06:15 PT 12.0 SECONDS (9.4-12.5) 08/24/17 00:28 INR 1.10 (0.93-1.08) H 08/24/17 00:28 APTT 28.3 Seconds (25.1-36.5) 08/24/17 00:28 - Constitutional Appears: Chronically Ill - Head Exam Additional comments: obtunded, intubated, and ventilated. Patient extubated terminally this afternoon. - Eye Exam Pupil Exam: Fixed Additional comments: dilated pupils - ENT Exam ENT Exam: Mucous Membranes Moist, Normal External Ear Exam, TM's Normal Bilaterally Additional comments: intubated and ventilated before. Now terminally extubated. - Respiratory Exam Respiratory Exam: Stridor. absent: Rales, Rhonchi, Wheezes Additional comments: was intubated and ventilated. terminally extubated now. labored breathing. - Cardiovascular Exam Cardiovascular Exam: REGULAR RHYTHM, RRR, +S1, +S2 - GI/Abdominal Exam GI & Abdominal Exam: Distended, Soft, Normal Bowel Sounds. absent: Tenderness - Extremities Exam Extremities Exam: Joint Swelling, Pedal Edema - Neurological Exam Neurological Exam: Altered. absent: Alert, Awake, Oriented x3 Assessment and Plan - Assessment and Plan (Free Text) Assessment: 67 yo male with cardiac arrest and down for unknown period of time requiring 3 epinephrine courses with intubation and ventilation. The patient was NOT awake or alert at this time. No fevers of leukocytosis. ID called to rule out sepsis. Most of the patient's symptoms appear to be secondary to severe anoxia leading to significant anoxic brain injury. The patient has dilated pupils and fixed gaze. He is poorly responsive at this time. Currently, I do not see infection as having a role on this patient. Antibiotics of Vancomycin and Azithromycin are for empiric purposes at this time. Any fevers present are most likely secondary to central process which is secondary to the severe anoxic event. Supportive care. The patient has a dismal prognosis at this point. Terminal extubation today. Comfort care. Thank you for allowing me to participate in the care of the patient, we will follow with you if needed.
[2017-08-28] MEDS: Potassium Chloride 20 MEQ in Dextrose 5%/0.9% NS 1,000 ML IV SCH (03:37)
[2017-08-28] MEDS: Morphine PCA 1 mg/ml (25ml) 25 ML IV PRN ×2 (04:51→17:01)
--- NOTE | 2017-08-28 06:51 | CP.PCM.PN ---
Subjective - Date & Time of Evaluation Date of Evaluation: 08/28/17 Time of Evaluation: 06:49 - Subjective Subjective: Mr. Delaney was seen and examined at the bedside. He remains with oxygen via nasal cannula. He has a GCS- 3, on Morphine drip at 2 mg/hr. At present, he has Jose Guadalupe-nair breathing. Patient state awarded guardian signed for terminal extubation yesterday and comfort measures at this time. There was no untoward event overnight. Objective - Vital Signs/Intake and Output Vital Signs (last 24 hours): Temp Pulse Resp BP Pulse Ox 97.4 F L 93 H 20 172/96 H 100 08/28/17 00:00 08/28/17 00:00 08/28/17 00:00 08/28/17 00:00 08/28/17 00:00 Intake and Output: 08/27/17 08/28/17 18:59 06:59 Intake Total 1410 25 Output Total 3650 2200 Balance -2240 -2175 - Medications Medications: Current Medications Acetaminophen (Tylenol 650mg/20.3ml Solution Ud) 975 mg NG Q6 PRN PRN Reason: Rigors Aspirin (Aspirin Chewable) 81 mg PO DAILY [facility] Last Admin: 08/27/17 09:27 Dose: 81 mg Atorvastatin Calcium (Lipitor) 10 mg PO DIN [facility] Last Admin: 08/27/17 16:52 Dose: Not Given Chlorhexidine Gluconate (Peridex) 15 ml PO Q4H PRN PRN Reason: oral care Last Admin: 08/27/17 16:52 Dose: 15 ml Heparin Sodium (Porcine) (Heparin) 5,000 units SC Q12 [facility] PRN Reason: Protocol Last Admin: 08/27/17 21:42 Dose: 5,000 units NOREPINEPHRINE BIT/0.9 % NACL (Levophed 4 Mg/ 250 Ml Ns Premixed) 4 mg in 250 mls @ 15 mls/hr IV .[id number] PRN; Protocol; 4 MCG/MIN PRN Reason: TITRATE PER MD ORDER Last Titration: 08/25/17 22:22 Dose: 0 mcg/min, 0 mls/hr Propofol (Diprivan) 1,000 mg in 100 mls @ 1.755 mls/hr IV .Q24H PRN; Protocol; 5 MCG/KG/MIN PRN Reason: TITRATE PER MD ORDER Last Titration: 08/26/17 16:00 Dose: 0 mcg/kg/min, 0 mls/hr Vancomycin HCl (Vancomycin 1gm) 1 gm in 250 mls @ 167 mls/hr IVPB DAILY [facility] PRN Reason: Protocol Last Admin: 08/27/17 09:25 Dose: 167 mls/hr Azithromycin (Zithromax 500mg In Ns) 500 mg in 250 mls @ 167 mls/hr IVPB DAILY [facility] PRN Reason: Protocol Last Admin: 08/27/17 09:26 Dose: 167 mls/hr Levetiracetam 1,000 mg/ Sodium (Chloride) 110 mls @ 460 mls/hr IV Q12 [facility] Last Admin: 08/27/17 21:13 Dose: 460 mls/hr Potassium Chloride 20 meq/ (Dextrose/Sodium Chloride) 1,010 mls @ 50 mls/hr IV .[id number] [facility] Last Admin: 08/28/17 03:37 Dose: 50 mls/hr Morphine Sulfate (Morphine Bonding Machine Operator 1 Mg/Ml) 25 mls @ 2 mls/hr IV PRN PRN; Protocol ; 2 MG/HR PRN Reason: PRIVATE BRANCH EXCHANGE SERVICE ADVISER PER MD ORDER Last Admin: 08/28/17 04:51 Dose: 2 mg/hr, 2 mls/hr Morphine Sulfate (Morphine) 1 mg IVP Q1H PRN PRN Reason: SOB Pantoprazole Sodium (Protonix Inj) 40 mg IVP 0600 [facility] Last Admin: 08/28/17 05:50 Dose: 40 mg - Labs Labs: 08/27/17 06:15 08/27/17 06:15 PT 12.0 SECONDS (9.4-12.5) 08/24/17 00:28 INR 1.10 (0.93-1.08) H 08/24/17 00:28 APTT 28.3 Seconds (25.1-36.5) 08/24/17 00:28 - Constitutional Appears: No Acute Distress - Neurological Exam Additional comments: He has GCS- 3. Assessment and Plan (1) Cardiac arrest due to other underlying condition Assessment & Plan: Case discussed with Dr. Banks, continue all current treatment. There is no new recommendation from neurology. Status: Acute
[2017-08-28 06:54] LABS: BASO # 0.01 K/mm3 (0.0-2.0); BASO % 0.1 % (0.0-3.0); GRAN # 5.78 (1.4-6.5); GRAN % 80.4 % (50.0-68.0); HEMATOCRIT 35.6 % (42.0-52.0); LYMPH # 0.9 (1.2-3.4); LYMPH % 12.6 % (22.0-35.0); MEAN CELL VOLUME 89.7 fl (80.0-105.0); MEAN CORPUSCULAR HEMOGLOBIN 29.7 pg (25.0-35.0); MEAN CORPUSCULAR HGB CONC 33.1 g/dl (31.0-37.0); MEAN PLATELET VOLUME 11.1 fl (7.0-11.0); MONO # 0.5 (0.1-0.6); MONO % 6.9 % (1.0-6.0); RED CELL DISTRIBUTION WIDTH 13.1 % (11.5-14.5); WHITE BLOOD COUNT 7.2 10^3/ul (4.5-11.0)
[2017-08-28 08:15] LABS: ALKALINE PHOSPHATASE 130 U/L (38-126); ALT/SGPT 89 U/L (7-56); AST/SGOT 70 U/L (17-59); BILIRUBIN,TOTAL 0.4 mg/dL (0.2-1.3); BLOOD UREA NITROGEN 12 mg/dL (7-21); CALCIUM 8.4 mg/dL (8.4-10.5); CARBON DIOXIDE 26 mmol/L (21-33); CHLORIDE 108 mmol/L (98-107); GFR AFRICAN-AMERICAN > 60; GLUCOSE,RANDOM 127 mg/dL (70-110); MAGNESIUM 1.8 mg/dL (1.7-2.2); PHOSPHOROUS 3.6 mg/dL (2.5-4.5); POTASSIUM 3.8 mmol/L (3.6-5.0); SODIUM 139 mmol/L (132-148); TOTAL PROTEIN 5.7 g/dL (5.8-8.3)
--- NOTE | 2017-08-28 09:24 | US ---
HISTORY: Leg pain and swelling. Evaluate for DVT PHYSICIAN(S): Avery Mantilla MD. TECHNIQUE: Duplex sonography and color-flow Doppler with graded compression were used to evaluate the deep venous systems of both lower extremities. FINDINGS: The visualized deep venous systems of both lower extremities are sonographically normal and compressible. Normal wave forms and augmentation are seen. There is no sonographic evidence for deep venous thrombosis in the visualized segments of both lower extremities. IMPRESSION: No sonographic evidence for deep venous thrombosis in the visualized segments of both lower extremities.
--- NOTE | 2017-08-28 09:32 | PN ---
DATE: 08/28/2017 SUBJECTIVE: The patient is nonresponsive. The patient has agonal breathing. PHYSICAL EXAMINATION: VITAL SIGNS: Temperature is 97.3, pulse of 92, blood pressure 158/78, respirations is 18. GENERAL: The patient is lying in bed, flat, comfortable. HEENT: No oral lesion. Anicteric sclerae. Moist mucosa. NECK: No JVD, adenopathy, or thyromegaly. CARDIOVASCULAR: S1 and S2, regular. No murmurs, rubs, or gallops. LUNGS: Clear to auscultation bilaterally. No wheeze, rales, or rhonchi. ABDOMEN: Bowel sounds are positive, soft, nontender and nondistended. EXTREMITIES: No cyanosis, clubbing or edema. LABORATORY DATA: White count is 7.2, hemoglobin is 11.8. Creatinine is 0.7. ASSESSMENT: 1. Cardiac arrest. 2. Anoxic encephalopathy. 3. Status epilepticus. 4. Respiratory failure, status post terminal extubation. 5. Community-acquired pneumonia. 6. Seizure disorder. 7. Hypokalemia, improved. 8. Hypophosphatemia, improved. 9. Hypomagnesemia, improved. 10. Shock liver, improved. 11. DO NOT RESUSCITATE/ALLOW NATURAL . PLAN: The patient is currently comfortable. He is on morphine drip. He is on DVT prophylaxis heparin. He is on Keppra for seizures. The patient is getting terminal extubation. I will discontinue his IV antibiotics and make him comfortable. I will discontinue his oral medications. Overall prognosis is poor. Devante Rubin MD
--- NOTE | 2017-08-28 10:59 | CP.PCM.PN ---
Subjective - Date & Time of Evaluation Date of Evaluation: 08/28/17 Time of Evaluation: 10:00 - Subjective Subjective: Unresponsive, non verbal. Shallow irregular breathing pattern In no acute distress. Objective - Vital Signs/Intake and Output Vital Signs (last 24 hours): Temp Pulse Resp BP Pulse Ox 97.3 F L 92 H 18 158/87 H 100 08/28/17 07:00 08/28/17 07:00 08/28/17 07:00 08/28/17 07:00 08/28/17 07:00 Intake and Output: 08/28/17 08/28/17 06:59 18:59 Intake Total 25 Output Total 2200 Balance -2175 - Medications Medications: Current Medications Acetaminophen (Tylenol 650 Mg Supp) 650 mg RC Q4H PRN PRN Reason: Fever >100.4 F Levetiracetam 1,000 mg/ Sodium (Chloride) 110 mls @ 460 mls/hr IV Q12 [facility]S [facility]CLUDE 234 BEDS AT [facility] Last Admin: 08/27/17 21:13 Dose: 460 mls/hr Morphine Sulfate (Morphine Gps Field Data Collector 1 Mg/Ml) 25 mls @ 2 mls/hr IV PRN PRN; Protocol ; 2 MG/HR PRN Reason: MACHINE STUFFER PER MD ORDER Last Admin: 08/28/17 04:51 Dose: 2 mg/hr, 2 mls/hr Morphine Sulfate (Morphine) 1 mg IVP Q1H PRN PRN Reason: SOB Scopolamine (Transderm-Scop) 1 patch TD Q3D COUNTS INCLUDE 234 BEDS AT THE [facility] - Labs Labs: 08/28/17 06:15 08/28/17 06:15 PT 12.0 SECONDS (9.4-12.5) 08/24/17 00:28 INR 1.10 (0.93-1.08) H 08/24/17 00:28 APTT 28.3 Seconds (25.1-36.5) 08/24/17 00:28 - Constitutional Appears: Chronically Ill - Head Exam Head Exam: NORMOCEPHALIC - Eye Exam Eye Exam: Normal appearance - ENT Exam ENT Exam: Mucous Membranes Moist - Respiratory Exam Respiratory Exam: Decreased Breath Sounds Additional comments: irregular, shallow breathing - Cardiovascular Exam Cardiovascular Exam: REGULAR RHYTHM, +S1, +S2 - GI/Abdominal Exam GI & Abdominal Exam: Soft, Diminished Bowel Sounds - Extremities Exam Extremities Exam: Normal Capillary Refill - Neurological Exam Additional comments: unresponsive - Skin Skin Exam: Pallor, Warm Assessment and Plan - Assessment and Plan (Free Text) Assessment: 67 year old male with history of Parkinson's disease, seizure disorder and developmental delay who is s/p cardiopulmonary arrest,anoxic brain injury, CAPshock lover. He has since been extubated. Medical team has discussed situation and poor prognosis with patient IGLESIA, Gerard Bah. POA requested the patient be terminally extubated and that comfort care be provided. The patient, has shallow irregular breathing. Upper airway congestion, requires gentle suctioning PRN. He is on Morphine drip. Plan: Comfort care measures Morphine 2 mg continuos IV infusion. Discontinue IV fluids Scopolamine transdermal patch. Gentle suctioning as needed Tylenol 650 mg as needed for fever over 100
[2017-08-28] MEDS: levETIRAcetam 1,000 MG in Sodium Chloride 0.9% 100 ML IV SCH ×2 (12:57→22:08)
[2017-08-28] MEDS ORDERED: Morphine 2 mg/ml ISec IVP PRN (13:52)
[2017-08-28 17:11] VITALS: RESP 20
--- NOTE | 2017-08-28 19:58 | CP.PCM.PN ---
Subjective - Date & Time of Evaluation Date of Evaluation: 08/28/17 Time of Evaluation: 15:15 - Subjective Subjective: Infectious Disease Follow Up: August 28, 2017 67 yo male with multiple medical issues. Patient was bought in by EMS after suffering cardiac arrest and PEA. Unknown how long the patient was down. The patient required 3 rounds of epinephrine and requiring intubation and ventilation. The patient is poorly responsive and the patient has been placed on hypothermia protocol. EEG being performed. No signs of brainstem reflexes. The patient does breath over the vent. No new changes. Antibiotics of Vancomycin and Azithromycin on board empirically. Low grade fevers but more likely central secondary to severe anoxic event. Court Appointed Guardian has decided on terminal extubation and comfort care at this time. Transferred to floor. Labored breathing. Objective - Vital Signs/Intake and Output Vital Signs (last 24 hours): Temp Pulse Resp BP Pulse Ox 97.6 F 90 20 110/58 L 98 08/28/17 19:47 08/28/17 17:37 08/28/17 19:47 08/28/17 19:47 08/28/17 17:37 Intake and Output: 08/28/17 08/29/17 18:59 06:59 Intake Total 25 Output Total 400 Balance -375 - Medications Medications: Current Medications Acetaminophen (Tylenol 650 Mg Supp) 650 mg RC Q4H PRN PRN Reason: Fever >100.4 F Levetiracetam 1,000 mg/ Sodium (Chloride) 110 mls @ 460 mls/hr IV Q12 [facility] Last Admin: 08/28/17 12:57 Dose: 460 mls/hr Morphine Sulfate (Morphine Mailing Machine Helper 1 Mg/Ml) 25 mls @ 2 mls/hr IV PRN PRN; Protocol ; 2 MG/HR PRN Reason: AUTOMOTIVE DESIGN LAYOUT DRAFTER PER MD ORDER Last Admin: 08/28/17 17:01 Dose: 2 mg/hr, 2 mls/hr Morphine Sulfate (Morphine) 1 mg IVP Q1H PRN PRN Reason: SOB Scopolamine (Transderm-Scop) 1 patch TD Q3D [facility] Last Admin: 08/28/17 11:37 Dose: 1 patch - Labs Labs: 08/28/17 06:15 08/28/17 06:15 PT 12.0 SECONDS (9.4-12.5) 08/24/17 00:28 INR 1.10 (0.93-1.08) H 08/24/17 00:28 APTT 28.3 Seconds (25.1-36.5) 08/24/17 00:28 - Constitutional Appears: Chronically Ill - Head Exam Additional comments: obtunded, intubated, and ventilated. Patient extubated terminally this afternoon. - Eye Exam Pupil Exam: Fixed Additional comments: dilated pupils - ENT Exam ENT Exam: Mucous Membranes Moist, Normal External Ear Exam, TM's Normal Bilaterally Additional comments: intubated and ventilated before. Now terminally extubated. - Respiratory Exam Additional comments: Agonal breathing. - Cardiovascular Exam Cardiovascular Exam: REGULAR RHYTHM, RRR, +S1, +S2 - GI/Abdominal Exam GI & Abdominal Exam: Soft, Normal Bowel Sounds. absent: Distended, Tenderness - Extremities Exam Extremities Exam: Joint Swelling, Pedal Edema - Neurological Exam Neurological Exam: Altered. absent: Alert, Awake, CN II-XII Intact, Oriented x3 Assessment and Plan - Assessment and Plan (Free Text) Assessment: 67 yo male with cardiac arrest and down for unknown period of time requiring 3 epinephrine courses with intubation and ventilation. The patient was NOT awake or alert at this time. No fevers of leukocytosis. ID called to rule out sepsis. Most of the patient's symptoms appear to be secondary to severe anoxia leading to significant anoxic brain injury. The patient has dilated pupils and fixed gaze. He is poorly responsive at this time. Currently, I do not see infection as having a role on this patient. Antibiotics of Vancomycin and Azithromycin are for empiric purposes at this time. Any fevers present are most likely secondary to central process which is secondary to the severe anoxic event. Supportive care. The patient has a dismal prognosis at this point. Terminal extubation yesterday. Comfort care. Thank you for allowing me to participate in the care of the patient, we will sign of the case at this time. Please reconsult if reevaluation is needed.
--- NOTE | 2017-08-28 21:06 | PN ---
DATE: SUBJECTIVE: The patient was extubated and was sent back to the med/surg floor. He is lethargic and fully responsive. PHYSICAL EXAMINATION: VITAL SIGNS: Blood pressure 158/87, heart rate 92, temperature 97.3 and respirations 18. HEENT: No icterus. NECK: No JVD. CHEST: Diminished breath sounds over the bases. HEART: S1 and S2 regular. EXTREMITIES: No edema. LABORATORY DATA: SMA-7 today; sodium 139, potassium 3.8, chloride 108, CO2 26, glucose 127, BUN 12 and creatinine 0.7. Hemoglobin and hematocrit 11.8 and 35.6, white count is 7.2 and platelet count is within normal limits at 253,000. Yesterday, chest x-ray reports left basilar subsegmental atelectasis, no acute infiltrate. ASSESSMENT: 1. Status post cardiac arrest. 2. Cardiomyopathy. 3. Seizure disorder. 4. Anoxic encephalopathy. 5. 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 RECOMMENDATIONS: Continue current conservative medical approach including IV levetiracetam at 1 g intravenously q. 12 hours. Linwood Dick MD
[2017-08-29] MEDS: Morphine PCA 1 mg/ml (25ml) 25 ML IV PRN ×2 (05:07→17:54)
--- NOTE | 2017-08-29 06:39 | CP.PCM.PN ---
Subjective - Date & Time of Evaluation Date of Evaluation: 08/29/17 Time of Evaluation: 06:36 - Subjective Subjective: Mr. Delaney was seen and examined at the bedside. He remains unresponsive to all stimuli. He has GCS-3. He remains on Morphine drip at 2 ml/hr. He has Jose Guadalupe -Farley breathing. There was no untoward events overnight. Objective - Vital Signs/Intake and Output Vital Signs (last 24 hours): Temp Pulse Resp BP Pulse Ox 97.6 F 90 20 110/58 L 98 08/28/17 19:47 08/28/17 17:37 08/28/17 19:47 08/28/17 19:47 08/28/17 17:37 Intake and Output: 08/28/17 08/29/17 18:59 06:59 Intake Total 25 25 Output Total 400 750 Balance -375 -725 - Medications Medications: Current Medications Acetaminophen (Tylenol 650 Mg Supp) 650 mg RC Q4H PRN PRN Reason: Fever >100.4 F Levetiracetam 1,000 mg/ Sodium (Chloride) 110 mls @ 460 mls/hr IV Q12 [facility] Last Admin: 08/28/17 22:08 Dose: 460 mls/hr Morphine Sulfate (Morphine Punch Out Crew Member 1 Mg/Ml) 25 mls @ 2 mls/hr IV PRN PRN; Protocol ; 2 MG/HR PRN Reason: TRAVEL SPECIALIST PER MD ORDER Last Admin: 08/29/17 05:07 Dose: 2 mg/hr, 2 mls/hr Morphine Sulfate (Morphine) 1 mg IVP Q1H PRN PRN Reason: SOB Scopolamine (Transderm-Scop) 1 patch TD Q3D [facility] Last Admin: 08/28/17 11:37 Dose: 1 patch - Labs Labs: 08/28/17 06:15 08/28/17 06:15 PT 12.0 SECONDS (9.4-12.5) 08/24/17 00:28 INR 1.10 (0.93-1.08) H 08/24/17 00:28 APTT 28.3 Seconds (25.1-36.5) 08/24/17 00:28 - Constitutional Appears: Other - Eye Exam Pupil Exam: Fixed Additional comments: size 4 - Respiratory Exam Additional comments: Jose Guadalupe-Farley breathing - Neurological Exam Additional comments: GCS of 3. Assessment and Plan (1) Cardiac arrest due to other underlying condition Assessment & Plan: Case discussed with Dr. Banks, continue all comfort measures. There is no new recommendation from neurology. Status: Acute
[2017-08-29] MEDS ORDERED: DiphenhydrAMINE 50 mg/ml Inj IVP STA ×2 (09:20→10:16)
[2017-08-29] MEDS ORDERED: DiphenhydrAMINE 50 mg/ml Inj IVP SCH (09:30)
--- NOTE | 2017-08-29 10:09 | CP.PCM.PN ---
Subjective - Date & Time of Evaluation Date of Evaluation: 08/29/17 Time of Evaluation: 08:00 - Subjective Subjective: Unresponsive, shallow irregular breathing. Upper airway congestion. Objective - Vital Signs/Intake and Output Vital Signs (last 24 hours): Temp Pulse Resp BP Pulse Ox 98.1 F 102 H 20 166/83 H 94 L 08/29/17 08:21 08/29/17 08:21 08/29/17 08:21 08/29/17 08:21 08/29/17 08:21 Intake and Output: 08/29/17 08/29/17 06:59 18:59 Intake Total 25 Output Total 750 Balance -725 - Medications Medications: Current Medications Acetaminophen (Tylenol 650 Mg Supp) 650 mg RC Q4H PRN PRN Reason: Fever >100.4 F Diphenhydramine HCl (Benadryl) 50 mg IVP Q4H [facility] Stop: 08/29/17 09:21 Diphenhydramine HCl (Benadryl) 50 mg IVP Q12H [facility] Levetiracetam 1,000 mg/ Sodium (Chloride) 110 mls @ 460 mls/hr IV Q12 [facility] Last Admin: 08/28/17 22:08 Dose: 460 mls/hr Morphine Sulfate (Morphine Dip Tube Assembler Machine 1 Mg/Ml) 25 mls @ 2 mls/hr IV PRN PRN; Protocol ; 2 MG/HR PRN Reason: LOADER SEMICONDUCTOR DIES PER MD ORDER Last Admin: 08/29/17 05:07 Dose: 2 mg/hr, 2 mls/hr Morphine Sulfate (Morphine) 1 mg IVP Q1H PRN PRN Reason: SOB Scopolamine (Transderm-Scop) 1 patch TD Q3D [facility] Last Admin: 08/28/17 11:37 Dose: 1 patch - Labs Labs: 08/28/17 06:15 08/28/17 06:15 PT 12.0 SECONDS (9.4-12.5) 08/24/17 00:28 INR 1.10 (0.93-1.08) H 08/24/17 00:28 APTT 28.3 Seconds (25.1-36.5) 08/24/17 00:28 - Constitutional Appears: No Acute Distress - Eye Exam Eye Exam: Normal appearance - ENT Exam ENT Exam: Mucous Membranes Dry - Respiratory Exam Respiratory Exam: Decreased Breath Sounds - Cardiovascular Exam Cardiovascular Exam: REGULAR RHYTHM, +S1, +S2 - GI/Abdominal Exam GI & Abdominal Exam: Soft, Diminished Bowel Sounds - Extremities Exam Extremities Exam: Normal Capillary Refill - Neurological Exam Additional comments: unresponsive - Skin Skin Exam: Pallor, Warm Assessment and Plan - Assessment and Plan (Free Text) Assessment: 67 year old male with history of Parkinson's disease, seizure disorder, developmental dealy who is s/p cardiopulmonary arrest, anoxic brain injury, pneumonia, respiratory failure s/p extubation The patient is receiving comfort measures only. He has upper airway congestion. He is receiving Morphine 2 mg IV continuos infusion. Will reach to POA to discuss end of life planning. Plan: Benadryl 50 mg IV now and then every 12 hours to relieve upper airway congestion. Gentle suctioning as needed
[2017-08-29] MEDS: levETIRAcetam 1,000 MG in Sodium Chloride 0.9% 100 ML IV SCH (10:18)
[2017-08-29 16:05] VITALS: BP 143/97; PULSE 101; TEMP 97.9; O2SAT 90
--- NOTE | 2017-08-29 19:55 | CP.PCM.PRO ---
Pronouncement of Note - Pronouncement Time Time of Pronouncement of : 19:45 - Notifications Pronouncement Notifications: Family Notified ( called family member.) , Atending Notified (Nurse called .) Rating Clerk Notified: No - Autopsy Autopsy Requested: No - [place] [id number]
--- NOTE | 2017-08-29 20:25 | PN ---
DATE: 08/29/2017 SUBJECTIVE: The patient has agonal breathing. PHYSICAL EXAMINATION VITAL SIGNS: Temperature is 98.1, pulse of 102, blood pressure 166/83, and respirations 20. GENERAL: The patient is lying in bed, flat, comfortable. HEENT: No oral lesion. Anicteric sclerae. Moist mucosa. NECK: No JVD, adenopathy, or thyromegaly. CARDIOVASCULAR: S1 and S2, regular. No murmurs, rubs, or gallops. LUNGS: Clear to auscultation bilaterally. No wheeze, rales, or rhonchi. ABDOMEN: Bowel sounds are positive, soft, nontender and nondistended. EXTREMITIES: No cyanosis, clubbing or edema. ASSESSMENT: 1. Status post cardiac arrest. 2. Anoxic encephalopathy. 3. Status epilepticus. 4. Respiratory failure, status post terminal extubation. 5. Community-acquired pneumonia. 6. Seizure disorder. 7. Hypokalemia, improved. 8. Hypophosphatemia, improved. 9. Hypomagnesemia, improved. 10. Shock liver, improved. 11. DO NOT RESUSCITATE/DO NOT INTUBATE. PLAN: The patient is currently on morphine drip. He is on Benadryl. He is comfortable. He is on Keppra for seizures. The patient is on scopolamine patch. Devante Rubin MD
--- NOTE | 2017-08-30 12:05 | PQF RESP ---
08/30/17 Dr. Rubin, Respiratory failure is documented throughout this chart. Please specify whether this is acute/chronic, with or without hypoxia/hypercapnia, as listed below. Thank you. acute hypoxic resiratory failure Clarification of your documentation is requested to better reflect the severity of illness and intensity of treatment of your patient. Indicators present [] Use of Home Oxygen [] Respiratory rate > 28 or <8/min (Labored respirations) [] PCO2 > 50 mm Hg or (Hypercapnia) (somnolence) [] PaO2 < 60 mm Hg or Hypoxemia (confusion) [] ABG blood gas pH < 7.35 [] SpO2 < 90% sat on Room Air [] Cyanosis [] Unable to Speak in Full Sentences [] Use of Accessory Muscles / Tripoding [] Wheezing [] Other: [] Location in the medical record that reflects the above clinical findings: [] Treatment Provided: [] PHYSICIAN'S RESPONSE Based on your medical judgment of the clinical indicators outlined above, are you treating this patient for a known or suspected: [] Acute Respiratory Failure (hypoxia or hypercapnia) [] Chronic Respiratory Failure (hypoxia or hypercapnia) [] Acute on Chronic Respiratory Failure (hypoxia or hypercapnia) [] Hypoxemia please specify ACUTE, CHRONIC or ACUTE on CHRONIC [] Other []_ [] If unable to determine, please check the box, sign and date. Present On Admission (POA) Indicator: [] Present at the time of admission [] Not present at the time of admission [] Clinically Undetermined In responding to this query, please exercise your independent professional judgment. The fact that a question is asked does not imply that any particular answer is desired or expected. Thank you for your clarification on this documentation. If you have any questions please call:[ ] * Thank you, [ ] field enumerator Chronic Respiratory Failure Description: Respiratory failure is a syndrome in which the respiratory system fails in one or both of its gas exchange functions: oxygenation and carbon dioxide elimination. In theory, respiratory failure is defined as a Pa02 value of <60 mm/Hg or a PaC02 of >50 mm/Hg. However, these values may be affected by renal compensation. Respiratory failure may be acute or chronic. While acute respiratory failure is characterized by life-threatening derangement in arterial blood gases and acid-base balance, the manifestations of chronic respiratory failure are less dramatic and may not be as readily apparent. Classifications: Respiratory failure may be classified as hypoxemic (usually characterized by Pa02 of <60 mm/Hg) or hypercapnic (usually characterized by PaC02 >50 mm/Hg) and either may be acute or chronic. Chronic hypercapnic respiratory failure develops over time and allows for renal compensation and an increase in bicarbonate concentration; therefore the pH is usually only slightly decreased. The distinction between acute and chronic hypoxemic respiratory failure cannot readily be made on the basis of ABGs; the clinical markers of chronic hypoxemia, such as polythycemia or cor pulmonale suggest a long standing disorder (chronic hypoxemic respiratory failure). Clinical Indicators: dyspnea at rest or "chronic" dyspnea, concomitant conditions such as polycythemia or cor pulmonale, requirement for continuous oxygen support, forced expiratory volume in one second (FEV1) of 49 or less, pursed lip breathing, "barrel" chest, hyperinflation by CXR, muscle wasting, malnutrition/obesity, poor exercise capacity, peripheral edema, description as a "blue bloater" (usually associated with chronic, obstructive bronchitis) or "pink puffer" (usually associated with emphysema) Risks: Chronic Hypoxemic Respiratory Failure - COPD, pulmonary fibrosis, asthma , pulmonary arterial hypertension, granulomatous lung diseases, congenital heart disease, bronchiectasis, kyphoscoliosis, obesity; Chronic Hypercapnic Respiratory Failure - COPD, severe asthma, myasthenia gravis, polyneuropathy, polio, head and cervical spine injuries, obesity hypoventilation syndrome. Treatment: supplemental oxygen, bronchodilators, corticosteroids, adequate nutrition, lung transplant References: Am. J. Respir. Crit. Care Med. "Global Strategy for the Diagnosis, Management and Prevention of COPD: GOLD Exectuive Summary," Seng Veras [place] - 2007; Proceedings of the [employer] "Mechanisms and Measurements of Dyspnea in COPD," Brianne - 2006; WebMD; Respiratory Failure, Patrick Reed MD - 04/2006; [employer]aja's Principles of Internal Medicine, 17th edition. Acute Respiratory Failure Acute Respiratory Failure indicators include: ~Respirations >28 ~Air hunger ~Use of accessory muscles of respiration ~Inability to speak in full sentences Cyanosis ~Pulse ox <90% RA or <95% on O2 pH <7.35 or >7.45 ~pO2 < 60 mm Hg (or 10mm below COPD patient's baseline) ~pCO2 >50mm Hg (or 10mm above COPD patient's baseline) "Respiratory failure may be assigned as a principal diagnosis when it is the condition established after study to be chiefly responsible for occasioning admission to the hospital. The fact that the respiratory failure was managed without intubation and mechanical ventilation does not preclude its use." [facility], 3rd Qtr., 1988, p. 7 MTDD
--- NOTE | 2017-08-30 14:24 | DS ---
HOSPITAL COURSE: This is a 67-year-old male who had come in to the hospital after cardiac arrest. The patient most likely had a ventricular arrhythmia. He was intubated in the ICU for further management. He had no improvement of his symptoms. He is having breakthrough seizures and is placed on IV medications for seizures. After discussion with the patient's power of commercial litigation attorney, the patient was made . ASSESSMENT: 1. Status post cardiac arrest most probably from ventricular fibrillation arrest. 2. Anoxic encephalopathy. 3. Status epilepticus. 4. Respiratory failure, status post terminal extubation. 5. Community-acquired pneumonia. 6. Seizure disorder. 7. Hypokalemia, improved. 8. Hypophosphatemia, improved. 9. Hypomagnesemia, improved. 10. Shock liver, improved. 11. DO NOT RESUSCITATE/DO NOT INTUBATE. Devante Rubin MD
== END 2017-08-29 19:45 | DRG 296 ==
LOC: ED 18:59 → ERH 22:14 → CCU 08-24 00:06 → 5RNO 08-27 20:39
PROVIDERS: ADMIT Internal Medicine Nephrology; ATTEND Internal Medicine Nephrology
PROC: 5A1945Z Respiratory Ventilation, 24-96 Consecutive Hours (ICD-10-PCS; principal; 2017-08-23)
PROC: 06HY33Z Insertion of Infusion Device into Lower Vein, Percutaneous Approach (ICD-10-PCS; 2017-08-23)
DX: I46.2 Cardiac arrest due to underlying cardiac condition (principal); J18.9 Pneumonia, unspecified organism; K72.00 Acute and subacute hepatic failure without coma; J96.01 Acute respiratory failure with hypoxia; Z99.11 Dependence on respirator [ventilator] status; G93.1 Anoxic brain damage, not elsewhere classified; I42.9 Cardiomyopathy, unspecified; F02.81 Dementia in other diseases classified elsewhere, unspecified severity, with behavioral disturbance; G40.901 Epilepsy, unspecified, not intractable, with status epilepticus; H57.04 Mydriasis; I10 Essential (primary) hypertension; Z66 Do not resuscitate; G30.9 Alzheimer's disease, unspecified; G20 Parkinson's disease; F20.9 Schizophrenia, unspecified; R62.50 Unspecified lack of expected normal physiological development in childhood; E11.65 Type 2 diabetes mellitus with hyperglycemia; E83.39 Other disorders of phosphorus metabolism; E83.42 Hypomagnesemia; E87.6 Hypokalemia; Z79.82 Long term (current) use of aspirin; Z79.899 Other long term (current) drug therapy; Z80.3 Family history of malignant neoplasm of breast; Z82.49 Family history of ischemic heart disease and other diseases of the circulatory system; Z86.73 Personal history of transient ischemic attack (TIA), and cerebral infarction without residual deficits